=== PATIENT | female | born 1960 | race Caucasian/White ===

== ENCOUNTER 2021-06-06 13:23 | Emergency (ER) | payer OTHER, SELFPAY ==
--- NOTE | 2021-06-06 13:39 | ED.WOUNDLAC ---
HPI - Wound/Laceration General Chief Complaint: Skin/Abscess/Foreign Body Stated Complaint: Laceration to Left Finger Time Seen by Provider: 06/06/21 13:49 Source: patient and RN notes reviewed Mode of arrival: ambulatory Limitations: no limitations History of Present Illness HPI narrative: 61-year-old female presents concern for laceration to the palmar aspect of the distal third digit of the left hand. Reports she sliced it on a meat hanger prior to arrival at work. She reports she is on blood thinners and the area has been bleeding a lot. She reports she is not up-to-date on her tetanus vaccination Related Data Home Medications Medication Instructions Recorded Confirmed hydroxychloroquine 200 mg tablet 200 mg PO DAILY 02/19/19 06/06/21 levothyroxine 88 mcg tablet 88 mcg PO DAILY 02/19/19 06/06/21 lorazepam 0.5 mg tablet 0.5 mg PO DAILY PRN 02/19/19 06/06/21 methotrexate sodium 5 mg tablet 2.5 mg PO WEEKLY 02/19/19 06/06/21 clopidogrel 75 mg PO DAILY 06/06/21 06/06/21 lovastatin 40 mg PO DAILY 06/06/21 06/06/21 Allergies Allergy/AdvReac Type Severity Reaction Status Date / Time No Known Allergies Allergy Verified 06/06/21 14:05 Review of Systems Review of Systems: CONSTITUTIONAL: Denies malaise, chills, sweats, or fever. SKIN: Reports laceration to the palmar aspect of the third digit of the left hand MUSCULOSKELETAL: Denies muscle skeletal pain NEUROLOGIC: Denies numbness, weakness All systems reviewed & are unremarkable except as noted in HPI and below PMFSH Family History Family History (Updated 07/21/16 @ 23:56 by DOCTOR UNKNOWN) Mother Hypertension Family history of rheumatoid arthritis Father Family history of lung cancer, Onset Age: 64 Patient's father is Social History Social History Smoking status: Never smoker Second hand tobacco smoke exposure: No Alcohol intake: current Comments At time of signature, agree with nursing past medical, surgical, social and family history. There is no relevant family history pertinent to the presenting complaint Exam Narrative: GENERAL: Well-appearing, well-nourished, and in no acute distress. HEAD: Normocephalic EYES: PERRLA, conjunctivae clear NECK: Supple. CHEST: Speaks in full sentences. No respiratory distress. HEART: Regular rate and rhythm. Normal and equal peripheral pulses. EXTREMITIES: Third digit of left hand has normal strength and sensation. 5/5 strength with digit flexion, extension. Range of motion normal. No clubbing, cyanosis, or edema noted. No tenderness. Normal digital cascade with flexion of fingers, median, ulnar and radial nerve intact. Normal sensation of each side of finger. Can perform 'okay' sign, 'cross over finger test of index and middle fingers' and 'thumbs up' sign. No scissoring. Normal thumb opposition. Good capillary refill and radial pulse. Distal capillary refill less than 3 seconds. Patient is right hand dominant SKIN: Warn, dry, intact, pink. Skin avulsion noted to the palmar aspect of the third digit of the left hand approximately 3 cm x 1 cm NEURO: Alert and oriented x3. PSYCH: Normal mood and affect Course Course Emergency Course: Right gel applied with pressure dressing for greater than 10 minutes. Surgicel applied with pressure held until hemostasis achieved. Tube gauze applied Patient is aware of diagnosis, understands and agrees to treatment plan. Anticipatory guidance given. Patient agrees to follow-up as directed and is aware of reasons to seek care at the emergency department. Portions of this record may have been created with voice recognition software Level of Care: Express Care Visit Vital Signs Vital signs: Reviewed. MDM - Wound/Laceration MDM Narrative Medical decision making narrative: Exam findings show no acute concerns or changes; patient is non-toxic appearing and is in no distress. Patient is appropriate for outpatient treatment and follow-up. Differenti
[2021-06-06 13:40] VITALS: BP 154/83; PULSE 73; RESP 20; TEMP 36.7; O2SAT 100
[2021-06-06] MEDS: LIDOCAINE, EPINEPHRINE, TETRACAINE VISCOUS SOLN 3 ML TOPICAL (13:58)
[2021-06-06] MEDS: TETANUS,DIPHTHERIA,AC PERTUSSIS ADULT (0.5 ML) BOOSTRIX IM (13:59)
== END 2021-06-06 15:06 | disposition home or self-care (01) ==
PROVIDERS: Emergency Provider Nurse Practitioner
DX: S61.203A Unspecified open wound of left middle finger without damage to nail, initial encounter (principal); W29.0XXA Contact with powered kitchen appliance, initial encounter; Y99.0 Civilian activity done for income or pay; Z23 Encounter for immunization; E78.00 Pure hypercholesterolemia, unspecified; I10 Essential (primary) hypertension; I25.2 Old myocardial infarction; Z95.5 Presence of coronary angioplasty implant and graft; M06.9 Rheumatoid arthritis, unspecified
CPT/HCPCS: 90471; 90715; 99212; G0463

== ENCOUNTER 2024-01-03 14:35 | Outpatient (CLI) | payer OTHER, SELFPAY ==
[2024-01-03 18:55] LABS: Add Urine Microscopic? NO; Appearance Urine Clear (Clear); Bilirubin Urine Negative (Negative); Blood Urine Negative (Negative); Color Urine Yellow (Yellow); Glucose Urine UA Negative (Negative); Ketones Urine Negative (Negative); Leukocyte Esterase Ur Negative LEU/UL (Negative); Nitrate Urine Negative (Negative); Protein Urine Negative (Negative); Specific Grav Ur 1.017 (1.001-1.035)
[2024-01-03 19:08] LABS: Erythrocyte Sedimentation Rate 18 mm/hr (0-20)
[2024-01-03 19:25] LABS: Rheumatoid Factor < 12.0 IU/ML (<12)
[2024-01-03 19:25] LABS: CRP < 0.5 mg/dL (<1.0); Uric Acid 4.7 mg/dL (2.5-7.5)
[2024-01-04 10:27] LABS: ANA Cascade Screen NEGATIVE (NEGATIVE)
[2024-01-05 12:53] LABS: NIL 0.02 IU/mL; Quantiferon TB Plus, 1T NEGATIVE (NEGATIVE); TB1-NIL <0.00 IU/mL
[2024-01-11 16:25] LABS: Anti Cyclic Citrullinated Pept <16 UNITS
== END 2024-01-03 14:36 | disposition home or self-care (01) ==
PROVIDERS: Visit Provider Internal Medicine
DX: M06.9 Rheumatoid arthritis, unspecified (principal); Z79.899 Other long term (current) drug therapy
CPT/HCPCS: 36415; 81003; 84550; 85652; 86038; 86140; 86200; 86225; 86235; 86364; 86430; 86480; 87086

== ENCOUNTER 2024-11-04 09:53 | Outpatient (CLI) | payer MEDICARE, SELFPAY ==
--- OUTSIDE RECORDS SUMMARY | 2024-11-04 10:00 | XMS_ITS | Encounter Summary ---
Author Organization [facility] Address [address] [place] [address] Phone Care Team Providers Care Hr Assistant Name Role Phone Haydee Rust MD Primary Care Provider + [phone] Timmy Devries MD Unavailable [phone] Irwin Zee MD Unavailable UnaJeny Houser MD Primary Care Provider + [phone] Husam Gomez DPAsim Unavailable Unavailable Edgar Ordaz Primary Care Provider + [phone] Malini Aparicio DOVETAIL MACHINE OPERATOR, SHIPPING RECEIVING MANAGER Unavailable + [phone] Malini Aparicio DOVETAIL MACHINE OPERATOR, SHIPPING RECEIVING MANAGER Unavailable + [phone] Reason for Visit * Reason Onset Date Comments Medication Refill Medication Refill 12/29/2019 Encounter Details Date Type Department Care Team (Late st Contact Info) Description 12/26/2019 Refill [facility] - [address] [place] [address] Haydee Rust MD [address] [place] [address] Medication Refill; Medication Refill Social History Tobacco Use Types Packs/Day Years Used Date Smoking Tobacco: Never Smokeless Tobacco: Never Alcohol Use Standard Drinks/Week Comments Yes 0 (1 standard drink = 0.6 oz pur e alcohol) PHQ-2 Answer Date Recorded Total Score - Questions 1-9 13 09/15 Comments No Sex and Gender Information Value Date Recorded Sex Assigned at Not on file Legal Sex Female 9:43 PM CDT Gender Identity Not on file Sexual Orientation Not on file documented as of this encounter Miscellaneous Notes * Telephone Encounter - Altagracia Fernandez - 12/27/2019 9:36 AM CDT Unable to sign per policy Routing for provider review and approval Thanks! documented in this encounter Plan of Treatment Upcoming Encounters Date Type Department Care Team (Late st Contact Info) Description 12/22/2024 8:40 AM CD[facility] [place] [address] [place] [address] [facility] 12/29/2024 10:30 AM CDT Office Visit [facility] Primary Care - [place] [address] [place] [address] Edgar Ordaz PAC [address] [place] [address] 07/06/2025 10:00 AM CDT Office Visit [facility] - Cardiology - [place] [address] [place] [address] Erin Up APRN, SHIPPING RECEIVING MANAGER [address] [place] [address] documented as of this encounter Visit Diagnoses Diagnosis Anxiety Anxiety state, unspecified documented in this encounter Additional Health Concerns Infection Onset Date Last Indicated Resolved Time Other 12/30/2019 12/30/2019 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 - 19 Confirmed 12/30/2019 12/30/2019 12:18 AM CDT Respiratory Rule Out - RPA 02/16/2023 02/16/202304/18/2022 2:08 PM CDT Assessment Noted Time PHQ-9 Depression Total Score: 13 020 11:00 AM CDT documented as of this encounter Care Teams Hr Assistant Relationship Specialty Start Date End Date Haydee Rust MD PCP - General Family Medicine 01/27/15 05/07/22 Jeny Jarrett MD [address] [place], [place] [id number] PCP - General Family Medicine 05/08/22 06/20/23 Edgar Ordaz, [facility] [address] [place] [address] PCP - General Physician Clinical Appeals Reviewer 06/21/23 Timmy Devries MD [address] [facility] [address] [place] [address] Obstetrics & Gynecology 08/31/16 Irwin Zee MD [address] [facility] [address] [place] [address] Consulting Physician Cardiovascular Disease - Cardiology 11/08/21 03/18/24 Husam Gomez DPM Podiatry 12/07/21 Malini Aparicio APRN, SHIPPING RECEIVING MANAGER [address] [facility], [address] [place] [address] Nurse Practitioner Advanced Practice Nurse 10/19/23 Malini Aparicio APRN, SHIPPING RECEIVING MANAGER [address] [facility], [address] [place] [address] Nurse Practitioner Cardiology 07/09/24 10/21/24 documented as of this encounter
--- OUTSIDE RECORDS SUMMARY | 2024-11-04 10:00 | XMS_ITS | Encounter Summary ---
Author Organization [facility] Address [address] [place] [address] Phone Care Team Providers Care Gastroenterology Professor Name Role Phone Haydee Rust MD Primary Care Provider + [phone] Timmy Devries MD Unavailable [phone] Irwin Zee MD Unavailable UnaJeny Houser MD Primary Care Provider + [phone] Husam Gomez DPAsim Unavailable Unavailable Edgar Ordaz Primary Care Provider + [phone] Malini Aparicio GRADUATE ASSISTANT, TEACHER COUNSELOR Unavailable + [phone] Malini Aparicio GRADUATE ASSISTANT, TEACHER COUNSELOR Unavailable + [phone] Reason for Visit * Reason Comments Medication Refill Encounter Details Date Type Department Care Team (Late st Contact Info) Description 12/31/2020 Refill [facility] - Primary Care - [place] [address] [place] [address] Haydee Rust MD [address] [place] [address] Medication Refill Social History Tobacco Use Types [...] encounter Miscellaneous Notes * Telephone Encounter - Cira Mauricio RN - 12/31/2020 8:45 AM CDT [place] last fill date 11/22/20 Medication failed the protocol, provider to review and approve the medication order if appropriate. Requested Prescriptions Pending Prescriptions Disp Refills LORazepam (ATIVAN) 0.5 MG Tablet [Pharmacy Med Name: LORazepam 0.5 MG Oral Tablet] 30 Tablet 0 Sig: TAKE 1 TABLET BY MOUTH NIGHTLY NEEDED FOR SLEEP [facility] Not Delegated - Anesthesia: Anesthetics & Sedatives Failed - 12/31/2020 8:45 AM Failed - This refill cannot be delegated Passed - Valid encounter within last 6 months Past Office Visits Recent Outpatient Visits 1 month ago Physical exam, annual (Adult) [facility] Haydee Rust MD 7 months ago Hyperlipidemia, unspecified hyperlipidemia type [facility] Haydee Rust MD 1 year ago Physical exam, annual (Adult) [facility] Haydee Rust MD 1 year ago Allergic dermatitis due to poison kimi [facility] Haydee Rust MD 1 year ago Anxiety [facility] Haydee Rust MD Upcoming Appointments Future Appointments In 10 months [facility] In 10 months Haydee Rust MD [facility] SALES SERVICE ROUTE MANAGER - Recent and Past Visits Recent Visits Date Type Provider Dept 11/11/20 Office Visit Haydee Rust MD [facility] 05/06/20 Telemedicine Haydee Rust MD [facility] 11/04/19 Office Visit Haydee Rust MD [facility] 10/06/19 Office Visit Haydee Rust MD [facility] Showing recent visits within past 460 days with a meds authorizing provider and meeting all other requirements Future Appointments No visits were found meeting these conditions. Showing future appointments within next 90 days with a meds authorizing provider and meeting all other requirements documented in this encounter Plan of Treatment Upcoming Encounters Date Type Department Care Team (Late st Contact Info) Description 12/22/2024 8:40 AM CDT Lab [facility] [place] [address] [place] [address] [facility] 12/29/2024 10:30 AM CDT Office Visit [facility] Primary [facility] - [place] [address] [place] [address] Edgar Ordaz PAC [address] [place] [address] 07/06/2025 10:00 AM CDT Office Visit [facility] - [place] [address] [place] [address] Erin Up APRN, TEACHER COUNSELOR [address] [place] [address] documented as of this encounter Visit Diagnoses Diagnosis Anxiety Anxiety state, unspecified documented in this encounter Additional Health Concerns Infection Onset Date Last Indicated Resolved Time Other 12/30/2019 12/30/2019 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 Respiratory Rule Out - RPA 02/16/2023 02/16/2023 1 04/18/2022 2:08 PM CDT Assessment Noted Time PHQ-9 Depression Total Score: 13 020 11:00 AM CDT documented as of this encounter Care Teams Gastroenterology Professor Relationship Specialty Start Date End Date Haydee Rust MD PCP - General Family Medicine 01/27/15 05/07/22 Jeny Jarrett MD [address] [place] [address] PCP - General Family Medicine 05/08/22 06/20/23 Edgar Ordaz, PAC [address] [place] [address] PCP - General Physician Sheriff Deputy 06/21/23 Timmy Devries MD [address] [facility] [address] [place] [address] Obstetrics & Gynecology 08/31/16 Irwin Zee MD [address] [facility] [address] [place] [address] Consulting Physician Cardiovascular Disease - Cardiology 11/08/21 03/18/24 Husam Gomez DPM Podiatry 12/07/21 Malini Aparicio APRN, TEACHER COUNSELOR [address] [facility], [address] [place] [address] Nurse Practitioner Advanced Practice Nurse 10/19/23 Malini Aparicio APRN, TEACHER COUNSELOR [address] [facility], [address] [place] [address] Nurse Practitioner Cardiology 07/09/24 10/21/24 documented as of this encounter
--- OUTSIDE RECORDS SUMMARY | 2024-11-04 10:00 | XMS_ITS | Encounter Summary ---
Author Organization [facility] Address [address] [place] [address] Phone Care Team Providers Care Director Translational Name Role Phone Timmy Devries MD Unavailable [phone] Irwin Zee MD Unavailable UnaJeny Houser MD Primary Care Provider + [phone] Husam Gomez DPM Unavailable Unavailable Edgar Ordaz Primary Care Provider + [phone] Malini Aparicio PHYSICIAN NEONATOLOGY, STRING CUTTER Unavailable + [phone] Malini Aparicio PHYSICIAN NEONATOLOGY, STRING CUTTER Unavailable + [phone] Reason for Visit * Reason Comments Medication Refill Encounter Details Date Type Department Care Team (Late st Contact Info) Description 09/26/2022 Refill [facility] - Primary Care - [place] [address] [place] [address] Haydee Rust MD [address] [place] [address] Medication Refill Social History Tobacco Use Types Packs/Day Years Used Date Smoking Tobacco: Never Smokeless Tobacco: Never Alcohol Use Standard Drinks/Week Comments Not Currently 0 (1 standard drink = 0.6 oz pur e alcohol) PHQ-2 Answer Date Recorded Total Score - Questions 1-9 13 09/15 Education Answer Date Recorded What is the highest level of school you have completed or the highest degree you have received? 12th grade 05/07/2022 Comments No Sex and Gender Information Value Date Recorded Sex Assigned at Not on file Legal Sex Female 9:43 PM CDT Gender Identity Not on file Sexual Orientation Not on file documented as of this encounter Miscellaneous Notes * Telephone Encounter - Edgar Ordaz PAC - 09/27/2022 9:25 AM CDT Rx request approved. * Telephone Encounter - Mary More RN - 09/26/2022 11:02 AM CDT Medication failed the protocol, provider to review and approve the medication order if appropriate. Requested Prescriptions Pending Prescriptions Disp Refills lovastatin (MEVACOR) 40 MG Tablet [Pharmacy Med Name: Lovastatin 40 MG Oral Tablet] 90 Tablet 0 Sig: TAKE 1 TABLET BY MOUTH ONCE DAILY IN THE EVENING Hmg CoA Reductase Inhibitors Protocol Failed - 09/26/2022 10:52 AM Failed - Lipid panel in past 12 months LDL Date Value Ref Range Status 05/01/2022 63 0 - 130 mg/dL Final 05/01/2022 63 0 - 130 mg/dL Final HDL CHOLESTEROL Date Value Ref Range Status 08/01/2021 67.7 >40 mg/dL Final CHOLESTEROL Date Value Ref Range Status 08/01/2021 118 <=200 mg/dL Final TRIGLYCERIDES Date Value Ref Range Status 08/01/2021 44 <150 mg/dL Final VLDL Date Value Ref Range Status 08/01/2021 9 5 - 55 mg/dL Final CHOL/HDL RATIO Date Value Ref Range Status 08/01/2021 1.7 0.0 - 4.4 Final NON-HDL CHOLESTEROL Date Value Ref Range Status 08/01/2021 50.3 <130 mg/dL Final Passed - Visit with relevant provider in past 12 months or upcoming 90 days Recent Visits Date Type Provider Dept 05/08/22 Office Visit Jeny Jarrett MD [facility] 03/15/22 Office Visit Edgar Ordaz PAC [facility] 02/28/22 Office Visit Maria Victoria Horton APRN, STRING CUTTER [facility] 11/01/21 Office Visit Haydee Rust MD [facility] Showing recent visits within past 365 days and meeting all other requirements Future Appointments Date Type Provider Dept 11/06/22 Appointment Jeny Jarrett MD [facility] Showing future appointments within next 90 days and meeting all other requirements documented in this encounter Plan of Treatment Upcoming Encounters Date Type Department Care Team (Late st Contact Info) Description 12/22/2024 8:40 AM CDT Lab [facility] - [place] [id number] [place] [address] [facility] 12/29/2024 10:30 AM CDT Office Visit [facility] - [place] [address] [place] [address] Edgar Ordaz PAC [address] [place] [address] 07/06/2025 10:00 AM CDT Office Visit [facility] - Cardiology - [place] [address] [place] [address] Erin Up APRN, STRING CUTTER [address] [place] [address] documented as of this encounter Visit Diagnoses Diagnosis Hyperlipidemia, unspecified hyperlipidemia type documented in this encounter Additional Health Concerns Infection Onset Date Last Indicated Resolved Time Respiratory Rule Out - RPA 02/16/2023 02/16/2023 1 04/18/2022 2:08 PM CDT Assessment Noted Time PHQ-9 Depression Total Score: 13 020 11:00 AM CDT documented as of this encounter Care Teams Director Translational Relationship Specialty Start Date End Date Jeny Jarrett MD [address] [place] [address] PCP - General Family Medicine 05/08/22 06/20/23 Edgar Ordaz, PAC [address] [place] [address] PCP - General Physician Latex Spooler 06/21/23 Timmy Devries MD [address] [facility] [address] [place] [address] Obstetrics & Gynecology 08/31/16 Irwin Zee MD [address] [facility] [address] [place] [address] Consulting Physician Cardiovascular Disease - Cardiology 11/08/21 03/18/24 Husam Gomez DPM Podiatry 12/07/21 Malini Aparicio APRN, STRING CUTTER [address] [facility], [address] [place] [address] Nurse Practitioner Advanced Practice Nurse 10/19/23 Malini Aparicio APRN, STRING CUTTER [address] [facility], [address] [place] [address] Nurse Practitioner Cardiology 07/09/24 10/21/24 documented as of this encounter
--- OUTSIDE RECORDS SUMMARY | 2024-11-04 10:00 | XMS_ITS | Encounter Summary ---
Author Organization [facility] Address [address] [place] [address] Phone Care Team Providers Care Polysomnograph Tech Name Role Phone Timmy Devries MD Unavailable [phone] Irwin Zee MD Unavailable Husam Marx DPAsim Unavailable Unavailable Edgar Ordaz Primary Care Provider [phone] Malini Aparicio CHARGEBACK SPECIALIST, INVENTORY CONTROL ASSISTANT Unavailable + [phone] Malini Aparicio APRN, INVENTORY CONTROL ASSISTANT Unavailable + [phone] Reason for Visit * Reason Comments Medication Refill Encounter Details Date Type Department Care Team (Late st Contact Info) Description 06/21/2023 Refill [facility] - Primary Care - [place] [address] [place] [address] Edgar Ordaz, PAC [address] [place] [address] Medication Refill Social History Tobacco Use Types Packs/Day Years Used Date Smoking Tobacco: Never Smokeless Tobacco: Never Alcohol Use Standard Drinks/Week Comments Not Currently 0 (1 standard drink = 0.6 oz pur e alcohol) [facility] Utilities Answer Date Recorded In the past 12 months has th e electric, gas, oil, or water company threatened to shut off services in your home? No 06/19/2023 Social Connection and Isolation Panel Answer Date Recorded In a typical week, how many times do you talk on the phone with family, friends, or neighbors? Once a week 06/19/2023 How often do you get togethe r with friends or relatives? Once a week 06/19/2023 How often do you attend chur ch or rastafarian services? More than 4 times per year 06/19/2023 Do you belong to any clubs o r organizations such as moravian groups, unions, fraternal or athletic groups, or school groups? No 06/19/2023 How often do you attend meet ings of the clubs or organizations you belong to? Patient declined 06/19/2023 Are you , , di vorced, , never , or living with a partner? 06/19/2023 AUDIT-C Answer Date Recorded Q1: How often do you have a drink containing alcohol? Patient declined 06/19/2023 Q2: How many drinks containi ng alcohol do you have on a typical day when you are drinking? Patient does not drink Q3: How often do you have si x or more drinks on one occasion? Never 06/19/2023 PHQ-2 Answer Date Recorded Total Score - Questions 1-9 13 09/15 [facility] of Occupat ional Health - Occupational Stress Questionnaire Answer Date Recorded Do you feel stress - tense, restless, nervous, or anxious, or unable to sleep at night because your mind is troubled all the time - these days? To some extent 06/19/2023 Exercise Vital Sign Answer Date Recorde d On average, how many days pe r week do you engage in moderate to strenuous exercise (like a brisk walk)? Patient declined On average, how many minutes do you engage in exercise at this level? Patient declined 06/19/2023 Hunger Vital Sign Answer Date Recorded Within the past 12 months, y ou worried that your food would run out before you got the money to buy more. Never true 06/19/19 24 Within the past 12 months, t he food you bought just didn't last and you didn't have money to get more. Never true 06/19/2023 PRAPARE - Transportation Answer Date Re corded In the past 12 months, has l ack of transportation kept you from medical appointments or from getting medications? No 08/2023 In the past 12 months, has l ack of transportation kept you from meetings, work, or from getting things needed for daily living? No 06/19/2023 Housing Stability Vital Sign Answer [place] e Recorded In the last 12 months, was t here a time when you were not able to pay the mortgage or rent on time? No 06/19/2023 In the last 12 months, how many places have you lived? 1 06/19/2023 In the last 12 months, was t here a time when you did not have a steady place to sleep or slept in a group home (including now)? No 06/19/2023 Education Answer Date Recorded What is the [...] Telephone Encounter - Edgar Ordaz PAC - 06/21/2023 10:48 AM MEDICAL COLLECTIONS REPRESENTATIVE Refilled in office visit encounter. CAL COLLECTIONS REPRESENTATIVE * Telephone Encounter - Agueda Carlos RN - 06/21/2023 8:02 AM MEDICAL COLLECTIONS REPRESENTATIVE Medication failed the protocol, provider to review and approve the medication order if appropriate. Requested Prescriptions Pending Prescriptions Disp Refills LORazepam (ATIVAN) 0.5 MG Tablet [Pharmacy Med Name: LORazepam 0.5 MG Oral Tablet] 30 Tablet 0 Sig: TAKE 1 TABLET BY MOUTH AT NIGHT NEEDED FOR SLEEP Not Delegated - Benzodiazepines Protocol Failed - 06/21/2023 6:34 AM Failed - This refill cannot be delegated Passed - Visit with relevant provider in past 12 months or upcoming 90 days Recent Visits Date Type Provider Dept 02/16/23 Office Visit Edgar Ordaz PAC [facility] 12/21/22 Office Visit Jeny Jarrett MD [facility] Showing recent visits within past 365 days and meeting all other requirements Today's Visits Date Type Provider Dept 06/21/23 Appointment Edgar Ordaz PAC [facility] Showing today's visits and meeting all other requirements Future Appointments No visits were found meeting these conditions. Showing future appointments within next 90 days and meeting all other requirements CAL COLLECTIONS REPRESENTATIVE documented in this encounter Plan of Treatment Upcoming Encounters Date Type Department Care Team (Late st Contact Info) Description 12/22/2024 8:40 AM CDT Lab [facility] [place] [address] [place] [address] [facility] 12/29/2024 10:30 AM CDT Office Visit [facility] - [place] [address] [place] [address] Edgar Ordaz PAC [address] [place] [address] 07/06/2025 10:00 AM CDT Office Visit [facility] - Cardiology - [place] [address] [place] [address] Erin Up APRN, INVENTORY CONTROL ASSISTANT [address] [place] [address] documented as of this encounter Visit Diagnoses Diagnosis Anxiety Anxiety state, unspecified documented in this encounter Additional Health Concerns Assessment Noted Time PHQ-9 Depression Total Score: 13 020 11:00 AM CDT documented as of this encounter Care Teams Polysomnograph Tech Relationship Specialty Start Date End Date Edgar Ordaz PAC [address] [place] [address] PCP - General Physician Board Mill Supervisor 06/21/23 Timmy Devries MD [address] [facility] [address] [place] [address] Obstetrics & Gynecology 08/31/16 Irwin Zee MD [address] [facility] [address] [place] [address] Consulting Physician Cardiovascular Disease - Cardiology 11/08/21 03/18/24 Husam Gomez DPM Podiatry 12/07/21 Malini Aparicio APRN, INVENTORY CONTROL ASSISTANT [address] [facility], [address] [place] [address] Nurse Practitioner Advanced Practice Nurse 10/19/23 Malini Aparicio APRN, INVENTORY CONTROL ASSISTANT [address]2 [facility] [facility], [address] [place] [address] Nurse Practitioner Cardiology 07/09/24 10/21/24 documented as of this encounter
--- OUTSIDE RECORDS SUMMARY | 2024-11-04 10:00 | XMS_ITS | Encounter Summary ---
Author Organization [facility] Address [address] [place] [address] Phone Care Team Providers Care Dumpman Name Role Phone Haydee Rust MD Primary Care Provider + [phone] Timmy Devries MD Unavailable [phone] Irwin Zee MD Unavailable UnaJeny Houser MD Primary Care Provider + [phone] Husam Gomez DPAsim Unavailable Unavailable Edgar Ordaz Primary Care Provider + [phone] Malini Aparicio CRM DYNAMICS DEVELOPER, BARBER OR BEAUTY SHOP MANAGER Unavailable + [phone] Malini Aparicio CRM DYNAMICS DEVELOPER, BARBER OR BEAUTY SHOP MANAGER Unavailable + [phone] Reason for Visit * Reason Comments Medication Refill Encounter Details Date Type Department Care Team (Late st Contact Info) Description 04/18/2021 Refill [facility] - Primary Care - [place] [address] [place] [address] Haydee Rust MD [address] [place] [address] Medication Refill Social History Tobacco [...] on file Sexual Orientation Not on file COVID-19 Exposure Response Date Recorded In the last month, have you been in contact with someone who was confirmed or suspected to have Coronavirus / COVID-19? No / Unsure 04/18/2021 2:28 PM WARP TRUCKER documented as of this encounter Miscellaneous Notes * Telephone Encounter - Agueda Carlos RN - 04/18/2021 2:59 PM WARP TRUCKER Medication failed the protocol, provider to review and approve the medication order if appropriate. Requested Prescriptions Pending Prescriptions Disp Refills LORazepam (ATIVAN) 0.5 MG Tablet [Pharmacy Med Name: LORAZEPAM 0.5MG TAB] 30 Tablet 0 Sig: TAKE 1 TABLET BY MOUTH NIGHTLY NEEDED FOR SLEEP Not Delegated - Off Protocol Failed - 04/18/2021 2:18 PM Failed - This refill cannot be delegated Passed - Visit with relevant provider in past 12 months or upcoming 90 days Recent Visits Date Type Provider Dept 04/11/21 Office Visit Maria Victoria Horton APRN, CNP [facility] 03/30/21 Office Visit Maria Victoria Horton APRN, CNP [facility] 11/11/20 Office Visit Haydee Rust MD [facility] 05/06/20 Telemedicine Haydee Rust MD [facility] [employer] Showing recent visits within past 365 days and meeting all other requirements Future Appointments Date Type Provider Dept 04/19/21 [facility] Showing future appointments within next 90 days and meeting all other requirements TRUCKER documented in this encounter Plan of Treatment Upcoming Encounters Date Type Department Care Team (Late st Contact Info) Description 12/22/2024 8:40 AM CDT Lab [facility] [place] [address] [place] [address] [facility] 12/29/2024 10:30 AM CDT [facility] - [place] [address] [place] [address] Edgar Ordaz PAC [address] [place] [address] 07/06/2025 10:00 AM CDT Office Visit [facility] Cardiology - [place] [address] [place] [address] Erin Up APRN, BARBER OR BEAUTY SHOP MANAGER [address] [place] [address] documented as of this encounter Visit Diagnoses Diagnosis Anxiety Anxiety state, unspecified documented in this encounter Additional Health Concerns Infection Onset Date Last Indicated Resolved Time Respiratory Rule Out - RPA 02/16/2023 02/16/2023 1 04/18/2022 2:08 PM CDT Assessment Noted Time PHQ-9 Depression Total Score: 13 020 11:00 AM CDT documented as of this encounter Care Teams Dumpman Relationship Specialty Start Date End Date Haydee Rust MD PCP - General Family Medicine 01/27/15 05/07/22 Jeny Jarrett MD [address] [place], [place] [id number] PCP - General Family Medicine 05/08/22 06/20/23 Edgar Ordaz, PAC [address] [place] [address] PCP - General Physician Ruby On Rails Developer 06/21/23 Timmy Devries MD [address] [facility] [address] [place] [address] Obstetrics & Gynecology 08/31/16 Irwin Zee MD [address] [facility] [address] [place] [address] Consulting Physician Cardiovascular Disease - Cardiology 11/08/21 03/18/24 Husam Gomez DPM Podiatry 12/07/21 Mlaini Aparicio APRN, BARBER OR BEAUTY SHOP MANAGER [address] [facility], [address] [place] [address] Nurse Practitioner Advanced Practice Nurse 10/19/23 Malini Aparicio APRN, BARBER OR BEAUTY SHOP MANAGER [address] [facility], [address] [place] [address] Nurse Practitioner Cardiology 07/09/24 10/21/24 documented as of this encounter
--- OUTSIDE RECORDS SUMMARY | 2024-11-04 10:00 | XMS_ITS | Encounter Summary ---
Author Organization [facility] Address [address] [place] [address] Phone Care Team Providers Care Pharmacy Scheduler Name Role Phone Haydee Rust MD Primary Care Provider + [phone] Timmy Devries MD Unavailable [phone] Irwin Zee MD Unavailable UnaJeny Houser MD Primary Care Provider + [phone] Husam Gomez DPAsim Unavailable Unavailable Edgar Ordaz Primary Care Provider + [phone] Malini Aparicio MOLD INSPECTOR, TOOTH CUTTER PINION Unavailable + [phone] Malini Aparicio MOLD INSPECTOR, TOOTH CUTTER PINION Unavailable + [phone] Reason for Visit * Reason Comments Medication Refill Encounter Details Date Type Department Care Team (Late st Contact Info) Description 03/01/2020 Refill [facility] - Primary Care - [place] [address] [place] [address] Haydee Rust MD [address] [place] [address] Medication Refill Social History Tobacco [...] encounter Miscellaneous Notes * Telephone Encounter - Marlee Sanchez, [facility] - 03/01/2020 1:10 PM CST Medication failed the protocol, provider to review and approve the medication order if appropriate. Requested Prescriptions Pending Prescriptions Disp Refills LORazepam (ATIVAN) 0.5 MG Tablet [Pharmacy Med Name: LORazepam 0.5 MG Oral Tablet] 30 Tab 0 Sig: TAKE 1 TABLET BY MOUTH NIGHTLY NEEDED FOR ANXIETY Not Delegated - Anesthesia: Anesthetics & Sedatives Failed - 03/01/2020 1:07 PM Failed - This refill cannot be delegated Passed - Valid encounter within last 6 months Past Office Visits Recent Outpatient Visits 3 months ago Physical exam, annual (Adult) [facility] Haydee Rust MD 4 months ago Allergic dermatitis due to poison kimi [facility] Haydee Wagner MD 1 year ago [facility] RLQ abdominal pain [facility] Haydee Wagner MD 1 year ago Nausea and vomiting, intractability of vomiting not specified, unspecified vomiting type [facility] Haydee Rust MD Upcoming Appointments Future Appointments In 1 month [place] [facility] In 2 months Haydee Rust MD [facility] PHYSICAL THER - Recent and Past Visits Recent Visits Date Type Provider Dept 11/04/19 Office Visit Haydee Rust MD [facility] 10/06/19 Office Visit Haydee Rust MD [facility] [place] 01/24/19 Office Visit Haydee Rust MD [facility] Showing recent visits within past 460 days with a meds authorizing provider and meeting all other requirements Future Appointments Date Type Provider Dept 05/06/20 Appointment [facility] future appointments within next 90 days with a meds authorizing provider and meeting all other requirements VIBRATOR OPERATOR documented in this encounter Plan of Treatment Upcoming Encounters Date Type Department Care Team (Late st Contact Info) Description 12/22/2024 8:40 AM CDT Lab [facility] - [place] [address] [address] [place] [address] [facility] 12/29/2024 10:30 AM CDT Office Visit [facility] - Primary Care - [place] [address] [place] [address] Edgar Ordaz PAC [address] [place] [address] 07/06/2025 10:00 AM CDT Office Visit [facility] - Cardiology - [place] [address] [place] [address] Erin Up APRN, TOOTH CUTTER PINION [address] [place] [address] documented as of this encounter Visit Diagnoses Diagnosis Anxiety Anxiety state, unspecified documented in this encounter Additional Health Concerns Infection Onset Date Last Indicated Resolved Time Other 12/30/2019 12/30/2019 03/21/2021 4:55 PM GANG VIBRATOR OPERATOR Respiratory Rule Out - RPA 02/16/2023 02/16/2023 1 04/18/2022 2:08 PM CDT Assessment Noted Time PHQ-9 Depression Total Score: 13 020 11:00 AM CDT documented as of this encounter Care Teams Pharmacy Scheduler Relationship Specialty Start Date End Date Haydee Rust MD PCP - General Family Medicine 01/27/15 05/07/22 Jeny Jarrett MD [address] [place] [address] PCP - General Family Medicine 05/08/22 06/20/23 Edgar Ordaz, PAC [address] [place] [address] PCP - General Physician Product Safety Head 06/21/23 iTmmy Devries MD [address] [facility] [address] [place] [address] Obstetrics & Gynecology 08/31/16 Irwin Zee MD [address] [facility] [address] [place] [address] Consulting Physician Cardiovascular Disease - Cardiology 11/08/21 03/18/24 Husam Gomez DPM Podiatry 12/07/21 Malini Aparicio APRN, TOOTH CUTTER PINION #2 [facility] [address] [facility], [address] [place] [address] Nurse Practitioner Advanced Practice Nurse 10/19/23 Malini Aparicio APRN, TOOTH CUTTER PINION [address]2 [facility] [address] [facility], [address] [place] [address] Nurse Practitioner Cardiology 07/09/24 10/21/24 documented as of this encounter
--- OUTSIDE RECORDS SUMMARY | 2024-11-04 10:00 | XMS_ITS | Encounter Summary ---
Author Organization [facility] Address [address] [place] [address] Phone Care Team Providers Care Farrowing Worker Name Role Phone Haydee Rust MD Primary Care Provider + [phone] Timmy Devries MD Unavailable [phone] Irwin Zee MD Unavailable UnaJeny Houser MD Primary Care Provider + [phone] Husam Gomez DPAsim Unavailable Unavailable Edgar Ordaz Primary Care Provider + [phone] Malini Aparicio GENERAL CAR YARD SUPERVISOR, REGISTERED TRAVEL NURSE Unavailable + [phone] Malini Aparicio GENERAL CAR YARD SUPERVISOR, REGISTERED TRAVEL NURSE Unavailable + [phone] Reason for Visit * Reason Comments Medication Refill Encounter Details Date Type Department Care Team (Late st Contact Info) Description 07/25/2021 Refill [facility] - Primary Care - [place] [address] [place] [address] Haydee Rust MD [address] [place] [address] Medication Refill Social History Tobacco [...] Telephone Encounter - Cira Mauricio RN - 07/26/2021 10:02 AM CDT Rx faxed to pharm * Telephone Encounter - Samantha Love RN - 07/25/2021 2:20 PM CDT Medication failed the protocol, provider to review and approve the medication order if appropriate. Requested Prescriptions Pending Prescriptions Disp Refills LORazepam (ATIVAN) 0.5 MG Tablet [Pharmacy Med Name: LORazepam 0.5 MG Oral Tablet] 30 Tablet 0 Sig: TAKE 1 TABLET BY MOUTH NIGHTLY NEEDED FOR SLEEP Not Delegated - Benzodiazepines Protocol Failed - 07/25/2021 2:10 PM Failed - This refill cannot be delegated Passed - Visit with relevant provider in past 12 months or upcoming 90 days Recent Visits Date Type Provider Dept 06/08/21 Office Visit Maria Victoria Horton APRN, CNP [employer] 04/11/21 Office Visit Maria Victoria Horton APRN, CNP [employer] 03/30/21 Office Visit Maria Victoria Horton APRN, CNP [employer] 11/11/20 Office Visit Haydee Rust MD [facility] [employer] [facility] Showing recent visits within past 365 days and meeting all other requirements Future Appointments Date Type Provider Dept 08/01/21 Appointment [facility] [place] [employer] [facility] 08/08/21 Appointment Haydee Rust MD [facility] [employer] [facility] Showing future appointments within next 90 days and meeting all other requirements documented in this encounter Plan of Treatment Upcoming Encounters Date Type Department Care Team (Late st Contact Info) Description 12/22/2024 8:40 AM CDT Lab [facility] [place] [address] [place] [address] [facility] 12/29/2024 10:30 AM CDT Office Visit [facility] [place] [address] [place] [address] Edgar Ordaz PAC [address] [place] [address] 07/06/2025 10:00 AM CDT Office Visit [facility] - Cardiology - [place] [address] [place] [address] Erin Up APRN, REGISTERED TRAVEL NURSE [address] [place] [address] documented as of this encounter Visit Diagnoses Diagnosis Anxiety Anxiety state, unspecified documented in this encounter Additional Health Concerns Infection Onset Date Last Indicated Resolved Time Respiratory Rule Out - RPA 02/16/2023 02/16/2023 1 04/18/2022 2:08 PM CDT Assessment Noted Time PHQ-9 Depression Total Score: 13 020 11:00 AM CDT documented as of this encounter Care Teams Farrowing Worker Relationship Specialty Start Date End Date Haydee Rust MD PCP - General Family Medicine 01/27/15 05/07/22 Jeny Jarrett MD [address] [place], [place] [id number] PCP - General Family Medicine 05/08/22 06/20/23 Edgar Ordaz, PAC [address] [place] [address] PCP - General Physician Radio Director 06/21/23 Timmy Devries MD [address] [facility] [address] [place] [address] Obstetrics & Gynecology 08/31/16 Irwin Zee MD [address] [facility] [address] [place] [address] Consulting Physician Cardiovascular Disease - Cardiology 11/08/21 03/18/24 Husam Gomez DPM Podiatry 12/07/21 Malini Aparicio APRN, REGISTERED TRAVEL NURSE [address] [facility], [address] [place] [address] Nurse Practitioner Advanced Practice Nurse 10/19/23 Malini Aparicio APRN, REGISTERED TRAVEL NURSE [address] [facility], [address] [place] [address] Nurse Practitioner Cardiology 07/09/24 10/21/24 documented as of this encounter
--- OUTSIDE RECORDS SUMMARY | 2024-11-04 10:00 | XMS_ITS | Encounter Summary ---
Author Organization [facility] Address [address] [place] [address] Phone Care Team Providers Care Suction Plate Carrier Cleaner Name Role Phone Haydee Rust MD Primary Care Provider + [phone] Timmy Devries MD Unavailable [phone] Irwin Zee MD Unavailable UnaJeny Houser MD Primary Care Provider + [phone] Husam Gomez DPAsim Unavailable Unavailable Edgar Ordaz Primary Care Provider + [phone] Malini Aparicio INTEGRATED CAMPAIGN MANAGER, MEDICAL STAFF SPECIALIST Unavailable + [phone] Malini Aparicio INTEGRATED CAMPAIGN MANAGER, MEDICAL STAFF SPECIALIST Unavailable + [phone] Reason for Visit * Reason Comments Medication Refill Encounter Details Date Type Department Care Team (Late st Contact Info) Description 03/21/[address] [facility] - Primary Care - [place] [address] [place] [address] Haydee Rust MD [address] [place] [address] Medication Refill Social History Tobacco [...] have Coronavirus / COVID-19? No / Unsure 03/21/2021 2:08 PM MOTOR VEHICLE EMISSIONS INSPECTOR documented as of this encounter Miscellaneous Notes * Telephone Encounter - Cira Mauricio RN - 03/21/2021 1:23 PM CST Per nursing clinical judgement, provider to review and approve the medication(s) order(s) if appropriate. Requested Prescriptions Pending Prescriptions Disp Refills levothyroxine (SYNTHROID) 88 MCG Tablet [Pharmacy Med Name: Levothyroxine Sodium 88 MCG Oral Tablet] 90 Tablet 0 Sig: Take 1 tablet by mouth once daily Thyroid Hormones Protocol Passed - 03/21/2021 1:22 PM Passed - Visit with relevant provider in past 12 months or upcoming 90 days Recent Visits Date Type Provider Dept 11/11/20 Office Visit Haydee Rust MD [facility] 05/06/20 Telemedicine Haydee Rust MD [facility] Showing recent visits within past 365 days and meeting all other requirements Future Appointments No visits were found meeting these conditions. Showing future appointments within next 90 days and meeting all other requirements Passed - Normal TSH in past 12 months TSH Date Value Ref Range Status 11/04/2020 0.520 0.270 - 4.200 mIU/L Final R VEHICLE EMISSIONS INSPECTOR documented in this encounter Plan of Treatment Upcoming Encounters Date Type Department Care Team (Late st Contact Info) Description 12/22/2024 8:40 AM CDT Lab [facility] - Primary Care - [place] [address] [place] [address] [facility] 12/29/2024 10:30 AM CDT Office Visit [facility] - Primary Care - [place] [address] [place] [address] Edgar Ordaz, KYLE [address] [place] [id number] 07/06/2025 10:00 AM CDT Office Visit [facility] - Cardiology - [place] [address] [place] [address] Erin Up APRN, MEDICAL STAFF SPECIALIST [address] [place] [address] documented as of this encounter Visit Diagnoses Diagnosis Hypothyroidism, unspecified type documented in this encounter Additional Health Concerns Infection Onset Date Last Indicated Resolved Time Other 12/30/2019 12/30/2019 03/21/2021 4:55 PM MOTOR VEHICLE EMISSIONS INSPECTOR Respiratory Rule Out - RPA 02/16/2023 02/16/2023 1 04/18/2022 2:08 PM CDT Assessment Noted Time PHQ-9 Depression Total Score: 13 020 11:00 AM CDT documented as of this encounter Care Teams Suction Plate Carrier Cleaner Relationship Specialty Start Date End Date Haydee Rust MD PCP - General Family Medicine 01/27/15 05/07/22 Jeny Jarrett MD [address] [place], [place] [id number] PCP - General Family Medicine 05/08/22 06/20/23 Edgar Ordaz PAC [address] [place] [address] PCP - General Physician Cash Accounting Clerk 06/21/23 Timmy Devries MD [address] [facility] [address] [place] [address] Obstetrics & Gynecology 08/31/16 Irwin Zee MD [address] [facility] [address] [place] [address] Consulting Physician Cardiovascular Disease - Cardiology 11/08/21 03/18/24 Husam Gomez DPM Podiatry 12/07/21 Malini Aparicio APRN, MEDICAL STAFF SPECIALIST [address] [place] [address] Nurse Practitioner Advanced Practice Nurse 10/19/23 Malini Aparicio APRN, MEDICAL STAFF SPECIALIST [address] [place] [address] Nurse Practitioner Cardiology 07/09/24 10/21/24 documented as of this encounter
--- OUTSIDE RECORDS SUMMARY | 2024-11-04 10:00 | XMS_ITS | Clinical Summary ---
Author Organization [facility] Address [address], [facility] [address] [place] [address] Phone Care Team Providers Care K 9 Handler/ Deputy Name Role Phone Timmy Devries MD Unavailable [phone] Husam Gomez DPM Unavailable Unavailable Edgar Ordaz PAC Primary Care Provider Allergies No known active allergies Medications albuterol 108 (90 Base) MCG/ACT Aerosol SolutionIndicatio ns:Mild asthma without complication, unspecified whether persistent take 2 Puffs by inhalation every 4 hours as needed for Wheezing. 1 Inhaler 1 11/04/19 20 Active nitroGLYCERIN (NITROSTAT) 0.4 MG SL Tablet 1 Tablet by Sublingual route every 5 minutes as needed for Chest pain. 20 Tablet 03/23/20 21 Active LACTOBACILLUS PO Take by mouth. Active methotrexate 2.5 MG TabletIndications :Rheumatoid arthritis involving multiple sites, unspecified whether rheumatoid factor present (HCC) TAKE 6 TABLETS BY MOUTH ONCE A WEEK FOR RHEUMATOID ARTHRITIS 24 Tablet 12/28/19 24 Active ondansetron (ZOFRAN-ODT) 4 MG TABLET DISPERSIBLE Take 1 Tablet by mouth every 6 hours as needed for Nausea - 1st line. 10 Tablet 03/25/20 24 Active ondansetron (ZOFRAN) 4 MG Tablet Take 1 Tablet by mouth every 6 hours as needed for Nausea - 1st line. 10 Tablet 03/26/20 24 Active hydroxychloroquin e (PLAQUENIL) 200 MG TabletIndications :Rheumatoid arthritis involving multiple sites, unspecified whether rheumatoid factor present (HCC) Take 1 tablet by mouth twice daily 180 Tablet 03/28/20 24 Active pantoprazole (PROTONIX) 20 MG Tablet Delayed ResponseIndicatio ns:Generalized abdominal pain Take 1 tablet by mouth once daily 90 Tablet 06/04/19 25 Active folic acid (FOLVITE) 1 MG Tablet Take 1 tablet by mouth once daily 90 Tablet 06/12/19 25 Active clopidogrel (PLAVIX) 75 MG Tablet Take 1 tablet by mouth once daily 90 Tablet 1 08/05/19 25 Active levothyroxine (SYNTHROID) 75 MCG TabletIndications :Hypothyroidism, unspecified type Take 1 tablet by mouth once daily 90 Tablet 1 08/09/19 25 Active lovastatin (MEVACOR) 20 MG TabletIndications :Hyperlipidemia, unspecified hyperlipidemia type TAKE 1 TABLET BY MOUTH ONCE DAILY IN THE EVENING 90 Tablet 1 08/09/19 25 Active metoprolol Succinate (TOPROL-XL) 25 MG TABLET SR 24 HRIndications:Mindy carrera hypertension Take 1 tablet by mouth once daily 90 Tablet 10/08/19 25 Active LORazepam (ATIVAN) 0.5 MG TabletIndications :Anxiety Take 1 Tablet by mouth daily as needed for Anxiety. 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 Hyperlipemia Hypothyroidism Mild asthma without complication Anxiety Resolved Problems Problem Noted Date Diagnosed Date Resolved Date Onychomycosis of toenail 08/08/202110/2023 STEMI (ST elevation myocardial infarction) 03/21/2021 09/15/2024 COVID-19 virus infection 12/31/201910/2023 Epigastric abdominal pain 09/30/2018 Nausea and vomiting 09/30/2018 01/25/20 19 Prediabetes 07/26/2018 Encounters Date Type Department Care Team Description 10/07/2024 Refill Formerly named [facility] [address] [place] [id number] Edgar Ordaz, PAC Medication Refill 10/07/2024 Refill Formerly named [facility] [address] [place] [address] Edgar Ordaz, PAC Medication Refill 09/29/2024 2:45 PM CDT Office Visit Formerly named [facility] [address] [place] [address] Edgar Ordaz, PAC Poison kimi dermatitis (Primary Dx) Discharge Disposition: Discharged to home or Selfcare 09/29/2024 Travel 09/29/2024 Telephone [facility] [address] [place] [address] Edgar Ordaz, PAC Advice Only 09/15/2024 2:15 PM CDT Office Visit Formerly named [facility] [address] [place] [address] Edgar Ordaz, PAC Tremor of both hands (Primary Dx) Discharge Disposition: Discharged to home or Selfcare 09/13/2024 Travel 09/10/2024 Refill Formerly named [facility] [address] [place] [address] Edgar Ordaz, PAC Medication Refill 09/09/2024 Nurse Triage [facility] [address] [place] [phone] Edgar Ordaz, PAC Advice Only; Shaking; Tremors 08/08/2024 Refill Formerly named [facility] [place] [address] [place] [address] Edgar Ordaz, PAC Medication Refill 08/07/2024 [facility] [place] [address] [place] [address] Edgar Ordaz, PAC Medication Refill from Last 3 Months Immunizations Immunization Administration Dates Next Due Covid-19, Mrna, Lnp-s, PF, 1 00 mcg/0.5 mL Dose (Moderna) 08/25/2020,07/30/2020 Pneumococcal conjugate PCV20 , polysaccharide [id number] conjugate, adjuvant, PF 12/28/2023 TD VACCINE 04/16/2012 TDAP Vaccine 06/06/2021 Family History Medical History Relation Name Comments Lung Cancer Father Hypertension Mother Hypertension Sister Relation Name Status Comments Father Mother Sister Alive Social History Tobacco Use Types Packs/Day Years Used Date Smoking Tobacco: Never Smokeless Tobacco: Never Tobacco Cessation:Counseling Given: Not Answered Alcohol Use Standard Drinks/Week Comments Not Currently 0 (1 standard drink = 0.6 oz pur e alcohol) [facility] Utilities Answer Date Recorded In the past 12 months has [employer] gas, oil, or water [employer] threatened to shut off services in your home? No 06/25/2024 Social Connection and Isolation Panel Answer Date Recorded In a typical week, how many times do you talk on the phone with family, friends, or neighbors? Three times a week 06/25/2024 How often do you get togethe r with friends or relatives? Twice a week 06/25/2024 How often do you attend [facility] or hindu services? More than 4 times per year 06/25/2024 Do you belong to any clubs o r organizations such as synagogue groups, unions, fraternal or athletic groups, or school groups? No 06/25/2024 How often do you attend meet ings of the clubs or organizations you belong to? Patient declined 06/25/2024 Are you , , di vorced, , never , or living with a partner? 06/25/2024 AUDIT-C Answer Date Recorded Q1: How often do you have a drink containing alc ohol? Monthly or less 06/25/2024 Q2: How many drinks containi ng alcohol do you have on a typical day when you are drinking? Patient declined 06/25/2024 Q3: How often do you have si x or more drinks on one occasion? Never 06/25/2024 Overall Financial Resource Strain (CARDIA) Answe r Date Recorded How hard is it for you to pa y for the very basics like food, housing, medical care, and heating? Patient declined 06/25/2024 PHQ-2 Answer Date Recorded Total Score - Questions 1-9 0 06/14 [facility] - Occupational Stress Questionnaire Answer Date Recorded Do you feel stress - tense, restless, nervous, or anxious, or unable to sleep at night because your mind is troubled all the time - these days? Patient declined 06/25/2024 Exercise Vital Sign Answer Date Recorde d On average, how many days pe r week do you engage in moderate to strenuous exercise (like a brisk walk)? 1 day 06/25/2024 On average, how many minutes do you engage in exercise at this level? 20 min 06/25/2024 Hunger Vital Sign Answer Date Recorded Within the past 12 months, y ou worried that your food would run out before you got the money to buy more. Never true 06/26/19 25 Within the past 12 months, t he food you bought just didn't last and you didn't have money to get more. Never true 06/25/2024 PRAPARE - Transportation Answer Date Re corded In the past 12 months, has l ack of transportation kept you from medical appointments or from getting medications? No 06/14 In the past 12 months, has l ack of transportation kept you from meetings, work, or from getting things needed for daily living? No 06/25/2024 Housing Stability Vital Sign Answer [place] [...] place to sleep or slept in a skilled nursing (including now)? No 06/19/2023 Housing Stability Vital Sign Answer [place] e Recorded In the last 12 months, was t here a time when you were not able to pay the mortgage or rent on time? No 06/25/2024 In the past 12 months, how m any times have you moved where you were living? 0 06/25/2024 At any time in the past [address] [facility], were you homeless or living in a skilled nursing (including now)? No 06/25/2024 Education Answer Date Recorded What is the highest level of school you have completed or the highest degree you have received? 12th grade 05/07/2022 Sexually Active Control Partners Comments Not Currently Comments No Sex and Gender Information Value Date Recorded Sex Assigned at Not on file Legal Sex Female 9:43 PM CDT Gender Identity Not on file Sexual Orientation Not on file Last Filed Vital Signs Vital Sign Reading Time Taken Comments Blood Pressure 106/62 09/29/2024 2:49 PM CDT Pulse 58 09/29/2024 2:49 PM CDT Temperature 37.6 C (99.6 F) 09/29/2024 2:49 PM CDT Respiratory Rate 18 09/29/2024 2:49 PM CDT Oxygen Saturation 98% 09/29/2024 2:49 PM CDT Inhaled Oxygen Concentration - - Weight 88.9 kg (196 lb) 09/29/2024 2:49 PM CDT Height 162.6 cm (5' 4) 07/08/2024 9:10 AM CDT Body Mass Index 33.64 07/08/2024 9:10 AM CDT Plan of Treatment Upcoming Encounters Date Type Department Care Team (Late st Contact Info) Description 12/22/2024 8:40 AM CDT Lab Formerly named [facility] [address] [place] [address] [facility] 12/29/2024 10:30 AM CDT Office Visit [facility] [place] [address] [place] [address] Edgar Ordaz, PAC [address] [place] [address] 07/06/2025 10:00 AM CDT Office Visit [facility] [place] [address] [place] [address] Erin Up, EPIC ANALYST, CIRCLE BEVELER [address] [place] [address] Health Maintenance Due Date Last Done Comments Zoster Immunization (1 of 2) 1977 Colonoscopy 2003 Immunochemical Fecal Occult Blood 2003 Respiratory Syncytial Virus (RSV) Immunization (Adult) (1 - Risk 60-74 years 1-dose series) 2018 Mammogram 02/19/2025 02/20/2024, 06/21/2022, 03/25/2018 Cologuard 05/29/2025 05/29/2022, 08/12/2018 Colorectal Cancer Screening 05/29/2025 DEXA Bone Density 09/21/2025 09/22/2023, 03/25/2018 Td Immunization Every 10 Yea rs (Adults With 1 Tdap) 06/06/2031 06/06/2021, 04/16/2012 SARS-COV-2 Immunization Discontinued 08/26/19, 07/30/2020 Hepatitis C Virus (HCV) Screening Completed 12/21/2022 Pneumococcal Immunization (5 0+ years) Completed 12/28/2023 Pneumococcal Immunization Combined Discontinued 12/28/2023 Hepatitis B Immunization Aged Out No longer eligible based on patient's age to complete this topic Human Papillomavirus (HPV) Immunization Aged Out No longer eligible based on patient's age to complete this topic Influenza Immunization Discontinued Meningococcal Immunization (ACWY) Aged Out No longer eligible based on patient's age to complete this topic Rotavirus Immunization Aged Out No lo nger eligible based on patient's age to complete this topic Medical Devices Implanted Type Area Inventory Technician Device Identifier Shelf Expiration Date Model / Serial / Lot System Coronary Stent Xience Skypoint Everolimus Eluting 2.50 Mm X 12 Mm / Rapid-Exchange - [id number] Implanted:Qty: 1 on 03/21/2021 by Javier Sanon MD at [facility] IMPLANT N/A: Coronary [employer] [id number] 09/27/2022 [id number] / / [id number] Device Clsr 70cm 6fr Angio-Seal Vip .035in Vasc Collagen Valuelink Gw Insertion Evelio Mejia - [id number] Implanted:Qty: 1 on 03/21/2021 by Javier Sanon MD at [facility] IMPLANT N/A: Groin [employer] [id number] 12/14/2021 [id number] / / [id number] Procedures Procedure Name Priority Date/Time Associated Diagnosis Comments JOELLEN SCREENING BILATERAL DIGITAL W CAD W KATHERINE Routine 02/20/2024 7:46 AM SHEET TAILER Encounter for screening mammogram for breast cancer JOELLEN BONE DENSITOMETRY AXIAL SKELETON Routine 09/22/2023 10:06 AM CDT Postmenopausal HEPATITIS C ANTIBODY Routine 12/21/2022 10:52 AM CDT Encounter for hepatitis C screening test for low risk patient COLOGUARD Routine 05/29/2022 8:00 AM SHEET TAILER Colon cancer screening from Last 3 Months or Most Recently Relevant to Health Maintenance Results * JOELLEN SCREENING BILATERAL DIGITAL W CAD W KATHERINE (02/20/2024 7:46 AM SHEET TAILER) Anatomical Region Laterality Modality breast Bilateral Mammography 02/20/2024 7:42 AM SHEET TAILER Narrative 02/21/2024 11:00 AM SHEET TAILER - JOELLEN SCREENING BILATERAL DIGITAL W CAD W KATHERINE BILATERAL DIGITAL SCREENING MAMMOGRAM 3D/2D WITH CAD WITH MEDIOLATERAL OBLIQUE CRANIOCAUDAL: 02/20/2024 The study was acquired using digital technology and interpreted from soft copy. Current study was also evaluated with ICAD version 7.2. 2D digital mammographic views, as well as 3D digital tomosynthesis were performed in the CC and MLO projections. CLINICAL: Routine screening. Patient has no complaints. No personal history of cancer. Maternal cousin had breast cancer. COMPARISONS: Comparison is made to exams dated: 06/21/2022, 03/25/2018, and 01/23/2013 [facility]. BREAST TISSUE:There are scattered areas of fibroglandular density. FINDINGS: No significant masses, calcifications, or other findings are seen in either breast. There has been no significant interval change. IMPRESSION: NEGATIVE There is no mammographic evidence of malignancy. A 1 year screening mammogram is recommended. A letter will be sent to the patient with these results. The patient will be entered into a reminder system with a target due date of 1 year for her next screening exam. Electronically signed by: Jed Smyth M.D. /penrad:02/20/2024 22:26:36 Calker(s): RT Jayashree(R)(M), [facility] letter sent: Normal Exam Reading location: [place] Mammogram BI-RADS: Category 1: Negative Procedure Note Jed Smyth MD - 02/21/2024 - JOELLEN SCREENING BILATERAL DIGITAL W CAD W KATHERINE BILATERAL DIGITAL SCREENING MAMMOGRAM 3D/2D WITH CAD WITH MEDIOLATERAL OBLIQUE CRANIOCAUDAL: 02/20/2024 The study was acquired using digital technology and interpreted from soft copy. Current study was also evaluated with ICAD version 7.2. 2D digital mammographic views, as well as 3D digital tomosynthesis were performed in the CC and MLO projections. CLINICAL: Routine screening. Patient has no complaints. No personal history of cancer. Maternal cousin had breast cancer. COMPARISONS: Comparison is made to exams dated: 06/21/2022, 03/25/2018, and 01/23/2013 [facility]. BREAST TISSUE:There are scattered areas of fibroglandular density. FINDINGS: No significant masses, calcifications, or other findings are seen in either breast. There has been no significant interval change. IMPRESSION: NEGATIVE There is no mammographic evidence of malignancy. A 1 year screening mammogram is recommended. A letter will be sent to the patient with these results. The patient will be entered into a reminder system with a target due date of 1 year for her next screening exam. Electronically signed by: Jed alexis/penrad:02/20/2024 22:26:36 Calker(s): RT Jayashree(R)(M), [facility] letter sent: Normal Exam Reading location: [place] Mammogram BI-RADS: Category 1: Negative us Edgar Ordaz PAC IMG MAMMO ORDERABLES Final R esult * [facility] BONE DENSITOMETRY AXIAL SKELETON (09/22/2023 10:06 AM CDT) Anatomical Region Laterality Modality BODY N/A Computed Radiogr aphy 09/22/2023 11:4 4 AM CDT Impressions 09/22/2023 11:46 AM CDT IMPRESSION: Normal bone mass. REFERENCE: Bone mineral density: T-Score: Normal (T-score above or = -1.0) Low bone mass (T-score between -1.0 and -2.5) replaces the previously used term osteopenia Osteoporosis (T-score = or below -2.5) Z-Score: Within the expected range for age (Z-score above -2.0) Below the expected range for age (Z-score is -2.0 or below) Please see below follow up recommendations. Medical evaluation for secondary causes of low bone mineral density may be appropriate. FRAX is a World Health Organization validated fracture risk assessment tool that calculates a person's 10 year probability of a major osteoporosis related fracture and hip fracture. According to the National Osteoporosis Foundation guidelines, postmenopausal women and men age 50 or older with low bone mass and a 10 year probability of a major osteoporosis related fracture = or greater than 20% or a 10 year probability of a hip fracture = or greater than 3% should be considered for pharmacological treatment for the prevention of osteoporosis. For further information, including treatment recommendations, please refer to the 2019 ISCD Official Positions (http://www.iscd.org) and the NOF's Clinician's Guide to Prevention and Treatment of Osteoporosis (http://www.nof.org/professionals/clinical-guidelines) Narrative 09/22/2023 11:46 AM CDT EXAM DESCRIPTION: [facility] BONE DENSITOMETRY AXIAL SKELETON REASON FOR STUDY: 63 y/o year old F with given history of: Postmenopausal Inventory Technician/Model: Kanbox (S/N [id number]) CLINICAL INFORMATION: Current height: 64 inches Maximum height: 65 inches Weight: 184 pounds Risk factors: Postmenopausal, rheumatoid arthritis, asthma or emphysema COMPARISON: 03/25/2018 FINDINGS: AP LUMBAR SPINE L1-L4: Total BMD is 1.449 g/cm2 T-score is 2.1 This is decreased in comparison to prior exam which is statistically significant. LEFT HIP: Total BMD is 1.028 g/cm2 T-score is 0.2 This is decreased in comparison to prior exam which is statistically significant. Femoral neck BMD is 1.068 g/cm2 T-score is 0.2 FRAX: FRAX not reported due to T-scores of hip, femoral neck and/or spine being at or above -1.0 (Normal). THIS IS AN ELECTRONICALLY VERIFIED FINAL REPORT 09/22/2023 11:44 AM - Electronically signed by Danny Tejeda M.D. MF: [id number] Report ID: [id number] Reading Location: [place] [address] Procedure Note Danny Tejeda MD - 09/22/2023 EXAM DESCRIPTION: [facility] BONE DENSITOMETRY AXIAL SKELETON REASON FOR STUDY: 63 y/o year old F with given history of: Postmenopausal Inventory Technician/Model: Kanbox (S/N [id number]) CLINICAL INFORMATION: Current height: 64 inches Maximum height: 65 inches Weight: 184 pounds Risk factors: Postmenopausal, rheumatoid arthritis, asthma or emphysema COMPARISON: 03/25/2018 FINDINGS: AP LUMBAR SPINE L1-L4: Total BMD is 1.449 g/cm2 T-score is 2.1 This is decreased in comparison to prior exam which is statistically significant. LEFT HIP: Total BMD is 1.028 g/cm2 T-score is 0.2 This is decreased in comparison to prior exam which is statistically significant. Femoral neck BMD is 1.068 g/cm2 T-score is 0.2 FRAX: FRAX not reported due to T-scores of hip, femoral neck and/or spine being at or above -1.0 (Normal). THIS IS AN ELECTRONICALLY VERIFIED FINAL REPORT 09/22/2023 11:44 AM - Electronically signed by Danny BOLIVAR: KATT Report ID: [id number] Reading Location: [id number] IMPRESSION: Normal bone mass. REFERENCE: Bone mineral density: T-Score: Normal (T-score above or = -1.0) Low bone mass (T-score between -1.0 and -2.5) replaces the previously used term osteopenia Osteoporosis (T-score = or below -2.5) Z-Score: Within the expected range for age (Z-score above -2.0) Below the expected range for age (Z-score is -2.0 or below) Please see below follow up recommendations. Medical evaluation for secondary causes of low bone mineral density may be appropriate. FRAX is a World Health Organization validated fracture risk assessment tool that calculates a person's 10 year probability of a major osteoporosis related fracture and hip fracture. According to the National Osteoporosis Foundation guidelines, postmenopausal women and men age 50 or older with low bone mass and a 10 year probability of a major osteoporosis related fracture = or greater than 20% or a 10 year probability of a hip fracture = or greater than 3% should be considered for pharmacological treatment for the prevention of osteoporosis. For further information, including treatment recommendations, please refer to the 2019 ISCD Official Positions (http://www.iscd.org) and the NOF's Clinician's Guide to Prevention and Treatment of Osteoporosis (http://www.nof.org/professionals/clinical-guidelines) Edgar Ordaz [facility] IMG DEXA ORDERABLES Final Re sult * HEPATITIS C ANTIBODY (12/21/2022 10:52 AM CDT) hepatitis C antibody 0.22 <1 S/CO [facility] ARCH [id number] B 12/21/2022 10:54 PM CDT [facility] Comment: Signal/Cutoff ratio < 0.79 is Nondetected Signal/Cutoff ratio 0.80-0.99 is Grayzone Signal/Cutoff ratio > 0.99 is Detected Supplemental assays are recommended if signal/cutoff ratio is >/=1.00. Signal/cutoff ratio result >/= 5.00 is 97% predictive of positivity for recombinant immunoblot assay (RIBA) and will be reported to the [place] Department of Public Health as required. Blood Venipuncture / Unknown 12/21/2022 10:52 AM CDT 12/21/2022 10:52 AM CDT us Jeny Jarrett MD CHEMISTRY ORDERABLES Final R esult [facility] [address] [place] [address], [place] * COLOGUARD (05/29/2022 8:00 AM SHEET TAILER) Cologuard Negative Negative [facility] Comment: NEGATIVE TEST RESULT. A negative Cologuard result indicates a low likelihood that a colorectal cancer (CRC) or advanced adenoma (adenomatous polyps with more advanced pre-malignant features) is present. The chance that a person with a negative Cologuard test has a colorectal cancer is less than 1 in 1500 (negative predictive value >99.9%) or has an advanced adenoma is less than 5.3% (negative predictive value 94.7%). These data are based on a prospective cross-sectional study of 10,000 individuals at average risk for colorectal cancer who were screened with both Cologuard and colonoscopy. (Deonte Jameson. et al, N Engl J Med 2014;370(14):9744-2847) The normal value (reference range) for this assay is negative. COLOGUARD RE-SCREENING RECOMMENDATION: Periodic colorectal cancer screening is an important part of preventive healthcare for asymptomatic individuals at average risk for colorectal cancer. Following a negative Cologuard result, the [place] [employer] and U.S. Multi-Society Task Force screening guidelines recommend a Cologuard re-screening interval of 3 years. References: [place] [employer] Guideline for Colorectal Cancer Screening: https://www.cancer.org/cancer/keeco-ftnutc-udzygu/vkwywqcca-ouuwqwevo-rgkpobf/ acs-recommendations.html.; Ki DK, Dg CR, Jesse RandK, Colorectal Cancer Screening: Recommendations for Physicians and Patients from the U.S. Multi-Society Task Force on Colorectal Cancer Screening , Am J Gastroenterology 2017; 112:2945-4131. TEST DESCRIPTION: Composite algorithmic analysis of stool DNA-biomarkers with hemoglobin immunoassay. Quantitative values of individual biomarkers are not reportable and are not associated with individual biomarker result reference ranges. Cologuard is intended for colorectal cancer screening of adults of either sex, 45 years or older, who are at average-risk for colorectal cancer (CRC). Cologuard has been approved for use by the U.S. FDA. The performance of Cologuard was established in a cross sectional study of average-risk adults aged 50-84. Cologuard performance in patients ages 45 to 49 years was estimated by sub-group analysis of near-age groups. Colonoscopies performed for a positive result may find as the most clinically significant lesion: colorectal cancer [4.0%], advanced adenoma (including sessile serrated polyps greater than or equal to 1cm diameter) [20%] or non- advanced adenoma [31%]; or no colorectal neoplasia [45%]. These estimates are derived from a prospective cross-sectional screening study of 10,000 individuals at average risk for colorectal cancer who were screened with both Cologuard and colonoscopy. (Deonte Alves et al, N Engl J Med 2014;370(14):5365-1762.) Cologuard may produce a false negative or false positive result (no colorectal cancer or precancerous polyp present at colonoscopy follow up). A negative Cologuard test result does not guarantee the absence of CRC or advanced adenoma (pre-cancer). The current Cologuard screening interval is every 3 years. ([place] [employer] and U.S. Multi-Society Task Force). Cologuard performance data in a 10,000 patient pivotal study using colonoscopy as the reference method can be accessed at the following location: www.[email or web address]/results. Additional description of the Cologuard test process, warnings and precautions can be found at [email or web address].com. Stool 05/29/2022 8:00 AM SHEET TAILER 05/30/2022 1:54 PM SHEET TAILER Jeny Jarrett MD BODY FLUIDS & STOOLS ORDERAB LES Final Result Sticky, Narr[employer] [address] [place] [address], Sticky [address] [place] [address] from Last 3 Months or Most Recently Relevant to Health Maintenance Insurance MEDICARE C AETNA Advance Directives * Full Code (Latest Code Status on File) Date Activated Date Inactivated Comments 03/21/2021 2:31 PM 03/23/2021 4:45 PM CPR-Full Christopher atment: FULL ARREST: Attempt Resuscitation/CPR wit intubation and mechanical ventilation. PRE-ARREST: Use entire range of life support measures to stabilize the patient. Care Teams K 9 Handler/ Deputy Relationship Specialty Start Date End Date Edgar Ordaz PAC [address] [place] [address] PCP - General Physician Hide Splitter 06/21/23 Timmy Devries MD [address] [facility] [address] [place] [address] Obstetrics & Gynecology 08/31/16 Husam Gomez DPM Podiatry 12/07/21
--- OUTSIDE RECORDS SUMMARY | 2024-11-04 10:00 | XMS_ITS | Encounter Summary ---
Author Organization [facility] Address [address] [place] [address] Phone Care Team Providers Care Flower Shop Laborer/Designer Name Role Phone Haydee Rust MD Primary Care Provider + [phone] Timmy Devries MD Unavailable [phone] Irwin Zee MD Unavailable UnaJeny Houser MD Primary Care Provider + [phone] Husam Gomez DPAsim Unavailable Unavailable Edgar Ordaz Primary Care Provider + [phone] Malini Aparicio TIERCE FILLER, CONCRETE ROD BUSTER Unavailable + [phone] Malini Aparicio TIERCE FILLER, CONCRETE ROD BUSTER Unavailable + [phone] Reason for Visit * Reason Comments Medication Refill Encounter Details Date Type Department Care Team (Late st Contact Info) Description 09/28/2021 Refill [facility] - Primary Care - [place] [address] [place] [address] Haydee Rust MD [address] [place] [address] Medication Refill Social History Tobacco [...] Telephone Encounter - Agueda Carlos RN - 09/28/2021 11:47 AM CDT Medication failed the protocol, provider to review and approve the medication order if appropriate. Requested Prescriptions Pending Prescriptions Disp Refills LORazepam (ATIVAN) 0.5 MG Tablet [Pharmacy Med Name: LORazepam 0.5 MG Oral Tablet] 30 Tablet 0 Sig: TAKE 1 TABLET BY MOUTH NIGHTLY NEEDED FOR SLEEP Not Delegated - Benzodiazepines Protocol Failed - 09/28/2021 11:37 AM Failed - This refill cannot be delegated Passed - Visit with relevant provider in past 12 months or upcoming 90 days Recent Visits Date Type Provider Dept 08/08/21 Office Visit Haydee Rust MD [facility] 06/08/21 Office Visit Maria Victoria Horton APRN, CNP [facility] [address] 04/11/21 Office Visit Maria Victoria Horton APRN, JES[facility] [address] 03/30/21 Office Visit Maria Victoria Horton APRN, CNP [facility] 11/11/20 Office Visit Haydee Rust MD [facility] [employer] Showing recent visits within past 365 days and meeting all other requirements Future Appointments Date Type Provider Dept 11/01/21 Appointment Ab Swift [facility] [address] [address] 11/08/21 Appointment Haydee Rust MD [facility] [employer] Showing future appointments within next 90 days and meeting all other requirements documented in this encounter Plan of Treatment Upcoming Encounters Date Type Department Care Team (Late st Contact Info) Description 12/22/2024 8:40 AM CDT Lab [facility] - [place] [address] [place] [address] [facility], [facility] 12/29/2024 10:30 AM CDT [facility] [place] [address] [place] [address] Edgar Ordaz, PAC [address] [place] [address] 07/06/2025 10:00 AM CDT Office Visit [facility] Cardiology - [place] [address] [place] [address] Erin Up APRN, CONCRETE ROD BUSTER [address] [place] [address] documented as of this encounter Visit Diagnoses Diagnosis Anxiety Anxiety state, unspecified documented in this encounter Additional Health Concerns Infection Onset Date Last Indicated Resolved Time Respiratory Rule Out - RPA 02/16/2023 02/16/2023 1 04/18/2022 2:08 PM CDT Assessment Noted Time PHQ-9 Depression Total Score: 13 020 11:00 AM CDT documented as of this encounter Care Teams Flower Shop Laborer/Designer Relationship Specialty Start Date End Date Haydee Rust MD PCP - General Family Medicine 01/27/15 05/07/22 Jeny Jarrett MD [address] [place], [place] [id number] PCP - General Family Medicine 05/08/22 06/20/23 Edgar Ordaz, PAC [address] [place] [address] PCP - General Physician Director Of Development And Marketing 06/21/23 Timmy Devries MD [address] [facility] [address] [place] [address] Obstetrics & Gynecology 08/31/16 Irwin Zee MD [address] [facility] [address] [place] [address] Consulting Physician Cardiovascular Disease - Cardiology 11/08/21 03/18/24 Husam Gomez DPM Podiatry 12/07/21 Malini Aparicio APRN, CONCRETE ROD BUSTER [address] [facility], [address] [place] [address] Nurse Practitioner Advanced Practice Nurse 10/19/23 Malini Aparicio APRN, CONCRETE ROD BUSTER [address] [facility], [address] [place] [address] Nurse Practitioner Cardiology 07/09/24 10/21/24 documented as of this encounter
--- OUTSIDE RECORDS SUMMARY | 2024-11-04 10:00 | XMS_ITS | Encounter Summary ---
Author Organization [facility] Address [address] [place] [address] Phone Care Team Providers Care Measurement Psychologist Name Role Phone Haydee Rust MD Primary Care Provider + [phone] Timmy Devries MD Unavailable [phone] Irwin Zee MD Unavailable UnaJeny Houser MD Primary Care Provider + [phone] Husam Gomez DPAsim Unavailable Unavailable Edgar Ordaz Primary Care Provider + [phone] Malini Aparicio NUT BLANKER OPERATOR, OPHTHALMOLOGIST Unavailable + [phone] Malini Aparicio NUT BLANKER OPERATOR, OPHTHALMOLOGIST Unavailable + [phone] Reason for Visit * Reason Comments Medication Refill Encounter Details Date Type Department Care Team (Late st Contact Info) Description 05/24/2021 Refill [facility] - Primary Care - [place] [address] [place] [address] Haydee Rust MD [address] [place] [address] Medication Refill Social History Tobacco [...] have Coronavirus / COVID-19? No / Unsure 05/26/2021 7:14 AM HELIARC WELDER documented as of this encounter Miscellaneous Notes * Telephone Encounter - Samantha Love RN - 05/24/2021 9:23 AM HELIARC WELDER Medication failed the protocol, provider to review and approve the medication order if appropriate. Requested Prescriptions Pending Prescriptions Disp Refills LORazepam (ATIVAN) 0.5 MG Tablet [Pharmacy Med Name: LORazepam 0.5 MG Oral Tablet] 30 Tablet 0 Sig: TAKE 1 TABLET BY MOUTH NIGHTLY NEEDED FOR SLEEP Not Delegated - Off Protocol Failed - 05/24/2021 9:22 AM Failed - This refill cannot be delegated Passed - Visit with relevant provider in past 12 months or upcoming 90 days Recent Visits Date Type Provider Dept 04/11/21 Office Visit Maria Victoria Horton APRN, CNP [facility] 03/30/21 Office Visit Maria Victoria Horton APRN, CNP [facility] 11/11/20 Office Visit Haydee Rust MD [facility] Showing recent visits within past 365 days and meeting all other requirements Future Appointments No visits were found meeting these conditions. Showing future appointments within next 90 days and meeting all other requirements [employer] WELDER documented in this encounter Plan of Treatment Upcoming Encounters Date Type Department Care Team (Late st Contact Info) Description 12/22/2024 8:40 AM CDT Lab [facility] - Primary Care - [place] [address] [place] [phone] [facility] 12/29/2024 10:30 AM CDT Office Visit [facility] - Primary Care - [place] [address] [place] [address] Edgar Ordaz, KYLE [address] [place] [address] 07/06/2025 10:00 AM CDT Office Visit [facility] - Cardiology - [address] [place] [address] Erin Up APRN, OPHTHALMOLOGIST [address] [place] [address] documented as of this encounter Visit Diagnoses Diagnosis Anxiety Anxiety state, unspecified documented in this encounter Additional Health Concerns Infection Onset Date Last Indicated Resolved Time Respiratory Rule Out - RPA 02/16/2023 02/16/2023 1 04/18/2022 2:08 PM CDT Assessment Noted Time PHQ-9 Depression Total Score: 13 020 11:00 AM CDT documented as of this encounter Care Teams Measurement Psychologist Relationship Specialty Start Date End Date Haydee Rust MD PCP - General Family Medicine 01/27/15 05/07/22 Jeny Jarrett MD [address] [place] [address] PCP - General Family Medicine 05/08/22 06/20/23 Edgar Ordaz PAC [address] [place] [address] PCP - General Physician Character Impersonator 06/21/23 Timmy Devries MD [address] [facility] [address] [place] [address] Obstetrics & Gynecology 08/31/16 Irwin Zee MD [address] [facility] [address] [place] [address] Consulting Physician Cardiovascular Disease - Cardiology 11/08/21 03/18/24 Husam Gomez DPM Podiatry 12/07/21 Malini Aparicio APRN, OPHTHALMOLOGIST [address], [address] [place] [address] Nurse Practitioner Advanced Practice Nurse 10/19/23 Malini Aparicio APRN, OPHTHALMOLOGIST [address], [address] [place] [address] Nurse Practitioner Cardiology 07/09/24 10/21/24 documented as of this encounter
--- OUTSIDE RECORDS SUMMARY | 2024-11-04 10:00 | XMS_ITS | Encounter Summary ---
Author Organization [facility] Address [address] [place] [address] Phone Care Team Providers Care Iron Installer Name Role Phone Haydee Rust MD Primary Care Provider + [phone] Timmy Devries MD Unavailable [phone] Irwin Zee MD Unavailable UnaJeny Houser MD Primary Care Provider + [phone] Husam Gomez DPAsim Unavailable Unavailable Edgar Ordaz Primary Care Provider + [phone] Malini Aparicio POOL NURSE, COLLAR CLOSER LOCKSTITCH Unavailable + [phone] Malini Aparicio POOL NURSE, COLLAR CLOSER LOCKSTITCH Unavailable + [phone] Reason for Visit * Reason Comments Medication Refill Encounter Details Date Type Department Care Team (Late st Contact Info) Description 10/26/2021 Refill [facility] - Primary Care - [place] [address] [place] [address] Haydee Rust MD [address] [place] [address] Medication Refill Social History Tobacco Use Types Packs/Day Years Used Date Smoking Tobacco: Never Smokeless Tobacco: Never Alcohol Use Standard Drinks/Week Comments Not Currently 0 (1 standard drink = 0.6 oz pur e alcohol) PHQ-2 Answer Date Recorded Total Score - Questions 1-9 09/15 Comments No Sex and Gender Information Value Date Recorded Sex Assigned at Not on file Legal Sex Female 9:43 PM CDT Gender Identity Not on file Sexual Orientation Not on file documented as of this encounter Miscellaneous Notes * Telephone Encounter - Agueda Carlos RN - 10/26/2021 12:26 PM CDT Medication failed the protocol, provider to review and approve the medication order if appropriate. Requested Prescriptions Pending Prescriptions Disp Refills Euthyrox 75 MCG Tablet [Pharmacy Med Name: Euthyrox 75 MCG Oral Tablet] 90 Tablet 0 Sig: Take 1 tablet by mouth once daily for 90 days Thyroid Hormones Protocol Failed - 10/26/2021 9:00 AM Failed - Normal TSH in past 12 months TSH Date Value Ref Range Status 08/01/2021 0.090 (L) 0.270 - 4.200 mIU/L Final Passed - Visit with relevant provider in past 12 months or upcoming 90 days Recent Visits Date Type Provider Dept 08/08/21 Office Visit Haydee Rust MD [facility] 06/08/21 Office Visit Maria Victoria Horton APRN, CNP [facility] 04/11/21 Office Visit Maria Victoria Horton APRN, JESSE [facility] 03/30/21 Office Visit Maria Victoria Horton APRN, CNP [facility] 11/11/20 Office Visit Haydee Rust MD [facility] [employer] Showing recent visits within past 365 days and meeting all other requirements Future Appointments Date Type Provider Dept 11/01/21 Appointment Ab Swift [employer] [facility] 11/08/21 Appointment Haydee Rust MD [facility] [employer] Showing future appointments within next 90 days and meeting all other requirements documented in this encounter Plan of Treatment Upcoming Encounters Date Type Department Care Team (Late st Contact Info) Description 12/22/2024 8:40 AM CDT Lab [facility] [place] [phone] [place] [facility] 12/29/2024 10:30 AM CDT [facility] [place] [address] [place] [address] Edgar Ordaz PAC [address] [place] [address] 07/06/2025 10:00 AM CDT Office Visit [facility] Cardiology - [place] [address] [place] [address] Erin Up APRN, COLLAR CLOSER LOCKSTITCH [address] [place] [address] documented as of this encounter Visit Diagnoses Diagnosis Hypothyroidism, unspecified type documented in this encounter Additional Health Concerns Infection Onset Date Last Indicated Resolved Time Respiratory Rule Out - RPA 02/16/2023 02/16/2023 1 04/18/2022 2:08 PM CDT Assessment Noted Time PHQ-9 Depression Total Score: 13 020 11:00 AM CDT documented as of this encounter Care Teams Iron Installer Relationship Specialty Start Date End Date Haydee uRst MD PCP - General Family Medicine 01/27/15 05/07/22 Jeny Jarrett MD [address] [place] [address] PCP - General Family Medicine 05/08/22 06/20/23 Edgar Ordaz, PAC [address] [place] [address] PCP - General Physician Specimen Collector 06/21/23 Timmy Devries MD [address] [facility] [address] [place] [address] Obstetrics & Gynecology 08/31/16 Irwin Zee MD [address] [facility] [address] [place] [address] Consulting Physician Cardiovascular Disease - Cardiology 11/08/21 03/18/24 Husam Gomez DPM Podiatry 12/07/21 Malini Aparicio APRN, COLLAR CLOSER LOCKSTITCH [address], [address] [place] [address] Nurse Practitioner Advanced Practice Nurse 10/19/23 Malini Aparicio, POOL NURSE, COLLAR CLOSER LOCKSTITCH [address], [address] [place] [address] Nurse Practitioner Cardiology 07/09/24 10/21/24 documented as of this encounter
--- OUTSIDE RECORDS SUMMARY | 2024-11-04 10:00 | XMS_ITS | Encounter Summary ---
Author Organization [facility] Address [address] [place] [address] Phone Care Team Providers Care Budget Controller Name Role Phone Haydee Rust MD Primary Care Provider + [phone] Timmy Devries MD Unavailable +[phone] Irwin Zee MD Unavailable UnaJeny Houser MD Primary Care Provider + [phone] Husam Gomez DPAsim Unavailable Unavailable Edgar Ordaz Primary Care Provider + [phone] Malini Aparicio ELEVATOR SERVICE MECHANIC, DERMATOLOGY SALES REPRESENTATIVE Unavailable + [phone] Malini Aparicio ELEVATOR SERVICE MECHANIC, DERMATOLOGY SALES REPRESENTATIVE Unavailable + [phone] Reason for Visit * Reason Comments Medication Refill Encounter Details Date Type Department Care Team (Late st Contact Info) Description 06/11/2020 Refill [facility] - Primary Care - [place] [address] [place] [address] Haydee Rust MD [address] [place] [address] Medication Refill Social History Tobacco [...] Telephone Encounter - Samantha Love RN - 06/11/2020 1:41 PM MANAGER HVAC Medication failed the protocol, provider to review and approve the medication order if appropriate. Requested Prescriptions Pending Prescriptions Disp Refills LORazepam (ATIVAN) 0.5 MG Tablet [Pharmacy Med Name: LORazepam 0.5 MG Oral Tablet] 30 Tablet 0 Sig: TAKE 1 TABLET BY MOUTH NIGHTLY NEEDED FOR ANXIETY Not Delegated - Anesthesia: Anesthetics & Sedatives Failed - 06/11/2020 11:00 AM Failed - This refill cannot be delegated Passed - Valid encounter within last 6 months Past Office Visits Recent Outpatient Visits 1 month ago Hyperlipidemia, unspecified hyperlipidemia type [facility] Haydee Rust MD 7 months ago Physical exam, annual (Adult) [facility] Haydee Rust MD 8 months ago Allergic dermatitis due to poison kimi [facility] Haydee Rust MD 1 year ago Anxiety [facility] Haydee Rust MD 1 year ago RLQ abdominal pain [facility] Haydee Rust MD Upcoming Appointments Future Appointments In 4 months Ab [facility] In 4 months Haydee Rust MD [facility] SET UP MECHANIC - Recent and Past Visits Recent Visits Date Type Provider Dept 05/06/20 Telemedicine Haydee Rust MD [facility] 11/04/19 Office Visit Haydee Rust MD [facility] 10/06/19 Office Visit Haydee Rust MD [facility] Showing recent visits within past 460 days with a meds authorizing provider and meeting all other requirements Future Appointments No visits were found meeting these conditions. Showing future appointments within next 90 days with a meds authorizing provider and meeting all other requirements levothyroxine (SYNTHROID) 88 MCG Tablet [Pharmacy Med Name: Levothyroxine Sodium 88 MCG Oral Tablet] 90 Tablet 0 Sig: Take 1 tablet by mouth once daily Endocrinology: Hypothyroid Agents Passed - 06/11/2020 11:00 AM Passed - Valid encounter within last 12 months Past Office Visits Recent Outpatient Visits 1 month ago Hyperlipidemia, unspecified hyperlipidemia type [facility] Haydee Rust MD 7 months ago Physical exam, annual (Adult) [facility] Haydee Rust MD 8 months ago Allergic dermatitis due to poison kimi [facility] Haydee Rust MD 1 year ago Anxiety [facility] Haydee Rust MD 1 year ago RLQ abdominal pain [facility] Haydee Rust MD Upcoming Appointments Future Appointments In 4 months Ab [facility] In 4 months Haydee Rust MD [facility] SET UP MECHANIC - Recent and Past Visits Recent Visits Date Type Provider Dept 05/06/20 Telemedicine Haydee Rust MD [facility] 11/04/19 Office Visit Haydee Rust MD [facility] 10/06/19 Office Visit Haydee Rust MD [facility] Showing recent visits within past 460 days with a meds authorizing provider and meeting all other requirements Future Appointments No visits were found meeting these conditions. Showing future appointments within next 90 days with a meds authorizing provider and meeting all other requirements Passed - TSH in normal range and within 360 days TSH Date Value Ref Range Status 04/29/2020 1.370 0.270 - 4.200 mIU/L Final GER HVAC documented in this encounter Plan of Treatment Upcoming Encounters Date Type Department Care Team (Late st Contact Info) Description 12/22/2024 8:40 AM CDT Lab [facility] [address] [place] [address] [facility] 12/29/2024 10:30 AM CDT Office Visit [facility] [address] [place] [address] Edgar Ordaz PAC [address] [place] [address] 07/06/2025 10:00 AM CDT Office Visit [facility] Cardiology - [place] [address] [place] [address] Erin Up APRN, DERMATOLOGY SALES REPRESENTATIVE [address] [place] [address] documented as of this encounter Visit Diagnoses Diagnosis Anxiety Anxiety state, unspecified Hypothyroidism, unspecified type documented in this encounter Additional Health Concerns Infection Onset Date Last Indicated Resolved Time Other 12/30/2019 12/30/2019 03/21/2021 4:55 PM MANAGER HVAC Respiratory Rule Out - RPA 02/16/2023 02/16/2023 1 04/18/2022 2:08 PM CDT Assessment Noted Time PHQ-9 Depression Total Score: 13 020 11:00 AM CDT documented as of this encounter Care Teams Budget Controller Relationship Specialty Start Date End Date Haydee Rust MD PCP - General Family Medicine 01/27/15 05/07/22 Jeny Jarrett MD [address] [place] [address] PCP - General Family Medicine 05/08/22 06/20/23 Edgar Ordaz PAC [address] [place] [address] PCP - General Physician Pig Machine Crane Operator 06/21/23 Timmy Devries MD [address] [facility] [address] [place] [address] Obstetrics & Gynecology 08/31/16 Irwin Zee MD [address] [facility] [address] [place] [address] Consulting Physician Cardiovascular Disease - Cardiology 11/08/21 03/18/24 Husam Gomez DPM Podiatry 12/07/21 Malini Aparicio APRN, DERMATOLOGY SALES REPRESENTATIVE [address] [facility], [address] [place] [address] Nurse Practitioner Advanced Practice Nurse 10/19/23 Malini Aparicio APRN, DERMATOLOGY SALES REPRESENTATIVE [address] [facility], [address] [place] [address] Nurse Practitioner Cardiology 07/09/24 10/21/24 documented as of this encounter
--- OUTSIDE RECORDS SUMMARY | 2024-11-04 10:00 | XMS_ITS | Encounter Summary ---
Author Organization [facility] Address [address] [place] [address] Phone Care Team Providers Care Associate Biological Sales Name Role Phone Haydee Rust MD Primary Care Provider + [phone] Timmy Devries MD Unavailable +[phone] Irwin Zee MD Unavailable UnaJeny Houser MD Primary Care Provider + [phone] Husam Gomez DPAsim Unavailable Unavailable Edgar Ordaz Primary Care Provider + [phone] Malini Aparicio WET PROCESS TECHNICIAN, SPEED READING TEACHER Unavailable + [phone] Malini Aparicio WET PROCESS TECHNICIAN, SPEED READING TEACHER Unavailable + [phone] Reason for Visit * Reason Comments Medication Refill Encounter Details Date Type Department Care Team (Late st Contact Info) Description 08/23/2021 Refill [facility] - Primary Care - [place] [address] [place] [address] Haydee Rust MD [address] [place] [address] Medication Refill Social History Tobacco [...] Exposure Response Date Recorded In the last 10 days, have yo u been in contact with someone who was confirmed or suspected to have Coronavirus/COVID-19? No / Unsure 08/08/2021 10:57 AM CDT documented as of this encounter Miscellaneous Notes * Telephone Encounter - Samantha Love RN - 08/23/2021 9:47 AM CDT Medication failed the protocol, provider to review and approve the medication order if appropriate. Requested Prescriptions Pending Prescriptions Disp Refills LORazepam (ATIVAN) 0.5 MG Tablet [Pharmacy Med Name: LORazepam 0.5 MG Oral Tablet] 30 Tablet 0 Sig: TAKE 1 TABLET BY MOUTH NIGHTLY NEEDED FOR SLEEP Not Delegated - Benzodiazepines Protocol Failed - 08/23/2021 9:41 AM Failed - This refill cannot be delegated Passed - Visit with relevant provider in past 12 months or upcoming 90 days Recent Visits Date Type Provider Dept 08/08/21 Office Visit Haydee Rust MD [facility] [place] [employer] [facility] 06/08/21 Office Visit Maria Victoria Horton APRN, CNP [facility] [facility] [employer] [facility] 04/11/21 Office Visit Maria Victoria Horton APRN, CNP [facility] [employer] [facility] 03/30/21 Office Visit Maria Victoria Horton APRN, CNP [facility] [address] 11/11/20 Office Visit Haydee Rust MD [facility] [employer] [facility] Showing recent visits within past 365 days and meeting all other requirements Future Appointments Date Type Provider Dept 11/01/21 Appointment Lab, [place] [employer] [facility] [employer] [facility] 11/08/21 Appointment Haydee Rust MD [facility] [employer] [facility] Showing future appointments within next 90 days and meeting all other requirements documented in this encounter Plan of Treatment Upcoming Encounters Date Type Department Care Team (Late st Contact Info) Description 12/22/2024 8:40 AM CDT Lab [facility] [address] [place] [phone] [facility] 12/29/2024 10:30 AM CDT Office Visit [facility] [address] [place] [address] Edgar Ordaz PAC [address] [place] [address] 07/06/2025 10:00 AM CDT Office Visit [facility] Cardiology - [place] [address] [place] [address] Erin Up APRN, SPEED READING TEACHER [address] [place] [address] documented as of this encounter Visit Diagnoses Diagnosis Anxiety Anxiety state, unspecified documented in this encounter Additional Health Concerns Infection Onset Date Last Indicated Resolved Time Respiratory Rule Out - RPA 02/16/2023 02/16/2023 1 04/18/2022 2:08 PM CDT Assessment Noted Time PHQ-9 Depression Total Score: 13 020 11:00 AM CDT documented as of this encounter Care Teams Associate Biological Sales Relationship Specialty Start Date End Date Haydee Rust MD PCP - General Family Medicine 01/27/15 05/07/22 Jeny Jarrett MD [address] [place], [place] [id number] PCP - General Family Medicine 05/08/22 06/20/23 Edgar Ordaz, PAC [address] [place] [address] PCP - General Physician Bow Repairer Custom 06/21/23 Timmy Devries MD [address] [facility] [address] [place] [address] Obstetrics & Gynecology 08/31/16 Irwin Zee MD [address] [facility] [address] [place] [address] Consulting Physician Cardiovascular Disease - Cardiology 11/08/21 03/18/24 Husam Gomez, DPM Podiatry 12/07/21 Malini Aparicio APRN, SPEED READING TEACHER [address] [facility], [address] [place] [address] Nurse Practitioner Advanced Practice Nurse 10/19/23 Malini Aparicio APRN, SPEED READING TEACHER [address] [facility], [address] [place] [address] Nurse Practitioner Cardiology 07/09/24 10/21/24 documented as of this encounter
--- OUTSIDE RECORDS SUMMARY | 2024-11-04 10:00 | XMS_ITS | Encounter Summary ---
Author Organization [facility] Address [address] [place] [address] Phone Care Team Providers Care Buildings And Grounds Supervisor Name Role Phone Haydee Rust MD Primary Care Provider + [phone] Timmy Devries MD Unavailable [phone] Irwin Zee MD Unavailable UnaJeny Houser MD Primary Care Provider + [phone] Husam Gomez DPAsim Unavailable Unavailable Edgar Ordaz Primary Care Provider + [phone] Malini Aparicio MANAGEMENT AND BUDGET ANALYST, INTAKE NURSE Unavailable + [phone] Malini Aparicio MANAGEMENT AND BUDGET ANALYST, INTAKE NURSE Unavailable + [phone] Reason for Visit * Reason Comments Medication Refill Encounter Details Date Type Department Care Team (Late st Contact Info) Description 12/08/2021 Refill [facility] - Primary Care - [place] [address] [place] [address] Haydee Rust MD [address] [place] [address] Medication Refill Social History Tobacco [...] suspected to have Coronavirus/COVID-19? No / Unsure 12/07/2021 10:11 AM CDT documented as of this encounter Miscellaneous Notes * Telephone Encounter - Samantha Love RN - 12/08/2021 1:18 PM CDT Medication failed the protocol, provider to review and approve the medication order if appropriate. Requested Prescriptions Pending Prescriptions Disp Refills LORazepam (ATIVAN) 0.5 MG Tablet [Pharmacy Med Name: LORazepam 0.5 MG Oral Tablet] 30 Tablet 0 Sig: TAKE 1 TABLET BY MOUTH NIGHTLY NEEDED FOR SLEEP Not Delegated - Benzodiazepines Protocol Failed - 12/08/2021 1:07 PM Failed - This refill cannot be delegated Passed - Visit with relevant provider in past 12 months or upcoming 90 days Recent Visits Date Type Provider Dept 11/01/21 Office Visit [facility] MD [facility] [address] 08/08/21 Office Visit Haydee Rust MD [facility] [address] 06/08/21 Office Visit Maria Victoria Horton APRN, CNP [facility] [address] 04/11/21 Office Visit Maria Victoria Horton APRN, CNP [facility] [address] 03/30/21 Office Visit Maria Victoria Horton APRN, CNP [facility] [address] Showing recent visits within past 365 days and meeting all other requirements Future Appointments No visits were found meeting these conditions. Showing future appointments within next 90 days and meeting all other requirements documented in this encounter Plan of Treatment Upcoming Encounters Date Type Department Care Team (Late st Contact Info) Description 12/22/2024 8:40 AM CDT Lab [facility] [place] [address] [place] [facility] 12/29/2024 10:30 AM CDT Office Visit [facility] Primary Care - [place] [address] [place] [address] Edgar Ordaz PAC [address] [place] [address] 07/06/2025 10:00 AM CDT Office Visit [facility] Cardiology - [place] [address] [place] [address] Erin Up APRN, INTAKE NURSE [address] [place] [id number] documented as of this encounter Visit Diagnoses Diagnosis Anxiety Anxiety state, unspecified documented in this encounter Additional Health Concerns Infection Onset Date Last Indicated Resolved Time Respiratory Rule Out - RPA 02/16/2023 02/16/2023 1 04/18/2022 2:08 PM CDT Assessment Noted Time PHQ-9 Depression Total Score: 13 020 11:00 AM CDT documented as of this encounter Care Teams Buildings And Grounds Supervisor Relationship Specialty Start Date End Date Haydee Rust MD PCP - General Family Medicine 01/27/15 05/07/22 Jeny Jarrett MD [address] [place] [address] PCP - General Family Medicine 05/08/22 06/20/23 Edgar Ordaz, [place] [address] PCP - General Physician Conveyor Technician 06/21/23 Timmy Devries MD [address] [facility] [address] [place] [address] Obstetrics & Gynecology 08/31/16 Irwin Zee MD [address] [facility] [address] [place] [address] Consulting Physician Cardiovascular Disease - Cardiology 11/08/21 03/18/24 Husam Gomez DPM Podiatry 12/07/21 Malini Aparicio APRN, INTAKE NURSE [address] [facility], [address] [place] [address] Nurse Practitioner Advanced Practice Nurse 10/19/23 Malini Aparicio, MANAGEMENT AND BUDGET ANALYST, INTAKE NURSE [address] [facility], [address] [place] [address] Nurse Practitioner Cardiology 07/09/24 10/21/24 documented as of this encounter
--- OUTSIDE RECORDS SUMMARY | 2024-11-04 10:00 | XMS_ITS | Encounter Summary ---
Author Organization [facility] Address [address] [place] [address] Phone Care Team Providers Care Auditing Control Clerk Name Role Phone Haydee Rust MD Primary Care Provider + [phone] Timmy Devries MD Unavailable [phone] Irwin Zee MD Unavailable UnaJeny Houser MD Primary Care Provider + [phone] Husam Gomez DPAsim Unavailable Unavailable Edgar Ordaz Primary Care Provider + [phone] Malini Aparicio MUSIC MIXER, DYSLEXIA TEACHER Unavailable + [phone] Malini Aparicio MUSIC MIXER, DYSLEXIA TEACHER Unavailable + [phone] Reason for Visit * Reason Comments Medication Refill Encounter Details Date Type Department Care Team (Late st Contact Info) Description 07/11/2020 Refill [facility] - Primary Care - [place] [address] [place] [address] Haydee Rust MD [address] [place] [address] Medication Refill Social History Tobacco [...] Telephone Encounter - Agueda Carlos RN - 07/13/2020 10:10 AM CDT Medication failed the protocol, provider to review and approve the medication order if appropriate. Requested Prescriptions Pending Prescriptions Disp Refills LORazepam (ATIVAN) 0.5 MG Tablet [Pharmacy Med Name: LORazepam 0.5 MG Oral Tablet] 30 Tablet 0 Sig: TAKE 1 TABLET BY MOUTH NIGHTLY NEEDED FOR ANXIETY Not Delegated - Anesthesia: Anesthetics & Sedatives Failed - 07/11/2020 6:31 AM Failed - This refill cannot be delegated Passed - Valid encounter within last 6 months Past Office Visits Recent Outpatient Visits 2 months ago Hyperlipidemia, unspecified hyperlipidemia type [facility] Haydee Rust MD 8 months ago Physical exam, annual (Adult) [facility] Haydee Rust MD 9 months ago Allergic dermatitis due to poison kimi [facility] Haydee Rust MD 1 year ago Anxiety [facility] Haydee Rust MD 1 year ago RLQ abdominal pain [facility] Haydee Rust MD Upcoming Appointments Future Appointments In 3 months [facility] In 4 months Haydee Rust MD [facility] EDUCATIONAL SPECIALIST - Recent and Past Visits Recent Visits Date Type Provider Dept 05/06/20 Telemedicine Haydee Rust MD [facility] 11/04/19 Office Visit Haydee Rust MD [facility] 10/06/19 Office Visit Haydee Rust MD [facility] Showing recent visits within past 460 [...] Info) Description 12/22/2024 8:40 AM CDT Lab [facility] [address] [place] [address] [facility] 12/29/2024 10:30 AM CDT Office Visit 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 POLISHER Respiratory Rule Out - RPA 02/16/2023 02/16/2023 1 04/18/2022 2:08 PM CDT Assessment Noted Time PHQ-9 Depression Total Score: 13 020 11:00 AM CDT documented as of this encounter Care Teams Auditing Control Clerk Relationship Specialty Start Date End Date Haydee Rust MD PCP - General Family Medicine 01/27/15 05/07/22 Jeny Jarrett MD [address] [place], [place] [id number] PCP - General Family Medicine 05/08/22 06/20/23 Edgar Ordaz, PAC [address] [place] [id number] PCP - General Physician Support Assistant 06/21/23 Timmy Devrise MD [address] [facility] [address] [place], [place] [id number] Obstetrics & Gynecology 08/31/16 Irwin Zee MD [address] [facility] [address] [place] [address] Consulting Physician Cardiovascular Disease - Cardiology 11/08/21 03/18/24 Husam Gomez DPAsim Podiatry 12/07/21 Malini Aparicio APRN, DYSLEXIA TEACHER [address] [facility], [address] [place] [address] Nurse Practitioner Advanced Practice Nurse 10/19/23 Malini Aparicio APRN, DYSLEXIA TEACHER [address] [facility], [address] [place] [address] Nurse Practitioner Cardiology 07/09/24 10/21/24 documented as of this encounter
--- OUTSIDE RECORDS SUMMARY | 2024-11-04 10:00 | XMS_ITS | Encounter Summary ---
Author Organization [facility] Address [address] [place] [address] Phone Care Team Providers Care Patch Sander Name Role Phone Haydee Rust MD Primary Care Provider + [phone] Timmy Devries MD Unavailable [phone] Irwin Zee MD Unavailable UnaJeny Houser MD Primary Care Provider + [phone] Husam Gomez DPAsim Unavailable Unavailable Edgra Ordaz Primary Care Provider + [phone] Malini Aparicio HAND DEVELOPER, SIGNAL SYSTEM TESTING MAINTAINER Unavailable + [phone] Malini Aparicio HAND DEVELOPER, SIGNAL SYSTEM TESTING MAINTAINER Unavailable + [phone] Reason for Visit * Reason Comments Medication Refill Encounter Details Date Type Department Care Team (Late st Contact Info) Description 11/13/2019 Refill [facility] - [place] [address] [place] [address] Haydee Rust MD [address] [place] [address] Medication Refill Social History Tobacco [...] have Coronavirus / COVID-19? No / Unsure 11/04/2019 1:03 PM CDT documented as of this encounter Miscellaneous Notes * Telephone Encounter - Kelly Tarango RN - 11/17/2019 1:56 PM CDT Medication failed the protocol, routing to provider to review and approve the medication order. Requested Prescriptions Pending Prescriptions Disp Refills LORazepam (ATIVAN) 0.5 MG Tablet [Pharmacy Med Name: LORazepam 0.5 MG Oral Tablet] 30 Tab 0 Sig: TAKE 1 TABLET BY MOUTH NIGHTLY NEEDED FOR ANXIETY Not Delegated - Anesthesia: Anesthetics & Sedatives Failed - 11/13/2019 9:21 AM Failed - This refill cannot be delegated Passed - Valid encounter within last 6 months Past Office Visits Recent Outpatient Visits 1 month ago Allergic dermatitis due to poison kimi [facility] - Haydee Wagner MD 9 months ago Anxiety [facility] - Haydee Wagner MD 11 months ago RLQ abdominal pain [facility] - Haydee Wagner MD 1 year ago Nausea and vomiting, intractability of vomiting not specified, unspecified vomiting type [facility] - Haydee Wagner MD 1 year ago Physical exam, annual (Adult) [facility] - Haydee Wagner MD Upcoming Appointments Future Appointments In 5 months [place] [facility] [address] In 5 months Haydee Rust MD [facility] [place] [address] RN AMBULATORY - Recent and Past Visits Recent Visits Date Type Provider Dept 11/04/19 Office Visit Haydee Rust MD [facility] [address] 10/06/19 Office Visit Haydee Rust MD [facility] 01/24/19 Office Visit Haydee Rust MD [facility] 11/25/18 Office Visit Haydee Rust MD [facility] 09/30/18 Office Visit Haydee Rust MD [facility] [place] Showing recent visits within past 460 days [...] Info) Description 12/22/2024 8:40 AM CDT Lab [facility] Primary Care - [place] [address] [place] [address] [facility] 12/29/2024 10:30 AM CDT Office Visit [facility] - Primary Care - [place] [address] [place] [address] Edgar Ordaz PAC [address] [place] [address] 07/06/2025 10:00 AM CDT Office Visit [facility] - Cardiology - [place] [address] [place] [address] Erin Up APRN, SIGNAL SYSTEM TESTING MAINTAINER [address] [place] [address] documented as of this encounter Visit Diagnoses Diagnosis Anxiety Anxiety state, unspecified documented in this encounter Additional Health Concerns Infection Onset Date Last Indicated Resolved Time Other 12/30/2019 12/30/2019 03/21/2021 4:55 PM PRE PLANNING ADVISOR COVID - 19 Confirmed 12/30/2019 12/30/2019 020 12:18 AM CDT Respiratory Rule Out - RPA 02/16/2023 02/16/2023 1 04/18/2022 2:08 PM CDT Assessment Noted Time PHQ-9 Depression Total Score: 13 020 11:00 AM CDT documented as of this encounter Care Teams Patch Sander Relationship Specialty Start Date End Date Haydee Rust MD PCP - General Family Medicine 01/27/15 05/07/22 Jeny Jarrett MD [address] [place], [place] [id number] PCP - General Family Medicine 05/08/22 06/20/23 Edgar Ordaz, PAC [address] [place] [address] PCP - General Physician Licensed Psychologist Director 06/21/23 Timmy Devries MD [address] [facility] [address] [place] [address] Obstetrics & Gynecology 08/31/16 Irwin Zee MD [address] [facility] [address] [place] [address] Consulting Physician Cardiovascular Disease - Cardiology 11/08/21 03/18/24 Husam Gomez DPM Podiatry 12/07/21 Malini Aparicio, HAND DEVELOPER, SIGNAL SYSTEM TESTING MAINTAINER [address] [facility], [address] [place] [address] Nurse Practitioner Advanced Practice Nurse 10/19/23 Malini Aparicio APRN, SIGNAL SYSTEM TESTING MAINTAINER [address] [facility], [address] [place] [address] Nurse Practitioner Cardiology 07/09/24 10/21/24 documented as of this encounter
--- OUTSIDE RECORDS SUMMARY | 2024-11-04 10:00 | XMS_ITS | Encounter Summary ---
Author Organization [facility] Address [address] [place] [address] Phone Care Team Providers Care Sewing Trimmer Name Role Phone Haydee Rust MD Primary Care Provider + [phone] Timmy Devries MD Unavailable +[phone] Irwin Zee MD Unavailable UnaJeny Houser MD Primary Care Provider + [phone] Husam Gomez DPAsim Unavailable Unavailable Edgar Ordaz Primary Care Provider + [phone] Malini Aparicio LIP CUTTER, STEERSMAN Unavailable + [phone] Malini Aparicio LIP CUTTER, STEERSMAN Unavailable + [phone] Reason for Visit * Reason Comments Medication Refill Encounter Details Date Type Department Care Team (Late st Contact Info) Description 05/18/2020 Refill [facility] - Primary Care - [place] [address] [place] [address] Haydee Rust MD [address] [place] [address] Medication Refill Social History Tobacco [...] have Coronavirus / COVID-19? No / Unsure 05/06/2020 1:47 PM MECHANICAL SYSTEMS ENGINEER documented as of this encounter Miscellaneous Notes * Telephone Encounter - Samantha Love RN - 05/19/2020 1:14 PM MECHANICAL SYSTEMS ENGINEER Medication failed the protocol, provider to review and approve the medication order if appropriate. Requested Prescriptions Pending Prescriptions Disp Refills LORazepam (ATIVAN) 0.5 MG Tablet [Pharmacy Med Name: LORazepam 0.5 MG Oral Tablet] 30 Tab 0 Sig: TAKE 1 TABLET BY MOUTH NIGHTLY NEEDED FOR ANXIETY Not Delegated - Anesthesia: Anesthetics & Sedatives Failed - 05/18/2020 7:40 PM Failed - This refill cannot be delegated Passed - Valid encounter within last 6 months Past Office Visits Recent Outpatient Visits 1 week ago Hyperlipidemia, unspecified hyperlipidemia type [facility] Haydee Rust MD 6 months ago Physical exam, annual (Adult) [facility] Haydee Rust MD 7 months ago Allergic dermatitis due to poison kimi [facility] Haydee Rust MD 1 year ago Anxiety [facility] Haydee Rust MD 1 year ago RLQ abdominal [facility] Upcoming [facility]ointments Future Appointments In 5 months [facility] In 5 months Haydee Rust MD [facility] ESE TEACHER - Recent and Past Visits Recent Visits Date Type Provider Dept 05/06/20 Telemedicine Haydee Rust MD [facility] 11/04/19 Office Visit Haydee Rust MD [facility] 10/06/19 Office Visit Haydee Rust MD [facility] Showing recent visits within past 460 days with a meds authorizing provider and meeting all other requirements Future Appointments No visits were found meeting these conditions. Showing future appointments within next 90 days with a meds authorizing provider and meeting all other requirements ANICAL SYSTEMS ENGINEER documented in this encounter Plan of Treatment Upcoming Encounters Date Type Department Care Team (Late st Contact Info) Description 12/22/2024 8:40 AM CDT Lab [facility] [place] [address] [place] [address] [facility] 12/29/2024 10:30 AM CDT Office Visit [facility] [place] [address] [place] [address] Edgar Ordaz PAC [address] [place] [address] 07/06/2025 10:00 AM CDT Office Visit [facility] Cardiology - [place] [address] [place] [address] Erin Up APRN, STEERSMAN [address] [place] [address] documented as of this encounter Visit Diagnoses Diagnosis Anxiety Anxiety state, unspecified documented in this encounter Additional Health Concerns Infection Onset Date Last Indicated Resolved Time Other 12/30/2019 12/30/2019 03/21/2021 4:55 PM MECHANICAL SYSTEMS ENGINEER Respiratory Rule Out - RPA 02/16/2023 02/16/2023 1 04/18/2022 2:08 PM CDT Assessment Noted Time PHQ-9 Depression Total Score: 13 020 11:00 AM CDT documented as of this encounter Care Teams Sewing Trimmer Relationship Specialty Start Date End Date Haydee Rust MD PCP - General Family Medicine 01/27/15 05/07/22 Jeny Jarrett MD [address] [place], [place] [id number] PCP - General Family Medicine 05/08/22 06/20/23 Edgar Ordaz PAC [address] [place] [id number] PCP - General Physician Test Engineer 06/21/23 Timmy Devries MD [address] [facility] [address] [place] [address] Obstetrics & Gynecology 08/31/16 Irwin Zee MD [address] [facility] [address] [place] [address] Consulting Physician Cardiovascular Disease - Cardiology 11/08/21 03/18/24 Husam Gomez DPM Podiatry 12/07/21 Malini Aparicio APRN, STEERSMAN [address] [facility], [address] [place] [address] Nurse Practitioner Advanced Practice Nurse 10/19/23 Malini Aparicio APRN, STEERSMAN [address] [facility], [address] [place] [address] Nurse Practitioner Cardiology 07/09/24 10/21/24 documented as of this encounter
--- OUTSIDE RECORDS SUMMARY | 2024-11-04 10:00 | XMS_ITS | Encounter Summary ---
Author Organization [facility] Address [address] [place] [address] Phone Care Team Providers Care Cargo Service Supervisor Name Role Phone Haydee Rust MD Primary Care Provider + [phone] Timmy Devries MD Unavailable +[phone] Irwin Zee MD Unavailable UnaJeny Houser MD Primary Care Provider + [phone] Husam Gomez DPAsim Unavailable Unavailable Edgar Ordaz Primary Care Provider + [phone] Malini Aparicio ASSOCIATE DIRECTOR, HOUSEHOLD APPLIANCES SERVICE TECHNICIAN Unavailable + [phone] Malini Aparicio ASSOCIATE DIRECTOR, HOUSEHOLD APPLIANCES SERVICE TECHNICIAN Unavailable + [phone] Reason for Visit * Reason Comments Medication Refill Encounter Details Date Type Department Care Team (Late st Contact Info) Description 02/21/2022 Refill [facility] - Primary Care - [place] [address] [place] [address] Haydee Rust MD [address] [place] [address] Medication Refill Social History Tobacco [...] Telephone Encounter - Cira Mauricio RN - 02/21/2022 9:14 AM CST Per [place] PDMP last fill date 12/12/21. S AND LEASING AGENT documented in this encounter Plan of Treatment Upcoming Encounters Date Type Department Care Team (Late st Contact Info) Description 12/22/2024 8:40 AM CDT Lab [facility] [place] [address] [place] [address] [facility] 12/29/2024 10:30 AM CDT Office Visit [facility] [place] [facility] [place] [address] [place] [address] Edgar Ordaz, KYLE [address] [place] [address] 07/06/2025 10:00 AM CDT Office Visit [facility] - Cardiology - [place] [address] [place] [address] Erin Up APRN, HOUSEHOLD APPLIANCES SERVICE TECHNICIAN [address] [place] [id number] documented as of this encounter Visit Diagnoses Diagnosis Anxiety Anxiety state, unspecified documented in this encounter Additional Health Concerns Infection Onset Date Last Indicated Resolved Time Respiratory Rule Out - RPA 02/16/2023 02/16/2023 1 04/18/2022 2:08 PM CDT Assessment Noted Time PHQ-9 Depression Total Score: 13 020 11:00 AM CDT documented as of this encounter Care Teams Cargo Service Supervisor Relationship Specialty Start Date End Date Haydee Rust MD PCP - General Family Medicine 01/27/15 05/07/22 Jeny Jarrett MD [address] [place], [place] [id number] PCP - General Family Medicine 05/08/22 06/20/23 Edgar Ordaz PAC [address] [place] [address] PCP - General Physician Newspaper Publisher 06/21/23 Timmy Devries MD [address] [facility] [address] [place] [address] Obstetrics & Gynecology 08/31/16 Irwin Zee MD [address] [facility] [address] [place] [address] Consulting Physician Cardiovascular Disease - Cardiology 11/08/21 03/18/24 Husam Gomez DPM Podiatry 12/07/21 Malini Aparicio APRN, HOUSEHOLD APPLIANCES SERVICE TECHNICIAN [address] [facility], [address] [place] [address] Nurse Practitioner Advanced Practice Nurse 10/19/23 Malini Aapricio APRN, HOUSEHOLD APPLIANCES SERVICE TECHNICIAN [address] [facility], [address] [place] [address] Nurse Practitioner Cardiology 07/09/24 10/21/24 documented as of this encounter
--- OUTSIDE RECORDS SUMMARY | 2024-11-04 10:00 | XMS_ITS | Encounter Summary ---
Author Organization [facility] Address [address] [place] [address] Phone Care Team Providers Care Packaging Line Operator Name Role Phone Haydee Rust MD Primary Care Provider + [phone] Timmy Devries MD Unavailable +[phone] Irwin Zee MD Unavailable UnaJeny Houser MD Primary Care Provider + [phone] Husam Gomez DPAsim Unavailable Unavailable Edgar Ordaz Primary Care Provider + [phone] Malini Aparicio PIPE STEM SAWYER, PRESSURIZATION MECHANIC Unavailable + [phone] Malini Aparicio PIPE STEM SAWYER, PRESSURIZATION MECHANIC Unavailable + [phone] Reason for Visit * Reason Comments Medication Refill Encounter Details Date Type Department Care Team (Late st Contact Info) Description 10/21/2020 Refill [facility] - Primary Care - [place] [address] [place] [address] Haydee Rust MD [address] [place] [address] Medication Refill Social History Tobacco [...] Telephone Encounter - Cira Mauricio RN - 10/21/2020 9:36 AM CDT [place] PD[place] last fill date 09/21/20 Medication failed the protocol, provider to review and approve the medication order if appropriate. Requested Prescriptions Pending Prescriptions Disp Refills LORazepam (ATIVAN) 0.5 MG Tablet [Pharmacy Med Name: LORazepam 0.5 MG Oral Tablet] 30 Tablet 0 Sig: TAKE 1 TABLET BY MOUTH NIGHTLY NEEDED FOR SLEEP [facility]finch Not Delegated - Anesthesia: Anesthetics & Sedatives Failed - 10/21/2020 9:36 AM Failed - This refill cannot be delegated Passed - Valid encounter within last 6 months Past Office Visits Recent Outpatient Visits 5 months ago Hyperlipidemia, unspecified hyperlipidemia type [facility] Haydee Rust MD 11 months ago Physical exam, annual (Adult) [facility] Haydee Rust MD 1 year ago Allergic dermatitis due to poison kimi [facility] 1 year ago [facility] 1 year ago RLQ abdominal pain [facility] Haydee Rust MD Upcoming Appointments Future Appointments In 2 weeks Ab [facility] In 3 weeks Haydee Rust MD [facility] GAS STATION CLERK - Recent and Past Visits Recent Visits Date Type Provider Dept 05/06/20 Telemedicine Haydee Rust MD [facility] 11/04/19 Office Visit Haydee Rust MD [facility] 10/06/19 Office Visit Haydee Rust MD [facility] Showing recent visits within past 460 days with a meds authorizing provider and meeting all other requirements Future Appointments Date Type Provider Dept 11/11/20 Appointment Haydee Rust MD [facility] Showing future appointments within next 90 days with a meds authorizing provider and meeting all other requirements documented in this encounter Plan of Treatment Upcoming Encounters Date Type Department Care Team (Late st Contact Info) Description 12/22/2024 8:40 AM CDT Lab [facility] [place] [address] [place] [address] [facility] 12/29/2024 10:30 AM CDT Office Visit [facility] Primary [facility] [place] [facility] [place] [address] [place] [address] Edgar Ordaz PAC [address] [place] [address] 07/06/2025 10:00 AM CDT Office Visit [facility] - [place] [address] [place] [address] Erin Up APRN, PRESSURIZATION MECHANIC [address] [place] [address] documented as of this encounter Visit Diagnoses Diagnosis Anxiety Anxiety state, unspecified documented in this encounter Additional Health Concerns Infection Onset Date Last Indicated Resolved Time Other 12/30/2019 12/30/2019 03/21/2021 4:55 PM PUBLIC HEALTH ANALYST Respiratory Rule Out - RPA 02/16/2023 02/16/2023 1 04/18/2022 2:08 PM CDT Assessment Noted Time PHQ-9 Depression Total Score: 13 020 11:00 AM CDT documented as of this encounter Care Teams Packaging Line Operator Relationship Specialty Start Date End Date Haydee Rust MD PCP - General Family Medicine 01/27/15 05/07/22 Jeny Jarrett MD [address] [place] [address] PCP - General Family Medicine 05/08/22 06/20/23 Edgar Ordaz PAC [address] [place] [address] PCP - General Physician Maintenance Worker Swimming Pool 06/21/23 Timmy Devries MD [address] [facility] [address] [place] [address] Obstetrics & Gynecology 08/31/16 Irwin Zee MD [address] [facility] [address] [place] [address] Consulting Physician Cardiovascular Disease - Cardiology 11/08/21 03/18/24 Husam Gomez DPM Podiatry 12/07/21 Malini Aparicio APRN, PRESSURIZATION MECHANIC [address] [facility], [address] [place] [address] Nurse Practitioner Advanced Practice Nurse 10/19/23 Malini Aparicio APRN, PRESSURIZATION MECHANIC #2 [facility], [address] [place] [address] Nurse Practitioner Cardiology 07/09/24 10/21/24 documented as of this encounter
--- OUTSIDE RECORDS SUMMARY | 2024-11-04 10:00 | XMS_ITS | Encounter Summary ---
Author Organization [facility] Address [address] [place] [address] Phone Care Team Providers Care Cotton Weigher Name Role Phone Timmy Devries MD Unavailable +[phone] Irwin Zee MD Unavailable Jeny Galdamez MD Primary Care Provider + [phone] Husam Gomez DPM Unavailable Unavailable Edgar Ordaz Primary Care Provider + [phone] Malini Aparicio SOCIAL SECRETARY, COLLECTION SYSTEMS MODELER Unavailable + [phone] Malini Aparicio APRN, COLLECTION SYSTEMS MODELER Unavailable + [phone] Reason for Visit * Reason Comments Medication Refill Encounter Details Date Type Department Care Team (Late st Contact Info) Description 02/13/2023 Refill [facility] - Primary Care - [place] [address] [place] [address] Edgar Odraz PAC [address] [place] [address] Medication Refill Social History Tobacco Use [...] suspected to have Coronavirus/COVID-19? No / Unsure 02/16/2023 10:37 AM CDT documented as of this encounter Miscellaneous Notes * Telephone Encounter - Marlee Sanchez, RN - 02/13/2023 10:51 AM CDT Duplicate request. documented in this encounter Plan of Treatment Upcoming Encounters Date Type Department Care Team (Late st Contact Info) Description 12/22/2024 8:40 AM CDT Lab [facility]note 3[facility] - [address] [address] [facility] 12/29/2024 10:30 AM CDT Office Visit [facility] Primary Care - [place] [address] [place] [address] Edgar Ordaz PAC [address] [place] [address] 07/06/2025 10:00 AM CDT Office Visit [facility] - Cardiology - [place] [address] [place] [address] Erin Up APRN, COLLECTION SYSTEMS MODELER [address] [place] [address] documented as of this encounter Visit Diagnoses Diagnosis Anxiety Anxiety state, unspecified documented in this encounter Additional Health Concerns Infection Onset Date Last Indicated Resolved Time Respiratory Rule Out - RPA 02/16/2023 02/16/2023 1 04/18/2022 2:08 PM CDT Assessment Noted Time PHQ-9 Depression Total Score: 13 020 11:00 AM CDT documented as of this encounter Care Teams Cotton Weigher Relationship Specialty Start Date End Date Jeny Jarrett MD [address] [place] [address] PCP - General Family Medicine 05/08/22 06/20/23 Edgar Ordaz, PAC [address] [place] [address] PCP - General Physician Change Lead 06/21/23 Timmy Devries MD [address] [facility] [address] [place] [address] Obstetrics & Gynecology 08/31/16 Irwin Zee MD [address] [facility] [address] [place] [address] Consulting Physician Cardiovascular Disease - Cardiology 11/08/21 03/18/24 Husam Gomez DPM Podiatry 12/07/21 Malini Aparicio APRN, COLLECTION SYSTEMS MODELER [address]2 [facility], [address] [place] [address] Nurse Practitioner Advanced Practice Nurse 10/19/23 Malini Aparicio APRN, COLLECTION SYSTEMS MODELER [address] [facility], [address] [place] [address] Nurse Practitioner Cardiology 07/09/24 10/21/24 documented as of this encounter
--- OUTSIDE RECORDS SUMMARY | 2024-11-04 10:00 | XMS_ITS | Encounter Summary ---
Author Organization [facility] Address [address] [place] [address] Phone Care Team Providers Care Transition Of Care Specialist Name Role Phone Haydee Rust MD Primary Care Provider + [phone] Timmy Devries MD Unavailable [phone] Irwin Zee MD Unavailable UnaJeny Houser MD Primary Care Provider + [phone] Husam Gomez DPAsim Unavailable Unavailable Edgar Ordaz Primary Care Provider + [phone] Malini Aparicio TRUCK DRIVER'S OFFSIDER, J2EE ARCHITECT Unavailable + [phone] Malini Aparicio TRUCK DRIVER'S OFFSIDER, J2EE ARCHITECT Unavailable + [phone] Reason for Visit * Reason Comments Medication Refill Encounter Details Date Type Department Care Team (Late st Contact Info) Description 04/07/2020 Refill [facility] - Primary Care - [place] [address] [place] [address] Haydee Rust MD [address] [place] [address] Medication Refill Social History Tobacco [...] Notes * Telephone Encounter - Marlee Sanchez, [facility] - 04/07/2020 1:08 PM CST Medication failed the protocol, provider to review and approve the medication order if appropriate. Requested Prescriptions Pending Prescriptions Disp Refills LORazepam (ATIVAN) 0.5 MG Tablet [Pharmacy Med Name: LORazepam 0.5 MG Oral Tablet] 30 Tab 0 Sig: TAKE 1 TABLET BY MOUTH NIGHTLY NEEDED FOR ANXIETY Not Delegated - Anesthesia: Anesthetics & Sedatives Failed - 04/07/2020 11:27 AM Failed - This refill cannot be delegated Passed - Valid encounter within last 6 months Past Office Visits Recent Outpatient Visits 5 months ago [facility], [facility] MD 6 months ago Allergic dermatitis due to poison kimi [facility] Haydee Wagner MD 1 year ago [facility] 1 year ago RLQ abdominal pain [facility] Haydee Wagner MD 1 year ago Nausea and vomiting, intractability of vomiting not specified, unspecified vomiting type [facility] Haydee Rust MD Upcoming Appointments Future Appointments In 3 weeks Ab [place] [facility] In 4 weeks Haydee Rust MD [facility] QUANTOMETER OPERATOR - Recent and Past Visits Recent Visits Date Type Provider Dept 11/04/19 Office Visit Haydee Rust MD [facility] 10/06/19 Office Visit Haydee Rust MD [facility] [place] 01/24/19 Office Visit Haydee Rust MD [facility] Showing recent visits within past 460 days with a meds authorizing provider and meeting all other requirements Future Appointments Date Type Provider Dept 05/06/20 Appointment [facility] Show[facility] future appointments within next 90 days with a meds authorizing provider and meeting all other requirements FING CLERK documented in this encounter Plan of Treatment Upcoming Encounters Date Type Department Care Team (Late st Contact Info) Description 12/22/2024 8:40 AM CDT Lab [facility] [place] [address] [place] [address] [facility] 12/29/2024 10:30 AM CDT Office Visit [facility] Primary Care - [place] [address] [place] [address] Edgar Ordaz PAC [address] [place] [address] 07/06/2025 10:00 AM CDT Office Visit [facility] - Cardiology - [place] [address] [place] [address] Erin Up APRN, J2EE ARCHITECT [address] [place] [address] documented as of this encounter Visit Diagnoses Diagnosis Anxiety Anxiety state, unspecified documented in this encounter Additional Health Concerns Infection Onset Date Last Indicated Resolved Time Other 12/30/2019 12/30/2019 03/21/2021 4:55 PM STAFFING CLERK Respiratory Rule Out - RPA 02/16/2023 02/16/2023 1 04/18/2022 2:08 PM CDT Assessment Noted Time PHQ-9 Depression Total Score: 13 020 11:00 AM CDT documented as of this encounter Care Teams Transition Of Care Specialist Relationship Specialty Start Date End Date Haydee Rust MD PCP - General Family Medicine 01/27/15 05/07/22 Jeny Jarrett MD [address] [place] [address] PCP - General Family Medicine 05/08/22 06/20/23 Edgar Ordaz, PAC [address] [place] [address] PCP - General Physician Polymerization Kettle Operator 06/21/23 Timmy Devries MD [address] [facility] [address] [place] [address] Obstetrics & Gynecology 08/31/16 Irwin Zee MD [address] [facility] [address] [place] [address] Consulting Physician Cardiovascular Disease - Cardiology 11/08/21 03/18/24 Husam Gomez DPM Podiatry 12/07/21 Malini Aparicio APRN, J2EE ARCHITECT [address]2 [facility], [address] [place] [address] Nurse Practitioner Advanced Practice Nurse 10/19/23 Malini Aparicio APRN, J2EE ARCHITECT [address]2 [facility], [address] [place] [address] Nurse Practitioner Cardiology 07/09/24 10/21/24 documented as of this encounter
--- OUTSIDE RECORDS SUMMARY | 2024-11-04 10:00 | XMS_ITS | Encounter Summary ---
Author Organization [facility] Address [address] [place] [address] Phone Care Team Providers Care Process Validation Engineer Name Role Phone Timmy Devries MD Unavailable [phone] Irwin eZe MD Unavailable Husam Marx DPAsim Unavailable Unavailable Edgar Ordaz Primary Care Provider [phone] Malini Aparicio ASSISTANT PROJECT MANAGER, PROCESS DEVELOPMENT ENGINEER Unavailable + [phone] Malini Aparicio APRN, PROCESS DEVELOPMENT ENGINEER Unavailable + [phone] Reason for Visit * Reason Comments Medication Refill Encounter Details Date Type Department Care Team (Late st Contact Info) Description 06/24/2023 Refill [facility] - Primary Care - [place] [address] [place] [address] Edgar Ordaz, PAC [address] [place] [address] Medication Refill Social History Tobacco Use Types Packs/Day Years Used Date Smoking Tobacco: Never Smokeless Tobacco: Never Alcohol Use Standard Drinks/Week Comments Not Currently 0 (1 standard drink = 0.6 oz pur e alcohol) [facility] Utilities Answer Date Recorded In the [...] often do you attend chur ch or gnosticism services? More than 4 times per year 06/19/2023 Do you belong to any clubs o r organizations such as jewish groups, unions, fraternal or athletic groups, or [...] Total Score - Questions 1-9 13 09/15 [facility] Occup[facility] ional [facility] - Occupational [...] place to sleep or slept in a intermediate (including now)? No 06/19/2023 Education Answer Date [...] Telephone Encounter - Edgar Ordaz PAC - 06/25/2023 11:30 AM CDT Refill approved. * Telephone Encounter - Farhad Franco RN - 06/25/2023 9:22 AM CDT Medication failed the protocol, provider to review and approve the medication order if appropriate. Requested Prescriptions Pending Prescriptions Disp Refills methotrexate 2.5 MG Tablet [Pharmacy Med Name: Methotrexate Sodium 2.5 MG Oral Tablet] 24 Tablet 0 Sig: TAKE 6 TABLETS BY MOUTH ONCE A WEEK FOR RHEUMATOID ARTHRITIS Not Delegated - Off Protocol Failed - 06/24/2023 10:35 AM Failed - This refill cannot be delegated Passed - Visit with relevant provider in past 12 months or upcoming 90 days Recent Visits Date Type Provider Dept 06/21/23 Office Visit Edgar Ordaz PAC [facility] 02/16/23 Office Visit Edgar Ordaz PAC [facility] 12/21/22 Office Visit Jeny Jarrett MD [facility] Showing recent visits within past 365 days and meeting all other requirements Future Appointments No visits were found meeting these conditions. Showing future appointments within next 90 days and meeting all other requirements documented in this encounter Plan of Treatment Upcoming Encounters Date Type Department Care Team (Late st Contact Info) Description 12/22/2024 8:40 AM CDT Lab [facility] [address] [place] [address] [facility] 12/29/2024 10:30 AM CDT Office Visit [facility] Primary Care - [place] [address] [place] [address] Edgar Ordaz PAC [address] [place] [address] 07/06/2025 10:00 AM CDT Office Visit [facility] - Cardiology - [place] [address] [place] [id number] Erin Up APRN, PROCESS DEVELOPMENT ENGINEER [address] [place] [id number] documented as of this encounter Visit Diagnoses Diagnosis Rheumatoid arthritis involving multiple sites, unspecified whether rheumatoid factor present (HCC) documented in this encounter Additional Health Concerns Assessment Noted Time PHQ-9 Depression Total Score: 13 020 11:00 AM CDT documented as of this encounter Care Teams Process Validation Engineer Relationship Specialty Start Date End Date Edgar Ordaz PAC [address] [place] [address] PCP - General Physician Propeller Driven Airplane Mechanic 06/21/23 Timmy Devries MD [address] [facility] [address] [place] [address] Obstetrics & Gynecology 08/31/16 Irwin Zee MD [address] [facility] [address] [place] [address] Consulting Physician Cardiovascular Disease - Cardiology 11/08/21 03/18/24 Husam Gomez DPM Podiatry 12/07/21 Malini Aparicio APRN, PROCESS DEVELOPMENT ENGINEER [address], [address] [place] [address] Nurse Practitioner Advanced Practice Nurse 10/19/23 Malini Aparicio APRN, PROCESS DEVELOPMENT ENGINEER [address], [address] [place] [address] Nurse Practitioner Cardiology 07/09/24 10/21/24 documented as of this encounter
--- OUTSIDE RECORDS SUMMARY | 2024-11-04 10:00 | XMS_ITS | Encounter Summary ---
Author Organization [facility] Address [address] [place] [address] Phone Care Team Providers Care Lab Associate Name Role Phone Timmy Devries MD Unavailable [phone] Husam Gomez DPAsim Unavailable Unavailable Edgar Ordaz PAC Primary Care Provider Malini Aparicio MEAT GRADING MACHINE OPERATOR, STRUCTURAL RIGGER Unavailable [phone] Reason for Visit * Reason Onset Date Comments Advice Only 09/09/2024 Shaking 09/09/2024 Tremors 09/09/2024 Encounter Details Date Type Department Care Team (Late st Contact Info) Description 09/09/2024 [facility] [address] [place] [address] Edgar Ordaz, PAC [address] [place] [address] Advice Only; Shaking; Tremors Social History Tobacco Use Types Packs/Day Years Used Date Smoking Tobacco: Never Smokeless Tobacco: Never Alcohol Use Standard Drinks/Week Comments Not Currently 0 (1 standard drink = 0.6 oz pur e alcohol) [facility] Utilities Answer Date Recorded In the past 12 months has e electric, gas, oil, or water company [...] week 06/25/2024 How often do you attend chur ch or mandaeism services? More than 4 times per year 06/25/2024 Do you belong to any clubs o r organizations such as protestant groups, unions, fraternal or athletic groups, or [...] Total Score - Questions 1-9 0 06/14 [facility] - Occupational Stress Questionnaire Answer Date Recorded [...] place to sleep or slept in a alf (including now)? No 06/19/2023 Housing Stability Vital Sign Answer Ventura e Recorded In the last 12 months, was t here a time when you were not able to pay the mortgage or rent on time? No 06/25/2024 In the past 12 months, how m any times have you moved where you were living? 0 06/25/2024 At any time in the past 12 m [facility], were you homeless or living in a alf (including now)? No 06/25/2024 Education Answer Date [...] encounter Miscellaneous Notes * Telephone Encounter - Yomaira Juárez RN - 09/09/2024 1:57 PM CDT SITUATION: shaking on both hands/tremors BACKGROUND: Patient contacting PCP office. Onset: 1 month Patient recently stopped taking Cymbalta from not feeling well/weird feeling- it was couple weeks ago; Patient only took 1 tablet; not taking anymore Per chart review, History of RA, anxiety ASSESSMENT: Symptom Description / Location: Both hands shaking started for 1 month; now its happening more often When trying to hold something feels shaking or do something; not every time but happening more often now Patient states her notices more of hand shaking Patient states also noted more when Patient is nervous Denies any swelling, pain, any alcohol or substance drug use, seizure, Pain: Caller denies pain. Fever: Denies fever. Treatment / Response: No reported treatment. RECOMMENDATION: Caller agreeable to disposition: see in office or video visit today. Care advice provided per triage guideline. Caller verbalized understanding. Appointments available with alternate provider in the office within disposition. Patient requestingto schedule appointment at nearest availability with PCP instead. Appointment scheduled. All Patient Appointments Date & Time Provider Department Dept Phone 09/15/2024 2:15 PM Edgar Ordaz [facility] - Primary Care [facility] [phone] Encounter routed to provider high priority to notify. Discussed utilizing [employer] to: discuss if they would prefer a myMatrixxhart message or phone call response and E-check in prior to upcoming appointment - See care advice and disposition for Guideline. First positive answer recorded, all responses to prior questions were negative. If symptoms increase, change or if new symptoms develop, call your health care provider or call back. Recommendations were based on caller information and is not a diagnosis. Verified and reviewed all triage information with caller. Reason for Disposition Patient wants to be seen Protocols used: Muscle Jerks - Tics - [id number]-H-FC * Telephone Encounter - Haylee Gottlieb - 09/09/2024 1:56 PM CDT Symptom: Hand Tremors or Shaking Outcome: Schedule an urgent appointment within same day Reason: Getting worse The caller accepted this outcome. Caller Denied: * Having drug or alcohol withdrawal * Hand shaking now that started within the past 24 hours documented in this encounter Plan of Treatment Upcoming Encounters Date Type Department Care Team (Late st Contact Info) Description 12/22/2024 8:40 AM CDT Lab [facility] - [address] [address] [facility] 12/29/2024 10:30 AM CDT Office Visit [facility] - [place] [address] [place] [address] Edgar Ordaz PAC [address] [place] [address] 07/06/2025 10:00 AM CDT Office Visit [facility] Cardiology - [place] [address] [place] [address] Erin Up APRN, STRUCTURAL RIGGER [address] [place] [address] documented as of this encounter Visit Diagnoses Not on filedocumented in this encounter Additional Health Concerns Assessment Noted Time PHQ-9 Depression Total Score: 0 06/27/19 25 8:29 AM CDT documented as of this encounter Care Teams Lab Associate Relationship Specialty Start Date End Date Edgar Ordaz PAC [address] [place] [address] PCP - General Physician Forensic Nurse 06/21/23 Timmy Devries MD [address] [facility] [address] [place], [place] [id number] Obstetrics & Gynecology 08/31/16 Husam Gomez DPM Podiatry 12/07/21 Malini Aparicio APRN, STRUCTURAL RIGGER [address] [facility], [address] [place] [id number] Nurse Practitioner Cardiology 07/09/24 10/21/24 documented as of this encounter
--- OUTSIDE RECORDS SUMMARY | 2024-11-04 10:00 | XMS_ITS | Encounter Summary ---
Author Organization [facility] Address [address] [place] [address] Phone Care Team Providers Care Research Chemical Engineer Name Role Phone Haydee Rust MD Primary Care Provider + [phone] Timmy Devries MD Unavailable [phone] Irwin Zee MD Unavailable UnaJeny Houser MD Primary Care Provider + [phone] Husam Gomez DPAsim Unavailable Unavailable Edgar Ordaz Primary Care Provider + [phone] Malini Aparicio CHAR DUST CLEANER AND SALVAGER, CAMERA MACHINIST Unavailable + [phone] Malini Aparicio CHAR DUST CLEANER AND SALVAGER, CAMERA MACHINIST Unavailable + [phone] Reason for Visit * Reason Comments Medication Refill Encounter Details Date Type Department Care Team (Late st Contact Info) Description 03/18/2021 Refill [facility] - Primary Care - [place] [address] [place] [address] Haydee Rust MD [address] [place] [address] Medication Refill Social History Tobacco [...] COVID-19? No / Unsure 03/21/2021 2:08 PM BUGGY OPERATOR documented as of this encounter Miscellaneous Notes * Telephone Encounter - Agueda Carlos RN - 03/18/2021 1:52 PM BUGGY OPERATOR Medication failed the protocol, provider to review and approve the medication order if appropriate. Requested Prescriptions Pending Prescriptions Disp Refills LORazepam (ATIVAN) 0.5 MG Tablet [Pharmacy Med Name: LORAZEPAM 0.5MG TAB] 30 Tablet 0 Sig: TAKE 1 TABLET BY MOUTH NIGHTLY NEEDED FOR SLEEP [facility] Not Delegated - Anesthesia: Anesthetics & Sedatives Failed - 03/18/2021 1:45 PM Failed - This refill cannot be delegated Passed - Valid encounter within last 6 months Past Office Visits Recent Outpatient Visits 4 months ago Physical exam, annual (Adult) [facility] Haydee Rust MD 10 months ago Hyperlipidemia, unspecified hyperlipidemia type [facility] Haydee Rust MD 1 year ago Physical exam, annual (Adult) [facility] Haydee Rust MD 1 year ago Allergic dermatitis due to poison kimi [facility] Haydee Wagner MD 2 years ago [facility] Upcoming Appointments Future Appointments In 7 months [facility] In 7 months Haydee Rust MD [facility] SENIOR QUANTITY SURVEYOR - Recent and Past Visits Recent Visits Date Type Provider Dept 11/11/20 Office Visit Haydee Rust MD [facility] 05/06/20 Telemedicine Haydee Rust MD [facility] Showing recent visits within past 460 days with a meds authorizing provider and meeting all other requirements Future Appointments No visits were found meeting these conditions. Showing future appointments within next 90 days with a meds authorizing provider and meeting all other requirements Y OPERATOR documented in this encounter Plan of Treatment Upcoming Encounters Date Type Department Care Team (Late st Contact Info) Description 12/22/2024 8:40 AM CDT Lab [facility] [address] [place] [address] [facility] 12/29/2024 10:30 AM CDT Office Visit [facility] Primary [facility] - [place] [address] [place] [address] Edgar Ordaz PAC [address] [place] [address] 07/06/2025 10:00 AM CDT Office Visit [facility] Cardiology - [place] [address] [place] [address] Erin Up APRN, CAMERA MACHINIST [address] [place] [address] documented as of this encounter Visit Diagnoses Diagnosis Anxiety Anxiety state, unspecified documented in this encounter Additional Health Concerns Infection Onset Date Last Indicated Resolved Time Other 12/30/2019 12/30/2019 03/21/2021 4:55 PM BUGGY OPERATOR Respiratory Rule Out - RPA 02/16/2023 02/16/2023 1 04/18/2022 2:08 PM CDT Assessment Noted Time PHQ-9 Depression Total Score: 13 020 11:00 AM CDT documented as of this encounter Care Teams Research Chemical Engineer Relationship Specialty Start Date End Date Haydee Rust MD PCP - General Family Medicine 01/27/15 05/07/22 Jeny Jarrett MD [address] [place] [address] PCP - General Family Medicine 05/08/22 06/20/23 Edgar Ordaz PAC [address] [place] [address] PCP - General Physician Fruit Packer Face And Fill 06/21/23 Timmy Devries MD [address] [facility] [address] [place] [address] Obstetrics & Gynecology 08/31/16 Irwin Zee MD [address] [facility] [address] [place] [address] Consulting Physician Cardiovascular Disease - Cardiology 11/08/21 03/18/24 Husam Gomez DPM Podiatry 12/07/21 Malini Aparicio APRN, CAMERA MACHINIST [address] [facility] [place] [address] Nurse Practitioner Advanced Practice Nurse 10/19/23 Malini Aparicio APRN, CAMERA MACHINIST [address] [facility], [address] [place] [address] Nurse Practitioner Cardiology 07/09/24 10/21/24 documented as of this encounter
--- OUTSIDE RECORDS SUMMARY | 2024-11-04 10:00 | XMS_ITS | Encounter Summary ---
Author Organization [facility] Address [address] [place] [address] Phone Care Team Providers Care Bed Laster Name Role Phone Timmy Devries MD Unavailable [phone] Husam Gomez DPAsim Unavailable Unavailable Edgar Ordaz Primary Care Provider Malini Aparicio E MERCHANT, FRENCH INSTRUCTOR Unavailable [phone] Reason for Visit * Reason Onset Date Comments Medication Management 06/05/2024 Sore Throat 06/05/2024 Cough 06/05/2024 Influenza 06/05/2024 Encounter Details Date Type Department Care Team ([facility] st Contact Info) Description 06/05/2024 Nurse Triage [facility] Call Center [address] [place] [address] Edgar Ordaz, PAC [address] [place] [address] Medication Management; Sore Throat; Cough; Influenza Social History Tobacco Use Types Packs/Day Years Used Date Smoking Tobacco: Never Smokeless Tobacco: Never Alcohol Use Standard Drinks/Week Comments Not Currently 0 (1 standard drink = 0.6 oz pur e alcohol) [facility] Utilities Answer Date Recorded In the past 12 months has [employer], gas, oil, or water [employer] threatened to shut off services in your home? No 11/23/2023 Social Connection and Isolation Panel Answer Date Recorded In a typical week, how many times do you talk on the phone with family, friends, or neighbors? Twice a week 11/23/2023 How often do you get togethe r with friends or relatives? Once a week 11/23/2023 How often do you attend chur ch or judaism services? More than 4 times per year 11/23/2023 Do you belong to any clubs o r organizations such as buddhist groups, unions, fraternal or athletic groups, or school groups? No 11/23/2023 How often do you attend meet ings of the clubs or organizations you belong to? Never 11/23/2023 Are you , , di vorced, , never , or living with a partner? 11/23/2023 AUDIT-C Answer Date Recorded Q1: How often do you have a drink containing alcohol? Never 11/23/2023 Q2: How many drinks containi ng alcohol do you have on a typical day when you are drinking? Patient does not drink Q3: How often do you have si x or more drinks on one occasion? Never 11/23/2023 Overall Financial Resource Strain (CARDIA) Answe r Date Recorded How hard is it for you to pa y for the very basics like food, housing, medical care, and heating? Not hard at all 11/23/2023 PHQ-2 Answer Date Recorded Total Score - Questions 1-9 0 12/15 [facility] Occupat ional Health - Occupational Stress Questionnaire Answer Date Recorded Do you feel stress - tense, restless, nervous, or anxious, or unable to sleep at night because your mind is troubled all the time - these days? Not at all 11/23/2023 Exercise Vital Sign Answer Date Recorde d On average, how many days pe r week do you engage in moderate to strenuous exercise (like a brisk walk)? 0 days 11/23/2023 On average, how many minutes do you engage in exercise at this level? 0 min 11/23/2023 Hunger Vital Sign Answer Date Recorded Within the past 12 months, y ou worried that your food would run out before you got the money to buy more. Never true 11/23/19 24 Within the past 12 months, t he food you bought just didn't last and you didn't have money to get more. Never true 11/23/2023 PRAPARE - Transportation Answer Date Re corded In the past 12 months, has l ack of transportation kept you from medical appointments or from getting medications? No 12/2023 In the past 12 months, has l ack of transportation kept you from meetings, work, or from getting things needed for daily living? No 11/23/2023 Housing Stability Vital Sign Answer Ventura e [...] place to sleep or slept in a long term (including now)? No 06/19/2023 Housing Stability Vital Sign Answer Ventura e Recorded In the last 12 months, was t here a time when you were not able to pay the mortgage or rent on time? No 11/23/2023 In the past 12 months, how m any times have you moved where you were living? 0 11/23/2023 At any time in the past 12 m [facility], were you homeless or living in a long term (including now)? No 11/23/2023 Education Answer Date Recorded What is the [...] Telephone Encounter - Edgar Ordaz PAC - 06/05/2024 8:52 AM CST Rx was sent to pharmacy already. See previous mychart message encounter. TELEPHONIC * Telephone Encounter - Mechelle Cruz RN - 06/05/2024 8:42 AM CST SITUATION: influenza A exposure, cough, and sore throat BACKGROUND: Patient contacting PCP office. Symptoms started 06/04/24 Exposure to influenza A, partner is positive ASSESSMENT: Symptom Description / Location: Cough Sore throat Asthma history History of heart attack Denies: Shortness of breath Chest pain Bluish lips or face Weakness Unable to stand Headache Stiff neck Fever Ear pain Using nasal washes Pain: Caller denies pain. Fever: Denies fever. RECOMMENDATION: Caller agreeable to disposition: discuss with PCP and callback by nurse Care advice provided per triage guideline. Caller verbalized understanding. Encounter routed to provider high priority to notify. - See care advice and disposition for Guideline. First positive answer recorded, all responses to prior questions were negative. If symptoms increase, change or if new symptoms develop, call your health care provider or call back. Recommendations were based on caller information and is not a diagnosis. Verified and reviewed all triage information with caller. Reason for Disposition Influenza EXPOSURE within last 48 hours (2 days) and exposed person is HIGH RISK (e.g., age > 64years, , HIV+, chronic medical condition) Influenza suspected (i.e., cough, fever, respiratory symptoms; probable influenza exposure) HIGH RISK (e.g., age > 64 years, , HIV+, chronic medical condition) and flu symptoms Protocols used: Influenza (Flu) [id number], Influenza (Flu) - Avctzlxb-I-HG TELEPHONIC * Telephone Encounter - Vinicio Lazo - 06/05/2024 8:40 AM CST Symptoms: Sore Throat, Cough Outcome: Transfer to export packer queue Reason: Caller denied all higher acuity questions The caller accepted this outcome. Caller Denied: * Struggling for each breath (severe trouble breathing) * Can't swallow saliva (drooling) * Choked on something TELEPHONIC documented in this encounter Plan of Treatment Upcoming Encounters Date Type Department Care Team (Late st Contact Info) Description 12/22/2024 8:40 AM CDT Lab [facility] - [address] [address] [facility] 12/29/2024 10:30 AM CDT Office Visit [facility] - [place] [address] [place] [address] Edgar Ordaz PAC [address] [place] [address] 07/06/2025 10:00 AM CDT Office Visit [facility] Cardiology - [place] [address] [place] [address] Erin Up APRN, FRENCH INSTRUCTOR [address] [place] [address] documented as of this encounter Visit Diagnoses Not on filedocumented in this encounter Additional Health Concerns Assessment Noted Time PHQ-9 Depression Total Score: 0 12/28/19 8:57 AM CDT documented as of this encounter Care Teams Bed Laster Relationship Specialty Start Date End Date Edgar Ordaz PAC [address] [place] [address] PCP - General Physician Mold Yard Worker 06/21/23 Timmy Devries MD [address] [facility] [address] [place] [address] Obstetrics & Gynecology 08/31/16 Husam Gomez DPM Podiatry 12/07/21 Malini Aparicio, E MERCHANT, FRENCH INSTRUCTOR [address] [facility], [address] [place] [address] Nurse Practitioner Cardiology 07/09/24 10/21/24 documented as of this encounter
--- OUTSIDE RECORDS SUMMARY | 2024-11-04 10:00 | XMS_ITS | Encounter Summary ---
Author Organization [facility] Address [address] [place] [address] Phone Care Team Providers Care Regional Safety Manager Name Role Phone Haydee Rust MD Primary Care Provider + [phone] Timmy Devries MD Unavailable [phone] Irwin Zee MD Unavailable UnaJeny Houser MD Primary Care Provider + [phone] Husam Gomez DPAsim Unavailable Unavailable Edgar Ordaz Primary Care Provider + [phone] Malini Aparicio BURN TABLE OPERATOR, PROGRAM MANAGEMENT INTERN Unavailable + [phone] Malini Aparicio BURN TABLE OPERATOR, PROGRAM MANAGEMENT INTERN Unavailable + [phone] Reason for Visit * Reason Comments Medication Refill Encounter Details Date Type Department Care Team (Late st Contact Info) Description 01/31/2022 Refill [facility] - Primary Care - [place] [address] [place] [address] Haydee Rust MD [address] [place] [address] Medication Refill Social History Tobacco [...] suspected to have Coronavirus/COVID-19? No / Unsure 01/11/2022 10:42 AM CDT documented as of this encounter Miscellaneous Notes * Telephone Encounter - Samantha Love RN - 01/31/2022 8:57 AM CDT Per nursing clinical judgement, provider to review and approve the medication(s) order(s) if appropriate. Requested Prescriptions Pending Prescriptions Disp Refills levothyroxine (SYNTHROID) 75 MCG Tablet [Pharmacy Med Name: Levothyroxine Sodium 75 MCG Oral Tablet] 90 Tablet 0 Sig: Take 1 tablet by mouth once daily Thyroid Hormones Protocol Passed - 01/31/2022 8:48 AM Passed - Visit with relevant provider in past 12 months or upcoming 90 days Recent Visits Date Type Provider Dept 11/01/21 Office Visit Haydee Rust MD [facility] 08/08/21 Office Visit Haydee Rust MD [facility] 06/08/21 Office Visit Maria Victoria Horton APRN, CNP [facility] 04/11/21 Office Visit Maria Victoria Horton APRN, CNP [facility] 03/30/21 Office Visit Maria Victoria Horton APRN, CNP [facility] Showing recent visits within past 365 days and meeting all other requirements Future Appointments Date Type Provider Dept 05/01/22 Appointment Lab, [place] [facility] Showing future appointments within next 90 days and meeting all other requirements Passed - Normal TSH in past 12 months TSH Date Value Ref Range Status 11/01/2021 2.040 0.270 - 4.200 mIU/L Final documented in this encounter Plan of Treatment Upcoming Encounters Date Type Department Care Team (Late st Contact Info) Description 12/22/2024 8:40 AM CDT Lab [facility] [place] [address] [place] [address] [facility] 12/29/2024 10:30 AM CDT Office Visit [facility] [place] [address] [place] [address] Edgar Ordaz PAC [address] [place] [address] 07/06/2025 10:00 AM CDT Office Visit [facility] Cardiology - [place] [address] [place] [phone] Erin Up APRN, PROGRAM MANAGEMENT INTERN [address] [place] [address] documented as of this encounter Visit Diagnoses Diagnosis Hypothyroidism, unspecified type documented in this encounter Additional Health Concerns Infection Onset Date Last Indicated Resolved Time Respiratory Rule Out - RPA 02/16/2023 02/16/2023 1 04/18/2022 2:08 PM CDT Assessment Noted Time PHQ-9 Depression Total Score: 13 020 11:00 AM CDT documented as of this encounter Care Teams Regional Safety Manager Relationship Specialty Start Date End Date Haydee Rust MD PCP - General Family Medicine 01/27/15 05/07/22 Jeny Jarrett MD [address] [place], [place] [id number] PCP - General Family Medicine 05/08/22 06/20/23 Edgar Ordaz, PAC [address] [place] [address] PCP - General Physician Fish Bait Processing Supervisor 06/21/23 Timmy Devries MD [address] [facility] [address] [place] [address] Obstetrics & Gynecology 08/31/16 Irwin Zee MD [address] [facility] [address] [place] [address] Consulting Physician Cardiovascular Disease - Cardiology 11/08/21 03/18/24 Husam Gomez DPM Podiatry 12/07/21 Malini Aparicio APRN, PROGRAM MANAGEMENT INTERN [address] [facility], [address] [place] [address] Nurse Practitioner Advanced Practice Nurse 10/19/23 Malini Aparicio APRN, PROGRAM MANAGEMENT INTERN [address] [facility], [address] [place] [address] Nurse Practitioner Cardiology 07/09/24 10/21/24 documented as of this encounter
--- OUTSIDE RECORDS SUMMARY | 2024-11-04 10:00 | XMS_ITS | Encounter Summary ---
Author Organization [facility] Address [address] [place] [address] Phone Care Team Providers Care Assembler [employer] Name Role Phone Haydee Rust MD Primary Care Provider + [phone] Timmy Devries MD Unavailable [phone] Irwin Zee MD Unavailable UnaJeny Houser MD Primary Care Provider + [phone] Husam Gomez DPM Unavailable Unavailable Edgar Ordaz Primary Care Provider + [phone] Malini Aparicio BEHAVIOR CLINICIAN, GYNECOLOGIST Unavailable +- [phone] Malini Aparicio BEHAVIOR CLINICIAN, GYNECOLOGIST Unavailable + [phone] Reason for Visit * Reason Onset Date Comments Results 12/31/2019 Encounter Details Date Type Department Care Team (Late st Contact Info) Description 12/31/2019 Telephone [facility] [address] [place] [address] Haydee Rust MD [address] [place] [address] Results Social History Tobacco Use Types Packs/Day Years [...] have Coronavirus / COVID-19? No / Unsure 12/30/2019 11:17 AM CDT documented as of this encounter Miscellaneous Notes * Telephone Encounter - Haydee Rust MD - 12/31/2019 9:03 PM CDT Noted. * Telephone Encounter - Kristine Magallon RN - 12/31/2019 11:25 AM CDT Patient calling to let PCP know that she has tested positive for COVID19. Patient tested at ED on 12/30/19 and received results today. Routing as an FYI documented in this encounter Plan of Treatment Upcoming Encounters Date Type Department Care Team (Late st Contact Info) Description 12/22/2024 8:40 AM CDT Lab [facility] - Primary Care - [place] [address] [place] [address] [facility] 12/29/2024 10:30 AM CDT Office Visit [facility] - Primary Care - [place] [address] [place] [address] Edgar Ordaz PAC [address] [place] [address] 07/06/2025 10:00 AM CDT Office Visit [facility] Medical [facility] - Cardiology [facility] [address] [place] [address] Erin Up APRN, GYNECOLOGIST [address] [place] [address] documented as of this encounter Visit Diagnoses Diagnosis COVID-19 virus infection- Primary documented in this encounter Additional Health Concerns Infection Onset Date Last Indicated Resolved Time Other 12/30/2019 12/30/2019 03/21/2021 4:55 PM TECHNICAL OPERATOR COVID - 19 Confirmed 12/30/2019 12/30/2019 020 12:18 AM CDT Respiratory Rule Out - RPA 02/16/2023 02/16/2023 1 04/18/2022 2:08 PM CDT Assessment Noted Time PHQ-9 Depression Total Score: 13 020 11:00 AM CDT documented as of this encounter Care Teams Assembler Semiconductor Relationship Specialty Start Date End Date Haydee Rust MD PCP - General Family Medicine 01/27/15 05/07/22 Jeny Jarrett MD [address] [place], [place] [phone] PCP - General Family Medicine 05/08/22 06/20/23 Edgar Ordaz, PAC [address] [place] [address] PCP - General Physician Box Bender 06/21/23 Timmy Devries MD [address] [facility] [address] [place] [address] Obstetrics & Gynecology 08/31/16 Irwin Zee MD [address] [facility] [address] [place] [address] Consulting Physician Cardiovascular Disease - Cardiology 11/08/21 03/18/24 Husam Gomez DPM Podiatry 12/07/21 Malini Aparicio APRN, GYNECOLOGIST [address] [facility], [address] [place] [address] Nurse Practitioner Advanced Practice Nurse 10/19/23 Malini Aparicio APRN, GYNECOLOGIST [address] [facility], [address] [place] [address] Nurse Practitioner Cardiology 07/09/24 10/21/24 documented as of this encounter
--- OUTSIDE RECORDS SUMMARY | 2024-11-04 10:00 | XMS_ITS | Encounter Summary ---
Author Organization [facility] Address [address] [place] [address] Phone Care Team Providers Care Vp Global Name Role Phone Haydee Rust MD Primary Care Provider + [phone] Timmy Devries MD Unavailable [phone] Irwin Zee MD Unavailable UnaJeny Houser MD Primary Care Provider + [phone] Husam Gomez DPAsim Unavailable Unavailable Edgar Ordaz Primary Care Provider + [phone] Malini Aparicio EGG BREAKING MACHINE OPERATOR, GENERAL HELPER Unavailable + [phone] Malini Aparicio EGG BREAKING MACHINE OPERATOR, GENERAL HELPER Unavailable + [phone] Reason for Visit * Reason Comments Medication Refill Encounter Details Date Type Department Care Team (Late st Contact Info) Description 09/20/2020 Refill [facility] - Primary Care - [place] [address] [place] [address] Haydee Rust MD [address] [place] [address] Medication Refill Social History Tobacco [...] Telephone Encounter - Samantha Love RN - 09/20/2020 7:32 PM CDT Medication failed the protocol, provider to review and approve the medication order if appropriate. Requested Prescriptions Pending Prescriptions Disp Refills LORazepam (ATIVAN) 0.5 MG Tablet [Pharmacy Med Name: LORazepam 0.5 MG Oral Tablet] 30 Tablet 0 Sig: TAKE 1 TABLET BY MOUTH NIGHTLY NEEDED FOR SLEEP [facility] Not Delegated - Anesthesia: Anesthetics & Sedatives Failed - 09/20/2020 5:26 PM Failed - This refill cannot be delegated Passed - Valid encounter within last 6 months Past Office Visits Recent Outpatient Visits 4 months ago Hyperlipidemia, unspecified hyperlipidemia type [facility] Haydee Rust MD 10 months ago Physical exam, annual (Adult) [facility] Haydee Rust MD 11 months ago Allergic dermatitis due to poison kimi [facility] Haydee Rust MD 1 year ago Anxiety [facility] Haydee Rust MD 1 year ago RLQ abdominal pain [facility] Haydee Rust MD Upcoming Appointments Future Appointments In 1 month [facility] In 1 month Haydee Rust MD [facility] RIM TECHNICIAN - Recent and Past Visits Recent Visits Date Type Provider Dept 05/06/20 Telemedicine Haydee Rust MD [facility] 11/04/19 Office Visit Haydee Rust MD [facility] 10/06/19 Office Visit Haydee Rust MD [facility] Showing recent visits within past 460 days with a meds authorizing provider and meeting all other requirements Future Appointments Date Type Provider Dept 11/11/20 Appointment Haydee Rust MD [facility] Showing future appointments within next 90 days with a meds authorizing provider and meeting all other requirements documented in this encounter Plan of Treatment Upcoming Encounters Date Type Department Care Team (Late st Contact Info) Description 12/22/2024 8:40 AM CDT Lab [facility] [place] [address] [place] [address] [facility] 12/29/2024 10:30 AM CDT Office Visit [facility] Primary [facility] [place] [address] [place] [address] Edgar Ordaz PAC [address] [place] [address] 07/06/2025 10:00 AM CDT Office Visit [facility] - Cardiology - [place] [address] [place] [address] Erin Up APRN, GENERAL HELPER [address] [place] [address] documented as of this encounter Visit Diagnoses Diagnosis Anxiety Anxiety state, unspecified documented in this encounter Additional Health Concerns Infection Onset Date Last Indicated Resolved Time Other 12/30/2019 12/30/2019 03/21/2021 4:55 PM BIOPHYSICS PROFESSOR Respiratory Rule Out - RPA 02/16/2023 02/16/2023 1 04/18/2022 2:08 PM CDT Assessment Noted Time PHQ-9 Depression Total Score: 13 020 11:00 AM CDT documented as of this encounter Care Teams Vp Global Relationship Specialty Start Date End Date Haydee Rust MD PCP - General Family Medicine 01/27/15 05/07/22 Jeny Jarrett MD [address] [place] [address] PCP - General Family Medicine 05/08/22 06/20/23 Edgar Ordaz, PAC [address] [place] [address] PCP - General Physician Desktop Engineer 06/21/23 Timmy Devries MD [address] [facility] [address] [place] [address] Obstetrics & Gynecology 08/31/16 Irwin Zee MD [address] [facility] [address] [place] [address] Consulting Physician Cardiovascular Disease - Cardiology 11/08/21 03/18/24 Husam Gomez DPAsim Podiatry 12/07/21 Malini Aparicio APRN, GENERAL HELPER [address]2 [facility], [address] [place] [address] Nurse Practitioner Advanced Practice Nurse 10/19/23 Malini Aparicio APRN, GENERAL HELPER [address] [facility], [address] [place] [address] Nurse Practitioner Cardiology 07/09/24 10/21/24 documented as of this encounter
--- OUTSIDE RECORDS SUMMARY | 2024-11-04 10:00 | XMS_ITS | Encounter Summary ---
Author Organization [facility] Address [address] [place] [address] Phone Care Team Providers Care Clinical Safety Manager Name Role Phone Haydee Rust MD Primary Care Provider + [phone] Timmy Devries MD Unavailable [phone] Irwin Zee MD Unavailable UnaJeny Houser MD Primary Care Provider + [phone] Husam Gomez DPAsim Unavailable Unavailable Edgar Ordaz Primary Care Provider + [phone] Malini Apraicio TUNNEL KILN OPERATOR, TERRITORY ACCOUNT REPRESENTATIVE Unavailable + [phone] Malini Aparicio TUNNEL KILN OPERATOR, TERRITORY ACCOUNT REPRESENTATIVE Unavailable + [phone] Reason for Visit * Reason Comments Medication Refill Encounter Details Date Type Department Care Team (Late st Contact Info) Description 12/25/2020 Refill [facility] - Primary Care - [place] [address] [place] [address] Haydee Rust MD [address] [place] [address] Medication Refill Social History Tobacco [...] Telephone Encounter - Cira Mauricio RN - 12/27/2020 9:19 AM CDT Per nursing clinical judgement, provider to review and approve the medication(s) order(s) if appropriate. Requested Prescriptions Pending Prescriptions Disp Refills Euthyrox 88 MCG Tablet [Pharmacy Med Name: Euthyrox 88 MCG Oral Tablet] 90 Tablet 0 Sig: Take 1 tablet by mouth once daily Thyroid Hormones Protocol Passed - 12/27/2020 9:19 AM Passed - Visit with relevant provider in past 12 months or upcoming 90 days Recent Visits Date Type Provider Dept 11/11/20 Office Visit Haydee Rust MD [facility] 05/06/20 Telemedicine Haydee Rust MD [facility] Showing recent visits within past 365 days and meeting all other requirements Future Appointments No visits were found meeting these conditions. Showing future appointments within next 90 days and meeting all other requirements Passed - Normal TSH in past 12 months TSH Date Value Ref Range Status 11/04/2020 0.520 0.270 - 4.200 mIU/L Final documented in this encounter Plan of Treatment Upcoming Encounters Date Type Department Care Team (Late st Contact Info) Description 12/22/2024 8:40 AM CDT Lab [facility] [place] [address] [place] [address] [facility] 12/29/2024 10:30 AM CDT Office Visit [facility] [place] [address] [place] [address] Edgar Ordza, PAC [address] [place] [address] 07/06/2025 10:00 AM CDT Office Visit [facility] - Cardiology - [place] [address] [place] [address] Erin Up APRN, TERRITORY ACCOUNT REPRESENTATIVE [address] [place] [address] documented as of this encounter Visit Diagnoses Diagnosis Hypothyroidism, unspecified type documented in this encounter Additional Health Concerns Infection Onset Date Last Indicated Resolved Time Other 12/30/2019 12/30/2019 03/21/2021 4:55 PM CYTOLOGIST Respiratory Rule Out - RPA 02/16/2023 02/16/2023 1 04/18/2022 2:08 PM CDT Assessment Noted Time PHQ-9 Depression Total Score: 13 020 11:00 AM CDT documented as of this encounter Care Teams Clinical Safety Manager Relationship Specialty Start Date End Date Haydee Rust MD PCP - General Family Medicine 01/27/15 05/07/22 Jeny Jarrett MD [address] [place] [address] PCP - General Family Medicine 05/08/22 06/20/23 Edgar Ordaz, PAC [address] [place] [address] PCP - General Physician Ophthalmology Assistant 06/21/23 Timmy Devries MD [address] [facility] [address] [facility] [address] [place] [address] Obstetrics & Gynecology 08/31/16 Irwin Zee MD [address] [facility] [address] [place] [address] Consulting Physician Cardiovascular Disease - Cardiology 11/08/21 03/18/24 Husam Gomez, DPM Podiatry 12/07/21 Malini Aparicio APRN, TERRITORY ACCOUNT REPRESENTATIVE [address] [facility], [address] [place] [address] Nurse Practitioner Advanced Practice Nurse 10/19/23 Malini Aparicio APRN, TERRITORY ACCOUNT REPRESENTATIVE [address] [facility], [address] [place] [address] Nurse Practitioner Cardiology 07/09/24 10/21/24 documented as of this encounter
--- OUTSIDE RECORDS SUMMARY | 2024-11-04 10:01 | XMS_ITS | Encounter Summary ---
Author Organization [facility] Address [address] [place] [address] Phone Care Team Providers Care Gunner'S Mate Name Role Phone Timmy Devries MD Unavailable Irwin Zee MD Unavailable Husam Marx DPAsim Unavailable Unavailable Edgar Ordaz PAC Primary Care Provider [phone] Malini Aparicio ANALYST, AUTOMOTIVE MANUFACTURER Unavailable + [phone] Malini Aparicio APRN, AUTOMOTIVE MANUFACTURER Unavailable + [phone] Reason for Visit * Reason Comments Medication Refill Encounter Details Date Type Department Care Team (Late st Contact Info) Description 08/17/[address] [facility] - Primary Care - [place] [address] [place] [address] Jeny Jarrett MD [address] [place] [address] Medication Refill Social History Tobacco Use Types Packs/Day Years Used Date Smoking Tobacco: Never Smokeless Tobacco: Never Alcohol Use Standard Drinks/Week Comments Not Currently 0 (1 standard drink = 0.6 oz pur e alcohol) [facility] Utilities Answer Date Recorded In the past 12 months has [employer], gas, oil, or water company threatened to [...] often do you attend chur ch or episcopal services? More than 4 times per year 06/19/2023 Do you belong to any clubs o r organizations such as baptism groups, unions, fraternal or athletic groups, or [...] Total Score - Questions 1-9 13 09/15 [facility] - [...] on file documented as of this encounter Plan of Treatment Upcoming Encounters Date Type Department Care Team (Late st Contact Info) Description 12/22/2024 8:40 AM CDT Lab [facility] - Primary Care - [place] [address] [place] [address] [facility] 12/29/2024 10:30 AM CDT Office Visit [facility] - Primary Care - [place] [address] [place] [address] Edgar Ordaz PAC [address] [place] [address] 07/06/2025 10:00 AM CDT Office Visit [facility] Medical [facility] - Cardiology - [place] [address] [place] [address] Erin Up APRN, AUTOMOTIVE MANUFACTURER [address] [place] [address] documented as of this encounter Visit Diagnoses Diagnosis Primary hypertension Unspecified essential hypertension documented in this encounter Additional Health Concerns Assessment Noted Time PHQ-9 Depression Total Score: 13 020 11:00 AM CDT documented as of this encounter Care Teams Gunner'S Mate Relationship Specialty Start Date End Date Edgar Ordaz, PAC [address] [place] [address] PCP - General Physician Cds Sales Advisor 06/21/23 Timmy Devries MD [address] [facility] [address] [place], [place] [address] Obstetrics & Gynecology 08/31/16 Irwin Zee MD [address] [facility] [address] [place] [address] Consulting Physician Cardiovascular Disease - Cardiology 11/08/21 03/18/24 Huasm Gomez DPM Podiatry 12/07/21 Malini Aparicio APRN, AUTOMOTIVE MANUFACTURER #[address] [facility], [address] [place] [address] Nurse Practitioner Advanced Practice Nurse 10/19/23 Malini Aparicio APRN, AUTOMOTIVE MANUFACTURER [address] [facility], [address] [place] [address] Nurse Practitioner Cardiology 07/09/24 10/21/24 documented as of this encounter
--- OUTSIDE RECORDS SUMMARY | 2024-11-04 10:01 | XMS_ITS | Clinical Summary ---
Author Organization [facility] Address [address] [place] [address] Care Team Providers Care Grading Machine Operator Name Role Phone Unavailable Primary Care Provider Unavailabl e Source Comments [facility],non-owned Affiliates and Associated Physician Practices is amultiple site organization consisting of ambulatory clinics and hospital sitesin [place], [place], [place] and [place]. This disclosure is being madepursuant to the Care Everywhere program and may not contain all information available regarding this patient. Last updated 18.[facility] Allergies No known active allergies Medications * Be aware that medications may not be up to date on this document. Alwaysverify current medications with the patient. ketorolac (TORADOL) 10 MG tablet Take 1 Tab by mouth every 6 hours as needed for Pain. 20 Tab 0 11/05/2012 Active Social History Tobacco Use Types Packs/Day Years Used Date Smoking Tobacco: Never Alcohol Use Standard Drinks/Week Comments Yes 0 (1 standard drink = 0.6 oz pur e alcohol) occasionally Comments Unknown Sex and Gender Information Value Date Recorded Sex Assigned at Not on file Legal Sex Female 11:02 AM CDT Gender Identity Not on file Sexual Orientation Not on file Last Filed Vital Signs Vital Sign Reading Time Taken Comments Blood Pressure 111/69 11/05/2012 3:46 PM CDT Pulse 73 11/05/2012 3:46 PM CDT Temperature 36.7 C (98.1 F) 11/05/2012 11:06 AM CDT Respiratory Rate 17 11/05/2012 3:46 PM CDT Oxygen Saturation 100% 11/05/2012 3:00 PM CDT Inhaled Oxygen Concentration - - Weight 88.5 kg (195 lb) 11/05/2012 11:06 AM CDT Height 162.6 cm (5' 4) 11/05/2012 11:06 AM CDT Body Mass Index 33.47 11/05/2012 11:06 AM CDT Plan of Treatment Health Maintenance Due Date Last Done Comments BONE DENSITY TESTING 1960 COLOGUARD (AGES 45-75) - COL ON CA SCREENING 1958 COLON MONITORING 1958 COLONOSCOPY - COLON CA SCREENING 1958 CT COLONOGRAPHY - COLON CA SCREENING 1958 Colorectal Cancer Screening 1958 FIT - COLON CA SCREENING 1958 FLEX SIG - COLON CA SCREENING 1958 LIPID TESTING 1958 MAMMOGRAM 1958 HEPATITIS C SCREENING 01/04/1976 DTAP/TDAP/TD VACCINES (1 - Tdap) 1977 PNEUMOCOCCAL VACCINE 50+ (1 of 1 - PCV) 01/09/2008 ZOSTER VACCINE (1 of 2) 01/09/2008 COVID-19 VACCINE (1 - 2023-2 5 season) 2023 DEPRESSION SCREENING 04/16/2024 INFLUENZA VACCINE (#1) 2024 Respiratory Syncytial Virus (RSV) Vaccine Pt: or over 60 yrs (1 - 1-dose 75+ series) 2033 HEPATITIS B VACCINE Aged Out No longe r eligible based on patient's age to complete this topic HIB VACCINE Aged Out No longer eligi ble based on patient's age to complete this topic HPV VACCINE Aged Out No longer eligi ble based on patient's age to complete this topic MENINGOCOCCAL (Group B) VACC INE SHARED DECISION-MAKING Aged Out No longer eligibl e based on patient's age to complete this topic MENINGOCOCCAL GROUPS A/C/Y/W VACCINE Aged Out No longer eligible b ased on patient's age to complete this topic Insurance YANET Member Subscriber Plan / Payer (Ef fective for All Dates) Name:Francy Hernández Relation to Subscriber:Self Name:FRANCY HERNÁNDEZ Payer ID:[id number] (NAIC) Type:PPO Address: [address] Member Subscriber Plan / Payer (Ef fective 2012-Present) Name:Francy Hernández Relation to Subscriber:Self Name:Francy Hernández Payer ID:[id number] (NAIC) Type:PPO Address: [address]
--- OUTSIDE RECORDS SUMMARY | 2024-11-04 10:01 | XMS_ITS | Encounter Summary ---
Author Organization [facility] Address [address] [place] [address] Phone Care Team Providers Care Tribunal Member Name Role Phone Timmy Devries MD Unavailable [phone] Irwin Zee MD Unavailable Huasm Marx DPAsim Unavailable Unavailable Edgar Ordaz Primary Care Provider [phone] Malini Aparicio RANCH HAND LIVESTOCK, SOLE LAYER HAND Unavailable + [phone] Malini Aparicio APRN, SOLE LAYER HAND Unavailable + [phone] Reason for Visit * Reason Comments Medication Refill Encounter Details Date Type Department Care Team (Late st Contact Info) Description 09/18/2023 Refill [facility] - Primary Care - [place] [address] [place] [address] Edgar Ordaz, PAC [address] [place] [address] Medication Refill Social History Tobacco Use Types Packs/Day Years Used Date Smoking Tobacco: Never Smokeless Tobacco: Never Alcohol Use Standard Drinks/Week Comments Not Currently 0 (1 standard drink = 0.6 oz pur e alcohol) [facility] Utilities Answer Date Recorded In the [...] often do you attend chur ch or yarsanism services? More than 4 times per year 06/19/2023 Do you belong to any clubs o r organizations such as episcopalian groups, unions, fraternal or athletic groups, or [...] Total Score - Questions 1-9 13 09/15 [facility] ional Health - Occupational [...] place to sleep or slept in a residential (including now)? No 06/19/2023 Education Answer Date [...] Telephone Encounter - Edgar Ordaz PAC - 09/18/2023 10:59 AM CDT Refill approved. * Telephone Encounter - Farhad Franco RN - 09/18/2023 9:21 AM CDT Medication failed the protocol, provider to review and approve the medication order if appropriate. Requested Prescriptions Pending Prescriptions Disp Refills methotrexate 2.5 MG Tablet [Pharmacy Med Name: Methotrexate Sodium 2.5 MG Oral Tablet] 24 Tablet 0 Sig: TAKE 6 TABLETS BY MOUTH ONCE A WEEK FOR RHEUMATOID ARTHRITIS Not Delegated - Off Protocol Failed - 09/18/2023 9:14 AM Failed - This refill cannot be delegated Passed - Visit with relevant provider in past 12 months or upcoming 90 days Recent Visits Date Type Provider Dept 06/21/23 Office Visit Edgar Ordaz PAC [facility] 02/16/23 Office Visit Edgar Ordaz PAC [facility] 12/21/22 Office Visit Jeny Jarrett MD [facility] Showing recent visits within past 365 days and meeting all other requirements Future Appointments Date Type Provider Dept 12/14/23 Appointment Lab, [facility] Showing future appointments within next 90 days and meeting all other requirements documented in this encounter Plan of Treatment Upcoming Encounters Date Type Department Care Team (Late st Contact Info) Description 12/22/2024 8:40 AM CDT Lab [facility] - Primary [facility] [place] [address] [place] [address] [facility] 12/29/2024 10:30 AM CDT Office Visit [facility] - Primary Care - [place] [address] [place] [address] Edgar Ordaz PAC [address] [place] [address] 07/06/2025 10:00 AM CDT Office Visit [facility] - Cardiology - [place] [address] [place] [id number] Erin Up APRN, SOLE LAYER HAND [address] [place] [address] documented as of this encounter Visit Diagnoses Diagnosis Rheumatoid arthritis involving multiple sites, unspecified whether rheumatoid factor present (HCC) documented in this encounter Additional Health Concerns Assessment Noted Time PHQ-9 Depression Total Score: 13 020 11:00 AM CDT documented as of this encounter Care Teams Tribunal Member Relationship Specialty Start Date End Date Edgar Ordaz PAC [address] [place] [address] PCP - General Physician Corporate Legal Assistant 06/21/23 Timmy Devries MD [address] [facility] [address] [place] [address] Obstetrics & Gynecology 08/31/16 Irwin Zee MD [address] [facility] [address] [place] [address] Consulting Physician Cardiovascular Disease - Cardiology 11/08/21 03/18/24 Husam Gomez DPM Podiatry 12/07/21 Malini Aparicio APRN, SOLE LAYER HAND [address] [facility] [place] [address] Nurse Practitioner Advanced Practice Nurse 10/19/23 Malini Aparicio APRN, SOLE LAYER HAND [address] [facility], [address] [place] [address] Nurse Practitioner Cardiology 07/09/24 10/21/24 documented as of this encounter
--- OUTSIDE RECORDS SUMMARY | 2024-11-04 10:01 | XMS_ITS | Encounter Summary ---
Author Organization [facility] Address [address] [place] [address] Phone Care Team Providers Care Bleach Analyst Name Role Phone Timmy Devries MD Unavailable [phone] Irwin Zee MD Unavailable Husam Marx DPAsim Unavailable Unavailable Edgar Ordaz Primary Care Provider [phone] Malini Aparicio CERTIFIED MEDICAL AIDE, MASTER AT ARMS Unavailable + [phone] Malini Aparicio APRN, MASTER AT AR[employer] Unavailable + [phone] Reason for Visit * Reason Comments Medication Refill Encounter Details Date Type Department Care Team (Late st Contact Info) Description 07/25/2023 Refill [facility] - Primary Care - [place] [address] [place] [address] Edgar Ordaz, PAC [address] [place] [address] Medication Refill Social History Tobacco Use Types Packs/Day Years Used Date Smoking Tobacco: Never Smokeless Tobacco: Never Alcohol Use Standard Drinks/Week Comments Not Currently 0 (1 standard drink = 0.6 oz pur e alcohol) [facility] Utilities Answer Date Recorded In the [...] often do you attend chur ch or restorationism services? More than 4 times per year 06/19/2023 Do you belong to any clubs o r organizations such as hoahaoism groups, unions, fraternal or athletic groups, or [...] Score - Questions 1-9 13 09/15 [facility] of Occupat ional Health - Occupational Stress [...] place to sleep or slept in a halfway (including now)? No 06/19/2023 Education Answer Date [...] Telephone Encounter - Edgar Ordaz PAC - 07/25/2023 12:12 PM CDT Refill approved. * Telephone Encounter - Farhad Franco RN - 07/25/2023 9:35 AM CDT Medication failed the protocol, provider to review and approve the medication order if appropriate. Requested Prescriptions Pending Prescriptions Disp Refills methotrexate 2.5 MG Tablet [Pharmacy Med Name: Methotrexate Sodium 2.5 MG Oral Tablet] 24 Tablet 0 Sig: TAKE 6 TABLETS BY MOUTH ONCE A WEEK FOR RHEUMATOID ARTHRITIS Not Delegated - Off Protocol Failed - 07/25/2023 9:12 AM Failed - This refill cannot be delegated Passed - Visit with relevant provider in past 12 months or upcoming 90 days Recent Visits Date Type Provider Dept 06/21/23 Office Visit Edgar Ordaz PAC [facility] 02/16/23 Office Visit Edgar Ordaz PAC [facility] 12/21/22 Office Visit Jeny Jarrett MD [facility] Showing recent visits within past 365 days and meeting all other requirements Future Appointments No visits were found meeting these conditions. Showing future appointments within next 90 days and meeting all other requirements documented in this encounter Plan of Treatment Upcoming Encounters Date Type Department Care Team (Late st Contact Info) Description 12/22/2024 8:40 AM CDT Lab [facility] [place] [address] [place] [address] [facility] 12/29/2024 10:30 AM CDT Office Visit [facility] Primary Care - [place] [address] [place] [address] Edgar Ordaz PAC [address] [place] [address] 07/06/2025 10:00 AM CDT Office Visit [facility] - Cardiology - [place] [address] [place] [phone] Erin Up APRN, MASTER AT ARMS [address] [place] [phone] documented as of this encounter Visit Diagnoses Diagnosis Rheumatoid arthritis involving multiple sites, unspecified whether rheumatoid factor present (HCC) documented in this encounter Additional Health Concerns Assessment Noted Time PHQ-9 Depression Total Score: 13 020 11:00 AM CDT documented as of this encounter Care Teams Bleach Analyst Relationship Specialty Start Date End Date Edgar Ordaz PAC [address] [place] [address] PCP - General Physician Director Of Cardiology 06/21/23 Timmy Devries MD [address] [facility] [address] [place] [address] Obstetrics & Gynecology 08/31/16 Irwin Zee MD [address] [facility] [address] [place] [address] Consulting Physician Cardiovascular Disease - Cardiology 11/08/21 03/18/24 Husam Gomez DPM Podiatry 12/07/21 Malini Aparicio APRN, MASTER AT ARMS [address] [place] [address] Nurse Practitioner Advanced Practice Nurse 10/19/23 Malini Aparicio APRN, MASTER AT [employer] [address], [address] [place] [address] Nurse Practitioner Cardiology 07/09/24 10/21/24 documented as of this encounter
--- OUTSIDE RECORDS SUMMARY | 2024-11-04 10:01 | XMS_ITS | Encounter Summary ---
Author Organization [facility] Address [address] [place] [address] Phone Care Team Providers Care Farm Labor Contractor Name Role Phone Haydee Rust MD Primary Care Provider [phone] Timmy Devries MD Unavailable [phone] Irwin Zee MD Unavailable UnaJeny Houser MD Primary Care Provider + [phone] Husam Gomez DPAsim Unavailable Unavailable Edgar Ordaz Primary Care Provider + [phone] Malini Aparicio PREPARATION ROOM WORKER, JEWELRY SORTER Unavailable + [phone] Malini Aparicio PREPARATION ROOM WORKER, JEWELRY SORTER Unavailable + [phone] Reason for Visit * Reason Comments Medication Refill Encounter Details Date Type Department Care Team (Late st Contact Info) Description 11/06/[address] [facility] - Primary Care - [place] [address] [place] [address] Haydee Rust MD [address] [place] [address] Medication Refill Social History Tobacco [...] suspected to have Coronavirus/COVID-19? No / Unsure 11/01/2021 7:50 AM CDT documented as of this encounter Miscellaneous Notes * Telephone Encounter - Samantha Love RN - 11/07/2021 10:00 AM CDT Medication failed the protocol, provider to review and approve the medication order if appropriate. Requested Prescriptions Pending Prescriptions Disp Refills LORazepam (ATIVAN) 0.5 MG Tablet [Pharmacy Med Name: LORazepam 0.5 MG Oral Tablet] 30 Tablet 0 Sig: TAKE 1 TABLET BY MOUTH NIGHTLY NEEDED FOR SLEEP Not Delegated - Benzodiazepines Protocol Failed - 11/06/2021 1:43 PM Failed - This refill cannot be delegated Passed - Visit with relevant provider in past 12 months or upcoming 90 days Recent Visits Date Type Provider Dept 11/01/21 Office Visit Haydee Rust MD [facility] 08/08/21 Office Visit Haydee Rust MD [facility] 06/08/21 Office Visit Maria Victoria Horton APRN, CNP [facility] 04/11/21 Office Visit Maria Victoria Horton APRN, CNP [facility] 03/30/21 Office Visit Maria Victoria Horton APRN, CNP [address] 11/11/20 Office Visit Haydee Rust MD [facility] Showing recent visits within past 365 days and meeting all other requirements Future Appointments No visits were found meeting these conditions. Showing future appointments within next 90 days and meeting all other requirements documented in this encounter Plan of Treatment Upcoming Encounters Date Type Department Care Team (Late st Contact Info) Description 12/22/2024 8:40 AM CDT Lab [facility] [place] [address] [place] [address] [facility] 12/29/2024 10:30 AM CDT [facility] [place] [address] [place] [address] Edgar Ordaz PAC [address] [place] [address] 07/06/2025 10:00 AM CDT Office Visit [facility] - Cardiology - [place] [address] [place] [address] Erin Up APRN, JEWELRY SORTER [address] [place] [address] documented as of this encounter Visit Diagnoses Diagnosis Anxiety Anxiety state, unspecified documented in this encounter Additional Health Concerns Infection Onset Date Last Indicated Resolved Time Respiratory Rule Out - RPA 02/16/2023 02/16/2023 1 04/18/2022 2:08 PM CDT Assessment Noted Time PHQ-9 Depression Total Score: 13 020 11:00 AM CDT documented as of this encounter Care Teams Farm Labor Contractor Relationship Specialty Start Date End Date Haydee Rust MD PCP - General Family Medicine 01/27/15 05/07/22 Jeny Jarrett MD [address] [place], [place] [id number] PCP - General Family Medicine 05/08/22 06/20/23 Edgar Ordaz, PAC [address] [place] [phone] PCP - General Physician Hematology Nurse Educator 06/21/23 Timmy Devries MD [address] [facility] [address] [place] [address] Obstetrics & Gynecology 08/31/16 Irwin Zee MD [address] [facility] [address] [place] [address] Consulting Physician Cardiovascular Disease - Cardiology 11/08/21 03/18/24 Husam Gomez DPM Podiatry 12/07/21 Malini Aparicio APRN, JEWELRY SORTER [address] [place] [address] Nurse Practitioner Advanced Practice Nurse 10/19/23 Malini Aparicio APRN, JEWELRY SORTER [address], [address] [place] [address] Nurse Practitioner Cardiology 07/09/24 10/21/24 documented as of this encounter
--- OUTSIDE RECORDS SUMMARY | 2024-11-04 10:01 | XMS_ITS | Encounter Summary ---
Author Organization [facility] Address [address] [place] [address] Phone Care Team Providers Care Teacher Citizenship Name Role Phone Timmy Devries MD Unavailable [phone] Irwin Zee MD Unavailable Husam Marx DPAsim Unavailable Unavailable Edgar Ordaz PAC Primary Care Provider [phone] Malini Aparicio BLAST FURNACE KEEPER HELPER, STONEMASON APPRENTICE Unavailable + [phone] Malini Aparicio APRN, STONEMASON APPRENTICE Unavailable + [phone] Reason for Visit * Reason Comments Medication Refill Encounter Details Date Type Department Care Team (Late st Contact Info) Description 08/13/2023 Refill [facility] - Primary Care - [place] [address] [place] [address] Jeny Jarrett MD [address] [place] [address] Medication Refill Social History Tobacco Use Types Packs/Day Years Used Date Smoking Tobacco: Never Smokeless Tobacco: Never Alcohol Use Standard Drinks/Week Comments Not Currently 0 (1 standard drink = 0.6 oz pur e alcohol) [facility] Utilities Answer Date Recorded In the past 12 months has 4[employer] TV, gas, oil, or water company threatened to [...] often do you attend chur ch or baptist services? More than 4 times per year 06/19/2023 Do you belong to any clubs o r organizations such as mormonism groups, unions, fraternal or athletic groups, or [...] Total Score - Questions 1-9 13 09/15 [facility] of Occupat ional Health - Occupational Stress [...] place to sleep or slept in a fpc (including now)? No 06/19/2023 Education Answer Date [...] - Primary Care - [place] [address] [place] [address] [facility] 12/29/2024 10:30 AM CDT Office Visit [facility] - Primary Care - [place] [address] [place] [address] Edgar Ordaz PAC [address] [place] [address] 07/06/2025 10:00 AM CDT Office [facility] Medical [facility] - Cardiology - [place] [address] [place] [address] Erin Up APRN, STONEMASON APPRENTICE [address] [place] [address] documented as of this encounter Visit Diagnoses Not on filedocumented in this encounter Additional Health Concerns Assessment Noted Time PHQ-9 Depression Total Score: 13 020 11:00 AM CDT documented as of this encounter Care Teams Teacher Citizenship Relationship Specialty Start Date End Date Edgar Ordaz, PAC [address] [place] [address] PCP - General Physician Ship Runner 06/21/23 Timmy Devries MD [address] [facility] [address] [place] [address] Obstetrics & Gynecology 08/31/16 Irwin Zee MD [address] [facility] [address] [place] [address] Consulting Physician Cardiovascular Disease - Cardiology 11/08/21 03/18/24 Husam Gomez DPM Podiatry 12/07/21 Malini Aparicio APRN, STONEMASON APPRENTICE [address] [facility], [address] [place] [address] Nurse Practitioner Advanced Practice Nurse 10/19/23 Malini Aparicio APRN, STONEMASON APPRENTICE [address] [facility], [address] [place] [address] Nurse Practitioner Cardiology 07/09/24 10/21/24 documented as of this encounter
--- OUTSIDE RECORDS SUMMARY | 2024-11-04 10:01 | XMS_ITS | Encounter Summary ---
Author Organization [facility] Address [address] [place] [address] Phone Care Team Providers Care Security Inspector Name Role Phone Timym Devries MD Unavailable [phone] Irwin Zee MD Unavailable Husam Marx DPAsim Unavailable Unavailable Edgar Ordaz Primary Care Provider [phone] Malini Aparicio DATABASE MANAGEMENT SPECIALIST, ELECTRIC MILKERS INSTALLER Unavailable + [phone] Malini Aparicio APRN, ELECTRIC MILKERS INSTALLER Unavailable + [phone] Reason for Visit * Reason Comments Medication Refill Encounter Details Date Type Department Care Team (Late st Contact Info) Description 08/27/2023 Refill [facility] - Primary Care - [place] [address] [place] [address] Edgar Ordaz, PAC [address] [place] [address] Medication Refill Social History Tobacco Use Types Packs/Day Years Used Date Smoking Tobacco: Never Smokeless Tobacco: Never Alcohol Use Standard Drinks/Week Comments Not Currently 0 (1 standard drink = 0.6 oz pur e alcohol) [facility] Utilities Answer Date Recorded In the past [...] often do you attend chur ch or lutheran services? More than 4 times per year 06/19/2023 Do you belong to any clubs o r organizations such as tenriism groups, unions, fraternal or athletic groups, or [...] Total Score - Questions 1-9 13 09/15 [facility] - Occupational [...] place to sleep or slept in a penitentiary (including now)? No 06/19/2023 Education Answer Date [...] Telephone Encounter - Edgar Ordaz PAC - 08/27/2023 9:00 AM CDT Refill approved. * Telephone Encounter - Farhad Franco RN - 08/27/2023 8:45 AM CDT Medication failed the protocol, provider to review and approve the medication order if appropriate. Requested Prescriptions Pending Prescriptions Disp Refills methotrexate 2.5 MG Tablet [Pharmacy Med Name: Methotrexate Sodium 2.5 MG Oral Tablet] 24 Tablet 0 Sig: TAKE 6 TABLETS BY MOUTH ONCE A WEEK FOR RHEUMATOID ARTHRITIS Not Delegated - Off Protocol Failed - 08/27/2023 7:51 AM Failed - This refill cannot be [...] [facility] [place] [address] [place] [address] [facility] 12/29/2024 10:30 AM CDT Office Visit [facility] Primary Care - [place] [address] [place] [address] Edgar Ordaz PAC [address] [place] [address] 07/06/2025 10:00 AM CDT Office Visit [facility] - Cardiology - [place] [address] [place] [phone] Erin Up APRN, ELECTRIC MILKERS INSTALLER [address] [place] [address] documented as of this encounter Visit Diagnoses Diagnosis Rheumatoid arthritis involving multiple sites, unspecified whether rheumatoid factor present (HCC) documented in this encounter Additional Health Concerns Assessment Noted Time PHQ-9 Depression Total Score: 13 020 11:00 AM CDT documented as of this encounter Care Teams Security Inspector Relationship Specialty Start Date End Date Edgar Ordaz PAC [address] [place] [address] PCP - General Physician Agricultural Inspector 06/21/23 Timmy Devries MD [address] [facility] [address] [place] [address] Obstetrics & Gynecology 08/31/16 Irwin Zee MD [address] [facility] [address] [place] [address] Consulting Physician Cardiovascular Disease - Cardiology 11/08/21 03/18/24 Husam Gomez DPM Podiatry 12/07/21 Malini Aparicio APRN, ELECTRIC MILKERS INSTALLER [address] [place] [address] Nurse Practitioner Advanced Practice Nurse 10/19/23 Malini Aparicio APRN, ELECTRIC MILKERS INSTALLER [address], [address] [place] [address] Nurse Practitioner Cardiology 07/09/24 10/21/24 documented as of this encounter
--- OUTSIDE RECORDS SUMMARY | 2024-11-04 10:01 | XMS_ITS | Encounter Summary ---
Author Organization [facility] Address [address] [place] [address] Phone Care Team Providers Care Coat Operator Name Role Phone Timmy Devries MD Unavailable [phone] Irwin Zee MD Unavailable Husam Marx DPAsim Unavailable Unavailable Edgar Ordaz PAC Primary Care Provider [phone] Malini Aparicio WELDING MANAGER, HEAD OF ICT Unavailable + [phone] Malini Aparicio APRN, HEAD OF ICT Unavailable + [phone] Reason for Visit * Reason Comments Medication Refill Encounter Details Date Type Department Care Team (Late st Contact Info) Description 08/27/2023 Refill [facility] - Primary Care - [place] [address] [place] [address] Jeny Jarrett MD [address] [place] [address] Medication Refill Social History Tobacco Use Types Packs/Day Years Used Date Smoking Tobacco: Never Smokeless Tobacco: Never Alcohol Use Standard Drinks/Week Comments Not Currently 0 (1 standard drink = 0.6 oz pur e alcohol) [facility] Utilities Answer Date Recorded In the past 12 months has 1,2,3 [employer], gas, oil, or water company threatened to [...] often do you attend chur ch or rastafari services? More than 4 times per year [...] Total Score - Questions 1-9 13 09/15 [facility] - Occupational [...] place to sleep or slept in a mcfp (including now)? No 06/19/2023 Education Answer Date [...] Description 12/22/2024 8:40 AM CDT Lab [facility] - Primary Care - [place] [address] [place] [address] [facility] 12/29/2024 10:30 AM CDT Office Visit [facility] - Primary Care - [place] [address] [place] [address] Edgar Ordaz PAC [address] [place] [address] 07/06/2025 10:00 AM CDT Office Visit [facility] Medical [facility] - Cardiology - [place] [address] [place] [address] Erin Up APRN, HEAD OF ICT [address] [place] [address] documented as of this encounter Visit Diagnoses Diagnosis Hyperlipidemia, unspecified hyperlipidemia type documented in this encounter Additional Health Concerns Assessment Noted Time PHQ-9 Depression Total Score: 13 020 11:00 AM CDT documented as of this encounter Care Teams Coat Operator Relationship Specialty Start Date End Date Edgar Ordaz, PAC [address] [place] [address] PCP - General Physician Space Control Supervisor 06/21/23 Timmy Devries MD [address] [facility] [address] [place], [place] [phone] Obstetrics & Gynecology 08/31/16 Irwin Zee MD [address] [facility] [address] [place] [address] Consulting Physician Cardiovascular Disease - Cardiology 11/08/21 03/18/24 Husam Gomez DPM Podiatry 12/07/21 Malini Aparicio APRN, HEAD OF ICT [address] [facility], [address] [place] [address] Nurse Practitioner Advanced Practice Nurse 10/19/23 Malini Aparicio APRN, HEAD OF ICT [address] [facility], [address] [place] [address] Nurse Practitioner Cardiology 07/09/24 10/21/24 documented as of this encounter
--- OUTSIDE RECORDS SUMMARY | 2024-11-04 10:01 | XMS_ITS | Encounter Summary ---
Author Organization [facility] Address [address] [place] [address] Phone Care Team Providers Care Dishwasher Name Role Phone Timmy Devries MD Unavailable [phone] Irwin Zee MD Unavailable Husam Marx DPAsim Unavailable Unavailable Edgar Ordaz PAC Primary Care Provider [phone] Malini Aparicio QUANTITATIVE ANALYST MARKETING, CLINICAL GENETICS LABORATORY CHIEF Unavailable + [phone] Malini Aparicio APRN, CLINICAL GENETICS LABORATORY CHIEF Unavailable + [phone] Reason for Visit * Reason Comments Medication Refill Encounter Details Date Type Department Care Team (Late st Contact Info) Description 09/11/2023 Refill [facility] - Primary Care - [place] [address] [place] [address] Jeny Jarrett MD [address] [place] [address] Medication Refill Social History Tobacco Use Types Packs/Day Years Used Date Smoking Tobacco: Never Smokeless Tobacco: Never Alcohol Use Standard Drinks/Week Comments Not Currently 0 (1 standard drink = 0.6 oz pur e alcohol) [facility] Utilities Answer Date Recorded In the past 12 months has [employer], gas, oil, or water company threatened to [...] often do you attend chur ch or adventist services? More than 4 times per year 06/19/2023 Do you belong to any clubs o r organizations such as religion groups, unions, fraternal or athletic groups, or [...] Telephone Encounter - Cira Mauricio RN - 09/12/2023 8:48 AM CDT Medication(s) refilled and signed per [facility] Chronic Medication Refill Standing Order for Pediatricand Adult Patients. Requested Prescriptions Pending Prescriptions Disp Refills levothyroxine (SYNTHROID) 75 MCG Tablet [Pharmacy Med Name: Levothyroxine Sodium 75 MCG Oral Tablet] 90 Tablet 0 Sig: Take 1 tablet by mouth once daily Thyroid Hormones Protocol Passed - 09/11/2023 10:05 PM Passed - Visit with relevant provider in past 12 months or upcoming 90 days Recent Visits Date Type Provider Dept 06/21/23 Office Visit Edgar Ordaz, [facility] 02/16/23 Office Visit Edgar Ordaz, [facility] 12/21/22 Office Visit Jeny Jarrett MD [facility] Showing recent visits within past 365 days and meeting all other requirements Future Appointments No visits were found meeting these conditions. Showing future appointments within next 90 days and meeting all other requirements Passed - Normal TSH in past 12 months TSH Date Value Ref Range Status 06/21/2023 2.176 0.300 - 5.000 mIU/L Final documented in this encounter Plan of Treatment Upcoming Encounters Date Type Department Care Team (Late st Contact Info) Description 12/22/2024 8:40 AM CDT Lab [facility] - Primary [facility] [place] [address] [place] [address] [facility] 12/29/2024 10:30 AM CDT Office Visit [facility] Primary [facility] - [place] [address] [place] [address] Edgar Ordaz PAC [address] [place] [address] 07/06/2025 10:00 AM CDT Office Visit [facility] Cardiology - [place] [address] [place] [address] Erin Up APRN, CLINICAL GENETICS LABORATORY CHIEF [address] [place] [address] documented as of this encounter Visit Diagnoses Diagnosis Hypothyroidism, unspecified type documented in this encounter Additional Health Concerns Assessment Noted Time PHQ-9 Depression Total Score: 13 020 11:00 AM CDT documented as of this encounter Care Teams Dishwasher Relationship Specialty Start Date End Date Edgar Ordaz PAC [address] [place] [address] PCP - General Physician Tire Care Manager 06/21/23 Timmy Devries MD [address] [facility] [address] [place] [address] Obstetrics & Gynecology 08/31/16 Irwin Zee MD [address] [facility] [address] [place] [address] Consulting Physician Cardiovascular Disease - Cardiology 11/08/21 03/18/24 Husam Gomez DPAsim Podiatry 12/07/21 Malini Aparicio APRN, CLINICAL GENETICS LABORATORY CHIEF [address] [facility], [address] [place] [address] Nurse Practitioner Advanced Practice Nurse 10/19/23 Malini Aparicio APRN, CLINICAL GENETICS LABORATORY CHIEF [address] [facility], [address] [place] [address] Nurse Practitioner Cardiology 07/09/24 10/21/24 documented as of this encounter
[2024-11-04 18:58] LABS: Hematocrit 40.5 % (37.0-47.0); Hemoglobin 12.9 g/dL (12.0-15.0); Immature Granulocyte Percent A 0.2 % (0-0.5); Lymphocytes Absolute Auto 0.44 K/mm3 (0.9-3.2); Mean Corpuscular HGB Conc 31.9 g/dl (32-36); Mean Corpuscular Hemoglobin 30.2 pg (26-34); Mean Corpuscular Volume 94.8 fl (80-100); Nucleated Red Blood Cells Absolute Auto 0.000 K/mm3 (0.0-0.012); Nucleated Red Blood Cells Perc 0.0 % (0.0-0.2); Platelet Count Result 204 k/mm3 (150-375); Red Blood Count 4.27 M/mm3 (4.2-5.4); White Blood Count 4.8 K/mm3 (4.5-10.0)
[2024-11-04 19:03] LABS: Add Urine Microscopic? NO; Appearance Urine Clear (Clear); Glucose Urine UA Negative (Negative); Leukocyte Esterase Ur Negative LEU/UL (Negative); Nitrate Urine Negative (Negative); Specific Grav Ur 1.010 (1.001-1.035)
[2024-11-04 19:40] LABS: Alanine Aminotransferase 30 U/L (6-35); Albumin Level 4.5 g/dL (3.5-5.1); Alkaline Phosphatase 64 U/L (38-126); Anion Gap 5 mmol/L (4-12); Aspartate Amino Transferase 60 U/L (14-36); Bilirubin,Total 0.7 mg/dL (0.2-1.3); Blood Urea Nitrogen 14 mg/dL (7-17); CRP 0.6 mg/dL (<1.0); Calcium 9.2 mg/dL (8.4-10.2); Carbon Dioxide 31 mmol/L (22-30); Chloride 100 mmol/L (98-107); Estimated Glomerular Filt Rate 55; Glucose 79 mg/dL (65-110); Potassium 4.3 mmol/L (3.4-5.0); Sodium 136 mmol/L (137-145); Total Protein 7.3 g/dL (6.3-8.2)
== END 2024-11-04 09:54 | disposition home or self-care (01) ==
PROVIDERS: Visit Provider Internal Medicine
DX: M06.09 Rheumatoid arthritis without rheumatoid factor, multiple sites (principal); Z79.899 Other long term (current) drug therapy
CPT/HCPCS: 36415; 80053; 80069; 81003; 85025; 85652; 86140

== ENCOUNTER 2024-12-08 10:20 | Outpatient (CLI) | payer MEDICARE, SELFPAY ==
--- OUTSIDE RECORDS SUMMARY | 2024-12-08 11:13 | XMS_ITS | Encounter Summary ---
Author Organization [facility] Address [address] [place] [address] Phone Care Team Providers Care Icing Coater Name Role Phone Haydee Rust MD Primary Care Provider + [phone] Timmy Devries MD Unavailable [phone] Irwin Zee MD Unavailable UnaJeny Houser MD Primary Care Provider + [phone] Husam Gomez DPAsim Unavailable Unavailable Edgar Ordaz Primary Care Provider + [phone] Malini Aparicio DAIRY FARMWORKER, EXECUTIVE CONSULTANT Unavailable + [phone] Malini Aparicio DAIRY FARMWORKER, EXECUTIVE CONSULTANT Unavailable + [phone] Reason for Visit * Reason Comments Medication Refill Encounter Details Date Type Department Care Team (Late st Contact Info) Description 10/21/2020 Refill [facility] - Primary Care - [place] [address] [place] [address] Haydee Rust MD [address] [place] [address] Medication Refill Social History Tobacco [...] 5 months ago Hyperlipidemia, unspecified hyperlipidemia type [facility] Haydee Rust MD 11 months ago Physical exam, annual (Adult) [facility] Haydee Rust MD 1 year ago Allergic dermatitis due to poison kimi [facility] An[facility] RLQ abdominal pain [facility]NOTE 2] Haydee Rust MD Upcoming Appointments Future Appointments In 2 weeks Ab [facility] In 3 weeks Haydee Rust MD [facility] MACHINE OR MACHINERY MECHANIC - Recent and Past Visits Recent Visits Date Type Provider Dept 05/06/20 Telemedicine Haydee Rust MD [facility] 11/04/19 Office Visit Haydee Rust MD [facility] 10/06/19 Office Visit Haydee Rust MD [facility] Showing recent visits within past 460 days with a meds authorizing provider and meeting all other requirements Future Appointments Date Type Provider Dept 11/11/20 Appointment Haydee Rust MD [facility] Showing future appointments within next 90 days with a meds authorizing provider and meeting all other requirements documented in this encounter Plan of Treatment Upcoming Encounters Date Type Department Care Team (Late st Contact Info) Description 12/22/2024 8:40 AM CDT Lab [facility] [place] [address] [place] [address] [facility] 12/29/2024 10:30 AM CDT Office Visit [facility] Primary [facility] - [place] [address] [place] [address] Edgar Ordaz PAC [address] [place] [address] 01/12/2025 10:00 AM CDT Office Visit [facility] - Neurology - [place] [address] [place] [address] Phillip Hall MD [address] [place] [address] 07/06/2025 10:00 AM CDT Office Visit [facility] - Cardiology - [place] [address] [place] [address] Erin Up APRN, EXECUTIVE CONSULTANT [address] [place] [address] documented as of this encounter Visit Diagnoses Diagnosis Anxiety Anxiety state, unspecified documented in this encounter Additional Health Concerns Infection Onset Date Last Indicated Resolved Time Other 12/30/2019 12/30/2019 03/21/2021 4:55 PM CHILD PROTECTIVE SERVICES SOCIAL WORKER Respiratory Rule Out - RPA 02/16/2023 02/16/2023 1 04/18/2022 2:08 PM CDT Assessment Noted Time PHQ-9 Depression Total Score: 13 020 11:00 AM CDT documented as of this encounter Care Teams Icing Coater Relationship Specialty Start Date End Date Haydee Rust MD PCP - General Family Medicine 01/27/15 05/07/22 Jeny Jarrett MD [address] [place], [place] [address] PCP - General Family Medicine 05/08/22 06/20/23 Edgar Ordaz, PAC [address] [place] [address] PCP - General Physician Syrup Filterer 06/21/23 Timmy Devries MD [address] [facility] [address] [place] [address] Obstetrics & Gynecology 08/31/16 Irwin Zee MD [address] [facility] [address] [place] [address] Consulting Physician Cardiovascular Disease - Cardiology 11/08/21 03/18/24 Husam Gomez DPM Podiatry 12/07/21 Malini Aparicio, DAIRY FARMWORKER, EXECUTIVE CONSULTANT [address] [facility], [address] [place] [address] Nurse Practitioner Advanced Practice Nurse 10/19/23 Malini Aparicio, DAIRY FARMWORKER, EXECUTIVE CONSULTANT [address] [facility], [address] [place] [address] Nurse Practitioner Cardiology 07/09/24 10/21/24 documented as of this encounter
--- OUTSIDE RECORDS SUMMARY | 2024-12-08 11:13 | XMS_ITS | Encounter Summary ---
Author Organization [facility] Address [address] [place] [address] Phone Care Team Providers Care Automated Process Operator Name Role Phone Haydee Rust MD Primary Care Provider + [phone] Timmy Devries MD Unavailable [phone] Irwin Zee MD Unavailable UnaJeny Houser MD Primary Care Provider + [phone] Husam Gomez DPAsim Unavailable Unavailable Edgar Ordaz Primary Care Provider + [phone] Malini Aparicio TRANSITIONS MANAGER, CAREER GUIDANCE COUNSELOR Unavailable + [phone] Malini Aparicio TRANSITIONS MANAGER, CAREER GUIDANCE COUNSELOR Unavailable + [phone] Reason for Visit * Reason Comments Medication Refill Encounter Details Date Type Department Care Team (Late st Contact Info) Description 01/31/2022 Refill [facility] - Primary Care - [place] [address] [place] [address] Haydee Rust MD [address] [place] [address] Medication Refill Social History Tobacco [...] Dept 11/01/21 Office Visit Haydee Rust MD [facility] [place] [facility] 08/08/21 Office Visit Haydee Rust MD [facility] [place] [facility] 06/08/21 Office Visit Maria Victoria Horton APRN, CNP [facility] [place] [facility] 04/11/21 Office Visit Maria Victoria Horton APRN, CNP [facility] [place] [facility] 03/30/21 Office Visit Maria Victoria Horton APRN, CNP [facility] Showing recent visits within past 365 days and meeting all other requirements Future Appointments Date Type Provider Dept 05/01/22 Appointment Lab, [place] [facility] [place] [facility] Showing future appointments within next 90 days and meeting all other requirements Passed - Normal TSH in past 12 months TSH Date Value Ref Range Status 11/01/2021 2.040 0.270 - 4.200 mIU/L Final documented in this encounter Plan of Treatment Upcoming Encounters Date Type Department Care Team (Late st Contact Info) Description 12/22/2024 8:40 AM CDT Lab [facility] [place] [address] [place] [phone] [facility] 12/29/2024 10:30 AM CDT Office Visit [facility] [place] [address] [place] [address] Edgar Ordaz PAC [address] [place] [address] 01/12/2025 10:00 AM CDT Office Visit [facility] - Neurology - [place] [address] [place] [address] Phillip Hall MD [address] [place] [address] 07/06/2025 10:00 AM CDT Office Visit [facility] - Cardiology - [place] [address] [place] [address] Erin Up APRN, CAREER GUIDANCE COUNSELOR [address] [place] [address] documented as of this encounter Visit Diagnoses Diagnosis Hypothyroidism, unspecified type documented in this encounter Additional Health Concerns Infection Onset Date Last Indicated Resolved Time Respiratory Rule Out - RPA 02/16/2023 02/16/2023 1 04/18/2022 2:08 PM CDT Assessment Noted Time PHQ-9 Depression Total Score: 13 020 11:00 AM CDT documented as of this encounter Care Teams Automated Process Operator Relationship Specialty Start Date End Date Haydee Rust MD PCP - General Family Medicine 01/27/15 05/07/22 Jeny Jarrett MD [address] [place], [place] [phone] PCP - General Family Medicine 05/08/22 06/20/23 Edgar Ordaz, PAC [address] [place] [address] PCP - General Physician Medication Aide 06/21/23 Timmy Devries MD [address] [facility] [address] [place] [address] Obstetrics & Gynecology 08/31/16 Irwin Zee MD [address] [facility] [address] [place] [address] Consulting Physician Cardiovascular Disease - Cardiology 11/08/21 03/18/24 Husam Gomez DPM Podiatry 12/07/21 Malini Aparicio APRN, CAREER GUIDANCE COUNSELOR [address], [address] [place] [address] Nurse Practitioner Advanced Practice Nurse 10/19/23 Malini Aparicio APRN, CAREER GUIDANCE COUNSELOR [address], [address] [place] [address] Nurse Practitioner Cardiology 07/09/24 10/21/24 documented as of this encounter
--- OUTSIDE RECORDS SUMMARY | 2024-12-08 11:13 | XMS_ITS | Encounter Summary ---
Author Organization [facility] Address [address] [place] [address] Phone Care Team Providers Care Human Intelligence Name Role Phone Haydee Rust MD Primary Care Provider + [phone] Timmy Devries MD Unavailable [phone] Irwin Zee MD Unavailable UnaJeny Houser MD Primary Care Provider + [phone] Husam Gomez DPAsim Unavailable Unavailable Edgar Ordaz Primary Care Provider + [phone] Malini Aparicio BACKEND JAVA DEVELOPER, PHARMACY BUYER Unavailable + [phone] Malini Aparicio BACKEND JAVA DEVELOPER, PHARMACY BUYER Unavailable + [phone] Reason for Visit * Reason Comments Medication Refill Encounter Details Date Type Department Care Team (Late st Contact Info) Description 03/21/2021 Refill [facility] - Primary Care - [place] [address] [place] [address] Haydee Rust MD [address] [place] [address] Medication Refill Social History Tobacco [...] COVID-19? No / Unsure 03/21/2021 2:08 PM LEGAL ADVISER documented as of this encounter Miscellaneous Notes [...] Dept 11/11/20 Office Visit Haydee Rust MD [facility] 05/06/20 Telemedicine Haydee Rust MD [facility] Showing recent visits within past 365 days and meeting all other requirements Future Appointments No visits were found meeting these conditions. Showing future appointments within next 90 days and meeting all other requirements Passed - Normal TSH in past 12 months TSH Date Value Ref Range Status 11/04/2020 0.520 0.270 - 4.200 mIU/L Final L ADVISER documented in this encounter Plan of Treatment Upcoming Encounters Date Type Department Care Team (Late st Contact Info) Description 12/22/2024 8:40 AM CDT Lab [facility] - Primary Care - [place] [address] [place] [address] [facility] 12/29/2024 10:30 AM CDT Office Visit [facility] - [place] Care - [place] [address] [place] [address] Edgar Ordaz PAC [address] [place] [address] 01/12/2025 10:00 AM CDT Office Visit [facility] - Neurology - [place] [address] [place] [address] Phillip Hall MD [address] [place] [address] 07/06/2025 10:00 AM CDT Office Visit [facility] - Cardiology - [place] [address] [place] [address] Erin Up APRN, PHARMACY BUYER [address] [place] [address] documented as of this encounter Visit Diagnoses Diagnosis Hypothyroidism, unspecified type documented in this encounter Additional Health Concerns Infection Onset Date Last Indicated Resolved Time Other 12/30/2019 12/30/2019 03/21/2021 4:55 PM LEGAL ADVISER Respiratory Rule Out - RPA 02/16/2023 02/16/2023 1 04/18/2022 2:08 PM CDT Assessment Noted Time PHQ-9 Depression Total Score: 13 020 11:00 AM CDT documented as of this encounter Care Teams Human Intelligence Relationship Specialty Start Date End Date Haydee Rust MD PCP - General Family Medicine 01/27/15 05/07/22 Jeny Jarrett MD [address] [place] [address] PCP - General Family Medicine 05/08/22 06/20/23 Edgar Ordaz, PAC [address] [place] [address] PCP - General Physician Learning And Development Coordinator 06/21/23 Timmy Devries MD [address] [facility] [address] [place] [address] Obstetrics & Gynecology 08/31/16 Irwin Zee MD [address] [facility] [address] [place] [address] Consulting Physician Cardiovascular Disease - Cardiology 11/08/21 03/18/24 uHsam Gomez DPM Podiatry 12/07/21 Malini Aparicio APRN, PHARMACY BUYER [address]2 [facility], [address] [place] [address] Nurse Practitioner Advanced Practice Nurse 10/19/23 Malini Aparicio APRN, PHARMACY BUYER [address]2 [facility], [address] [place] [address] Nurse Practitioner Cardiology 07/09/24 10/21/24 documented as of this encounter
--- OUTSIDE RECORDS SUMMARY | 2024-12-08 11:13 | XMS_ITS | Encounter Summary ---
Author Organization [facility] Address [address] [place] [address] Phone Care Team Providers Care Dining Room Busser Name Role Phone Timmy Devries MD Unavailable [phone] Irwin Zee MD Unavailable Husam Marx DPAsim Unavailable Unavailable Edgar Ordaz Primary Care Provider [phone] Malini Aparicio PATIENT TRANSPORT ORDERLY, DIRECTOR ERP Unavailable + [phone] Malini Aparicio APRN, DIRECTOR ERP Unavailable + [phone] Reason for Visit * Reason Comments Medication Refill Encounter Details Date Type Department Care Team (Late st Contact Info) Description 07/25/2023 Refill [facility] Care - [place] [address] [place] [address] Edgar Ordaz, PAC [address] [place] [address] Medication Refill Social History Tobacco Use Types Packs/Day Years Used Date Smoking Tobacco: Never Smokeless Tobacco: Never Alcohol Use Standard Drinks/Week Comments Not Currently 0 (1 standard drink = 0.6 oz pur e alcohol) [facility] Utilities Answer Date Recorded In [...] often do you attend chur ch or islam services? More than 4 times per year 06/19/2023 Do you belong to any clubs o r organizations such as yarsanism groups, unions, fraternal or athletic groups, or [...] Total Score - Questions 1-9 13 09/15 [facility] - Occupational [...] place to sleep or slept in a long-term (including now)? No 06/19/2023 Education Answer Date [...] Dept 06/21/23 Office Visit Edgar Ordaz PAC [facility] 02/16/23 Office Visit Edgar Ordaz PAC [facility] 12/21/22 Office Visit Jeny Jarrett MD [facility] Showing recent visits within past 365 days and meeting all other requirements Future Appointments No visits were found meeting these conditions. Showing future appointments within next 90 days and meeting all other requirements documented in this encounter Plan of Treatment Upcoming Encounters Date Type Department Care Team (Late st Contact Info) Description 12/22/2024 8:40 AM CDT Lab [facility] - [place] [address] [place] [address] [facility] 12/29/2024 10:30 AM CDT Office Visit [facility] - [place] [address] [place] [address] Edgar Ordaz PAC [address] [place] [address] 01/12/2025 10:00 AM CDT Office Visit [facility] - Neurology - [place] [address] [place] [address] Phillip Hall MD [address] [place] [address] 07/06/2025 10:00 AM CDT Office Visit [facility] - Cardiology - [place] [address] [place] [address] Erin Up APRN, DIRECTOR ERP [address] [place] [address] documented as of this encounter Visit Diagnoses Diagnosis Rheumatoid arthritis involving multiple sites, unspecified whether rheumatoid factor present (HCC) documented in this encounter Additional Health Concerns Assessment Noted Time PHQ-9 Depression Total Score: 13 020 11:00 AM CDT documented as of this encounter Care Teams Dining Room Busser Relationship Specialty Start Date End Date Edgar Ordaz, PAC [address] [place] [address] PCP - General Physician Hospitality Aide 06/21/23 Timmy Devries MD [address] [facility] [address] [place] [address] Obstetrics & Gynecology 08/31/16 Irwin Zee MD [address] [facility] [address] [place] [address] Consulting Physician Cardiovascular Disease - Cardiology 11/08/21 03/18/24 Husam Gomez DPM Podiatry 12/07/21 Malini Aparicio APRN, DIRECTOR ERP [address] [facility], [address] [place] [address] Nurse Practitioner Advanced Practice Nurse 10/19/23 Malini Aparicoi APRN, DIRECTOR ERP #2 [facility], [address] [place] [address] Nurse Practitioner Cardiology 07/09/24 10/21/24 documented as of this encounter
--- OUTSIDE RECORDS SUMMARY | 2024-12-08 11:13 | XMS_ITS | Encounter Summary ---
Author Organization [facility] Address [address] [place] [address] Phone Care Team Providers Care Deputy Coroner Name Role Phone Haydee Rust MD Primary Care Provider + [phone] Timmy Devries MD Unavailable [phone] Irwin Zee MD Unavailable UnaJeny Houser MD Primary Care Provider + [phone] Husam Gomez DPAsim Unavailable Unavailable Edgar Ordaz Primary Care Provider + [phone] Malini Aparicio CABIN EQUIPMENT SUPERVISOR, LIBRARY DIRECTOR Unavailable + [phone] Malini Aparicio CABIN EQUIPMENT SUPERVISOR, LIBRARY DIRECTOR Unavailable + [phone] Reason for Visit * Reason Comments Medication Refill Encounter Details Date Type Department Care Team (Late st Contact Info) Description 07/25/2021 Refill [facility] - Primary Care - [place] [address] [place] [address] Haydee Rust MD [address] [place] [address] Medication Refill Social History Tobacco [...] Office Visit Maria Victoria Horton APRN, CNP QA on Request 04/11/21 Office Visit Maria Victoria Horton APRN, CNP [facility] 03/30/21 Office Visit Maria Victoria Horton APRN, CNP [facility] 11/11/20 Office Visit Haydee Rust MD [facility] Showing recent visits within past 365 days and meeting all other requirements Future Appointments Date Type Provider Dept 08/01/21 Appointment [place] [facility] 08/08/21 Appointment Haydee Rust MD [facility] Showing future appointments within next 90 days and meeting all other requirements documented in this encounter Plan of Treatment Upcoming Encounters Date Type Department Care Team (Late st Contact Info) Description 12/22/2024 8:40 AM CDT Lab [facility] [place] [address] [place] [address] [facility] 12/29/2024 10:30 AM CDT Office Visit [facility] [place] [address] [place] [address] Edgar Ordaz PAC [address] [place] [address] 01/12/2025 10:00 AM CDT Office Visit [facility] - Neurology - [place] [address] [place] [address] Phillip Hall MD [address] [place] [address] 07/06/2025 10:00 AM CDT Office Visit [facility] - Cardiology - [place] [address] [place] [address] Erin Up APRN, LIBRARY DIRECTOR [address] [place] [address] documented as of this encounter Visit Diagnoses Diagnosis Anxiety Anxiety state, unspecified documented in this encounter Additional Health Concerns Infection Onset Date Last Indicated Resolved Time Respiratory Rule Out - RPA 02/16/2023 02/16/2023 1 04/18/2022 2:08 PM CDT Assessment Noted Time PHQ-9 Depression Total Score: 13 10/05/ 020 11:00 AM CDT documented as of this encounter Care Teams Deputy Coroner Relationship Specialty Start Date End Date Haydee Rust MD PCP - General Family Medicine 01/27/15 05/07/22 Jeny Jarrett MD [address] [place], [place] [address] PCP - General Family Medicine 05/08/22 06/20/23 Edgar Ordaz, PAC [address] [place] [address] PCP - General Physician [place]ell Cutter 06/21/23 Timmy Devries MD [address] [facility] [address] [place], [place] [address] Obstetrics & Gynecology 08/31/16 Irwin Zee MD [address] [facility] [address] [place] [address] Consulting Physician Cardiovascular Disease - Cardiology 11/08/21 03/18/24 Husam Gomez DPAsim Podiatry 12/07/21 Malini Aparicio APRN, LIBRARY DIRECTOR #2 [facility], [address] [place] [address] Nurse Practitioner Advanced Practice Nurse 10/19/23 Malini Aparicio CABIN EQUIPMENT SUPERVISOR, LIBRARY DIRECTOR [address] [facility], [address] [place] [address] Nurse Practitioner Cardiology 07/09/24 10/21/24 documented as of this encounter
--- OUTSIDE RECORDS SUMMARY | 2024-12-08 11:13 | XMS_ITS | Encounter Summary ---
Author Organization [facility] Address [address] [place] [address] Phone Care Team Providers Care Warp Worker Name Role Phone Haydee Rust MD Primary Care Provider + [phone] Timmy Devries MD Unavailable [phone] Irwin Zee MD Unavailable UnaJeny Houser MD Primary Care Provider + [phone] Husam Gomez DPAsim Unavailable Unavailable Edgar Ordaz Primary Care Provider + [phone] Malini Aparicio MUD TEMPERER, PRODUCER DIRECTOR Unavailable + [phone] Malini Aparicio MUD TEMPERER, PRODUCER DIRECTOR Unavailable + [phone] Reason for Visit * Reason Comments Medication Refill Encounter Details Date Type Department Care Team (Late st Contact Info) Description 10/26/2021 Refill [facility] - Primary Care - [place] [address] [place] [address] Haydee Rust MD [address] [place] [address] Medication Refill Social History Tobacco [...] Dept 08/08/21 Office Visit Haydee Rust MD [facility] 06/08/21 Office Visit Maria Victoria Horton APRN, CNP [facility] 04/11/21 Office Visit Maria Victoria Horton APRN, JESSE [facility] 03/30/21 Office Visit Maria Victoria Horton APRN, CNP [facility] 11/11/20 Office Visit Haydee Rust MD [facility] Showing recent visits within past 365 days and meeting all other requirements Future Appointments Date Type Provider Dept 11/01/21 Appointment [place] [facility] 11/08/21 Appointment Haydee Rust MD [facility] Showing future appointments within next 90 days and meeting all other requirements documented in this encounter Plan of Treatment Upcoming Encounters Date Type Department Care Team (Late st Contact Info) Description 12/22/2024 8:40 AM CDT Lab [facility] Primary [facility] - [place] [address] [place] [address] [facility] 12/29/2024 10:30 AM CDT Office Visit [facility] - [place] [address] [facility] [place] [place] [address] Edgar Ordaz PAC [address] [facility] [place] [place] [address] 01/12/2025 10:00 AM CDT Office Visit [facility] - Neurology - [place] [address] [place] [address] Phillip Hall MD [address] [place] [address] 07/06/2025 10:00 AM CDT Office Visit [facility] - Cardiology - [place] [address] [place] [address] Erin Up APRN, PRODUCER DIRECTOR [address] [place] [address] documented as of this encounter Visit Diagnoses Diagnosis Hypothyroidism, unspecified type documented in this encounter Additional Health Concerns Infection Onset Date Last Indicated Resolved Time Respiratory Rule Out - RPA 02/16/2023 02/16/2023 1 04/18/2022 2:08 PM CDT Assessment Noted Time PHQ-9 Depression Total Score: 13 020 11:00 AM CDT documented as of this encounter Care Teams Warp Worker Relationship Specialty Start Date End Date Haydee Rust MD PCP - General Family Medicine 01/27/15 05/07/22 Jeny Jarrett MD [address] [place] [address] PCP - General Family Medicine 05/08/22 06/20/23 Edgar Ordaz, PAC [address] [place] [address] PCP - General Physician Application Lead 06/21/23 Timmy Devries MD [address] [facility] [address] [place] [address] Obstetrics & Gynecology 08/31/16 Irwin Zee MD [address] [facility] [address] [place] [address] Consulting Physician Cardiovascular Disease - Cardiology 11/08/21 03/18/24 Husam Gomez DPAsim Podiatry 12/07/21 Malini Aparicio APRN, PRODUCER DIRECTOR #2 [facility], [address] [place] [address] Nurse Practitioner Advanced Practice Nurse 10/19/23 Malini Aparicio APRN, PRODUCER DIRECTOR #2 [facility], [address] [place] [address] Nurse Practitioner Cardiology 07/09/24 10/21/24 documented as of this encounter
--- OUTSIDE RECORDS SUMMARY | 2024-12-08 11:13 | XMS_ITS | Encounter Summary ---
Author Organization [facility] Address [address] [place] [address] Phone Care Team Providers Care Professional System Administrator Name Role Phone Timmy Devries MD Unavailable [phone] Irwin Zee MD Unavailable Husam Marx DPAsim Unavailable Unavailable Edgar Ordaz Primary Care Provider Malini Aparicio CLINICAL DATA RESEARCH, EDUCATIONAL TECHNOLOGY COORDINATOR Unavailable + [phone] Malini Aparicio APRN, EDUCATIONAL TECHNOLOGY COORDINATOR Unavailable + [phone] Reason for Visit * Reason Comments Medication Refill Encounter Details Date Type Department Care Team (Late st Contact Info) Description 09/18/2023 Refill [facility] - Primary Care - [place] [address] [place] [address] Edgar Ordaz, PAC [address] [place] [address] Medication Refill Social History Tobacco Use Types Packs/Day Years Used Date Smoking Tobacco: Never Smokeless Tobacco: Never Alcohol Use Standard Drinks/Week Comments Not Currently 0 (1 standard drink = 0.6 oz pur e alcohol) [facility] Utilities Answer Date Recorded In the past [...] often do you attend chur ch or sikh services? More than 4 times per year 06/19/2023 Do you belong to any clubs o r organizations such as latter-day groups, unions, fraternal or athletic groups, or [...] Total Score - Questions 1-9 13 09/15 [facility] ional Health - Occupational Stress [...] Dept 06/21/23 Office Visit Edgar Ordaz PAC [facility] 02/16/23 Office Visit Edgar Ordaz PAC [facility] 12/21/22 Office Visit Jeny Jarrett MD [facility] Showing recent visits within past 365 days and meeting all other requirements Future Appointments Date Type Provider Dept 12/14/23 Appointment Lab, [facility] Showing future appointments within next 90 days and meeting all other requirements documented in this encounter Plan of Treatment Upcoming Encounters Date Type Department Care Team (Late st Contact Info) Description 12/22/2024 8:40 AM CDT Lab [facility] Primary [facility] - [place] [address] [place] [address] [facility] 12/29/2024 10:30 AM CDT Office Visit [facility] Primary Care - [place] [address] [place] [address] Edgar Ordaz PAC [address] [place] [address] 01/12/2025 10:00 AM CDT Office Visit [facility] - Neurology - [place] [address] [place] [address] Phillip Hall MD [address] [place] [address] 07/06/2025 10:00 AM CDT Office Visit [facility] - Cardiology - [place] [address] [place] [address] Erin Up APRN, EDUCATIONAL TECHNOLOGY COORDINATOR [address] [place] [address] documented as of this encounter Visit Diagnoses Diagnosis Rheumatoid arthritis involving multiple sites, unspecified whether rheumatoid factor present (HCC) documented in this encounter Additional Health Concerns Assessment Noted Time PHQ-9 Depression Total Score: 13 10/05/ 020 11:00 AM CDT documented as of this encounter Care Teams Professional System Administrator Relationship Specialty Start Date End Date Edgar Ordaz, PAC [address] [place] [address] PCP - General Physician Parachute Folder 06/21/23 Timmy Devries MD [address] [facility] [address] [place] [address] Obstetrics & Gynecology 08/31/16 Irwin Zee MD [address] [facility] [address] [place] [address] Consulting Physician Cardiovascular Disease - Cardiology 11/08/21 03/18/24 Husam Gomez DPM Podiatry 12/07/21 Malini Aparicio APRN, EDUCATIONAL TECHNOLOGY COORDINATOR [address] [facility], [address] [place] [address] Nurse Practitioner Advanced Practice Nurse 10/19/23 Malini Aparicio APRN, EDUCATIONAL TECHNOLOGY COORDINATOR [address] [facility], [address] [place] [address] Nurse Practitioner Cardiology 07/09/24 10/21/24 documented as of this encounter
--- OUTSIDE RECORDS SUMMARY | 2024-12-08 11:13 | XMS_ITS | Encounter Summary ---
Author Organization [facility] Address [address] [place] [address] Phone Care Team Providers Care Wireworker Supervisor Name Role Phone Haydee Rust MD Primary Care Provider + [phone] Timmy Devries MD Unavailable [phone] Irwin Zee MD Unavailable UnaJeny Houser MD Primary Care Provider + [phone] Husam Gomez DPAsim Unavailable Unavailable Edgar Ordaz Primary Care Provider + [phone] Malini Aparicio ENERGY CONSERVATION TECHNICIAN, DIESEL DINKEY ENGINEER Unavailable + [phone] Malini Aparicio ENERGY CONSERVATION TECHNICIAN, DIESEL DINKEY ENGINEER Unavailable + [phone] Reason for Visit * Reason Comments Medication Refill Encounter Details Date Type Department Care Team (Late st Contact Info) Description 06/11/[address] [facility] - Primary Care - [place] [address] [place] [address] Haydee Rust MD [address] [place] [address] Medication Refill Social History Tobacco [...] Samantha Love RN - 06/11/2020 1:41 PM ENDOSCOPY TECHNICAN Medication failed the protocol, provider to review [...] 1 month ago Hyperlipidemia, unspecified hyperlipidemia type [facility] Haydee Rust MD 7 months ago Physical exam, annual (Adult) [facility] Haydee Rust MD 8 months ago Allergic dermatitis due to poison kiim [facility] Haydee Rust MD 1 year ago Anxiety [facility] Haydee Rust MD 1 year ago RLQ abdominal pain [facility] Haydee Rust MD Upcoming Appointments Future Appointments In 4 months Ab [facility] In 4 months Haydee Rust MD [facility] BURRER MACHINE - Recent and Past Visits Recent Visits Date Type Provider Dept 05/06/20 Telemedicine Haydee Rust MD [facility] 11/04/19 Office Visit Haydee Rust MD [facility] 10/06/19 Office Visit Haydee Rust MD [facility] Showing recent visits within past 460 days [...] 1 month ago Hyperlipidemia, unspecified hyperlipidemia type [facility] Haydee Rust MD 7 months ago Physical exam, annual (Adult) [facility] Haydee Rust MD 8 months ago Allergic dermatitis due to poison kimi [facility] Haydee Rust MD 1 year ago Anxiety [facility] Haydee Rust MD 1 year ago RLQ abdominal pain [facility] Haydee Rust MD Upcoming Appointments Future Appointments In 4 months Ab [facility] In 4 months Haydee Rust MD [facility] BURRER MACHINE - Recent and Past Visits Recent Visits Date Type Provider Dept 05/06/20 Telemedicine Haydee Rust MD [facility] 11/04/19 Office Visit Haydee Rust MD [facility] 10/06/19 Office Visit Haydee Rust MD [facility] Showing recent visits within past 460 days [...] 04/29/2020 1.370 0.270 - 4.200 mIU/L Final SCOPY TECHNICAN documented in this encounter Plan of Treatment Upcoming Encounters Date Type Department Care Team (Late st Contact Info) Description 12/22/2024 8:40 AM CDT Lab [facility] [address] [place] [address] [facility] 12/29/2024 10:30 AM CDT Office Visit [facility] [address] [place] [address] Edgar Ordaz PAC [address] [place] [address] 01/12/2025 10:00 AM CDT Office Visit [facility] - Neurology - [place] [address] [place] [address] Phillip Hall MD [address] [place] [address] 07/06/2025 10:00 AM CDT Office Visit [facility] - Cardiology - [place] [address] [place] [address] Erin Up APRN, DIESEL DINKEY ENGINEER [address] [place] [address] documented as of this encounter Visit Diagnoses Diagnosis Anxiety Anxiety state, unspecified Hypothyroidism, unspecified type documented in this encounter Additional Health Concerns Infection Onset Date Last Indicated Resolved Time Other 12/30/2019 12/30/2019 03/21/2021 4:55 PM ENDOSCOPY TECHNICAN Respiratory Rule Out - RPA 02/16/2023 02/16/2023 1 04/18/2022 2:08 PM CDT Assessment Noted Time PHQ-9 Depression Total Score: 13 020 11:00 AM CDT documented as of this encounter Care Teams Wireworker Supervisor Relationship Specialty Start Date End Date Haydee Rust MD PCP - General Family Medicine 01/27/15 05/07/22 Jeny Jarrett MD [address] [place] [address] PCP - General Family Medicine 05/08/22 06/20/23 Edgar Ordaz, PAC [address] [place] [address] PCP - General Physician Stem Lead Former 06/21/23 Timmy Devries MD [address] [facility] [address] [place] [address] Obstetrics & Gynecology 08/31/16 Irwin Zee MD [address] [facility] [address] [place] [address] Consulting Physician Cardiovascular Disease - Cardiology 11/08/21 03/18/24 Husam Gomez, DPM Podiatry 12/07/21 Malini Aparicio APRN, DIESEL DINKEY ENGINEER [address] [facility], [address] [place] [address] Nurse Practitioner Advanced Practice Nurse 10/19/23 Malini Aparicio APRN, DIESEL DINKEY ENGINEER [address] [facility], [address] [place] [address] Nurse Practitioner Cardiology 07/09/24 10/21/24 documented as of this encounter
--- OUTSIDE RECORDS SUMMARY | 2024-12-08 11:13 | XMS_ITS | Encounter Summary ---
Author Organization [facility] Address [address] [place] [address] Phone Care Team Providers Care Pottery Kiln Builder Name Role Phone Haydee Rust MD Primary Care Provider + [phone] Timmy Devries MD Unavailable [phone] Irwin Zee MD Unavailable UnaJeny Houser MD Primary Care Provider + [phone] Husam Gomez DPAsim Unavailable Unavailable Edgar Ordaz Primary Care Provider + [phone] Malini Aparicio RELIEF PILOT, MANAGER EDITORIAL Unavailable + [phone] Malini Aparicio RELIEF PILOT, MANAGER EDITORIAL Unavailable + [phone] Reason for Visit * Reason Comments Medication Refill Encounter Details Date Type Department Care Team (Late st Contact Info) Description 09/20/2020 Refill [facility] - Primary Care - [place] [address] [place] [address] Haydee Rust MD [address] [place] [address] Medication Refill Social History Tobacco [...] 4 months ago Hyperlipidemia, unspecified hyperlipidemia type [facility] Haydee Rust MD 10 months ago Physical exam, annual (Adult) [facility] Haydee Rust MD 11 months ago Allergic dermatitis due to poison kimi [facility] Haydee Rust MD 1 year ago Anxiety [facility] Haydee Rust MD 1 year ago RLQ abdominal pain [facility] Haydee Rust MD Upcoming Appointments Future Appointments In 1 [address] [facility] In 1 month Haydee Rust MD [facility] NEW VEHICLE SALES CONSULTANT - Recent and Past Visits Recent Visits Date Type Provider Dept 05/06/20 Telemedicine Haydee Rust MD [facility] 11/04/19 Office Visit Haydee Rust MD [facility] 10/06/19 Office Visit Haydee Rust MD [facility] Showing recent visits within past 460 days with a meds authorizing provider and meeting all other requirements Future Appointments Date Type Provider Dept 11/11/20 Appointment Haydee Rust MD [facility] Showing future appointments within next 90 days with a meds authorizing provider and meeting all other requirements documented in this encounter Plan of Treatment Upcoming Encounters Date Type Department Care Team (Late st Contact Info) Description 12/22/2024 8:40 AM CDT Lab [facility] [address] [place] [address] [facility] 12/29/2024 10:30 AM CDT [facility] [place] [address] [place] [address] Edgar Ordaz PAC [address] [place] [address] 01/12/2025 10:00 AM CDT Office Visit [facility] - Neurology - [place] [address] [place] [address] Phillip Hall MD [address] [place] [address] 07/06/2025 10:00 AM CDT Office Visit [facility] - Cardiology - [place] [address] [place] [address] Erin Up APRN, MANAGER EDITORIAL [address] [place] [address] documented as of this encounter Visit Diagnoses Diagnosis Anxiety Anxiety state, unspecified documented in this encounter Additional Health Concerns Infection Onset Date Last Indicated Resolved Time Other 12/30/2019 12/30/2019 03/21/2021 4:55 PM NEUROPSYCHIATRIST Respiratory Rule Out - RPA 02/16/2023 02/16/2023 1 04/18/2022 2:08 PM CDT Assessment Noted Time PHQ-9 Depression Total Score: 13 020 11:00 AM CDT documented as of this encounter Care Teams Pottery Kiln Builder Relationship Specialty Start Date End Date Haydee Rust MD PCP - General Family Medicine 01/27/15 05/07/22 Jeny Jarrett MD [address] [place] [address] PCP - General Family Medicine 05/08/22 06/20/23 Edgar Ordaz, PAC [address] [place] [address] PCP - General Physician Collar Stay Fuser Tender 06/21/23 Timmy Devries MD [address] [facility] [address] [place] [address] Obstetrics & Gynecology 08/31/16 Irwin Zee MD [address] [facility] [address] [place] [address] Consulting Physician Cardiovascular Disease - Cardiology 11/08/21 03/18/24 Husam Gomez DPM Podiatry 12/07/21 Malini Aparicio, RELIEF PILOT, MANAGER EDITORIAL [address] [facility], [address] [place] [address] Nurse Practitioner Advanced Practice Nurse 10/19/23 Malini Aparicio APRN, MANAGER EDITORIAL [address] [facility], [address] [place] [address] Nurse Practitioner Cardiology 07/09/24 10/21/24 documented as of this encounter
--- OUTSIDE RECORDS SUMMARY | 2024-12-08 11:13 | XMS_ITS | Encounter Summary ---
Author Organization [facility] Address [address] [place] [address] Phone Care Team Providers Care Rewrite Editor Name Role Phone Haydee Rust MD Primary Care Provider + [phone] Timmy Devries MD Unavailable +[phone] Irwin Zee MD Unavailable UnaJeny Houser MD Primary Care Provider + [phone] Husam Gomez DPAsim Unavailable Unavailable Edgar Ordaz Primary Care Provider + [phone] Malini Aparicio DIVISION MERCHANDISE MANAGER, REALTY SPECIALIST Unavailable + [phone] Malini Aparicio DIVISION MERCHANDISE MANAGER, REALTY SPECIALIST Unavailable + [phone] Reason for Visit * Reason Comments Medication Refill Encounter Details Date Type Department Care Team (Late st Contact Info) Description 03/01/2020 Refill [facility] - Primary Care - [place] [address] [place] [address] Haydee Rust MD [address] [place] [address] Medication Refill Social History Tobacco [...] Notes * Telephone Encounter - Marlee Sanchez, [facility] - 03/01/2020 1:10 PM CST Medication [...] 3 months ago Physical exam, annual (Adult) [facility] Haydee Rust MD 4 months ago Allergic dermatitis due to poison kimi [facility] Haydee Wagner MD 1 year ago Anxiety [facility] 1 year ago RLQ abdominal pain [facility] Haydee Wagner MD 1 year ago Nausea and vomiting, intractability of vomiting not specified, unspecified vomiting type [facility] Haydee Rust MD Upcoming Appointments Future Appointments In 1 month [facility] In 2 months Haydee Rust MD [facility] ITEM PROCESSING CLERK - Recent and Past Visits Recent Visits Date Type Provider Dept 11/04/19 Office Visit Haydee Rust MD [facility] 10/06/19 Office Visit Haydee Rust MD [facility] [place] 01/24/19 Office Visit Haydee Rust MD [facility] Showing recent visits within past 460 days with a meds authorizing provider and meeting all other requirements Future Appointments Date Type Provider Dept 05/06/20 Appointment Haydee Rust MD [facility] Showing future appointments within next 90 days with a meds authorizing provider and meeting all other requirements [employer] documented in this encounter Plan of Treatment Upcoming Encounters Date Type Department Care Team (Late st Contact Info) Description 12/22/2024 8:40 AM CDT Lab [facility] [address] [place] [address] [facility] 12/29/2024 10:30 AM CDT Office Visit [facility] Primary Care - [place] [address] [place] [address] Edgar Ordaz PAC [address] [place] [address] 01/12/2025 10:00 AM CDT Office Visit [facility] - Neurology - [place] [address] [place] [address] Phillip Hall MD [address] [place] [address] 07/06/2025 10:00 AM CDT Office Visit [facility] - Cardiology - [place] [address] [place] [address] Erin Up APRN, REALTY SPECIALIST [address] [place] [address] documented as of this encounter Visit Diagnoses Diagnosis Anxiety Anxiety state, unspecified documented in this encounter Additional Health Concerns Infection Onset Date Last Indicated Resolved Time Other 12/30/2019 12/30/2019 03/21/2021 4:55 PM [employer] Respiratory Rule Out - RPA 02/16/2023 02/16/2023 1 04/18/2022 2:08 PM CDT Assessment Noted Time PHQ-9 Depression Total Score: 13 020 11:00 AM CDT documented as of this encounter Care Teams Rewrite Editor Relationship Specialty Start Date End Date Haydee Rust MD PCP - General Family Medicine 01/27/15 05/07/22 Jeny Jarrett MD [address] [place] [address] PCP - General Family Medicine 05/08/22 06/20/23 Edgar Ordaz, PAC [address] [place] [address] PCP - General Physician Water Plant Maintenance Mechanic 06/21/23 Timmy Devries MD [address] [facility] [address] [place], [place] [address] Obstetrics & Gynecology 08/31/16 Irwin Zee MD [address] [facility] [address] [place] [address] Consulting Physician Cardiovascular Disease - Cardiology 11/08/21 03/18/24 Husam Gomez DPM Podiatry 12/07/21 Malini Aparicio APRN, REALTY SPECIALIST [address] [facility], [address] [place] [address] Nurse Practitioner Advanced Practice Nurse 10/19/23 Malini Aparicio APRN, REALTY SPECIALIST [address] [facility], [address] [place] [address] Nurse Practitioner Cardiology 07/09/24 10/21/24 documented as of this encounter
--- OUTSIDE RECORDS SUMMARY | 2024-12-08 11:13 | XMS_ITS | Encounter Summary ---
Author Organization [facility] Address [address] [place] [address] Phone Care Team Providers Care Advertisement Distributor Name Role Phone Timmy Devries MD Unavailable [phone] Husam Gomez DPAsim Unavailable Unavailable Edgar Ordaz Primary Care Provider [phone] Malini Aparicio SOCIAL SERVICES DESIGNEE, STEEL FABRICATING SUPERVISOR Unavailable +[phone] Reason for Visit * Reason Onset Date Comments Medication Management 06/05/2024 Sore Throat 06/05/2024 Cough 06/05/2024 Influenza 06/05/2024 Encounter Details Date Type Department Care Team ([facility] st Contact Info) Description 06/05/2024 Nurse Triage [facility] [address] [place] [address] Edgar Ordaz, PAC [address] [place] [address] Medication Management; Sore Throat; Cough; Influenza Social History Tobacco Use Types Packs/Day Years Used Date Smoking Tobacco: Never Smokeless Tobacco: Never Alcohol Use Standard Drinks/Week Comments Not Currently 0 (1 standard drink = 0.6 oz pur e alcohol) [facility] Utilities Answer Date Recorded In the past 12 months has [employer], gas, oil, or water [employer] threatened to shut off services in your home? No 11/23/2023 Social Connection and Isolation Panel Answer Date Recorded In a typical week, how many times do you talk on the phone with family, friends, or neighbors? Twice a week 11/23/2023 How often do you get togethe r with friends or relatives? Once a week 11/23/2023 How often do you attend chur ch or holiness services? More than 4 times per year 11/23/2023 Do you belong to any clubs o r organizations such as taoism groups, unions, fraternal or athletic groups, or [...] Total Score - Questions 1-9 0 12/15 [facility] - Occupational [...] place to sleep or slept in a senior care (including now)? No 06/19/2023 Housing Stability Vital Sign Answer [place] e Recorded In the last 12 months, was t here a time when you were not able to pay the mortgage or rent on time? No 11/23/2023 In the past 12 months, how m any times have you moved where you were living? 0 11/23/2023 At any time in the past 12 m [facility], were you homeless or living in a senior care (including now)? No 11/23/2023 Education Answer Date [...] pharmacy already. See previous mychart message encounter. NEYMAN PATTERNMAKER * Telephone Encounter - Mechelle Cruz RN [...] and flu symptoms Protocols used: Influenza (Flu) Lrgiskki-E-FF, Influenza (Flu) - Pocttraj-T-GY NEYMAN PATTERNMAKER * Telephone Encounter - Vinicio Lazo - 06/05/2024 8:40 AM CST Symptoms: Sore Throat, Cough Outcome: Transfer to inspector of dredging queue Reason: Caller denied all higher acuity questions The caller accepted this outcome. Caller Denied: * Struggling for each breath (severe trouble breathing) * Can't swallow saliva (drooling) * Choked on something NEYMAN PATTERNMAKER documented in this encounter Plan of Treatment Upcoming Encounters Date Type Department Care Team (Late st Contact Info) Description 12/22/2024 8:40 AM CDT Lab [facility] [address] [place] [address] [facility] 12/29/2024 10:30 AM CDT Office Visit [facility] [address] [place] [address] Edgar Ordaz PAC [address] [place] [address] 01/12/2025 10:00 AM CDT Office Visit [facility] - Neurology - [place] [address] [place] [address] Phillip Hall MD [address] [place] [address] 07/06/2025 10:00 AM CDT Office Visit [facility] - Cardiology - [place] [address] [place] [address] Erin Up APRN, STEEL FABRICATING SUPERVISOR [address] [place] [address] documented as of this encounter Visit Diagnoses Not on filedocumented in this encounter Additional Health Concerns Assessment Noted Time PHQ-9 Depression Total Score: 0 12/28/19 24 8:57 AM CDT documented as of this encounter Care Teams Advertisement Distributor Relationship Specialty Start Date End Date Edgar Ordaz PAC [address] [place] [address] PCP - General Physician Business Department Chair 06/21/23 Timmy Devries MD [address] [facility] [address] [place], [place] [address] Obstetrics & Gynecology 08/31/16 Husam Gomez DPM Podiatry 12/07/21 Malini Aparicio, SOCIAL SERVICES DESIGNEE, STEEL FABRICATING SUPERVISOR [address] [facility], [address] [place] [address] Nurse Practitioner Cardiology 07/09/24 10/21/24 documented as of this encounter
--- OUTSIDE RECORDS SUMMARY | 2024-12-08 11:13 | XMS_ITS | Encounter Summary ---
Author Organization [facility] Address [address] [place] [address] Phone Care Team Providers Care Tape Machine Tailer Name Role Phone Haydee Rust MD Primary Care Provider + [phone] Timmy Devries MD Unavailable [phone] Irwin Zee MD Unavailable UnaJeny Houser MD Primary Care Provider + [phone] Husam Gomez DPAsim Unavailable Unavailable Edgar Ordaz Primary Care Provider + [phone] Malini Aparicio FREELANCE DIRECTOR, YARDAGE TUFTING MACHINE OPERATOR Unavailable + [phone] Malini Aparicio FREELANCE DIRECTOR, YARDAGE TUFTING MACHINE OPERATOR Unavailable + [phone] Reason for Visit * Reason Comments Medication Refill Encounter Details Date Type Department Care Team (Late st Contact Info) Description 07/11/2020 Refill [facility] - Primary Care - [place] [address] [place] [address] Haydee Rust MD [address] [place] [address] Medication Refill Social History Tobacco [...] 2 months ago Hyperlipidemia, unspecified hyperlipidemia type [facility] Haydee Rust MD 8 months ago Physical exam, annual (Adult) [facility] Haydee Rust MD 9 months ago Allergic dermatitis due to poison kimi [facility] Haydee Rust MD 1 year ago Anxiety [facility] Haydee Rust MD 1 year ago RLQ abdominal pain [facility] Haydee Rust MD Upcoming Appointments Future Appointments In 3 months [facility] In 4 months Haydee Rust MD [facility] RETOUCHING OPERATOR - Recent and Past Visits Recent Visits Date Type Provider Dept 05/06/20 Telemedicine Haydee Rust MD [facility] 11/04/19 Office Visit Haydee Rust MD [facility] 10/06/19 Office Visit Haydee Rust MD [facility] Showing recent visits within past 460 days [...] Lab [facility] [address] [place] [address] [facility] 12/29/2024 10:30 AM CDT Office Visit [facility] - [place] [address] [place] [address] Edgar Ordaz PAC [address] [place] [address] 01/12/2025 10:00 AM CDT Office Visit [facility] - Neurology - [place] [address] [place] [address] Phillip Hall MD [address] [place] [address] 07/06/2025 10:00 AM CDT Office Visit [facility] - Cardiology - [place] [address] [place] [address] Erin Up APRN, YARDAGE TUFTING MACHINE OPERATOR [address] [place] [address] documented as of this encounter Visit Diagnoses Diagnosis Anxiety Anxiety state, unspecified documented in this encounter Additional Health Concerns Infection Onset Date Last Indicated Resolved Time Other 12/30/2019 12/30/2019 03/21/2021 4:55 PM DIRECTOR BIOINFORMATICS Respiratory Rule Out - RPA 02/16/2023 02/16/2023 1 04/18/2022 2:08 PM CDT Assessment Noted Time PHQ-9 Depression Total Score: 13 020 11:00 AM CDT documented as of this encounter Care Teams Tape Machine Tailer Relationship Specialty Start Date End Date Haydee Rust MD PCP - General Family Medicine 01/27/15 05/07/22 Jeny Jarrett MD [address] [place] [address] PCP - General Family Medicine 05/08/22 06/20/23 Edgar Ordaz, PAC [address] [place] [address] PCP - General Physician Transporter Driver 06/21/23 Timmy Devries MD [address] [facility] [address] [place] [address] Obstetrics & Gynecology 08/31/16 Irwin Zee MD [address] [facility] [address] [place] [address] Consulting Physician Cardiovascular Disease - Cardiology 11/08/21 03/18/24 Husam Gomez DPM Podiatry 12/07/21 Malini Aparicio APRN, YARDAGE TUFTING MACHINE OPERATOR [address] [facility] [address] [place] [address] Nurse Practitioner Advanced Practice Nurse 10/19/23 Malini Aparicio APRN, YARDAGE TUFTING MACHINE OPERATOR [address] [facility] [address] [place] [address] Nurse Practitioner Cardiology 07/09/24 10/21/24 documented as of this encounter
--- OUTSIDE RECORDS SUMMARY | 2024-12-08 11:13 | XMS_ITS | Encounter Summary ---
Author Organization [facility] Address [address] [place] [address] Phone Care Team Providers Care Binder Lockstitch Name Role Phone Timmy Devries MD Unavailable [phone] Irwin Zee MD Unavailable Husam Marx DPAsim Unavailable Unavailable Edgar Ordaz PAC Primary Care Provider [phone] Malini Aparicio IT TECHNICAL ARCHITECT, LPN Unavailable + [phone] Malini Aparicio APRN, LPN Unavailable + [phone] Reason for Visit * Reason Comments Medication Refill Encounter Details Date Type Department Care Team (Late st Contact Info) Description 08/17/2023 Refill [facility] - Primary Care - [place] [address] [place] [address] Jeny Jarrett MD [address] [place] [address] Medication Refill Social History Tobacco Use Types Packs/Day Years Used Date Smoking Tobacco: Never Smokeless Tobacco: Never Alcohol Use Standard Drinks/Week Comments Not Currently 0 (1 standard drink = 0.6 oz pur e alcohol) [facility] Utilities Answer Date Recorded In the past 12 months has [employer], gas, oil, or water company threatened to [...] often do you attend chur ch or latter-day services? More than 4 times per year 06/19/2023 Do you belong to any clubs o r organizations such as muslim groups, unions, fraternal or athletic groups, or [...] Info) Description 12/22/2024 8:40 AM CDT Lab [facility] - Primary Care - [place] [address] [place] [address] [facility] 12/29/2024 10:30 AM CDT Office Visit [facility] - Primary Care - [place] [address] [place] [address] Edgar Ordaz PAC [address] [place] [address] 01/12/2025 10:00 AM CDT Office Visit [facility] - Neurology [facility] [address] [place] [address] Phillip Hall MD #2 [place] [address] 07/06/2025 10:00 AM CDT Office Visit [facility] - Cardiology - [place] [address]2 [place] [address] Erin Up, STEPHENIE, LPN [address]2 [place] [address] documented as of this encounter Visit Diagnoses Diagnosis Primary hypertension Unspecified essential hypertension documented in this encounter Additional Health Concerns Assessment Noted Time PHQ-9 Depression Total Score: 13 020 11:00 AM CDT documented as of this encounter Care Teams Binder Lockstitch Relationship Specialty Start Date End Date Edgar Ordaz, PAC [address] [place] [address] PCP - General Physician Family Resource Coordinator 06/21/23 Timmy Devries MD [address] [facility] [address] [place] [address] Obstetrics & Gynecology 08/31/16 Irwin Zee MD [address] [facility] [address] [place] [address] Consulting Physician Cardiovascular Disease - Cardiology 11/08/21 03/18/24 Husam Gomez DPM Podiatry 12/07/21 Malini Aparicio APRN, LPN [address]2 [facility], [address] [place] [address] Nurse Practitioner Advanced Practice Nurse 10/19/23 Malini Aparicio APRN, LPN [address]2 [facility], [address] [place] [address] Nurse Practitioner Cardiology 07/09/24 10/21/24 documented as of this encounter
--- OUTSIDE RECORDS SUMMARY | 2024-12-08 11:13 | XMS_ITS | Encounter Summary ---
Author Organization [facility] Address [address] [place] [address] Phone Care Team Providers Care Piano And Organ Refinisher Name Role Phone Haydee Rust MD Primary Care Provider + [phone] Timmy Devries MD Unavailable [phone] Irwin Zee MD Unavailable UnaJeny Houser MD Primary Care Provider + [phone] Husam Gomez DPAsim Unavailable Unavailable Edgar Ordaz Primary Care Provider + [phone] Malini Aparicio FACTORY PROCESS WORKERS, SURGICAL APPLIANCE FITTER Unavailable + [phone] Malini Aparicio FACTORY PROCESS WORKERS, SURGICAL APPLIANCE FITTER Unavailable + [phone] Reason for Visit * Reason Comments Medication Refill Encounter Details Date Type Department Care Team (Late st Contact Info) Description 05/24/2021 Refill [facility] - Primary Care - [place] [address] [place] [address] Haydee Rust MD [address] [place] [address] Medication Refill Social History Tobacco [...] COVID-19? No / Unsure 05/26/2021 7:14 AM INTERACTIVE MARKETING STRATEGIST documented as of this encounter Miscellaneous Notes * Telephone Encounter - Samantha Love RN - 05/24/2021 9:23 AM INTERACTIVE MARKETING STRATEGIST Medication failed the protocol, provider to review [...] Office Visit Maria Victoria Horton APRN, CNP [facility] 03/30/21 Office Visit Maria Victoria Horton APRN, CNP [facility] 11/11/20 Office Visit Haydee Rust MD [facility] Showing recent visits within past 365 days and meeting all other requirements Future Appointments No visits were found meeting these conditions. Showing future appointments within next 90 days and meeting all other requirements RACTIVE MARKETING STRATEGIST documented in this encounter Plan of Treatment Upcoming Encounters Date Type Department Care Team (Late st Contact Info) Description 12/22/2024 8:40 AM CDT Lab [facility] - Primary Care - [place] [address] [place] [address] [facility] 12/29/2024 10:30 AM CDT Office Visit [facility] - Primary Care - [place] [address] [place] [address] Edgar Ordaz PAC [address] [place] [address] 01/12/2025 10:00 AM CDT Office Visit [facility] - Neurology - [place] [address] [place] [address] Phillip Hall MD [address]2 [place] [address] 07/06/2025 10:00 AM CDT Office Visit [facility] - Cardiology - [place] [address]2 [place] [address] Erin Up APRN, SURGICAL APPLIANCE FITTER [address]2 [place] [address] documented as of this encounter Visit Diagnoses Diagnosis Anxiety Anxiety state, unspecified documented in this encounter Additional Health Concerns Infection Onset Date Last Indicated Resolved Time Respiratory Rule Out - RPA 02/16/2023 02/16/2023 1 04/18/2022 2:08 PM CDT Assessment Noted Time PHQ-9 Depression Total Score: 13 020 11:00 AM CDT documented as of this encounter Care Teams Piano And Organ Refinisher Relationship Specialty Start Date End Date Haydee Rust MD PCP - General Family Medicine 01/27/15 05/07/22 Jeny Jarrett MD [address] [place], [place] [id number] PCP - General Family Medicine 05/08/22 06/20/23 Edgar Ordaz, PAC [address] [place] [address] PCP - General Physician Operating System Designer 06/21/23 Timmy Devries MD [address] [facility] [address] [place] [address] Obstetrics & Gynecology 08/31/16 Irwin Zee MD [address] [facility] [address] [place] [address] Consulting Physician Cardiovascular Disease - Cardiology 11/08/21 03/18/24 Husam Gomez, DPM Podiatry 12/07/21 Malini Aparicio APRN, SURGICAL APPLIANCE FITTER #2 [facility], [address] [place] [address] Nurse Practitioner Advanced Practice Nurse 10/19/23 Malini Aparicio APRN, SURGICAL APPLIANCE FITTER #2 [facility], [address] [place] [address] Nurse Practitioner Cardiology 07/09/24 10/21/24 documented as of this encounter
--- OUTSIDE RECORDS SUMMARY | 2024-12-08 11:13 | XMS_ITS | Encounter Summary ---
Author Organization [facility] Address [address] [place] [address] Phone Care Team Providers Care Fourdrinier Wire Weaver Name Role Phone Timmy Devries MD Unavailable [phone] Irwin Zee MD Unavailable Husam Marx DPAsim Unavailable Unavailable Edgar Ordaz Primary Care Provider [phone] Malini Aparicio LONG DISTANCE OPERATOR, MANAGER EVENT Unavailable + [phone] Malini Aparicio APRN, MANAGER EVENT Unavailable + [phone] Reason for Visit * Reason Comments Medication Refill Encounter Details Date Type Department Care Team (Late st Contact Info) Description 06/21/2023 Refill [facility] - Primary Care - [place] [address] [place] [address] Edgar Ordaz, PAC [address] [place] [address] Medication Refill Social History Tobacco Use Types Packs/Day Years Used Date Smoking Tobacco: Never Smokeless Tobacco: Never Alcohol Use Standard Drinks/Week Comments Not Currently 0 (1 standard drink = 0.6 oz pur e alcohol) [facility] Utilities Answer Date Recorded In the [...] Total Score - Questions 1-9 13 09/15 [facility] - Occupational [...] in a alf (including now)? No 06/19/2023 Education Answer Date [...] Edgar Ordaz PAC - 06/21/2023 10:48 AM RULING TECHNICIAN Refilled in office visit encounter. NG TECHNICIAN * Telephone Encounter - Agueda Carlos RN - 06/21/2023 8:02 AM RULING TECHNICIAN Medication failed the protocol, provider to review [...] Dept 02/16/23 Office Visit Edgar Ordaz PAC [facility] 12/21/22 Office Visit Jeny Jarrett MD [facility] Showing recent visits within past 365 days and meeting all other requirements Today's Visits Date Type Provider Dept 06/21/23 Appointment Edgar Ordaz PAC [facility] Showing today's visits and meeting all other requirements Future Appointments No visits were found meeting these conditions. Showing future appointments within next 90 days and meeting all other requirements NG TECHNICIAN documented in this encounter Plan of Treatment Upcoming Encounters Date Type Department Care Team (Late st Contact Info) Description 12/22/2024 8:40 AM CDT Lab [facility] - [place] [address] [place] [address] [facility] 12/29/2024 10:30 AM CDT Office Visit [facility] Primary [facility] - [place] [address] [place] [address] Edgar Ordaz PAC [address] [place] [address] 01/12/2025 10:00 AM CDT Office Visit [facility] - Neurology - [place] [address] [place] [address] Phillip Hall MD [address]2 [place] [address] 07/06/2025 10:00 AM CDT Office Visit [facility] - Cardiology - [place] [address] [place] [address] Erin Up APRN, MANAGER EVENT [address] [place] [address] documented as of this encounter Visit Diagnoses Diagnosis Anxiety Anxiety state, unspecified documented in this encounter Additional Health Concerns Assessment Noted Time PHQ-9 Depression Total Score: 13 020 11:00 AM CDT documented as of this encounter Care Teams Fourdrinier Wire Weaver Relationship Specialty Start Date End Date Edgar Ordaz, PAC [address] [place] [address] PCP - General Physician Hydro Electric Station Operator 06/21/23 Timmy Devries MD [address] [facility] [address] [place] [address] Obstetrics & Gynecology 08/31/16 Irwin Zee MD [address] [facility] [address] [place] [address] Consulting Physician Cardiovascular Disease - Cardiology 11/08/21 03/18/24 Husam Gomez DPM Podiatry 12/07/21 Malini Aparicio APRN, MANAGER EVENT #2 [facility], [address] [place] [address] Nurse Practitioner Advanced Practice Nurse 10/19/23 Malini Aparicio APRN, MANAGER EVENT [address]2 [facility], [address] [place] [address] Nurse Practitioner Cardiology 07/09/24 10/21/24 documented as of this encounter
--- OUTSIDE RECORDS SUMMARY | 2024-12-08 11:13 | XMS_ITS | Encounter Summary ---
Author Organization [facility] Address [address] [place] [address] Phone Care Team Providers Care Client Service Executive Name Role Phone Haydee Rust MD Primary Care Provider + [phone] Timmy Devries MD Unavailable [phone] Irwin Zee MD Unavailable UnaJeny Houser MD Primary Care Provider + [phone] Husam Gomez DPAsim Unavailable Unavailable Edgar Ordaz Primary Care Provider + [phone] Malini Aparicio PRIMARY CARE SALES REPRESENTATIVE, FUND RAISER Unavailable + [phone] Malini Aparicio PRIMARY CARE SALES REPRESENTATIVE, FUND RAISER Unavailable + [phone] Reason for Visit * Reason Comments Medication Refill Encounter Details Date Type Department Care Team (Late st Contact Info) Description 02/21/2022 Refill [facility] - Primary Care - [place] [address] [address] Haydee Rust MD [address] [place] [address] Medication Refill Social History Tobacco [...] RN - 02/21/2022 9:14 AM CST Per [place] PDMP last fill date 12/12/21. URCE COORDINATOR documented in this encounter Plan of Treatment Upcoming Encounters Date Type Department Care Team (Late st Contact Info) Description 12/22/2024 8:40 AM CDT Lab [facility] - [place] [address] [place] [address] [facility] 12/29/2024 10:30 AM CDT Office Visit [facility] Primary Care - [place] [address] [place] [address] Edgar Ordaz PAC [address] [place] [address] 01/12/2025 10:00 AM CDT Office Visit [facility] - Neurology - [place] [address] [place] [address] Phillip Hall MD [address] [place] [address] 07/06/2025 10:00 AM CDT Office Visit [facility] - Cardiology - [place] [address] [place] [address] Erin Up APRN, FUND RAISER [address] [place] [address] documented as of this encounter Visit Diagnoses Diagnosis Anxiety Anxiety state, unspecified documented in this encounter Additional Health Concerns Infection Onset Date Last Indicated Resolved Time Respiratory Rule Out - RPA 02/16/2023 02/16/2023 1 04/18/2022 2:08 PM CDT Assessment Noted Time PHQ-9 Depression Total Score: 13 020 11:00 AM CDT documented as of this encounter Care Teams Client Service Executive Relationship Specialty Start Date End Date Haydee Rust MD PCP - General Family Medicine 01/27/15 05/07/22 Jeny Jarrett MD [address] [place] [address] PCP - General Family Medicine 05/08/22 06/20/23 Edgar Ordaz, PAC [address] [place] [address] PCP - General Physician School Guidance Counselor 06/21/23 Timmy Devries MD [address] [facility] [address] [place], [place] [address] Obstetrics & Gynecology 08/31/16 Irwin Zee MD [address] [facility] [address] [place] [address] Consulting Physician Cardiovascular Disease - Cardiology 11/08/21 03/18/24 Husam Gomez DPM Podiatry 12/07/21 Malini Aparicio APRN, FUND RAISER [address]2 [facility], [address] [place] [address] Nurse Practitioner Advanced Practice Nurse 10/19/23 Malini Aparicio APRN, FUND RAISER [address] [facility], [address] [place] [address] Nurse Practitioner Cardiology 07/09/24 10/21/24 documented as of this encounter
--- OUTSIDE RECORDS SUMMARY | 2024-12-08 11:13 | XMS_ITS | Encounter Summary ---
Author Organization [facility] Address [address] [place] [address] Phone Care Team Providers Care Business Systems Lead Name Role Phone Timmy Devries MD Unavailable [phone] Irwin Zee MD Unavailable Husam Marx DPAsim Unavailable Unavailable Edgar Ordaz PAC Primary Care Provider [phone] Malini Aparicio QUALITY IMPROVEMENT ENGINEER, PORCELAIN SLUSHER Unavailable + [phone] Malini Aparicio APRN, PORCELAIN SLUSHER Unavailable + [phone] Reason for Visit * Reason Comments Medication Refill Encounter Details Date Type Department Care Team (Late st Contact Info) Description 08/13/2023 Refill [facility] - Primary Care - [place] [address] [place] [address] Jeny Jarrett MD [address] [place] [address] Medication Refill Social History Tobacco Use Types Packs/Day Years Used Date Smoking Tobacco: Never Smokeless Tobacco: Never Alcohol Use Standard Drinks/Week Comments Not Currently 0 (1 standard drink = 0.6 oz pur e alcohol) [facility] Utilities Answer Date Recorded In the past 12 months has [email or web address], gas, oil, or water company threatened to [...] often do you attend chur ch or worship services? More than 4 times per year 06/19/2023 Do you belong to any clubs o r organizations such as gnosticism groups, unions, fraternal or athletic groups, or [...] Total Score - Questions 1-9 13 09/15 [facility] [...] place to sleep or slept in a assisted (including now)? No 06/19/2023 Education Answer Date [...] Info) Description 12/22/2024 8:40 AM CDT Lab [facility] - Primary Care - [place] [address] [place] [address] [facility] 12/29/2024 10:30 AM CDT Office Visit [facility] - Primary Care - [place] [address] [place] [address] Edgar Ordaz PAC [address] [place] [address] 01/12/2025 10:00 AM CDT Office Visit [facility] - Neurology [facility] [address] [place] [address] Phillip Hall MD [address]2 [place] [address] 07/06/2025 10:00 AM CDT Office Visit [facility] - Cardiology - [place] [address] [place] [address] Erin Up APRN, PORCELAIN SLUSHER [address] [place] [address] documented as of this encounter Visit Diagnoses Not on filedocumented in this encounter Additional Health Concerns Assessment Noted Time PHQ-9 Depression Total Score: 13 020 11:00 AM CDT documented as of this encounter Care Teams Business Systems Lead Relationship Specialty Start Date End Date Edgar Ordaz, PAC [address] [place] [address] PCP - General Physician Fur Cutter 06/21/23 Timmy Devries MD [address] [facility] [address] [place] [address] Obstetrics & Gynecology 08/31/16 Irwin Zee MD [address] [facility] [address] [place] [address] Consulting Physician Cardiovascular Disease - Cardiology 11/08/21 03/18/24 Husam Gomez DPM Podiatry 12/07/21 Malini Aparicio APRN, PORCELAIN SLUSHER [address]2 [facility], [address] [place] [address] Nurse Practitioner Advanced Practice Nurse 10/19/23 Malini Aparicio APRN, PORCELAIN SLUSHER [address]2 [facility], [address] [place] [address] Nurse Practitioner Cardiology 07/09/24 10/21/24 documented as of this encounter
--- OUTSIDE RECORDS SUMMARY | 2024-12-08 11:13 | XMS_ITS | Encounter Summary ---
Author Organization [facility] Address [address] [place] [address] Phone Care Team Providers Care Demand Planning Manager Name Role Phone Timmy Devries MD Unavailable [phone] Iriwn Zee MD Unavailable Husam Marx DPAsim Unavailable Unavailable Edgar Ordaz Primary Care Provider [phone] Malini Aparicio PRODUCTION OPERATIONS MANAGER, FIRER DIESEL LOCOMOTIVE Unavailable + [phone] Malini Aparicio APRN, FIRER DIESEL LOCOMOTIVE Unavailable + [phone] Reason for Visit * Reason Comments Medication Refill Encounter Details Date Type Department Care Team (Late st Contact Info) Description 06/24/2023 Refill [facility] - Primary Care - [place] [address] [place] [address] Edgar Ordaz, PAC [address] [place] [address] Medication Refill Social History Tobacco Use Types Packs/Day Years Used Date Smoking Tobacco: Never Smokeless Tobacco: Never Alcohol Use Standard Drinks/Week Comments Not Currently 0 (1 standard drink = 0.6 oz pur e alcohol) [facility] Utilities Answer Date Recorded In the [...] often do you attend chur ch or druze services? More than 4 times per year 06/19/2023 Do you belong to any clubs o r organizations such as shinto groups, unions, fraternal or athletic groups, or [...] Total Score - Questions 1-9 13 09/15 [facility] - Occupational [...] a skilled nursing (including now)? No 06/19/2023 Education Answer Date [...] Dept 06/21/23 Office Visit Edgar Ordaz PAC [facility] 02/16/23 Office Visit Edgar Ordaz PAC [facility] 12/21/22 Office Visit Jeny Jarrett MD [facility] Showing recent visits within past 365 days and meeting all other requirements Future Appointments No visits were found meeting these conditions. Showing future appointments within next 90 days and meeting all other requirements documented in this encounter Plan of Treatment Upcoming Encounters Date Type Department Care Team (Late st Contact Info) Description 12/22/2024 8:40 AM CDT Lab [facility] - [place] [address] [place] [address] [facility] 12/29/2024 10:30 AM CDT Office Visit [facility] [place] [address] [place] [address] Edgar Ordaz PAC [address] [place] [address] 01/12/2025 10:00 AM CDT Office Visit [facility] - Neurology - [place] [address] [place] [address] Phillip Hall MD [address] [place] [address] 07/06/2025 10:00 AM CDT Office Visit [facility] - Cardiology - [place] [address] [place] [address] Erin Up APRN, FIRER DIESEL LOCOMOTIVE [address] [place] [address] documented as of this encounter Visit Diagnoses Diagnosis Rheumatoid arthritis involving multiple sites, unspecified whether rheumatoid factor present (HCC) documented in this encounter Additional Health Concerns Assessment Noted Time PHQ-9 Depression Total Score: 13 020 11:00 AM CDT documented as of this encounter Care Teams Demand Planning Manager Relationship Specialty Start Date End Date Edgar Ordaz, PAC [address] [place] [address] PCP - General Physician Car Inspector 06/21/23 Timmy Devries MD [address] [facility] [address] [place] [address] Obstetrics & Gynecology 08/31/16 Irwin Zee MD [address] [facility] [address] [place] [address] Consulting Physician Cardiovascular Disease - Cardiology 11/08/21 03/18/24 Husam Gomez DPM Podiatry 12/07/21 Malini Aparicio APRN, FIRER DIESEL LOCOMOTIVE #2 [facility], [address] [place] [address] Nurse Practitioner Advanced Practice Nurse 10/19/23 Malini Aparicio APRN, FIRER DIESEL LOCOMOTIVE #2 [facility], [address] [place] [address] Nurse Practitioner Cardiology 07/09/24 10/21/24 documented as of this encounter
--- OUTSIDE RECORDS SUMMARY | 2024-12-08 11:13 | XMS_ITS | Encounter Summary ---
Author Organization [facility] Address [address] [place] [address] Phone Care Team Providers Care Woods Manager Name Role Phone Timmy Devries MD Unavailable [phone] Irwin Zee MD Unavailable UnaJeny Houser MD Primary Care Provider + [phone] Husam Gomez DPM Unavailable Unavailable Edgar Ordaz Primary Care Provider + [phone] Malini Aparicio FUNERAL DIRECTOR, MEASURING MACHINE TENDER Unavailable + [phone] Malini Aparicio FUNERAL DIRECTOR, MEASURING MACHINE TENDER Unavailable + [phone] Reason for Visit * Reason Comments Medication Refill Encounter Details Date Type Department Care Team (Late st Contact Info) Description 09/26/2022 Refill [facility] - Primary Care - [place] [address] [place] [address] Haydee Rust MD [address] [place] [address] Medication Refill Social History Tobacco [...] Dept 05/08/22 Office Visit Jeny Jarrett MD [facility] 03/15/22 Office Visit Edgar Ordaz PAC [facility] 02/28/22 Office Visit Maria Victoria Horton APRN, MEASURING MACHINE TENDER [facility] 11/01/21 Office Visit Haydee Rust MD [facility] Showing recent visits within past 365 days and meeting all other requirements Future Appointments Date Type Provider Dept 11/06/22 Appointment Jeny Jarrett MD [facility] Showing future appointments within next 90 days and meeting all other requirements documented in this encounter Plan of Treatment Upcoming Encounters Date Type Department Care Team (Late st Contact Info) Description 12/22/2024 8:40 AM CDT Lab [facility] [place] [address] [place] [address] [facility] 12/29/2024 10:30 AM CDT Office Visit [facility] Primary Care - [place] [address] [place] [address] Edgar Ordaz, KYLE [address] [place] [address] 01/12/2025 10:00 AM CDT Office Visit [facility] - Neurology - [place] [address] [place] [address] Phillip Hall MD [address] [place] [address] 07/06/2025 10:00 AM CDT Office Visit [facility] - Cardiology - [place] [address] [place] [address] Erin Up APRN, MEASURING MACHINE TENDER [address] [place] [address] documented as of this encounter Visit Diagnoses Diagnosis Hyperlipidemia, unspecified hyperlipidemia type documented in this encounter Additional Health Concerns Infection Onset Date Last Indicated Resolved Time Respiratory Rule Out - RPA 02/16/2023 02/16/2023 1 04/18/2022 2:08 PM CDT Assessment Noted Time PHQ-9 Depression Total Score: 13 020 11:00 AM CDT documented as of this encounter Care Teams Woods Manager Relationship Specialty Start Date End Date Jeny Jarrett MD [address] [place], [place] [id number] PCP - General Family Medicine 05/08/22 06/20/23 Edgar Ordaz, PAC [address] [place] [address] PCP - General Physician Communication Specialist 06/21/23 Timmy Devries MD [address] [facility] [address] [place], [place] [id number] Obstetrics & Gynecology 08/31/16 Irwin Zee MD [address] [facility] [address] [place] [address] Consulting Physician Cardiovascular Disease - Cardiology 11/08/21 03/18/24 Husam Gomez DPAsim Podiatry 12/07/21 Malini Aparicio APRN, MEASURING MACHINE TENDER [address] [facility], [address] [place] [address] Nurse Practitioner Advanced Practice Nurse 10/19/23 Malini Aparicio APRN, MEASURING MACHINE TENDER [address] [facility], [address] [place] [address] Nurse Practitioner Cardiology 07/09/24 10/21/24 documented as of this encounter
--- OUTSIDE RECORDS SUMMARY | 2024-12-08 11:13 | XMS_ITS | Encounter Summary ---
Author Organization [facility] Address [address] [place] [address] Phone Care Team Providers Care Gunstock Repairer Name Role Phone Haydee Rust MD Primary Care Provider + [phone] Timmy Devries MD Unavailable +[phone] Irwin Zee MD Unavailable UnaJeny Houser MD Primary Care Provider + [phone] Husam Gomez DPAsim Unavailable Unavailable Edgar Ordaz Primary Care Provider + [phone] Malini Aparicio POU[place]O [place]A [employer]AUP[place] MAORI, RADIO SURVEY WORKER Unavailable + [phone] Malini Aparicio POU[place]AUPAPA MAORI, RADIO SURVEY WORKER Unavailable + [phone] Reason for Visit * Reason Onset Date Comments Medication Refill Medication Refill 12/29/2019 Encounter Details Date Type Department Care Team (Late st Contact Info) Description 12/26/2019 Refill [facility] - [place] [address] [place] [address] Haydee Rust MD [address] [...] 12/22/2024 8:40 AM CDT Lab [facility] - Primary Care - [place] [address] [place] [address] [facility] 12/29/2024 10:30 AM CDT Office Visit [facility] Primary Care - [place] [address] [place] [address] Edgar Ordaz PAC [address] 01/12/2025 10:00 AM CDT Office Visit [facility] - Neurology - [place] [address] [place] [address] Phillip Hall MD [address] [place] [address] 07/06/2025 10:00 AM CDT Office Visit [facility] - Cardiology - [place] [address] [place] [address] Erin Up APRN, RADIO SURVEY WORKER [address] [place] [address] documented as of this encounter Visit Diagnoses Diagnosis Anxiety Anxiety state, unspecified documented in this encounter Additional Health Concerns Infection Onset Date Last Indicated Resolved Time Other 12/30/2019 12/30/2019 03/21/2021 4:55 PM DOCTOR OF NURSE ANESTHESIA COVID - 19 Confirmed 12/30/2019 12/30/2019 020 12:18 AM CDT Respiratory Rule Out - RPA 02/16/2023 02/16/2023 1 04/18/2022 2:08 PM CDT Assessment Noted Time PHQ-9 Depression Total Score: 13 020 11:00 AM CDT documented as of this encounter Care Teams Gunstock Repairer Relationship Specialty Start Date End Date Haydee Rust MD PCP - General Family Medicine 01/27/15 05/07/22 Jeny Jarrett MD [address] [place] [address] PCP - General Family Medicine 05/08/22 06/20/23 Edgar Ordaz, PAC [address] [place] [address] PCP - General Physician Restaurant Line Cook 06/21/23 Timmy Devries MD [address] [place] [address] Obstetrics & Gynecology 08/31/16 Irwin Zee MD [address] [facility] [address] [place] [address] Consulting Physician Cardiovascular Disease - Cardiology 11/08/21 03/18/24 Husam Gomez DPAsim Podiatry 12/07/21 Malini Aparicio APRN, RADIO SURVEY WORKER [address] [facility], [address] [place] [address] Nurse Practitioner Advanced Practice Nurse 10/19/23 Malini Aparicio APRN, RADIO SURVEY WORKER [address] [facility], [address] [place] [address] Nurse Practitioner Cardiology 07/09/24 10/21/24 documented as of this encounter
--- OUTSIDE RECORDS SUMMARY | 2024-12-08 11:13 | XMS_ITS | Encounter Summary ---
Author Organization [facility] Address [address] [place] [address] Phone Care Team Providers Care Strapping Machine Operator Name Role Phone Haydee Rust MD Primary Care Provider + [phone] Timmy Devries MD Unavailable [phone] Irwin Zee MD Unavailable UnaJeny Houser MD Primary Care Provider + [phone] Husam Gomez DPAsim Unavailable Unavailable Edgar Ordaz Primary Care Provider + [phone] Malini Aparicio IN STORE MARKETER, SKEIN YARN DYER Unavailable + [phone] Malini Aparicio IN STORE MARKETER, SKEIN YARN DYER Unavailable + [phone] Reason for Visit * Reason Comments Medication Refill Encounter Details Date Type Department Care Team (Late st Contact Info) Description 08/23/2021 Refill [facility] - Primary Care - [place] [address] [place] [address] Haydee Rust MD [address] [place] [address] Medication Refill Social History Tobacco [...] Dept 08/08/21 Office Visit Haydee Rust MD [facility] 06/08/21 Office Visit Maria Victoria Horton APRN, CNP [facility] 04/11/21 Office Visit Maria Victoria Horton APRN, CNP [facility] 03/30/21 Office Visit Maria Victoria Horton APRN, CNP [facility] [address] 11/11/20 Office Visit Haydee Rust MD [facility] Showing recent visits within past 365 days and meeting all other requirements Future Appointments Date Type Provider Dept 11/01/21 Appointment Lab, [place] [facility] 11/08/21 Appointment Haydee Rust MD [facility] Showing future appointments within next 90 days and meeting all other requirements documented in this encounter Plan of Treatment Upcoming Encounters Date Type Department Care Team (Late st Contact Info) Description 12/22/2024 8:40 AM CDT Lab [facility] [address] [place] [phone] [facility] 12/29/2024 10:30 AM CDT Office Visit [facility] [place] [address] [place] [address] Edgar Ordaz PAC [address] [place] [address] 01/12/2025 10:00 AM CDT Office Visit [facility] - Neurology - [place] [address] [place] [address] Phillip Hall MD [address] [place] [address] 07/06/2025 10:00 AM CDT Office Visit [facility] - Cardiology - [place] [address] [place] [address] Erin Up APRN, SKEIN YARN DYER [address] [place] [address] documented as of this encounter Visit Diagnoses Diagnosis Anxiety Anxiety state, unspecified documented in this encounter Additional Health Concerns Infection Onset Date Last Indicated Resolved Time Respiratory Rule Out - RPA 02/16/2023 02/16/2023 1 04/18/2022 2:08 PM CDT Assessment Noted Time PHQ-9 Depression Total Score: 13 020 11:00 AM CDT documented as of this encounter Care Teams Strapping Machine Operator Relationship Specialty Start Date End Date Haydee Rust MD PCP - General Family Medicine 01/27/15 05/07/22 Jeny Jarrett MD [address] [place], [place] [id number] PCP - General Family Medicine 05/08/22 06/20/23 Edgar Ordaz, PAC [address] [place] [address] PCP - General Physician Retail Agent 06/21/23 Timmy Devries MD [address] [facility] [address] [place], [place] [address] Obstetrics & Gynecology 08/31/16 Irwin Zee MD [address] [facility] [address] [place] [address] Consulting Physician Cardiovascular Disease - Cardiology 11/08/21 03/18/24 Husam Gomez DPM Podiatry 12/07/21 Malini Aparicio APRN, SKEIN YARN DYER [address] [facility], [address] [place] [address] Nurse Practitioner Advanced Practice Nurse 10/19/23 Malini Aparicio APRN, SKEIN YARN DYER [address], [address] [place] [address] Nurse Practitioner Cardiology 07/09/24 10/21/24 documented as of this encounter
--- OUTSIDE RECORDS SUMMARY | 2024-12-08 11:13 | XMS_ITS | Encounter Summary ---
Author Organization [facility] Address [address] [place] [address] Phone Care Team Providers Care Project Coach Name Role Phone Haydee Rust MD Primary Care Provider + [phone] Timmy Devries MD Unavailable [phone] Irwin Zee MD Unavailable UnaJeny Houser MD Primary Care Provider + [phone] Husam Gomez DPM Unavailable Unavailable Edgar Ordaz Primary Care Provider + [phone] Malini Aparicio POULTRYMAN, INSULATION WORKER FURNACE INSTALLER Unavailable +- [phone] Malini Aparicio POULTRYMAN, INSULATION WORKER FURNACE INSTALLER Unavailable + [phone] Reason for Visit * Reason Onset Date Comments Results 12/31/2019 Encounter Details Date Type Department Care Team (Late st Contact Info) Description 12/31/2019 Telephone [facility] [address] [place] [address] Haydee Rust MD [address] [place] [address] Results Social History Tobacco Use [...] Info) Description 12/22/2024 8:40 AM CDT Lab [facility] - Primary Care - [place] [address] [place] [address] [facility] 12/29/2024 10:30 AM CDT Office Visit [facility] - Primary Care - [place] [address] [place] [address] Edgar Ordaz PAC [address] [place] [address] 01/12/2025 10:00 AM CDT Office Visit [facility] - Neurology [facility] [address] [place] [address] Phillip Hall MD [address] [place] [address] 07/06/2025 10:00 AM CDT Office [facility] - Cardiology - [place] [address] [place] [address] Erin Up, POULTRYMAN, INSULATION WORKER FURNACE INSTALLER [address] [place] [address] documented as of this encounter Visit Diagnoses Diagnosis COVID-19 virus infection- Primary documented in this encounter Additional Health Concerns Infection Onset Date Last Indicated Resolved Time Other 12/30/2019 12/30/2019 03/21/2021 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 COVID - 19 Confirmed 12/30/2019 12/30/2019 020 12:18 AM CDT Respiratory Rule Out - RPA 02/16/2023 02/16/2023 1 04/18/2022 2:08 PM CDT Assessment Noted Time PHQ-9 Depression Total Score: 13 020 11:00 AM CDT documented as of this encounter Care Teams Project Coach Relationship Specialty Start Date End Date Haydee Rust MD PCP - General Family Medicine 01/27/15 05/07/22 Jeny Jarrett MD [address] [place], [place] [address] PCP - General Family Medicine 05/08/22 06/20/23 Edgar Ordaz PAC [address] [place] [address] PCP - General Physician Spray Worker 06/21/23 Timmy Devries MD [address] [facility] [address] [place] [address] Obstetrics & Gynecology 08/31/16 Irwin Zee MD [address] [facility] [address] [place] [address] Consulting Physician Cardiovascular Disease - Cardiology 11/08/21 03/18/24 Husam Gomez DPM Podiatry 12/07/21 Malini Aparicio APRN, INSULATION WORKER FURNACE INSTALLER [address] [facility], [address] [place] [address] Nurse Practitioner Advanced Practice Nurse 10/19/23 Malini Aparicio APRN, INSULATION WORKER FURNACE INSTALLER [address] [facility], [address] [place] [address] Nurse Practitioner Cardiology 07/09/24 10/21/24 documented as of this encounter
--- OUTSIDE RECORDS SUMMARY | 2024-12-08 11:13 | XMS_ITS | Encounter Summary ---
Author Organization [facility] Address [address] [place] [address] Phone Care Team Providers Care Motor Runner Name Role Phone Timmy Devries MD Unavailable [phone] Irwin Zee MD Unavailable Jeny Galdamez MD Primary Care Provider + [phone] Husam Gomez DPM Unavailable Unavailable Edgar Ordaz Primary Care Provider + [phone] Malini Aparicio RESIDENTIAL NURSE, TRANSPORTATION TECHNICIAN Unavailable + [phone] Malini Aparicio APRN, TRANSPORTATION TECHNICIAN Unavailable + [phone] Reason for Visit * Reason Comments Medication Refill Encounter Details Date Type Department Care Team (Late st Contact Info) Description 02/13/2023 Refill [facility] - Primary Care - [place] [address] [place] [address] Edgar Ordaz PAC [address] [place] [address] Medication Refill Social History Tobacco Use [...] Info) Description 12/22/2024 8:40 AM CDT Lab [facility] Primary [facility] - [address] [phone] [facility] 12/29/2024 10:30 AM CDT Office Visit [facility] - Primary Care - [place] [address] [place] [address] Edgar Ordaz PAC [address] [place] [address] 01/12/2025 10:00 AM CDT Office Visit [facility] - Neurology [facility] [address] [place] [address] Phillip Hall MD [address] [place] [address] 07/06/2025 10:00 AM CDT Office Visit [facility] - Cardiology - [place] [address] [place] [address] Erin Up APRN, TRANSPORTATION TECHNICIAN [address] [facility] [place] [address] documented as of this encounter Visit Diagnoses Diagnosis Anxiety Anxiety state, unspecified documented in this encounter Additional Health Concerns Infection Onset Date Last Indicated Resolved Time Respiratory Rule Out - RPA 02/16/2023 02/16/2023 1 04/18/2022 2:08 PM CDT Assessment Noted Time PHQ-9 Depression Total Score: 13 020 11:00 AM CDT documented as of this encounter Care Teams Motor Runner Relationship Specialty Start Date End Date Jeny Jarrett MD [address] [place], [place] [address] PCP - General Family Medicine 05/08/22 06/20/23 Edgar Ordaz, PAC [address] [place] [address] PCP - General Physician Instructor Warper 06/21/23 Timmy Devries MD [address] [facility] [address] [place] [address] Obstetrics & Gynecology 08/31/16 Irwin Zee MD [address] [facility] [address] [place] [address] Consulting Physician Cardiovascular Disease - Cardiology 11/08/21 03/18/24 Husam Gomez DPM Podiatry 12/07/21 Malini Aparicio APRN, TRANSPORTATION TECHNICIAN #2 [facility], [address] [place] [address] Nurse Practitioner Advanced Practice Nurse 10/19/23 Malini Aparicio APRN, TRANSPORTATION TECHNICIAN [address]2 [facility], [address] [place] [address] Nurse Practitioner Cardiology 07/09/24 10/21/24 documented as of this encounter
--- OUTSIDE RECORDS SUMMARY | 2024-12-08 11:13 | XMS_ITS | Encounter Summary ---
Author Organization [facility] Address [address] [place] [address] Phone Care Team Providers Care Service Delivery Consultant Name Role Phone Timmy Devries MD Unavailable +[phone] Irwin Zee MD Unavailable Husam Marx DPAsim Unavailable Unavailable Edgar Ordaz PAC Primary Care Provider [phone] Malini Aparicio ORACLE WEBCENTER CONSULTANT, GRAB JACK MAN Unavailable + [phone] Malini Aparicio APRN, GRAB JACK MAN Unavailable + [phone] Reason for Visit * Reason Comments Medication Refill Encounter Details Date Type Department Care Team (Late st Contact Info) Description 08/27/2023 Refill [facility] - Primary Care - [place] [address] [place] [address] Jeny Jarrett MD [address] [place] [address] Medication Refill Social History Tobacco Use Types Packs/Day Years Used Date Smoking Tobacco: Never Smokeless Tobacco: Never Alcohol Use Standard Drinks/Week Comments Not Currently 0 (1 standard drink = 0.6 oz pur e alcohol) [facility] Utilities Answer Date Recorded In the past 12 months has [employer], gas, oil, or water company threatened to [...] often do you attend chur ch or bahai services? More than 4 times per year 06/19/2023 Do you belong to any clubs o r organizations such as anabaptist groups, unions, fraternal or athletic groups, or [...] Total Score - Questions 1-9 13 09/15 [facility] - Occupational [...] place to sleep or slept in a detention (including now)? No 06/19/2023 Education Answer Date [...] Info) Description 12/22/2024 8:40 AM CDT Lab [facility] - Primary Care - [place] [address] [place] [address] [facility] 12/29/2024 10:30 AM CDT Office Visit [facility] - Primary Care - [place] [address] [place] [address] Edgar Ordaz PAC [address] [place] [address] 01/12/2025 10:00 AM CDT Office Visit [facility] - Neurology [facility] [address] [place] [address] Phillip Hall MD [address] [place] [address] 07/06/2025 10:00 AM CDT Office Visit [facility] - Cardiology - [place] [address] [place] [address] Erin Up, STEPHENIE, GRAB JACK MAN [address] [place] [address] documented as of this encounter Visit Diagnoses Diagnosis Hyperlipidemia, unspecified hyperlipidemia type documented in this encounter Additional Health Concerns Assessment Noted Time PHQ-9 Depression Total Score: 13 020 11:00 AM CDT documented as of this encounter Care Teams Service Delivery Consultant Relationship Specialty Start Date End Date Edgar Ordaz, PAC [address] [place] [address] PCP - General Physician Scrap Sorter 06/21/23 Timmy Devries MD [address] [facility] [address] [place] [address] Obstetrics & Gynecology 08/31/16 Irwin Zee MD [address] [facility] [address] [place] [address] Consulting Physician Cardiovascular Disease - Cardiology 11/08/21 03/18/24 Husam Gomez DPM Podiatry 12/07/21 Malini Aparicio APRN, GRAB JACK MAN [address]2 [facility], [address] [place] [address] Nurse Practitioner Advanced Practice Nurse 10/19/23 Malini Aparicio APRN, GRAB JACK MAN [address]2 [facility], [address] [place] [address] Nurse Practitioner Cardiology 07/09/24 10/21/24 documented as of this encounter
--- OUTSIDE RECORDS SUMMARY | 2024-12-08 11:13 | XMS_ITS | Encounter Summary ---
Author Organization [facility] Address [address] [place] [address] Phone Care Team Providers Care Exec. Creative Director Name Role Phone Haydee Rust MD Primary Care Provider + [phone] Timmy Devries MD Unavailable [phone] Irwin Zee MD Unavailable UnaJeny Houser MD Primary Care Provider + [phone] Husam Gomez DPAsim Unavailable Unavailable Edgar Ordaz Primary Care Provider + [phone] Malini Aparicio SUBASSEMBLY ASSEMBLER, LOG MARKER Unavailable + [phone] Malini Aparicio SUBASSEMBLY ASSEMBLER, LOG MARKER Unavailable + [phone] Reason for Visit * Reason Comments Medication Refill Encounter Details Date Type Department Care Team (Late st Contact Info) Description 09/28/2021 Refill [facility] - Primary Care - [place] [address] [place] [address] Haydee Rust MD [address] [place] [address] Medication Refill Social History Tobacco [...] Dept 08/08/21 Office Visit Haydee Rust MD [facility] 06/08/21 Office Visit Maria Victoria Horton APRN, CNP [address] 04/11/21 Office Visit Maria Victoria Horton APRN, JESSE [employer] [address] 03/30/21 Office Visit Maria Victoria Horton APRN, CNP [employer] [address] 11/11/20 Office Visit Haydee Rust MD [facility] Showing recent visits within past 365 days and meeting all other requirements Future Appointments Date Type Provider Dept 11/01/21 Appointment [place] [address] 11/08/21 Appointment Haydee Rust MD [facility] Showing future appointments within next 90 days and meeting all other requirements documented in this encounter Plan of Treatment Upcoming Encounters Date Type Department Care Team (Late st Contact Info) Description 12/22/2024 8:40 AM CDT Lab [facility] [place] [facility] [place] [address] [place] [address] [facility] 12/29/2024 10:30 AM CDT Office Visit [facility] Primary Care - [place] [address] [place] [address] Edgar Ordaz PAC [address] [place] [address] 01/12/2025 10:00 AM CDT Office Visit [facility] - Neurology - [place] [address] [place] [address] Phillip Hall MD [address] [place] [address] 07/06/2025 10:00 AM CDT Office Visit [facility] - Cardiology - [place] [address] [place] [address] Erin Up APRN, LOG MARKER [address] [place] [address] documented as of this encounter Visit Diagnoses Diagnosis Anxiety Anxiety state, unspecified documented in this encounter Additional Health Concerns Infection Onset Date Last Indicated Resolved Time Respiratory Rule Out - RPA 02/16/2023 02/16/2023 1 04/18/2022 2:08 PM CDT Assessment Noted Time PHQ-9 Depression Total Score: 13 020 11:00 AM CDT documented as of this encounter Care Teams Exec. Creative Director Relationship Specialty Start Date End Date Haydee Rust MD PCP - General Family Medicine 01/27/15 05/07/22 Jeny Jarrett MD [address] [place] [address] PCP - General Family Medicine 05/08/22 06/20/23 Edgar Ordaz, PAC [address] [place] [address] PCP - General Physician Illuminator 06/21/23 Timmy Devries MD [address] [facility] [address] [place] [address] Obstetrics & Gynecology 08/31/16 Irwin Zee MD [address] [facility] [address] [place] [address] Consulting Physician Cardiovascular Disease - Cardiology 11/08/21 03/18/24 Husam Gomez DPM Podiatry 12/07/21 Malini Aparicio APRN, LOG MARKER [address] [facility], [address] [place] [address] Nurse Practitioner Advanced Practice Nurse 10/19/23 Malini Aparicio APRN, LOG MARKER [address] [facility], [address] [place] [address] Nurse Practitioner Cardiology 07/09/24 10/21/24 documented as of this encounter
--- OUTSIDE RECORDS SUMMARY | 2024-12-08 11:13 | XMS_ITS | Clinical Summary ---
Author Organization [facility] Address [address] [place] [address] Care Team Providers Care Drywall Taper Name Role Phone Unavailable Primary Care Provider Unavailabl e Source Comments [facility],non-owned Affiliates and Associated Physician Practices is amultiple site organization consisting of ambulatory clinics and hospital sitesin [place], [place], [place] and [place]. This disclosure is being madepursuant to the Care Everywhere program and may not contain all information available regarding this patient. Last updated 18.[facility] Allergies No known active allergies Medications * [...] Payer ID:[id number] (NAIC) Type:PPO Address: [address] * Guarantor: Francy Hernández Account Type Relation to Patient Date of Phone Billing Address Personal/Family Self [id number] Member Subscriber Plan / Payer (Ef fective 2012-Present) Name:Francy Hernández Relation to Subscriber:Self Name:Francy Hernández Payer ID:[id number] (NAIC) Type:PPO Address[address]
--- OUTSIDE RECORDS SUMMARY | 2024-12-08 11:13 | XMS_ITS | Clinical Summary ---
Author Organization [facility] Address [address], [facility] [address] [place] [address] Phone Care Team Providers Care Neck Skewer Name Role Phone Timmy Devries MD Unavailable [phone] Husam Gomez DPM Unavailable Unavailable Edgar Ordaz [...] (TOPROL-XL) 25 MG TABLET SR 24 HRIndications:Mindy debi hypertension Take 1 tablet by mouth once daily 90 Tablet 10/08/19 25 Active LORazepam (ATIVAN) 0.5 MG TabletIndications :Anxiety TAKE 1 TABLET BY MOUTH ONCE DAILY NEEDED FOR ANXIETY 30 Tablet 11/13/19 25 Active LORazepam (ATIVAN) 0.5 MG TabletIndications :Anxiety Take 1 Tablet by mouth daily as needed for Anxiety. 30 Tablet 10/12/19 25 2024 Discontinued Active Problems Problem Noted [...] Encounters Date Type Department Care Team Description 11/24/2024 Refill [facility] [place] [address] [place] [address] Edgar Ordaz, PAC Medication Refill 11/12/2024 [facility] [address] [place] [address] Edgar Ordaz, PAC Medication Refill 11/10/2024 Telephone [facility] Central Call [address] [phone] Edgar Ordaz, PAC Advice Only; Referral 10/07/2024 Refill [facility] [place] [address] [place] [address] Edgar Ordaz, PAC Medication Refill 10/07/2024 Refill [facility] [place] [address] [place] [address] Edgar Ordaz, PAC Medication Refill 09/29/2024 2:45 PM CDT Office Visit [facility] [place] [address] [place] [address] Edgar Ordaz, PAC Poison kimi dermatitis (Primary Dx) Discharge Disposition: Discharged to home or Selfcare 09/29/2024 Travel 09/29/[address] [phone] Edgar Ordaz, PAC Advice Only 09/15/2024 2:15 PM CDT [facility] [place] [address] Edgar Ordaz, PAC Tremor of both hands (Primary Dx) Discharge Disposition: Discharged to home or Selfcare 09/13/2024 Travel 09/10/2024 Refill [facility] [place] [address] [place] [address] Edgar Ordaz, PAC Medication Refill 09/09/2024 Nurse Triage [facility] Central Call Center [address] [place] [address] Edgar Ordaz, PAC Advice Only; Shaking; Tremors from Last 3 Months Immunizations Immunization Administration Dates Next Due Covid-19, Mrna, Lnp-s, PF, 1 00 mcg/0.5 mL Dose (Moderna) 08/25/2020,07/30/2020 Pneumococcal conjugate PCV20 , polysaccharide [id number] conjugate, adjuvant, PF 12/28/2023 TD VACCINE 04/16/2012 [...] drink = 0.6 oz pur e alcohol) [facility] Utilities Answer Date Recorded In the past 12 months has 1[employer] electric, gas, oil, or water company threatened [...] week 06/25/2024 How often do you attend [facility] or adventism services? More than 4 times per year 06/25/2024 Do you belong to any clubs o r organizations such as christianity groups, unions, fraternal or athletic groups, or [...] Total Score - Questions 1-9 0 06/14 [facility] - Occupational [...] in a penitentiary (including now)? No 06/19/2023 Housing Stability Vital [...] in the past 12 m [facility], were you homeless or living in a penitentiary (including now)? No 06/25/2024 Education Answer Date [...] Info) Description 12/22/2024 8:40 AM CDT Lab [facility] - [place] [address] [place] [address] [facility] 12/29/2024 10:30 AM CDT Office Visit [facility] - [place] [address] [place] [address] Edgar Ordaz PAC [address] [place] [address] 01/12/2025 10:00 AM CDT Office [facility] - Neurology - [place] [address] [place] [address] Phillip Hall MD [address] [place] [address] 07/06/2025 10:00 AM CDT [facility] - Cardiology - [place] [address] [place] [address] Erin Up APRN, MACHINE LEARNING INTERN [address] [facility] [address] Health Maintenance Due Date Last Done [...] this topic Medical Devices Implanted Type Area Safety Scientist Device Identifier Shelf Expiration Date Model / Serial / Lot System Coronary Stent Xience Skypoint Everolimus Eluting 2.50 Mm X 12 Mm / Rapid-Exchange - [id number] Implanted:Qty: 1 on 03/21/2021 by Javier Sanon MD at [facility] IMPLANT N/A: Coronary [employer] [id number] 09/27/2022 [id number] / / [id number] Device Clsr 70cm 6fr Angio-Seal Vip .035in Vasc Collagen Valuelink Gw Insertion Shth J Psychiatric Mental Health Nurse - [id number] Implanted:Qty: 1 on 03/21/2021 by Javier Sanon MD at [facility] IMPLANT N/A: Groin [employer] [id number] 12/14/2021 [id number] / / [id number] Procedures Procedure Name Priority Date/Time Associated Diagnosis Comments JOELLEN SCREENING BILATERAL DIGITAL W CAD W KATHERINE Routine 02/20/2024 7:46 AM LEAD NURSE Encounter for screening mammogram for breast cancer JOELLEN BONE DENSITOMETRY AXIAL SKELETON Routine 09/22/2023 10:06 AM CDT Postmenopausal HEPATITIS C ANTIBODY Routine 12/21/2022 10:52 AM CDT Encounter for hepatitis C screening test for low risk patient COLOGUARD Routine 05/29/2022 8:00 AM LEAD NURSE Colon cancer screening from Last 3 Months or Most Recently Relevant to Health Maintenance Results * JOELLEN SCREENING BILATERAL DIGITAL W CAD W KATHERINE (02/20/2024 7:46 AM LEAD NURSE) Anatomical Region Laterality Modality breast Bilateral Mammography 02/20/2024 7:42 AM LEAD NURSE Narrative 02/21/2024 11:00 AM LEAD NURSE - JOELLEN SCREENING BILATERAL DIGITAL W CAD [...] to exams dated: 06/21/2022, 03/25/2018, and 01/23/2013 [facility]. BREAST TISSUE:There are scattered areas of [...] exam. Electronically signed by: Jed Smyth M.D. /santosh:02/20/2024 22:26:36 Tripper(s): RT Jayashree(R)(M), [facility] letter sent: Normal Exam Reading location: [...] to exams dated: 06/21/2022, 03/25/2018, and 01/23/2013 [facility]. BREAST TISSUE:There are scattered areas of [...] next screening exam. Electronically signed by: Jed alexis/santosh:02/20/2024 22:26:36 Tripper(s): Beth Rose, RT(R)(M), [facility] letter sent: Normal Exam Reading location: [place] Mammogram BI-RADS: Category 1: Negative us Edgar Markus Ordaz PAC IMG MAMMO ORDERABLES Final R esult * JOELLEN BONE DENSITOMETRY AXIAL SKELETON (09/22/2023 10:06 AM [...] Narrative 09/22/2023 11:46 AM CDT EXAM DESCRIPTION: [facility] BONE DENSITOMETRY AXIAL SKELETON REASON FOR STUDY: 63 y/o year old F with given history of: Postmenopausal Safety Scientist/Model: Dexmo (S/N [id number]) CLINICAL INFORMATION: Current height: 64 inches Maximum [...] Danny Tejeda M.D. MF: KATT Report ID: [id number] Reading Location: [place] [address] Procedure Note Danny Tejeda MD - 09/22/2023 EXAM DESCRIPTION: [facility] BONE DENSITOMETRY AXIAL SKELETON REASON FOR STUDY: 63 y/o year old F with given history of: Postmenopausal Safety Scientist/Model: Dexmo (S/N [id number]) CLINICAL INFORMATION: Current height: 64 inches Maximum [...] Danny Tejeda M.D. MF: KATT Report ID: [id number] Reading Location: [place] [address] IMPRESSION: Normal bone mass. REFERENCE: Bone mineral [...] to Prevention and Treatment of Osteoporosis (http://www.nof.org/professionals/clinical-guidelines) us Edgar WRIGHT IMG DEXA ORDERABLES Final Re sult * HEPATITIS C ANTIBODY (12/21/2022 10:52 AM CDT) hepatitis C antibody 0.22 <1 S/CO [facility] ARCH [id number] B 12/21/2022 10:54 PM CDT [facility] Comment: Signal/Cutoff ratio < 0.79 is Nondetected Signal/Cutoff ratio 0.80-0.99 is Grayzone Signal/Cutoff ratio > 0.99 is Detected Supplemental assays are recommended if signal/cutoff ratio is >/=1.00. Signal/cutoff ratio result >/= 5.00 is 97% predictive of positivity for recombinant immunoblot assay (RIBA) and will be reported to the [place] Department of Public Health as required. Blood Venipuncture / Unknown 12/21/2022 10:52 AM CDT 12/21/2022 10:52 AM CDT us Jeny Jarrett MD CHEMISTRY ORDERABLES Final R esult [facility] [address] [place] [address], * COLOGUARD (05/29/2022 8:00 AM LEAD NURSE) Cologuard Negative Negative [facility] Comment: NEGATIVE TEST RESULT. A negative [...] screened with both Cologuard and colonoscopy. (Deonte Kendall al, N Engl J Med 2014;370(14):6658-0549) The normal value (reference range) for this assay is negative. COLOGUARD RE-SCREENING RECOMMENDATION: Periodic colorectal cancer screening is an important part of preventive healthcare for asymptomatic individuals at average risk for colorectal cancer. Following a negative Cologuard result, the [place] [employer] and U.S. Multi-Society Task Force screening guidelines recommend a Cologuard re-screening interval of 3 years. References: [place] [employer] Guideline for Colorectal Cancer Screening: https://www.cancer.org/cancer/ulluh-uihfgq-ndcxac/qecqbkvky-rozagzdaf-wcdnpqm/ acs-recommendations.html.; Ki DK, Dg CR, Jesse RandK, Colorectal Cancer Screening: Recommendations for Physicians and Patients from the U.S. Multi-Society Task Force on Colorectal Cancer Screening , Am J Gastroenterology 2017; 112:9978-5417. TEST DESCRIPTION: Composite algorithmic analysis of stool [...] screened with both Cologuard and colonoscopy. (Deonte Kendall al, N Engl J Med 2014;370(14):0966-2503.) Cologuard may produce a false negative or false positive result (no colorectal cancer or precancerous polyp present at colonoscopy follow up). A negative Cologuard test result does not guarantee the absence of CRC or advanced adenoma (pre-cancer). The current Cologuard screening interval is every 3 years. ([place] [employer] and U.S. Multi-Society Task Force). Cologuard performance data in a 10,000 patient pivotal study using colonoscopy as the reference method can be accessed at the following location: www.Bioformix.ITDatabase/results. Additional description of the Cologuard test process, warnings and precautions can be found at www.FashionGuide.ITDatabase. Stool 05/29/2022 8:00 AM LEAD NURSE 05/30/2022 1:54 PM LEAD NURSE us Jeny Jarrett MD BODY FLUIDS & STOOLS ORDERAB LES Final Result [facility] [address] [place] [address], [place] [phone] [employer] [address] [place] [address] from Last 3 Months or Most Recently Relevant to Health Maintenance Insurance MEDICARE C AETNA Advance Directives * Full Code (Latest Code Status on File) Date Activated Date Inactivated Comments 03/21/2021 2:31 PM 03/23/2021 4:45 PM CPR-Full Christopher atment: FULL ARREST: Attempt Resuscitation/CPR wit intubation and mechanical ventilation. PRE-ARREST: Use entire range of life support measures to stabilize the patient. Care Teams Neck Skewer Relationship Specialty Start Date End Date Edgar Ordaz, PAC [address] [place] [address] PCP - General Physician Plater Apprentice 06/21/23 Timmy Devries MD [address] [facility] [address] [place] [address] Obstetrics & Gynecology 08/31/16 Husam Gomez DPM Podiatry 12/07/21
--- OUTSIDE RECORDS SUMMARY | 2024-12-08 11:13 | XMS_ITS | Encounter Summary ---
Author Organization [facility] Address [address] [place] [address] Phone Care Team Providers Care Pan Washer Hand Name Role Phone Haydee Rust MD Primary Care Provider + [phone] Timmy Devries MD Unavailable [phone] Irwin Zee MD Unavailable UnaJeny Houser MD Primary Care Provider + [phone] Husam Gomez DPAsim Unavailable Unavailable Edgar Ordaz Primary Care Provider + [phone] Malini Aparicio MANAGER UROLOGY, BAILING MACHINE OPERATOR Unavailable + [phone] Malini Aparicio MANAGER UROLOGY, BAILING MACHINE OPERATOR Unavailable + [phone] Reason for Visit * Reason Comments Medication Refill Encounter Details Date Type Department Care Team (Late st Contact Info) Description 04/07/2020 Refill [facility] - Primary Care - [place] [address] [place] [address] Haydee Rust MD [address] [place] [address] Medication Refill Social History Tobacco [...] Notes * Telephone Encounter - Marlee Sanchez, [facility] - 04/07/2020 1:08 PM CST Medication [...] 5 months ago Physical exam[facility] Haydee Rust MD 6 months ago Allergic dermatitis due to poison kimi [facility] Haydee Wagner MD 1 year ago [facility] RLQ abdominal pain [facility] Haydee Wagner MD 1 year ago Nausea and vomiting, intractability of vomiting not specified, unspecified vomiting type [facility] Haydee Rust MD Upcoming Appointments Future Appointments In 3 weeks [place] [facility] In 4 weeks Haydee Rust MD [facility] AUTOMOBILE TECHNICIAN - Recent and Past Visits Recent Visits Date Type Provider Dept 11/04/19 Office Visit Haydee Rust MD [facility] 10/06/19 Office Visit Haydee Rust MD [facility] 01/24/19 Office Visit Haydee Rust MD [facility] Showing recent visits within past 460 days with a meds authorizing provider and meeting all other requirements Future Appointments Date Type Provider Dept 05/06/20 Appointment Hay[facility] MD [facility] Showing future appointments within next 90 days with a meds authorizing provider and meeting all other requirements RY WORKER documented in this encounter Plan of Treatment Upcoming Encounters Date Type Department Care Team (Late st Contact Info) Description 12/22/2024 8:40 AM CDT Lab [facility] [place] [address] [place] [address] [facility] 12/29/2024 10:30 AM CDT Office Visit [facility] Primary Care - [place] [address] [place] [address] Edgar Ordaz PAC [address] [place] [address] 01/12/2025 10:00 AM CDT Office [facility] - Neurology - [place] [address] [place] [address] Phillip Hall MD [address] [place] [address] 07/06/2025 10:00 AM CDT Office Visit [facility] - Cardiology - [place] [address] [place] [address] Erin Up APRN, BAILING MACHINE OPERATOR [address] [place] [address] documented as of this encounter Visit Diagnoses Diagnosis Anxiety Anxiety state, unspecified documented in this encounter Additional Health Concerns Infection Onset Date Last Indicated Resolved Time Other 12/30/2019 12/30/2019 03/21/2021 4:55 PM SLURRY WORKER Respiratory Rule Out - RPA 02/16/2023 02/16/2023 1 04/18/2022 2:08 PM CDT Assessment Noted Time PHQ-9 Depression Total Score: 13 020 11:00 AM CDT documented as of this encounter Care Teams Pan Washer Hand Relationship Specialty Start Date End Date Haydee Rust MD PCP - General Family Medicine 01/27/15 05/07/22 Jeny Jarrett MD [address] [place] [address] PCP - General Family Medicine 05/08/22 06/20/23 Edgar Ordaz, PAC [address] [place] [address] PCP - General Physician Milk Inspector 06/21/23 Timmy Devries MD [address] [facility] [address] [place], [place] [address] Obstetrics & Gynecology 08/31/16 Irwin Zee MD [address] [facility] [address] [place] [address] Consulting Physician Cardiovascular Disease - Cardiology 11/08/21 03/18/24 Husam Gomez DPM Podiatry 12/07/21 Malini Aparicio APRN, BAILING MACHINE OPERATOR [address] [facility] [place] [address] Nurse Practitioner Advanced Practice Nurse 10/19/23 Malini Aparicio APRN, BAILING MACHINE OPERATOR [address] [facility] [place] [address] Nurse Practitioner Cardiology 07/09/24 10/21/24 documented as of this encounter
--- OUTSIDE RECORDS SUMMARY | 2024-12-08 11:13 | XMS_ITS | Encounter Summary ---
Author Organization [facility] Address [address] [place] [address] Phone Care Team Providers Care Sql Architect Name Role Phone Haydee Rust MD Primary Care Provider + [phone] Timmy Devries MD Unavailable [phone] Irwin Zee MD Unavailable UnaJeny Houser MD Primary Care Provider + [phone] Husam Gomez DPAsim Unavailable Unavailable Edgar Ordaz Primary Care Provider + [phone] Malini Aparicio RESEARCH KENNEL SUPERVISOR, CARD BOXER Unavailable + [phone] Malini Aparicio RESEARCH KENNEL SUPERVISOR, CARD BOXER Unavailable + [phone] Reason for Visit * Reason Comments Medication Refill Encounter Details Date Type Department Care Team (Late st Contact Info) Description 12/31/2020 Refill [facility] - Primary Care - [place] [address] [place] [address] Haydee Rust MD [address] [place] [address] Medication Refill Social History Tobacco [...] 1 month ago Physical exam, annual (Adult) [facility] Haydee Rust MD 7 months ago Hyperlipidemia, unspecified hyperlipidemia type [facility] Haydee Rust MD 1 year ago Physical exam, annual (Adult) [facility] Haydee Rust MD 1 year ago Allergic dermatitis due to poison kimi [facility] Haydee Rust MD [address] [facility] aHydee Rust MD Upcoming Appointments Future Appointments In 10 months [facility] In 10 months Haydee Rust MD [facility] TITLE INSPECTOR - Recent and Past Visits Recent Visits Date Type Provider Dept 11/11/20 Office Visit Haydee Rust MD [facility] 05/06/20 Telemedicine Haydee Rust MD [facility] 11/04/19 Office Visit Haydee Rust MD [facility] 10/06/19 Office Visit Haydee Rust MD [facility] Showing recent visits within past 460 [...] Info) Description 12/22/2024 8:40 AM CDT Lab [facility] [place] [address] [place] [address] [facility] 12/29/2024 10:30 AM CDT Office Visit [facility] Primary Care - [place] [address] [place] [address] Edgar Ordaz PAC [address] [place] [address] 01/12/2025 10:00 AM CDT Office Visit [facility] - Neurology - [place] [address] [place] [address] Phillip Hall MD [address] [place] [address] 07/06/2025 10:00 AM CDT Office Visit [facility] - Cardiology - [place] [address] [place] [address] Erin Up APRN, CARD BOXER [address] [place] [address] documented as of this encounter Visit Diagnoses Diagnosis Anxiety Anxiety state, unspecified documented in this encounter Additional Health Concerns Infection Onset Date Last Indicated Resolved Time Other 12/30/2019 12/30/2019 03/21/2021 4:55 PM TORCH OPERATOR Respiratory Rule Out - RPA 02/16/2023 02/16/2023 1 04/18/2022 2:08 PM CDT Assessment Noted Time PHQ-9 Depression Total Score: 13 020 11:00 AM CDT documented as of this encounter Care Teams Sql Architect Relationship Specialty Start Date End Date Haydee Rust MD PCP - General Family Medicine 01/27/15 05/07/22 Jeny Jarrett MD [address] [place], [place] [id number] PCP - General Family Medicine 05/08/22 06/20/23 Edgar Ordaz, PAC [address] [place] [address] PCP - General Physician Marketing Education Teacher 06/21/23 Timmy Devries MD [address] [facility] [address] [place] [address] Obstetrics & Gynecology 08/31/16 Irwin Zee MD [address] [facility] [address] [place] [address] Consulting Physician Cardiovascular Disease - Cardiology 11/08/21 03/18/24 Husam Gomez DPM Podiatry 12/07/21 Malini Aparicio, RESEARCH KENNEL SUPERVISOR, CARD BOXER [address] [facility], [address] [place] [address] Nurse Practitioner Advanced Practice Nurse 10/19/23 Malini Aparicio, RESEARCH KENNEL SUPERVISOR, CARD BOXER [address] [facility], [address] [place] [id number] Nurse Practitioner Cardiology 07/09/24 10/21/24 documented as of this encounter
--- OUTSIDE RECORDS SUMMARY | 2024-12-08 11:13 | XMS_ITS | Encounter Summary ---
Author Organization [facility] Address [address] [place] [address] Phone Care Team Providers Care Milieu Coordinator Name Role Phone Timmy Devries MD Unavailable +[phone] Husam Gomez DPAsim Unavailable Unavailable Edgar Ordaz PAC Primary Care Provider Malini Aparicio MICROBIOLOGY SOIL SCIENTIST, LINING MACHINE TENDER Unavailable +[phone] Reason for Visit * Reason Onset Date Comments Advice Only 09/09/2024 Shaking 09/09/2024 Tremors 09/09/2024 Encounter Details Date Type Department Care Team (Late st Contact Info) Description 09/09/2024 [facility]riage [facility] [address] [place] [address] Edgar Ordaz, PAC [address] [place] [address] Advice Only; Shaking; Tremors Social History Tobacco Use Types Packs/Day Years Used Date Smoking Tobacco: Never Smokeless Tobacco: Never Alcohol Use Standard Drinks/Week Comments Not Currently 0 (1 standard drink = 0.6 oz pur e alcohol) [facility] Utilities Answer Date Recorded In the past [...] often do you attend chur ch or pentecostal services? More than 4 times per year [...] Total Score - Questions 1-9 0 06/14 [facility] - Occupational Stress Questionnaire Answer Date [...] a group home (including now)? No 06/19/2023 Housing Stability Vital Sign Answer [place] e Recorded In the last 12 months, was t here a time when you were not able to pay the mortgage or rent on time? No 06/25/2024 In the past 12 months, how m any times have you moved where you were living? 0 06/25/2024 At any time in the past 12 m [facility], were you homeless or living in a group home (including now)? No 06/25/2024 Education Answer Date [...] Dept Phone 09/15/2024 2:15 PM Edgar Ordaz [facility] - Primary Care [facility] [phone] Encounter routed to provider high priority to notify. Discussed utilizing CaseRails to: discuss if they would prefer a Gummiihart message or phone call response and E-check [...] Protocols used: Muscle [place]ks - Tics - [id number] * Telephone Encounter - Haylee Gottlieb - [...] Info) Description 12/22/2024 8:[address] [facility] - [address] [address] [facility] 12/29/2024 10:30 AM CDT Office Visit [facility] [place] [address] [place] [address] Edgar Ordaz PAC [address] [place] [address] 01/12/2025 10:00 AM CDT Office Visit [facility] - Neurology - [place] [address] [place] [address] Phillip Hall MD [address] [place] [address] 07/06/2025 10:00 AM CDT Office Visit [facility] - Cardiology - [place] [address] [place] [address] Erin Up APRN, LINING MACHINE TENDER [address] [place] [address] documented as of this encounter Visit Diagnoses Not on filedocumented in this encounter Additional Health Concerns Assessment Noted Time PHQ-9 Depression Total Score: 0 06/27/19 25 8:29 AM CDT documented as of this encounter Care Teams Milieu Coordinator Relationship Specialty Start Date End Date Edgar Ordaz PAC [address] [place] [address] PCP - General Physician Director Of Marketing 06/21/23 Timmy Devries MD [address] [facility] [address] [place], [place] [id number] Obstetrics & Gynecology 08/31/16 Husam Gomez DPM Podiatry 12/07/21 Malini Aparicio, MICROBIOLOGY SOIL SCIENTIST, LINING MACHINE TENDER [address] [facility], [address] [place] [address] Nurse Practitioner Cardiology 07/09/24 10/21/24 documented as of this encounter
--- OUTSIDE RECORDS SUMMARY | 2024-12-08 11:13 | XMS_ITS | Encounter Summary ---
Author Organization [facility] Address [address] [place] [address] Phone Care Team Providers Care Supervisor Prepress Name Role Phone Haydee Rust MD Primary Care Provider + [phone] Timmy Devries MD Unavailable [phone] Irwin Zee MD Unavailable UnaJeny Houser MD Primary Care Provider + [phone] Husam Gomez DPAsim Unavailable Unavailable Edgar Ordaz Primary Care Provider + [phone] Malini Aparicio HYDROGEN PLANT OPERATIONS MANAGER, BLUEPRINT CUTTER Unavailable + [phone] Malini Aparicio HYDROGEN PLANT OPERATIONS MANAGER, BLUEPRINT CUTTER Unavailable + [phone] Reason for Visit * Reason Comments Medication Refill Encounter Details Date Type Department Care Team (Late st Contact Info) Description 03/18/2021 Refill [facility] - Primary Care - [place] [address] [place] [address] Haydee Rust MD [address] [place] [address] Medication Refill Social History Tobacco [...] COVID-19? No / Unsure 03/21/2021 2:08 PM CARDROOM MANAGER documented as of this encounter Miscellaneous Notes * Telephone Encounter - Agueda Carlos RN - 03/18/2021 1:52 PM CARDROOM MANAGER Medication failed the protocol, provider to review [...] 4 months ago Physical exam, annual (Adult) [facility] Haydee Rust MD 10 months ago Hyperlipidemia, unspecified hyperlipidemia type [facility] Haydee Rust MD 1 year ago Physical exam, annual (Adult) [facility] Haydee Rust MD 1 year ago Allergic dermatitis due to poison kimi [facility] Haydee Wagner MD 2 years ago [facility] Upcoming Appointments Future Appointments In 7 months Ab [facility] In 7 months Haydee uRst MD [facility] LOGISTICS TECH - Recent and Past Visits Recent Visits Date Type Provider Dept 11/11/20 Office Visit Haydee Rust MD [facility] 05/06/20 Telemedicine Haydee Rust MD [facility] Showing recent visits within past 460 days with a meds authorizing provider and meeting all other requirements Future Appointments No visits were found meeting these conditions. Showing future appointments within next 90 days with a meds authorizing provider and meeting all other requirements ROOM MANAGER documented in this encounter Plan of Treatment Upcoming Encounters Date Type Department Care Team (Late st Contact Info) Description 12/22/2024 8:40 AM CDT Lab [facility] [place] [address] [place] [address] [facility] 12/29/2024 10:30 AM CDT Office Visit [facility] Primary Care - [place] [address] [place] [address] Edgar Ordaz PAC [address] [place] [address] 01/12/2025 10:00 AM CDT Office Visit [facility] - Neurology - [place] [address] [place] [address] Phillip Hall MD [address] [place] [address] 07/06/2025 10:00 AM CDT Office Visit [facility] - Cardiology - [place] [address] [place] [address] Erin Up APRN, BLUEPRINT CUTTER [address] [place] [address] documented as of this encounter Visit Diagnoses Diagnosis Anxiety Anxiety state, unspecified documented in this encounter Additional Health Concerns Infection Onset Date Last Indicated Resolved Time Other 12/30/2019 12/30/2019 03/21/2021 4:55 PM CARDROOM MANAGER Respiratory Rule Out - RPA 02/16/2023 02/16/2023 1 04/18/2022 2:08 PM CDT Assessment Noted Time PHQ-9 Depression Total Score: 13 020 11:00 AM CDT documented as of this encounter Care Teams Supervisor Prepress Relationship Specialty Start Date End Date Haydee Rust MD PCP - General Family Medicine 01/27/15 05/07/22 Jeny Jarrett MD [address] [place], [place] [id number] PCP - General Family Medicine 05/08/22 06/20/23 Edgar Ordaz, PAC [address] [place] [address] PCP - General Physician Network Engineer Administrator 06/21/23 Timmy Devries MD [address] [facility] [address] [place] [address] Obstetrics & Gynecology 08/31/16 Irwin Zee MD [address] [facility] [address] [place] [address] Consulting Physician Cardiovascular Disease - Cardiology 11/08/21 03/18/24 Husam Gomez DPM Podiatry 12/07/21 Malini Aparicio, HYDROGEN PLANT OPERATIONS MANAGER, BLUEPRINT CUTTER #2 [facility], [address] [place] [address] Nurse Practitioner Advanced Practice Nurse 10/19/23 Malini Aparicio, STEPHENIE, BLUEPRINT CUTTER [address] [facility], [address] [place] [address] Nurse Practitioner Cardiology 07/09/24 10/21/24 documented as of this encounter
--- OUTSIDE RECORDS SUMMARY | 2024-12-08 11:13 | XMS_ITS | Encounter Summary ---
Author Organization [facility] Address [address] [place] [address] Phone Care Team Providers Care It Program Engagement Director Name Role Phone Haydee Rust MD Primary Care Provider + [phone] Timmy Devries MD Unavailable +[phone] Irwin Zee MD Unavailable UnaJeny Houser MD Primary Care Provider + [phone] Husam Gomez DPAsim Unavailable Unavailable Edgar Ordaz Primary Care Provider + [phone] Malini Aparicio SUPERVISOR MECHANIC BOILERMAKING, PIPE FITTER HELPER Unavailable + [phone] Malini Aparicio SUPERVISOR MECHANIC BOILERMAKING, PIPE FITTER HELPER Unavailable + [phone] Reason for Visit * Reason Comments Medication Refill Encounter Details Date Type Department Care Team (Late st Contact Info) Description 04/18/2021 Refill [facility] - Primary Care - [place] [address] [place] [address] Haydee Rust MD [address] [place] [address] Medication Refill Social History Tobacco [...] COVID-19? No / Unsure 04/18/2021 2:28 PM TUFTING MACHINE OPERATOR documented as of this encounter Miscellaneous Notes * Telephone Encounter - Agueda Carlos RN - 04/18/2021 2:59 PM TUFTING MACHINE OPERATOR Medication failed the protocol, provider to [...] APRN, CNP [facility] 03/30/21 Office Visit Maria Victoria Horton APRN, CNP [facility] 11/11/20 Office Visit Haydee Rust MD [facility] [place] [facility] 05/06/20 Telemedicine Haydee Rust MD [facility] [employer] Showing recent visits within past 365 days and meeting all other requirements Future Appointments Date Type Provider Dept 04/19/21 [facility] Showing future appointments within next 90 days and meeting all other requirements ING MACHINE OPERATOR documented in this encounter Plan of Treatment Upcoming Encounters Date Type Department Care Team (Late st Contact Info) Description 12/22/2024 8:40 AM CDT Lab [facility] [place] [address] [place] [address] [facility] 12/29/2024 10:30 AM CDT Office Visit [facility] [place] [address] [place] [address] Edgar Ordaz PAC [address] [place] [address] 01/12/2025 10:00 AM CDT Office Visit [facility] - Neurology - [place] [address] [place] [address] Phillip Hall MD [address] [place] [address] 07/06/2025 10:00 AM CDT Office Visit [facility] - Cardiology - [place] [address] [place] [address] Erin Up APRN, PIPE FITTER HELPER [address] [place] [address] documented as of this encounter Visit Diagnoses Diagnosis Anxiety Anxiety state, unspecified documented in this encounter Additional Health Concerns Infection Onset Date Last Indicated Resolved Time Respiratory Rule Out - RPA 02/16/2023 02/16/2023 1 04/18/2022 2:08 PM CDT Assessment Noted Time PHQ-9 Depression Total Score: 13 020 11:00 AM CDT documented as of this encounter Care Teams It Program Engagement Director Relationship Specialty Start Date End Date Haydee Rust MD PCP - General Family Medicine 01/27/15 05/07/22 Jeny Jarrett MD [address] [place] [address] PCP - General Family Medicine 05/08/22 06/20/23 Edgar Ordaz PAC [address] [place] [address] PCP - General Physician Room Manager 06/21/23 Timmy Devries MD [address] [facility] [address] [place], [place] [address] Obstetrics & Gynecology 08/31/16 Irwin Zee MD [address] [facility] [address] [place] [address] Consulting Physician Cardiovascular Disease - Cardiology 11/08/21 03/18/24 Husam Gomez DPM Podiatry 12/07/21 Malini Aparicio APRN, PIPE FITTER HELPER [address] [facility], [address] [place] [address] Nurse Practitioner Advanced Practice Nurse 10/19/23 Malini Aparicio APRN, PIPE FITTER HELPER [address] [facility], [address] [place] [address] Nurse Practitioner Cardiology 07/09/24 10/21/24 documented as of this encounter
--- OUTSIDE RECORDS SUMMARY | 2024-12-08 11:13 | XMS_ITS | Encounter Summary ---
Author Organization [facility] Address [address] [place] [address] Phone Care Team Providers Care Sales Recruiter Name Role Phone Haydee Rust MD Primary Care Provider + [phone] Timmy Devries MD Unavailable [phone] Irwin Zee MD Unavailable UnaJeny Houser MD Primary Care Provider + [phone] Husam Gomez DPAsim Unavailable Unavailable Edgar Ordaz Primary Care Provider + [phone] Malini Aparicio WARRANTY MANAGER, RAMP LEAD Unavailable + [phone] Malini Aparicio WARRANTY MANAGER, RAMP LEAD Unavailable + [phone] Reason for Visit * Reason Comments Medication Refill Encounter Details Date Type Department Care Team (Late st Contact Info) Description 12/08/2021 Refill [facility] - Primary Care - [place] [address] [place] [address] Haydee Rust MD [address] [place] [address] Medication Refill Social History Tobacco [...] Dept 11/01/21 Office Visit Haydee [facility] [address] 08/08/21 Office Visit Haydee [facility] MD [facility] [address] 06/08/21 Office Visit Maria Victoria Horton APRN, CNP [facility] [address] 04/11/21 Office Visit Maria Victoria Horton APRN, C[facility] [address] 03/30/21 Office Visit Maria Victoria Horton APRN, CNP [facility] [address] Showing recent visits within past 365 days and meeting all other requirements Future Appointments No visits were found meeting these conditions. Showing future appointments within next 90 days and meeting all other requirements documented in this encounter Plan of Treatment Upcoming Encounters Date Type Department Care Team (Late st Contact Info) Description 12/22/2024 8:40 AM CDT Lab [facility] - Primary Care - [place] [address] [place] [address] [facility] [place] [facility] 12/29/2024 10:30 AM CDT [facility] [place] [address] [place] [address] Edgar Ordaz PAC [address] [place] [address] 01/12/2025 10:00 AM CDT [facility] - [place] [address] [place] [address] Phillip Hall MD [address] [place] [address] 07/06/2025 10:00 AM CDT Office Visit [facility] - Cardiology - [place] [address] [place] [address] Erin Up APRN, RAMP LEAD [address] [place] [address] documented as of this encounter Visit Diagnoses Diagnosis Anxiety Anxiety state, unspecified documented in this encounter Additional Health Concerns Infection Onset Date Last Indicated Resolved Time Respiratory Rule Out - RPA 02/16/2023 02/16/2023 1 04/18/2022 2:08 PM CDT Assessment Noted Time PHQ-9 Depression Total Score: 13 10/05/ 020 11:00 AM CDT documented as of this encounter Care Teams Sales Recruiter Relationship Specialty Start Date End Date Haydee Rust MD PCP - General Family Medicine 10/14/15 1/22/23 Jeny Jarrett MD [address] [place] [address] PCP - General Family Medicine 05/08/22 06/20/23 Edgar Ordaz, PAC [address] [place] [address] PCP - General Physician Convention Worker 06/21/23 Timmy Devries MD [address] [facility] [address] [place] [address] Obstetrics & Gynecology 08/31/16 Irwin Zee MD [address] [facility] [address] [place] [address] Consulting Physician Cardiovascular Disease - Cardiology 11/08/21 03/18/24 Husam Gomez DPM Podiatry 12/07/21 Malini Aparicio APRN, RAMP LEAD #2 [facility], [address] [place] [address] Nurse Practitioner Advanced Practice Nurse 10/19/23 Malini Aparicio APRN, RAMP LEAD [address]2 [facility], [address] [place] [address] Nurse Practitioner Cardiology 07/09/24 10/21/24 documented as of this encounter
--- OUTSIDE RECORDS SUMMARY | 2024-12-08 11:13 | XMS_ITS | Encounter Summary ---
Author Organization [facility] Address [address] [place] [address] Phone Care Team Providers Care Infectious Disease Technician Name Role Phone Haydee Rust MD Primary Care Provider + [phone] Timmy Devries MD Unavailable [phone] Irwin Zee MD Unavailable UnaJeny Houser MD Primary Care Provider + [phone] Husam Gomez DPAsim Unavailable Unavailable Edgar Ordaz Primary Care Provider + [phone] Mailni Aparicio SUPERVISOR LOADING, SENIOR ADULTS DIRECTOR Unavailable + [phone] Malini Aparicio SUPERVISOR LOADING, SENIOR ADULTS DIRECTOR Unavailable + [phone] Reason for Visit * Reason Comments Medication Refill Encounter Details Date Type Department Care Team (Late st Contact Info) Description 05/18/2020 Refill [facility] - Primary Care - [place] [address] [place] [address] Haydee Rust MD [address] [place] [place] [address] Medication Refill Social History [...] COVID-19? No / Unsure 05/06/2020 1:47 PM PROPERTY DISPOSAL MANAGER documented as of this encounter Miscellaneous Notes * Telephone Encounter - Samantha Love RN - 05/19/2020 1:14 PM PROPERTY DISPOSAL MANAGER Medication failed the protocol, provider to [...] 1 week ago Hyperlipidemia, unspecified hyperlipidemia type [facility] Haydee Rust MD 6 months ago Physical exam, annual (Adult) [facility] Haydee Rust MD 7 months ago Allergic dermatitis due to poison kimi [facility] Haydee Rust MD 1 year ago Anxiety [facility] Haydee Rust MD 1 year ago [facility] Upcoming Appointments Future Appointments In 5 months Declan Bergerfrey [facility] In 5 months Haydee Rust MD [facility] CYLINDER HANDLER - Recent and Past Visits Recent Visits Date Type Provider Dept 05/06/20 Telemedicine Haydee Rust MD [facility] 11/04/19 Office Visit Haydee Rust MD [facility] 10/06/19 Office Visit Haydee Rust MD [facility] Showing recent visits within past 460 days with a meds authorizing provider and meeting all other requirements Future Appointments No visits were found meeting these conditions. Showing future appointments within next 90 days with a meds authorizing provider and meeting all other requirements ERTY DISPOSAL MANAGER documented in this encounter Plan of Treatment Upcoming Encounters Date Type Department Care Team (Late st Contact Info) Description 12/22/2024 8:40 AM CDT Lab [facility] - [place] [address] [place] [address] [facility] 12/29/2024 10:30 AM CDT Office Visit [facility] Primary Care - [place] [address] [place] [address] Edgar Ordaz PAC [address] [place] [address] 01/12/2025 10:00 AM CDT Office [facility] - Neurology - [place] [address] [place] [address] Phillip Hall MD [address] [place] [address] 07/06/2025 10:00 AM CDT Office Visit [facility] - Cardiology - [place] [address] [place] [address] Erin Up APRN, SENIOR ADULTS DIRECTOR [address] [place] [address] documented as of this encounter Visit Diagnoses Diagnosis Anxiety Anxiety state, unspecified documented in this encounter Additional Health Concerns Infection Onset Date Last Indicated Resolved Time Other 12/30/2019 12/30/2019 03/21/2021 4:55 PM PROPERTY DISPOSAL MANAGER Respiratory Rule Out - RPA 02/16/2023 02/16/2023 1 04/18/2022 2:08 PM CDT Assessment Noted Time PHQ-9 Depression Total Score: 13 020 11:00 AM CDT documented as of this encounter Care Teams Infectious Disease Technician Relationship Specialty Start Date End Date Haydee Rust MD PCP - General Family Medicine 01/27/15 05/07/22 Jeny Jarrett MD [address] [place], [place] [id number] PCP - General Family Medicine 05/08/22 06/20/23 Edgar Ordaz, PAC [address] [place] [address] PCP - General Physician [facility] 06/21/23 Timmy Devries MD [address] [facility] [address] [place], [place] [id number] Obstetrics & Gynecology 08/31/16 Irwin Zee MD [address] [facility] [address] [place] [address] Consulting Physician Cardiovascular Disease - Cardiology 11/08/21 03/18/24 Husam Gomez DPM Podiatry 12/07/21 Malini Aparicio, SUPERVISOR LOADING, SENIOR ADULTS DIRECTOR [address] [facility], [address] [place] [address] Nurse Practitioner Advanced Practice Nurse 10/19/23 Malini Aparicio APRN, SENIOR ADULTS DIRECTOR [address] [facility], [address] [place] [address] Nurse Practitioner Cardiology 07/09/24 10/21/24 documented as of this encounter
--- OUTSIDE RECORDS SUMMARY | 2024-12-08 11:13 | XMS_ITS | Encounter Summary ---
Author Organization [facility] Address [address] [place] [address] Phone Care Team Providers Care Blown Film Extrusion Operator Name Role Phone Haydee Rust MD Primary Care Provider + [phone] Timmy Devries MD Unavailable [phone] Irwin Zee MD Unavailable UnaJeny Houser MD Primary Care Provider + [phone] Husam Gomez DPAsim Unavailable Unavailable Edgar Ordaz Primary Care Provider + [phone] Malini Aparicio SENIOR CLINICAL STUDY MANAGER, BOOT LACE CUTTER MACHINE Unavailable + [phone] Maliin Aparicio SENIOR CLINICAL STUDY MANAGER, BOOT LACE CUTTER MACHINE Unavailable + [phone] Reason for Visit * Reason Comments Medication Refill Encounter Details Date Type Department Care Team (Late st Contact Info) Description 12/25/2020 Refill [facility] - Primary Care - [place] [address] [place] [address] Haydee Rust MD [address] [place] [address] Medication Refill Social History Tobacco [...] Dept 11/11/20 Office Visit Haydee Rust MD [facility] 05/06/20 Telemedicine Haydee Rust MD [facility] Showing recent visits within past [...] AM CDT Lab [facility] - [place] [address] [place] [address] [facility] 12/29/2024 10:30 AM CDT Office Visit [facility] - [place] [address] [place] [address] Edgar Ordaz, PAC [address] [place] [address] 01/12/2025 10:00 AM CDT [facility] - [place] [address] [place] [address] Phillip Hall MD [address] [place] [address] 07/06/2025 10:00 AM CDT Office Visit [facility] - Cardiology - [place] [address] [place] [address] Erin Up APRN, BOOT LACE CUTTER MACHINE [address] [place] [address] documented as of this encounter Visit Diagnoses Diagnosis Hypothyroidism, unspecified type documented in this encounter Additional Health Concerns Infection Onset Date Last Indicated Resolved Time Other 12/30/2019 12/30/2019 03/21/2021 4:55 PM HANDICRAFT OR HOBBY SHOP MANAGER Respiratory Rule Out - RPA 02/16/2023 02/16/2023 1 04/18/2022 2:08 PM CDT Assessment Noted Time PHQ-9 Depression Total Score: 13 020 11:00 AM CDT documented as of this encounter Care Teams Blown Film Extrusion Operator Relationship Specialty Start Date End Date Haydee Rust MD PCP - General Family Medicine 01/27/15 05/07/22 Jeny Jarrett MD [address] [place] [place] [id number] PCP - General Family Medicine 05/08/22 06/20/23 Edgar Ordaz, PAC [address] [place] [address] PCP - General Physician Business Systems Consultant 06/21/23 Timmy Devries MD [address] [facility] [address] [place] [address] Obstetrics & Gynecology 08/31/16 Irwin Zee MD [address] [facility] [address] [facility] [address] [place] [address] Consulting Physician Cardiovascular Disease - Cardiology 11/08/21 03/18/24 Husam Gomez DPM Podiatry 12/07/21 Malini Aparicio APRN, BOOT LACE CUTTER MACHINE [address] [place] [address] Nurse Practitioner Advanced Practice Nurse 10/19/23 Malini Aparicio APRN, BOOT LACE CUTTER MACHINE [address], [address] [place] [address] Nurse Practitioner Cardiology 07/09/24 10/21/24 documented as of this encounter
--- OUTSIDE RECORDS SUMMARY | 2024-12-08 11:13 | XMS_ITS | Encounter Summary ---
Author Organization [facility] Address [address] [place] [address] Phone Care Team Providers Care Adult Basic Studies Teacher Name Role Phone Timmy Devries MD Unavailable [phone] Husam Gomez DPM Unavailable Unavailable Edgar Ordaz Primary Care Provider [phone] Reason for Referral * Consult, Test & Initiate Treatment (Routine) - Authorized Specialty Diagnoses / Procedures Referred By Perfecto emmanuel Referred To Contact Diagnoses Tremor of both hands Edgar Ordaz PAC [address] [place] [address] Phone: tel: fax: [facility] [place] [address] Phone: tel: fax: Referral ID Status Reason Start Date Expiration Date V isits Requested Visits Authorized [id number] Authorized 11/10/2024 1 1 Reason for Visit * Reason Onset Date Comments Advice Only 11/10/2024 Referral 11/10/2024 Encounter Details Date Type Department Care Team (Late st Contact Info) Description 11/10/2024 Telephone [facility] [address] [place] [address] Edgar Ordaz, PAC [address] [facility] [address] Advice Only; Referral Social History Tobacco Use Types Packs/Day Years Used Date Smoking Tobacco: Never Smokeless Tobacco: Never Alcohol Use Standard Drinks/Week Comments Not Currently 0 (1 standard drink = 0.6 oz pur e alcohol) [facility] Utilities Answer Date Recorded In [...] week 06/25/2024 How often do you attend [facility] or rastafarian services? More than 4 times per year 06/25/2024 Do you belong to any clubs o r organizations such as islam groups, unions, fraternal or athletic groups, or [...] Total Score - Questions 1-9 0 06/14 [facility]at ional [facility] - [...] to sleep or slept in a senior living (including now)? No 06/19/2023 Housing Stability Vital [...] time in the past 12 m [facility], were you homeless or living in a senior living (including now)? No 06/25/2024 Education Answer Date [...] Telephone Encounter - Edgar Ordaz PAC - 11/10/2024 1:05 PM CDT Referral placed to Dr. Hall at [facility]. * Telephone Encounter - Seun Pham RN - 11/10/2024 9:26 AM CDT Situation: referral Background: Patient contacting PCP office. Assessment: Patient calling and states she has had hand tremors for over a month. Seen Edgar in the office on 09/15/24. They discussed seeing a neurologist. It is not getting better. States spouse is concerned andwants her to see one. Spouse is worried she might have Parkinson's Disease. She wants to know whichneurologist she should see. Recommendation: Informed caller that RN will send a note to the office and call back. Encounter routed to provider to notify. Discussed utilizing [employer] to: send messages to providers * Telephone Encounter - Vanessa Arias - 11/10/2024 9:16 AM CDT Symptom: Hand Tremors or Shaking Outcome: Schedule an urgent appointment within same day Reason: Getting worse The caller rejected this outcome. Caller Denied: * Having drug or alcohol withdrawal * Hand shaking now that started within the past 24 hours documented in this encounter Plan of Treatment Upcoming Encounters Date Type Department Care Team (Late st Contact Info) Description 12/22/2024 8:40 AM CDT Lab [facility] - Primary Care - [place] [address] [place] [address] [facility] 12/29/2024 10:30 AM CDT Office Visit [facility] - Primary Care - [place] [address] [place] [address] Edgar Ordaz PAC [address] [place] [address] 01/12/2025 10:00 AM CDT [facility] - [place] [address] [place] [address] Phillip Hall MD [address] [place] [address] 07/06/2025 10:00 AM CDT Office Visit [facility] - Cardiology - [place] [address] [place] [address] Erin Up APRN, ONLINE MERCHANT [address] [place] [address] Scheduled Referrals Name Type Priority Associated Diagnoses Orde r Schedule NEUROLOGY REFERRAL Outpatient Referral Routine Tremor of both hands Expected: 11/10/2024, Expires: 11/10/2025 documented as of this encounter Visit Diagnoses Diagnosis Tremor of both hands- Primary documented in this encounter Additional Health Concerns Assessment Noted Time PHQ-9 Depression Total Score: 0 06/27/19 25 8:29 AM CDT documented as of this encounter Care Teams Adult Basic Studies Teacher Relationship Specialty Start Date End Date Edgar Ordaz PAC [address] [place] [address] PCP - General Physician Preforming Machine Operator 06/21/23 Timmy Devries MD [address] [facility] [address] [place] [address] Obstetrics & Gynecology 08/31/16 Husam Gomez DPM Podiatry 12/07/21 documented as of this encounter
--- OUTSIDE RECORDS SUMMARY | 2024-12-08 11:14 | XMS_ITS | Encounter Summary ---
Author Organization [facility] Address [address] [place] [address] Phone Care Team Providers Care Vest Maker Name Role Phone Haydee Rust MD Primary Care Provider + [phone] Timmy Devries MD Unavailable [phone] Irwin Zee MD Unavailable UnaJeny Houser MD Primary Care Provider + [phone] Husam Gomez DPAsim Unavailable Unavailable Edgar Ordaz Primary Care Provider + [phone] Malini Aparicio BACK TENDER FOURDRINIER, COMMUNITY HEALTH PROMOTER Unavailable + [phone] Malini Aparicio BACK TENDER FOURDRINIER, COMMUNITY HEALTH PROMOTER Unavailable + [phone] Reason for Visit * Reason Comments Medication Refill Encounter Details Date Type Department Care Team (Late st Contact Info) Description 11/06/2021 Refill [facility] - Primary Care - [place] [address] [place] [address] Haydee Rust MD [address] [place] [address] Medication Refill Social History Tobacco [...] Dept 11/01/21 Office Visit Haydee Rust MD [facility] 08/08/21 Office Visit Haydee Rust MD [facility] 06/08/21 Office Visit Maria Victoria Horton APRN, CNP [facility] [address] 04/11/21 Office Visit Maria Victoria Horton APRN, CNP [address] 03/30/21 Office Visit Maria Victoria Horton APRN, CNP [address] 11/11/20 Office Visit Haydee Rust MD [facility] Showing recent visits within past 365 days and meeting all other requirements Future Appointments No visits were found meeting these conditions. Showing future appointments within next 90 days and meeting all other requirements documented in this encounter Plan of Treatment Upcoming Encounters Date Type Department Care Team (Late st Contact Info) Description 12/22/2024 8:40 AM CDT Lab [facility] - [place] [address] [place] [address] [facility] 12/29/2024 10:30 AM CDT Office Visit [facility] Primary Care - [place] [address] [place] [address] Edgar Ordaz PAC [address] [place] [address] 01/12/2025 10:00 AM CDT Office Visit [facility] - Neurology - [place] [address] [place] [address] Phillip Hall MD [address] [place] [address] 07/06/2025 10:00 AM CDT Office Visit [facility] - Cardiology - [place] [address] [place] [address] Erin Up APRN, COMMUNITY HEALTH PROMOTER [address] [place] [address] documented as of this encounter Visit Diagnoses Diagnosis Anxiety Anxiety state, unspecified documented in this encounter Additional Health Concerns Infection Onset Date Last Indicated Resolved Time Respiratory Rule Out - RPA 02/16/2023 02/16/2023 1 04/18/2022 2:08 PM CDT Assessment Noted Time PHQ-9 Depression Total Score: 13 10/05/ 020 11:00 AM CDT documented as of this encounter Care Teams Vest Maker Relationship Specialty Start Date End Date Haydee Rust MD PCP - General Family Medicine 01/27/15 05/07/22 Jeny Jarrett MD [address] [place] [address] PCP - General Family Medicine 05/08/22 06/20/23 Edgar Ordaz, PAC [address] [place] [address] PCP - General Physician Financial Solutions Advisor 06/21/23 Timmy Devries MD [address] [facility] [address] [place] [address] Obstetrics & Gynecology 08/31/16 Irwin Zee MD [address] [facility] [address] [place] [address] Consulting Physician Cardiovascular Disease - Cardiology 11/08/21 03/18/24 Husam Gomez DPM Podiatry 12/07/21 Malini Aparicio APRN, COMMUNITY HEALTH PROMOTER [address] [facility], [address] [place] [address] Nurse Practitioner Advanced Practice Nurse 10/19/23 Malini Aparicio APRN, COMMUNITY HEALTH PROMOTER [address] [place] [address] Nurse Practitioner Cardiology 07/09/24 10/21/24 documented as of this encounter
--- OUTSIDE RECORDS SUMMARY | 2024-12-08 11:14 | XMS_ITS | Encounter Summary ---
Author Organization [facility] Address [address] [place] [address] Phone Care Team Providers Care Small Stock Facer Name Role Phone Timmy Devries MD Unavailable [phone] Irwin Zee MD Unavailable Husam Marx DPAsim Unavailable Unavailable Edgar Ordaz PAC Primary Care Provider [phone] Malini Aparicio SUPERVISOR PURIFICATION, GEOPHYSICAL PARTY CHIEF Unavailable + [phone] Malini Aparicio APRN, GEOPHYSICAL PARTY CHIEF Unavailable + [phone] Reason for Visit * Reason Comments Medication Refill Encounter Details Date Type Department Care Team (Late st Contact Info) Description 09/11/[address] [facility] - Primary Care - [place] [address] [place] [address] Jeny Jarrett MD [address] [place] [address] Medication Refill Social History Tobacco Use Types Packs/Day Years Used Date Smoking Tobacco: Never Smokeless Tobacco: Never Alcohol Use Standard Drinks/Week Comments Not Currently 0 (1 standard drink = 0.6 oz pur e alcohol) [facility] Utilities Answer Date Recorded In the past 12 months has [employer], gas, oil, or water company threatened to [...] often do you attend chur ch or christianity services? More than 4 times per year 06/19/2023 Do you belong to any clubs o r organizations such as restorationist groups, unions, fraternal or athletic groups, or [...] Total Score - Questions 1-9 13 09/15 [facility] of Occupat ional Health - Occupational Stress [...] place to sleep or slept in a fci (including now)? No 06/19/2023 Education Answer Date [...] AM CDT Medication(s) [facility] Med[facility] Refill Standing Order for Pediatricand [...] Dept 06/21/23 Office Visit Edgar Ordaz, KYLE [facility] 02/16/23 Office Visit Edgar Ordaz, KYLE [facility] 12/21/22 Office Visit Jeny Jarrett MD [facility] Showing recent visits within past 365 [...] AM CDT Lab [facility] - [address] [address] Lab, [facility] 12/29/2024 10:30 AM CDT Office Visit [facility] - [address] [address] Edgar Ordaz PAC [address] [place] [address] 01/12/2025 10:00 AM CDT Office Visit [facility] - Neurology - Nursery [address] [place] [address] Phillip Hall MD [address] [place] [address] 07/06/2025 10:00 AM CDT Office Visit [facility] - Cardiology - [place] [address] [place] [address] Erin Up APRN, GEOPHYSICAL PARTY CHIEF [address] [place] [address] documented as of this encounter Visit Diagnoses Diagnosis Hypothyroidism, unspecified type documented in this encounter Additional Health Concerns Assessment Noted Time PHQ-9 Depression Total Score: 13 10/05/ 020 11:00 AM CDT documented as of this encounter Care Teams Small Stock Facer Relationship Specialty Start Date End Date Edgar Ordaz PAC [address] [place] [address] PCP - General Physician Docket Specialist 06/21/23 Timmy Devries MD [address] [facility] [address] [place] [address] Obstetrics & Gynecology 08/31/16 Irwin Zee MD [address] [facility] [address] [place] [address] Consulting Physician Cardiovascular Disease - Cardiology 11/08/21 03/18/24 Husam Gomez DPM Podiatry 12/07/21 Malini Aparicio APRN, GEOPHYSICAL PARTY CHIEF [address] [place] [address] Nurse Practitioner Advanced Practice Nurse 10/19/23 Malini Aparicio, SUPERVISOR PURIFICATION, GEOPHYSICAL PARTY CHIEF [address] [place] [address] Nurse Practitioner Cardiology 07/09/24 10/21/24 documented as of this encounter
--- OUTSIDE RECORDS SUMMARY | 2024-12-08 11:14 | XMS_ITS | Encounter Summary ---
Author Organization [facility] Address [address] [place] [address] Phone Care Team Providers Care Mobile Equipment Servicer Name Role Phone Timmy Devries MD Unavailable [phone] Irwin Zee MD Unavailable Husam Marx DPAsim Unavailable Unavailable Edgar Ordaz Primary Care Provider Malini Aparicio HARBOR POLICE LAUNCH COMMANDER, C UNIX DEVELOPER Unavailable + [phone] Malini Aparicio APRN, C UNIX DEVELOPER Unavailable + [phone] Reason for Visit * Reason Comments Medication Refill Encounter Details Date Type Department Care Team (Late st Contact Info) Description 08/27/2023 Refill [facility] - Primary Care - [place] [address] [place] [address] Edgar Ordaz, PAC [address] [place] [address] Medication Refill Social History Tobacco Use Types Packs/Day Years Used Date Smoking Tobacco: Never Smokeless Tobacco: Never Alcohol Use Standard Drinks/Week Comments Not Currently 0 (1 standard drink = 0.6 oz pur e alcohol) [facility] Utilities Answer Date Recorded In the past [...] often do you attend chur ch or adventism services? More than 4 times per year 06/19/2023 Do you belong to any clubs o r organizations such as adventism groups, unions, fraternal or athletic groups, or [...] Total Score - Questions 1-9 13 09/15 [facility] - [...] place to sleep or slept in a custodial (including now)? No 06/19/2023 Education Answer Date [...] Dept 06/21/23 Office Visit Edgar Ordaz PAC [facility] 02/16/23 Office Visit Edgar Ordaz PAC [facility] 12/21/22 Office Visit Jeny Jarrett MD [facility] Showing recent visits within past 365 [...] Lab [facility] [id number] [place] [address] [facility] 12/29/2024 10:30 AM CDT Office Visit [facility] [place] [address] [place] [address] Edgar Ordaz PAC [address] [place] [address] 01/12/2025 10:00 AM CDT Office Visit [facility] - Neurology - [place] [address] [place] [address] Phillip Hall MD [address] [place] [address] 07/06/2025 10:00 AM CDT Office Visit [facility] - Cardiology - [place] [address] [place] [address] Erin Up APRN, C UNIX DEVELOPER [address] [place] [address] documented as of this encounter Visit Diagnoses Diagnosis Rheumatoid arthritis involving multiple sites, unspecified whether rheumatoid factor present (HCC) documented in this encounter Additional Health Concerns Assessment Noted Time PHQ-9 Depression Total Score: 13 020 11:00 AM CDT documented as of this encounter Care Teams Mobile Equipment Servicer Relationship Specialty Start Date End Date Edgar Ordaz, KYLE [address] [place] [address] PCP - General Physician Ticket Maker 06/21/23 Timmy Devries MD [address] [facility] [address] [place] [address] Obstetrics & Gynecology 08/31/16 Irwin Zee MD [address] [facility] [address] [place] [address] Consulting Physician Cardiovascular Disease - Cardiology 11/08/21 03/18/24 Husam Gomez DPM Podiatry 12/07/21 Malini Aparicio APRN, C UNIX DEVELOPER [address] [facility], [address] [place] [address] Nurse Practitioner Advanced Practice Nurse 10/19/23 Malini Aparicio APRN, C UNIX DEVELOPER [address] [facility], [address] [place] [address] Nurse Practitioner Cardiology 07/09/24 10/21/24 documented as of this encounter
[2024-12-08 19:22] LABS: Alanine Aminotransferase 20 U/L (6-35); Albumin Level 4.1 g/dL (3.5-5.1); Alkaline Phosphatase 64 U/L (38-126); Anion Gap 5 mmol/L (4-12); Aspartate Amino Transferase 45 U/L (14-36); Bilirubin,Total 0.8 mg/dL (0.2-1.3); Blood Urea Nitrogen 16 mg/dL (7-17); Calcium 9.2 mg/dL (8.4-10.2); Carbon Dioxide 29 mmol/L (22-30); Chloride 104 mmol/L (98-107); Estimated Glomerular Filt Rate > 60; Glucose 78 mg/dL (65-110); Potassium 4.9 mmol/L (3.4-5.0); Sodium 138 mmol/L (137-145); Total Protein 6.6 g/dL (6.3-8.2)
== END 2024-12-08 10:21 | disposition home or self-care (01) ==
PROVIDERS: Visit Provider Internal Medicine
DX: M05.541 Rheumatoid polyneuropathy with rheumatoid arthritis of right hand (principal); Z79.899 Other long term (current) drug therapy
CPT/HCPCS: 36415; 80053; 80069

== ENCOUNTER 2025-04-01 09:23 | Outpatient (CLI) | payer MEDICARE, SELFPAY ==
--- OUTSIDE RECORDS SUMMARY | 2025-04-01 10:28 | XMS_ITS | Encounter Summary ---
Author Organization [facility] Address [address] [place] [address] Phone Care Team Providers Care Bicycle Courier Name Role Phone Haydee Rust MD Primary Care Provider + [phone] Timmy Devries MD Unavailable [phone] Irwin Zee MD Unavailable UnaJeny Houser MD Primary Care Provider + [phone] Husam Gomez DPM Unavailable Unavailable Edgar Ordaz Primary Care Provider + [phone] Malini Aparicio MANUFACTURING COST ESTIMATOR, MOBILE DISC JOCKEY Unavailable + [phone] Malini Aparicio MANUFACTURING COST ESTIMATOR, MOBILE DISC JOCKEY Unavailable + [phone] Reason for Visit * Reason Comments Medication Refill Encounter Details Date Type Department Care Team (Late st Contact Info) Description 06/11/2020 Refill [facility] - Primary Care - [place] [address] [place] [address] Haydee Rust MD [address] [place] [address] Medication Refill Social History Tobacco [...] Samantha Love RN - 06/11/2020 1:41 PM BIOMEDICAL ANALYTICAL SCIENTIST Medication failed the protocol, provider to review [...] 1 month ago Hyperlipidemia, unspecified hyperlipidemia type [facility] Haydee Rust MD 7 months ago Physical exam, annual (Adult) [facility] Haydee Rust MD 8 months ago Allergic dermatitis due to poison [facility] MD 1 year ago Anxiety [facility] Haydee Rust MD 1 year ago RLQ abdominal pain [facility] Haydee Rust MD Upcoming Appointments Future Appointments In 4 months Ab, [facility] In 4 months Haydee Rust MD [facility] WASHROOM ATTENDANT - Recent and Past Visits Recent Visits Date Type Provider Dept 05/06/20 Telemedicine Haydee Rust MD [facility] 11/04/19 Office Visit Haydee Rust MD [facility] 10/06/19 Office Visit Haydee Rust MD [facility] Showing recent visits within past 460 [...] 1 month ago Hyperlipidemia, unspecified hyperlipidemia type [facility] Haydee Rust MD 7 months ago Physical exam, annual (Adult) [facility] Haydee uRst MD 8 months ago Allergic dermatitis due to poison kimi [facility] Haydee Rust MD 1 year ago Anxiety [facility] Haydee Rust MD 1 year ago RLQ abdominal pain [facility] Haydee Rust MD Upcoming Appointments Future Appointments In 4 months [facility], [facility] In 4 months Haydee Rust MD [facility] WASHROOM ATTENDANT - Recent and Past Visits Recent Visits Date Type Provider Dept 05/06/20 Telemedicine Haydee Rust MD [facility] 11/04/19 Office Visit Haydee Rust MD [facility] 10/06/19 Office Visit Haydee Rust MD [facility] Showing recent visits within past 460 [...] 04/29/2020 1.370 0.270 - 4.200 mIU/L Final EDICAL ANALYTICAL SCIENTIST documented in this encounter Plan of Treatment Upcoming Encounters Date Type Department Care Team (Late st Contact Info) Description 06/08/2025 10:15 AM BIOMEDICAL ANALYTICAL SCIENTIST Office Visit [facility] - Neurology - [place] [address] [place] [address] Phillip Hall MD [address]2 [facility] [place] [address] 07/06/2025 10:00 AM CDT Office Visit [facility] Cardiology - [place] [address] [facility] [address] Erin Up APRN, MOBILE DISC JOCKEY [address] [place] [address] 07/15/2025 8:20 AM CDT Lab [facility] Primary Care - [place] [address] [place] [address] 07/22/2025 9:30 AM CDT Office Visit [facility] Primary Care - [place] [address] [place] [address] Edgar Ordaz PAC [address] [place] [address] documented as of this encounter Visit Diagnoses Diagnosis Anxiety Anxiety state, unspecified Hypothyroidism, unspecified type documented in this encounter Additional Health Concerns Infection Onset Date Last Indicated Resolved Time Other 12/30/2019 12/30/2019 03/21/2021 4:55 PM BIOMEDICAL ANALYTICAL SCIENTIST Respiratory Rule Out - RPA 02/16/2023 02/16/2023 1 04/18/2022 2:08 PM CDT Assessment Noted Time PHQ-9 Depression Total Score: 13 020 11:00 AM CDT documented as of this encounter Care Teams Bicycle Courier Relationship Specialty Start Date End Date Haydee Rust MD PCP - General Family Medicine 01/27/15 05/07/22 Jeny Jarrett MD [address] [place] [address] PCP - General Family Medicine 05/08/22 06/20/23 Edgar Ordaz, PAC [address] [place] [address] PCP - General Physician Buffer Automatic 06/21/23 Timmy Devries MD [address] [facility] [address] [place] [address] Obstetrics & Gynecology 08/31/16 Irwin Zee MD [address] [facility] [address] [place] [address] Consulting Physician Cardiovascular Disease - Cardiology 11/08/21 03/18/24 Husam Gomez DPAsim Podiatry 12/07/21 Malini Aparicio APRN, MOBILE DISC JOCKEY [address]2 [facility], [address] [place] [address] Nurse Practitioner Advanced Practice Nurse 10/19/23 Malini Aparicio APRN, MOBILE DISC JOCKEY [address] [facility], [address] [place] [address] Nurse Practitioner Cardiology 07/09/24 10/21/24 documented as of this encounter
--- OUTSIDE RECORDS SUMMARY | 2025-04-01 10:28 | XMS_ITS | Encounter Summary ---
Author Organization [facility] Address [address] [place] [address] Phone Care Team Providers Care Supervisor Fabrication Department Name Role Phone Haydee Rust MD Primary Care Provider + [phone] Timmy Devries MD Unavailable [phone] Irwin Zee MD Unavailable UnaJeny Houser MD Primary Care Provider + [phone] Husam Gomez DPM Unavailable Unavailable Edgar Ordaz Primary Care Provider + [phone] Malini Aparicio MONUMENT CARVER, CLINICAL NURSING ASSISTANT Unavailable + [phone] Malini Aparicio MONUMENT CARVER, CLINICAL NURSING ASSISTANT Unavailable + [phone] Reason for Visit * Reason Comments Medication Refill Encounter Details Date Type Department Care Team (Late st Contact Info) Description 05/18/2020 Refill [facility] - Primary Care - [place] [address] [place] [address] Haydee Rust MD [address] [place] [address] Medication Refill Social History Tobacco [...] COVID-19? No / Unsure 05/06/2020 1:47 PM CORPORATE ACCOUNTING MANAGER documented as of this encounter Miscellaneous Notes * Telephone Encounter - Samantha Love RN - 05/19/2020 1:14 PM CORPORATE ACCOUNTING MANAGER Medication failed the protocol, provider to [...] 1 week ago Hyperlipidemia, unspecified hyperlipidemia type [facility] Haydee Rust MD 6 months ago Physical exam, annual (Adult) [facility] Haydee Rust MD 7 months ago Allergic dermatitis due to poison kimi [facility] Haydee Rust MD 1 year ago Anxiety [facility] Haydee Rust MD 1 year ago RLQ abdominal pain [facility] Upcoming Appointments Future Appointments In 5 months Ab [facility] In 5 months Haydee Rust MD [facility] INSPECTOR OF DREDGING - Recent and Past Visits Recent Visits Date Type Provider Dept 05/06/20 Telemedicine Haydee Rust MD [facility] [address] 11/04/19 Office Visit Haydee Rust MD [facility] [address] 10/06/19 Office Visit Haydee Rust MD [facility] Showing recent visits within past 460 days with a meds authorizing provider and meeting all other requirements Future Appointments No visits were found meeting these conditions. Showing future appointments within next 90 days with a meds authorizing provider and meeting all other requirements ORATE ACCOUNTING MANAGER documented in this encounter Plan of Treatment Upcoming Encounters Date Type Department Care Team (Late st Contact Info) Description 06/08/2025 10:15 AM CORPORATE ACCOUNTING MANAGER Office Visit [facility] - Neurology - [place] [address] [place] [address] Phillip Hall MD [address] [place] [address] 07/06/2025 10:00 AM CDT Office Visit [facility] - Cardiology [facility] [address] [place] [address] Erin Up APRN, CLINICAL NURSING ASSISTANT [address] [place] [address] 07/15/2025 8:20 AM CDT Lab [facility] - Primary Care - [place] [address] [place] [address] 07/22/2025 9:30 AM CDT Office Visit [facility] - Primary Care - [place] [address] [place] [address] Edgar Ordaz PAC [address] [place] [address] documented as of this encounter Visit Diagnoses Diagnosis Anxiety Anxiety state, unspecified documented in this encounter Additional Health Concerns Infection Onset Date Last Indicated Resolved Time Other 12/30/2019 12/30/2019 03/21/2021 4:55 PM CORPORATE ACCOUNTING MANAGER Respiratory Rule Out - RPA 02/16/2023 02/16/2023 1 04/18/2022 2:08 PM CDT Assessment Noted Time PHQ-9 Depression Total Score: 13 020 11:00 AM CDT documented as of this encounter Care Teams Supervisor Fabrication Department Relationship Specialty Start Date End Date Haydee Rust MD PCP - General Family Medicine 01/27/15 05/07/22 Jeny Jarrett MD [address] [place], [place] [id number] PCP - General Family Medicine 05/08/22 06/20/23 Edgar Ordaz, PAC [address] [place] [address] PCP - General Physician Urinalysis Technician 06/21/23 Timmy Devries MD [address] [facility] [address] [place] [address] Obstetrics & Gynecology 08/31/16 Irwin Zee MD [address] [facility] [address] [place] [address] Consulting Physician Cardiovascular Disease - Cardiology 11/08/21 03/18/24 Husam Gomez DPM Podiatry 12/07/21 Malini Aparicio, MONUMENT CARVER, CLINICAL NURSING ASSISTANT [address]2 [facility], [address] [place] [address] Nurse Practitioner Advanced Practice Nurse 10/19/23 Malini Aparicio, MONUMENT CARVER, CLINICAL NURSING ASSISTANT [address] [facility], [address] [place] [id number] Nurse Practitioner Cardiology 07/09/24 10/21/24 documented as of this encounter
--- OUTSIDE RECORDS SUMMARY | 2025-04-01 10:28 | XMS_ITS | Encounter Summary ---
Author Organization [facility] Address [address] [place] [address] Phone Care Team Providers Care Legal Advisor Name Role Phone Haydee Rust MD Primary Care Provider + [phone] Timmy Devries MD Unavailable [phone] Irwin Zee MD Unavailable UnaJeny Houser MD Primary Care Provider + [phone] Husam Gomez DPM Unavailable Unavailable Edgar Ordaz Primary Care Provider + [phone] Malini Aparicio NERVE SPECIALIST, ROLL CONTOUR GRINDER Unavailable + [phone] Malini Aparicio NERVE SPECIALIST, ROLL CONTOUR GRINDER Unavailable + [phone] Reason for Visit * Reason Comments Medication Refill Encounter Details Date Type Department Care Team (Late st Contact Info) Description 04/07/2020 Refill [facility] - Primary Care - [place] [address] [place] [address] Haydee Rust MD [address] [place] [address] Medication Refill Social History Tobacco [...] Notes * Telephone Encounter - Marlee Sanchez, [facility] - 04/07/2020 1:08 PM CST Medication failed [...] 5 months ago Physical exam, annual (Adult) [facility] Haydee Rust MD 6 months ago Allergic dermatitis due to poison kimi [facility] Haydee Wagner MD 1 year ago An[facility] 1 year ago RLQ abdominal pain [facility] Haydee Wagner MD 1 year ago Nausea and vomiting, intractability of vomiting not specified, unspecified vomiting type [facility] Haydee Rust MD Upcoming Appointments Future Appointments In 3 weeks [place] [facility] In 4 weeks Haydee Rust MD [facility] WEB PRESS JOGGER - Recent and Past Visits Recent Visits Date Type Provider Dept 11/04/19 Office Visit Haydee Rust MD [facility] 10/06/19 Office Visit Haydee Rust MD [facility] 01/24/19 Office Visit Haydee Rust MD [place] Showing recent visits within past 460 days with a meds authorizing provider and meeting all other requirements Future Appointments Date Type Provider Dept 05/06/20 Appointment Haydee Rust MD [place] [address] Showing future appointments within next 90 days with a meds authorizing provider and meeting all other requirements ON PUSHER documented in this encounter Plan of Treatment Upcoming Encounters Date Type Department Care Team (Late st Contact Info) Description 06/08/2025 10:15 AM BUTTON PUSHER Office Visit [facility] - Neurology - [place] [address] [place] [address] Phillip Hall MD [address] [place] [address] 07/06/2025 10:00 AM CDT Office Visit [facility] - Cardiology - [place] [address] [place] [address] Erin Up APRN, ROLL CONTOUR GRINDER [address]2 [facility] [place] [address] 07/15/2025 8:[address] [facility] Primary Care - [place] [address] [place] [address] 07/22/2025 9:30 AM CDT Office [facility] Primary [facility] [place] [address] [place] [address] Edgar Ordaz PAC [address] [place] [address] documented as of this encounter Visit Diagnoses Diagnosis Anxiety Anxiety state, unspecified documented in this encounter Additional Health Concerns Infection Onset Date Last Indicated Resolved Time Other 12/30/2019 12/30/2019 03/21/2021 4:55 PM BUTTON PUSHER Respiratory Rule Out - RPA 02/16/2023 02/16/2023 1 04/18/2022 2:08 PM CDT Assessment Noted Time PHQ-9 Depression Total Score: 13 020 11:00 AM CDT documented as of this encounter Care Teams Legal Advisor Relationship Specialty Start Date End Date Haydee Rust MD PCP - General Family Medicine 01/27/15 05/07/22 eJny Jarrett MD [address] [place], [place] [address] PCP - General Family Medicine 05/08/22 06/20/23 Edgar Ordaz, PAC [address] [place] [address] PCP - General Physician Group Leader Wafer Polishing 06/21/23 Timmy Devries MD [address] [facility] [address] [facility] [address] [place] [address] Obstetrics & Gynecology 08/31/16 Irwin Zee MD [address] [facility] [address] [place] [address] Consulting Physician Cardiovascular Disease - Cardiology 11/08/21 03/18/24 Husam Gomez DPM Podiatry 12/07/21 Malini Aparicio APRN, ROLL CONTOUR GRINDER [address] [facility], [address] [place] [address] Nurse Practitioner Advanced Practice Nurse 10/19/23 Malini Aparicio APRN, ROLL CONTOUR GRINDER [address]2 [facility], [address] [place] [address] Nurse Practitioner Cardiology 07/09/24 10/21/24 documented as of this encounter
--- OUTSIDE RECORDS SUMMARY | 2025-04-01 10:28 | XMS_ITS | Encounter Summary ---
Author Organization [facility] Address [address] [place] [address] Phone Care Team Providers Care Fabrication Inspector Name Role Phone Timmy Devries MD Unavailable [phone] Husam Gomez DPAsim Unavailable Unavailable Edgar Ordaz PAC Primary Care Provider [phone] Malini Aparicio WIND TUNNEL ENGINEER, FILTER PRESS TENDER Unavailable +[phone] Reason for Visit * Reason Onset Date Comments Medication Management 06/05/2024 Sore Throat 06/05/2024 Cough 06/05/2024 Influenza 06/05/2024 Encounter Details Date Type Department Care Team (Late st Contact Info) Description 06/05/2024 Nurse Triage [facility] [address] [place] [address] Edgar Ordaz, PAC [address] [place] [address] Medication Management; Sore Throat; Cough; Influenza Social History Tobacco Use Types Packs/Day Years Used Date Smoking Tobacco: Never Smokeless Tobacco: Never Alcohol Use Standard Drinks/Week Comments Not Currently 0 (1 standard drink = 0.6 oz pur e alcohol) [facility] Utilities Answer Date Recorded In the past 12 months has [facility], gas, oil, or water [employer] threatened to shut off services in your [...] any clubs o r organizations such as oriental orthodox groups, unions, fraternal or athletic groups, or [...] Total Score - Questions 1-9 0 12/15 [facility] Occupat ional [facility] - Occupational Stress Questionnaire Answer Date [...] any time in the past 12 m [facility], were you homeless or living in a alf (including now)? No 11/23/2023 Education Answer Date [...] was sent to pharmacy already. See previous Certaliahart message encounter. AMING MEDIA SPECIALIST * Telephone Encounter - Mechelle Cruz RN [...] and flu symptoms Protocols used: Influenza (Flu) [id number], Influenza (Flu) - [id number] AMING MEDIA SPECIALIST * Telephone Encounter - Vinicio Lazo - 06/05/2024 8:40 AM CST Symptoms: Sore Throat, Cough Outcome: Transfer to spine nurse queue Reason: Caller denied all higher acuity questions The caller accepted this outcome. Caller Denied: * Struggling for each breath (severe trouble breathing) * Can't swallow saliva (drooling) * Choked on something AMING MEDIA SPECIALIST documented in this encounter Plan of Treatment Upcoming Encounters Date Type Department Care Team (Late st Contact Info) Description 06/08/2025 10:15 AM STREAMING MEDIA SPECIALIST Office Visit [facility] - Neurology - [place] [address] [place] [address] Phillip Hall MD [address] [place] [address] 07/06/2025 10:00 AM CDT Office Visit [facility] - Cardiology - [place] [address]2 [facility] [place] [address] Erin Up APRN, FILTER PRESS TENDER #2 [facility] [place] [address] 07/15/2025 8:20 AM CDT Lab [facility] - Primary Care - [place] [address] [place] [address] 07/22/2025 9:30 AM CDT Office Visit [facility] - Primary Care - [place] [address] [place] [address] Edgar Ordaz PAC [address] [place] [address] documented as of this encounter Visit Diagnoses Not on filedocumented in this encounter Additional Health Concerns Assessment Noted Time PHQ-9 Depression Total Score: 0 12/28/19 24 8:57 AM CDT documented as of this encounter Care Teams Fabrication Inspector Relationship Specialty Start Date End Date Edgar Ordaz PAC [address] [place] [address] PCP - General Physician Data Processing Consultant 06/21/23 Timmy Devries MD [address] [facility] [address] [place] [address] Obstetrics & Gynecology 08/31/16 Husam Gomez DPM Podiatry 12/07/21 Malini Aparicio, WIND TUNNEL ENGINEER, FILTER PRESS TENDER [address]2 [facility], [address] [place] [address] Nurse Practitioner Cardiology 07/09/24 10/21/24 documented as of this encounter
--- OUTSIDE RECORDS SUMMARY | 2025-04-01 10:28 | XMS_ITS | Encounter Summary ---
Author Organization [facility] Address [address] [place] [address] Phone Care Team Providers Care Registered Dental Hygienist Name Role Phone Haydee Rust MD Primary Care Provider + [phone] Timmy Devries MD Unavailable [phone] Irwin Zee MD Unavailable UnaJeny Houser MD Primary Care Provider + [phone] Husam Gomez DPM Unavailable Unavailable Edgar Ordaz Primary Care Provider + [phone] Malini Aparicio CARBON SEQUESTRATION PLANT MANAGER, MOTOR LODGE CLERK Unavailable + [phone] Malini Aparicio CARBON SEQUESTRATION PLANT MANAGER, MOTOR LODGE CLERK Unavailable + [phone] Reason for Visit * Reason Comments Medication Refill Encounter Details Date Type Department Care Team (Late st Contact Info) Description 07/11/2020 Refill [facility] - Primary Care - [place] [address] [place] [address] Haydee Rust MD [address] [place] [address] Medication Refill Social History Tobacco [...] 2 months ago Hyperlipidemia, unspecified hyperlipidemia type [facility] Haydee Rust MD 8 months ago Physical exam, annual (Adult) [facility] Haydee Rust MD 9 months ago Allergic dermatitis due to poison kimi [facility] Haydee Rust MD 1 year ago Anxiety [facility] Haydee Rust MD 1 year ago RLQ abdominal pain [facility] Haydee Rust MD Upcoming Appointments Future Appointments In 3 months [facility], [facility] In 4 months Haydee Rust MD [facility] CAPACITOR PACK PRESS OPERATOR - Recent and Past Visits Recent Visits Date Type Provider Dept 05/06/20 Telemedicine Haydee Rust MD [facility] 11/04/19 Office Visit Haydee Rust MD [facility] 10/06/19 Office Visit Haydee Rust MD [facility] Showing recent visits within past 460 days [...] st Contact Info) Description 06/08/2025 10:15 AM CASING IN LINE FEEDER Office Visit [facility] - Neurology - [place] [address] [place] [address] Phillip Hall MD [address] [place] [address] 07/06/2025 10:00 AM CDT Office Visit [facility] - Cardiology - [place] [address] [place] [address] Erin Up APRN, MOTOR LODGE CLERK [address] [place] [address] 07/15/2025 8:20 AM CDT Lab [facility] [place] [address] [place] [address] 07/22/2025 9:30 AM CDT Office Visit [facility] [place] [address] [place] [address] Edgar Ordaz PAC [address] [place] [address] documented as of this encounter Visit Diagnoses Diagnosis Anxiety Anxiety state, unspecified documented in this encounter Additional Health Concerns Infection Onset Date Last Indicated Resolved Time Other 12/30/2019 12/30/2019 03/21/2021 4:55 PM CASING IN LINE FEEDER Respiratory Rule Out - RPA 02/16/2023 02/16/2023 1 04/18/2022 2:08 PM CDT Assessment Noted Time PHQ-9 Depression Total Score: 13 020 11:00 AM CDT documented as of this encounter Care Teams Registered Dental Hygienist Relationship Specialty Start Date End Date Haydee Rust MD PCP - General Family Medicine 01/27/15 05/07/22 Jeny Jarrett MD [address] [place] [address] PCP - General Family Medicine 05/08/22 06/20/23 Edgar Ordaz, PAC [address] [place] [address] PCP - General Physician Pegger Dobby Looms 06/21/23 Timmy Devries MD [address] [facility] [address] [place] [address] Obstetrics & Gynecology 08/31/16 Irwin Zee MD [address] [facility] [address] [place] [address] Consulting Physician Cardiovascular Disease - Cardiology 11/08/21 03/18/24 Husam Gomez DPM Podiatry 12/07/21 Malini Aparicio APRN, MOTOR LODGE CLERK [address], [address] [place] [address] Nurse Practitioner Advanced Practice Nurse 10/19/23 Malini Aparicio APRN, MOTOR LODGE CLERK [address], [address] [place] [address] Nurse Practitioner Cardiology 07/09/24 10/21/24 documented as of this encounter
--- OUTSIDE RECORDS SUMMARY | 2025-04-01 10:28 | XMS_ITS | Encounter Summary ---
Author Organization [facility] Address [address] [place] [address] Phone Care Team Providers Care 3Rd Mate Name Role Phone Timmy Devries MD Unavailable [phone] Husam Gomez DPAsim Unavailable Unavailable Edgar Ordaz PAC Primary Care Provider Malini Aparicio CARE PROFESSIONALS, SUPPORT CLERK Unavailable [phone] Reason for Visit * Reason Onset Date Comments Advice Only 09/09/2024 Shaking 09/09/2024 Tremors 09/09/2024 Encounter Details Date Type Department Care Team (Late st Contact Info) Description 09/09/2024 Nurse Triage [facility] [address] [place] [address] Edgar Ordaz, PAC [address] [place] [address] Advice Only; Shaking; Tremors Social History Tobacco Use Types Packs/Day Years Used Date Smoking Tobacco: Never Smokeless Tobacco: Never Alcohol Use Standard Drinks/Week Comments Not Currently 0 (1 standard drink = 0.6 oz pur e alcohol) [facility] Utilities Answer Date Recorded In the past 12 months has [employer] electric, gas, oil, or water company threatened [...] often do you attend chur ch or hindu services? More than 4 times [...] Total Score - Questions 1-9 0 06/[address] [facility] - Occupational Stress Questionnaire Answer Date Recorded [...] in a detention (including now)? No 06/19/2023 Housing Stability Vital Sign Answer [place] e Recorded In the last 12 months, was t here a time when you were not able to pay the mortgage or rent on time? No 06/25/2024 In the past 12 months, how m any times have you moved where you were living? 0 06/25/2024 At any time in the past 12 m [facility], were you homeless or living in a detention (including now)? No 06/25/2024 Education Answer Date [...] Dept Phone 09/15/2024 2:15 PM Edgar Ordaz [facility] - Primary Care - [place] [phone] Encounter routed to provider high priority to notify. Discussed utilizing [employer] to: discuss if they would prefer a [employer] Wide[employer] message or phone call response and E-check [...] Protocols used: Muscle Jerks - Tics - [id number] * Telephone Encounter - Haylee Gottlieb - [...] st Contact Info) Description 06/08/2025 10:15 AM TAG MAKER Office Visit [facility] - Neurology - [place] [address] [place] [address] Phillip Hall MD [address] [place] [address] 07/06/2025 10:00 AM CDT Office Visit [facility] - Cardiology - [place] [address] [place] [address] Erin Up APRN, SUPPORT CLERK [address] [place] [address] 07/15/2025 8:20 AM CDT Lab [facility] Primary Care - [place] [address] [place] [address] 07/22/2025 9:30 AM CDT Office Visit [facility] Primary Care - [place] [address] [place] [address] Edgar Ordaz PAC [address] [place] [address] documented as of this encounter Visit Diagnoses Not on filedocumented in this encounter Additional Health Concerns Assessment Noted Time PHQ-9 Depression Total Score: 0 06/27/19 25 8:29 AM CDT documented as of this encounter Care Teams 3Rd Mate Relationship Specialty Start Date End Date Edgar Ordaz PAC [address] [place] [address] PCP - General Physician Machinist Instructor 06/21/23 Timmy Devries MD [address] [facility] [address] [place] [address] Obstetrics & Gynecology 08/31/16 Husam Gomez DPM Podiatry 12/07/21 Malini Aparicio APRN, SUPPORT CLERK [address] [facility], [address] [place] [address] Nurse Practitioner Cardiology 07/09/24 10/21/24 documented as of this encounter
--- OUTSIDE RECORDS SUMMARY | 2025-04-01 10:28 | XMS_ITS | Encounter Summary ---
Author Organization [facility] Address [address] [place] [address] Phone Care Team Providers Care Plant Assigner Name Role Phone Haydee Rust MD Primary Care Provider + [phone] Timmy Devries MD Unavailable [phone] Irwin Zee MD Unavailable UnaJeny Houser MD Primary Care Provider + [phone] Husam Gomez DPM Unavailable Unavailable dEgar Ordaz Primary Care Provider + [phone] Malini Aparicio RAW STOCK MACHINE FEEDER, OVERNIGHT CASHIER Unavailable + [phone] Malini Aparicio RAW STOCK MACHINE FEEDER, OVERNIGHT CASHIER Unavailable + [phone] Reason for Visit * Reason Comments Medication Refill Encounter Details Date Type Department Care Team (Late st Contact Info) Description 09/20/2020 Refill [facility] - Primary Care - [place] [address] [place] [address] Haydee Rust MD [address] [place] [address] Medication Refill Social History Tobacco [...] 4 months ago Hyperlipidemia, unspecified hyperlipidemia type [facility] Haydee Rust MD 10 months ago Physical exam, annual (Adult) [facility] Haydee Rust MD 11 months ago Allergic dermatitis due to poison kimi [facility] Haydee Rust MD 1 year ago Anxiety [facility] Haydee Rust MD 1 year ago RLQ abdominal pain [facility] Haydee Rust MD Upcoming Appointments Future Appointments In 1 month Ab [facility] In 1 month Haydee Rust MD [facility] SERVICES COORDINATOR - Recent and Past Visits Recent Visits Date Type Provider Dept 05/06/20 Telemedicine Haydee Rust MD [facility] 11/04/19 Office Visit Haydee Rust MD [facility] 10/06/19 Office Visit Haydee Rust MD [facility] Showing recent visits within past 460 days with a meds authorizing provider and meeting all other requirements Future Appointments Date Type Provider Dept 11/11/20 Appointment Haydee Rust MD [facility] Showing future appointments within next 90 days with a meds authorizing provider and meeting all other requirements documented in this encounter Plan of Treatment Upcoming Encounters Date Type Department Care Team (Late st Contact Info) Description 06/08/2025 10:15 AM EMAIL CAMPAIGN SPECIALIST Office [facility] - Neurology - [place] [address] [place] [address] Phillip Hall MD [address] [place] [address] 07/06/2025 10:00 AM CDT Office Visit [facility] - Cardiology - [place] [address] [place] [address] Erin Up APRN, JESSE [address] [place] [address] 07/15/2025 8:20 AM CDT Lab [facility] Primary Care - [place] [address] [place] [address] 07/22/2025 9:30 AM CDT Office Visit [facility] Primary [facility] - [place] [address] [place] [address] Edgar Ordaz PAC [address] [place] [address] documented as of this encounter Visit Diagnoses Diagnosis Anxiety Anxiety state, unspecified documented in this encounter Additional Health Concerns Infection Onset Date Last Indicated Resolved Time Other 12/30/2019 12/30/2019 03/21/2021 4:55 PM EMAIL CAMPAIGN SPECIALIST Respiratory Rule Out - RPA 02/16/2023 02/16/2023 1 04/18/2022 2:08 PM CDT Assessment Noted Time PHQ-9 Depression Total Score: 13 020 11:00 AM CDT documented as of this encounter Care Teams Plant Assigner Relationship Specialty Start Date End Date Haydee Rust MD PCP - General Family Medicine 01/27/15 05/07/22 Jeny Jarrett MD [address] [place] [address] PCP - General Family Medicine 05/08/22 06/20/23 Edgar Ordaz, [facility] [address] [place] [address] PCP - General Physician Managed Care Coordinator 06/21/23 Timmy Devries MD [address] [facility] [address] [place] [address] Obstetrics & Gynecology 08/31/16 Irwin Zee MD [address] [facility] [address] [place] [address] Consulting Physician Cardiovascular Disease - Cardiology 11/08/21 03/18/24 Husam Gomez DPM Podiatry 12/07/21 Malini Aparicio APRN, OVERNIGHT CASHIER [address] [facility], [address] [place] [address] Nurse Practitioner Advanced Practice Nurse 10/19/23 Malini Aparicio APRN, OVERNIGHT CASHIER [address] [facility], [address] [place] [address] Nurse Practitioner Cardiology 07/09/24 10/21/24 documented as of this encounter
--- OUTSIDE RECORDS SUMMARY | 2025-04-01 10:28 | XMS_ITS | Encounter Summary ---
Author Organization [facility] Address [address] [place] [address] Phone Care Team Providers Care Farm Advisor Name Role Phone Haydee Rust MD Primary Care Provider + [phone] Timmy Devries MD Unavailable [phone] Irwin Zee MD Unavailable UnaJeny Houser MD Primary Care Provider + [phone] Husam Gomez DPM Unavailable Unavailable Edgar Ordaz Primary Care Provider + [phone] Malini Aparicio SEXUAL ABUSE COUNSELLOR, AWS ARCHITECT Unavailable + [phone] Malini Aparicio SEXUAL ABUSE COUNSELLOR, AWS ARCHITECT Unavailable + [phone] Reason for Visit * Reason Comments Medication Refill Encounter Details Date Type Department Care Team (Late st Contact Info) Description 10/21/2020 Refill [facility] - Primary Care - [place] [address] [place] [address] Haydee Rust MD [address] [place] [address] Medication Refill Social History [...] 5 months ago Hyperlipidemia, unspecified hyperlipidemia type [facility] Haydee Rust MD 11 months ago Physical exam, annual (Adult) [facility] Haydee Rust MD 1 year ago Allergic dermatitis due to poison kimi [facility] Haydee Rust MD 1 year ago Anxiety [facility] Haydee Rust MD 1 year ago RLQ abdominal pain [facility] Haydee Rust MD Upcoming Appointments Future Appointments In 2 weeks Ab [facility] In 3 weeks Haydee Rust MD [facility] GAS COMBUSTION ENGINEER - Recent and Past Visits Recent Visits Date Type Provider Dept 05/06/20 Telemedicine Haydee Rust MD [facility] 11/04/19 Office Visit Haydee Rust MD [facility] [address] 10/06/19 Office Visit Haydee Rust MD [facility] Showing recent visits within past 460 days with a meds authorizing provider and meeting all other requirements Future Appointments Date Type Provider Dept 11/11/20 Appointment Haydee Rust MD [facility] [address] Showing future appointments within next 90 days with a meds authorizing provider and meeting all other requirements documented in this encounter Plan of Treatment Upcoming Encounters Date Type Department Care Team (Late st Contact Info) Description 06/08/2025 10:15 AM COMPUTER NETWORK AND SYSTEMS ENGINEER Office Visit [facility] - Neurology - [place] [address] [place] [address] Phillip Hall MD [address] [place] [address] 07/06/2025 10:00 AM CDT Office Visit [facility] - Cardiology - [place] [address] [place] [address] Erin Up APRN, AWS ARCHITECT [address] [place] [address] 07/15/2025 8:20 AM CDT Lab [facility] Primary Care - [place] [address] [place] [address] 07/22/2025 9:30 AM CDT Office Visit [facility] Primary Care - [place] [address] [place] [address] Edgar Ordaz PAC [address] [place] [address] documented as of this encounter Visit Diagnoses Diagnosis Anxiety Anxiety state, unspecified documented in this encounter Additional Health Concerns Infection Onset Date Last Indicated Resolved Time Other 12/30/2019 12/30/2019 03/21/2021 4:55 PM COMPUTER NETWORK AND SYSTEMS ENGINEER Respiratory Rule Out - RPA 02/16/2023 02/16/2023 1 04/18/2022 2:08 PM CDT Assessment Noted Time PHQ-9 Depression Total Score: 13 020 11:00 AM CDT documented as of this encounter Care Teams Farm Advisor Relationship Specialty Start Date End Date Haydee Rust MD PCP - General Family Medicine 01/27/15 05/07/22 Jeny Jarrett MD [address] [place] [address] PCP - General Family Medicine 05/08/22 06/20/23 Edgar Ordaz, PAC [address] [place] [address] PCP - General Physician Access Clinician 06/21/23 Timmy Devries MD [address] [facility] [address] [place], [place] [address] Obstetrics & Gynecology 08/31/16 Irwin Zee MD [address] [facility] [address] [place] [address] Consulting Physician Cardiovascular Disease - Cardiology 11/08/21 03/18/24 Husam Gomez DPM Podiatry 12/07/21 Malini Aparicio APRN, AWS ARCHITECT [address] [facility], [address] [place] [address] Nurse Practitioner Advanced Practice Nurse 10/19/23 Malini Aparicio APRN, AWS ARCHITECT [address] [facility], [address] [place] [address] Nurse Practitioner Cardiology 07/09/24 10/21/24 documented as of this encounter
--- OUTSIDE RECORDS SUMMARY | 2025-04-01 10:28 | XMS_ITS | Encounter Summary ---
Author Organization [facility] Address [address] [place] [address] Phone Care Team Providers Care Timber Hand Name Role Phone Timmy Devries MD Unavailable [phone] Husam Gomez DPM Unavailable Unavailable Edgar Ordaz Primary Care Provider [phone] Reason for Referral * Consult, Test & Initiate Treatment (Routine) - Closed Specialty Diagnoses / Procedures Referred By Perfecto emmanuel Referred To Contact Diagnoses Tremor of both hands Edgar Ordaz PAC [address] [place] [address] Phone: tel: fax: [facility] [place] [address] Phone: tel: fax: Referral ID Status Reason Start Date Expiration Date Visits Re quested Visits Authorized [id number] Closed 11/10/2024 1 1 Reason for Visit * Reason Onset Date Comments Advice Only 11/10/2024 Referral 11/10/2024 Encounter Details Date Type Department Care Team (Late st Contact Info) Description 11/10/2024 Telephone [facility] Call Center [address] [place] [address] Edgar Ordaz, PAC [address] [place] [address] Advice Only; Referral Social History Tobacco Use Types Packs/Day Years Used Date Smoking Tobacco: Never Smokeless Tobacco: Never Alcohol Use Standard Drinks/Week Comments Not Currently 0 (1 standard drink = 0.6 oz pur e alcohol) [facility] Utilities Answer Date Recorded In the [...] week 06/25/2024 How often do you attend [facility] or latter day services? More than 4 times per year 06/25/2024 Do you belong to any clubs o r organizations such as congregational groups, unions, fraternal or athletic groups, or [...] Total Score - Questions 1-9 0 06/14 [facility] - Occupational [...] any time in the past 12 m [facility], were you homeless or living in a long term (including now)? No 06/25/2024 Education Answer Date [...] CDT Referral placed to Dr. Hall at [facility]. * Telephone Encounter - Seun Pham RN [...] routed to provider to notify. Discussed utilizing [employer] a division [employer] to: send messages to providers * Telephone [...] st Contact Info) Description 06/08/2025 10:15 AM 2ND PRESSMAN Office Visit [facility] - Neurology - [place] [address] [place] [address] Phillip Hall MD [address] [place] [address] 07/06/2025 10:00 AM CDT Office Visit [facility] - Cardiology - [place] [address] [place] [address] Erin Up APRN, PROCUREMENT REPRESENTATIVE [address] [place] [address] 07/15/2025 8:20 AM CDT Lab [facility] Primary [facility] [address] [place] [address] 07/22/2025 9:30 AM CDT Office Visit [facility] [place] [address] [place] [address] Edgar Ordaz PAC [address] [place] [address] Scheduled Referrals Name Type Priority Associated Diagnoses Orde r Schedule NEUROLOGY REFERRAL Outpatient Referral Routine Tremor of both hands Expected: 11/10/2024, Expires: 11/10/2025 documented as of this encounter Visit Diagnoses Diagnosis Tremor of both hands- Primary documented in this encounter Additional Health Concerns Assessment Noted Time PHQ-9 Depression Total Score: 0 06/27/19 25 8:29 AM CDT documented as of this encounter Care Teams Timber Hand Relationship Specialty Start Date End Date Edgar Ordaz PAC [address] [place] [address] PCP - General Physician Machine Featheredger And Reducer 06/21/23 Timmy Devries MD [address] [facility] [address] [place] [address] Obstetrics & Gynecology 08/31/16 Husam Gomez DPM Podiatry 12/07/21 documented as of this encounter
--- OUTSIDE RECORDS SUMMARY | 2025-04-01 10:28 | XMS_ITS | Encounter Summary ---
Author Organization [facility] Address [address] [place] [address] Phone Care Team Providers Care Appetizer Packer Name Role Phone Timmy Devries MD Unavailable +[phone] Irwin Zee MD Unavailable Jeny Galdamez MD Primary Care Provider + [phone] Husam Gomez DPM Unavailable Unavailable Edgar Ordaz Primary Care Provider + [phone] Malini Aparicio RATE CLERK, GANG RIPSAW OPERATOR Unavailable + [phone] Malini Aparicio RATE CLERK, GANG RIPSAW OPERATOR Unavailable + [phone] Reason for Visit * Reason Comments Medication Refill Encounter Details Date Type Department Care Team (Late st Contact Info) Description 09/26/2022 Refill [facility] - Primary Care - [place] [address] [place] [address] Haydee Rust MD [address] [place] [address] Medication Refill Social History Tobacco [...] encounter Miscellaneous Notes * Telephone Encounter - Edagr Ordaz PAC - 09/27/2022 9:25 AM CDT Rx request approved. * Telephone Encounter - Mayr More RN - 09/26/2022 11:02 AM CDT [...] Dept 05/08/22 Office Visit Jeny Jarrett MD [facility] 03/15/22 Office Visit Edgar Ordaz PAC [facility] 02/28/22 Office Visit Maria Victoria Horton APRN, GANG RIPSAW OPERATOR [facility] 11/01/21 Office Visit Haydee Rust MD [facility] Showing recent visits within past 365 days and meeting all other requirements Future Appointments Date Type Provider Dept 11/06/22 Appointment Jeny Jarrett MD [facility] Showing future appointments within next 90 days and meeting all other requirements documented in this encounter Plan of Treatment Upcoming Encounters Date Type Department Care Team (Late st Contact Info) Description 06/08/2025 10:15 AM DIRECTOR FUNERAL Office Visit [facility] - Neurology - [place] [address] [place] [address] Phillip Hall MD [address] [place] [address] 07/06/2025 10:00 AM CDT Office Visit [facility] - Cardiology [facility] [address] [place] [address] Erin Up APRN, GANG RIPSAW OPERATOR [address] [place] [address] 07/15/2025 8:20 AM CDT Lab [facility] - Primary Care - [place] [address] [place] [address] 07/22/2025 9:30 AM CDT Office Visit [facility] - Primary Care - [place] [address] [place] [address] Edgar Ordaz, KYLE [address] [place] [address] documented as of this encounter Visit Diagnoses Diagnosis Hyperlipidemia, unspecified hyperlipidemia type documented in this encounter Additional Health Concerns Infection Onset Date Last Indicated Resolved Time Respiratory Rule Out - RPA 02/16/2023 02/16/2023 1 04/18/2022 2:08 PM CDT Assessment Noted Time PHQ-9 Depression Total Score: 13 020 11:00 AM CDT documented as of this encounter Care Teams Appetizer Packer Relationship Specialty Start Date End Date Jeny Jarrett MD [address] [place] [address] PCP - General Family Medicine 05/08/22 06/20/23 Edgar Ordaz PAC [address] [place] [address] PCP - General Physician Bearing Maker 06/21/23 Timmy Devries MD [address] [facility] [address] [place] [address] Obstetrics & Gynecology 08/31/16 Irwin Zee MD [address] [facility] [address] [place] [address] Consulting Physician Cardiovascular Disease - Cardiology 11/08/21 03/18/24 Husam Gomez DPM Podiatry 12/07/21 Malini Aparicio APRN, GANG RIPSAW OPERATOR [address] [facility], [address] [place] [address] Nurse Practitioner Advanced Practice Nurse 10/19/23 Malini Aparicio APRN, GANG RIPSAW OPERATOR [address] [facility], [address] [place] [address] Nurse Practitioner Cardiology 07/09/24 10/21/24 documented as of this encounter
--- OUTSIDE RECORDS SUMMARY | 2025-04-01 10:28 | XMS_ITS | Encounter Summary ---
Author Organization [facility] Address [address] [place] [address] Phone Care Team Providers Care Jewelry Drilling Machine Operator Name Role Phone Timmy Devries MD Unavailable +[phone] Irwin Zee MD Unavailable Jeny Galdamez MD Primary Care Provider + [phone] Husam Gomez DPM Unavailable Unavailable Edgar Ordaz Primary Care Provider + [phone] Malini Aparicio APRN, COMMUNICATIONS ASSOCIATE Unavailable + [phone] Malini Aparicio MEMBERSHIP SALES REPRESENTATIVE, COMMUNICATIONS ASSOCIATE Unavailable + [phone] Reason for Visit * Reason Comments Medication Refill Encounter Details Date Type Department Care Team (Late st Contact Info) Description 02/13/[address] [facility] - [place] Care - [place] [address] [place] [address] Edgar Ordaz PAC [address] [place] [address] Medication Refill Social History Tobacco [...] AM CDT documented as of this encounter Functional Status documented as of this encounter Mental Status * Question Answer Entry Date Author BP 120/72 02/16/2023 1:14 PM CDT Nathaly Gamez RMA Temp 98.1 02/16/2023 1:14 PM CDT Nathaly Gamez RMA Pulse 50 02/16/2023 1:14 PM CDT Nathaly Gamez RMA SpO2 98 02/16/2023 1:14 PM CDT Nathaly Gamez RMA * Question Answer Entry Date Author Has the patient fallen twice in the past year without injury or once in the past year with injury? No 02/16/2023 1:15 PM CDT Jazzmine Gamez ra, RMA Does the patient report or d o you observe difficulty in gait or balance? No 02/16/2023 1:15 PM CDT Nathaly Gamez R MA documented in this encounter Miscellaneous Notes * Telephone Encounter - Marlee Sanchez RN - 02/13/2023 10:51 AM CDT Duplicate request. documented in this encounter Plan of Treatment Upcoming Encounters Date Type Department Care Team (Late st Contact Info) Description 06/08/2025 10:15 AM SENIOR SALES ENGINEER [facility] - Neurology [facility] [address] [place] [address] Phillip Hall MD [address] [place] [address] 07/06/2025 10:00 AM CDT Office Visit [facility] Cardiology [facility] [address] [place] [address] Erin Up APRN, COMMUNICATIONS ASSOCIATE [address] [place] [address] 07/15/2025 8:[address] [facility] Primary [facility] - [place] [address] [place] [address] 07/22/2025 9:30 AM CDT Office Visit [facility] - [place] [address] [place] [address] Edgar Ordaz PAC [address] [place] [address] documented as of this encounter Visit Diagnoses Diagnosis Anxiety Anxiety state, unspecified documented in this encounter Additional Health Concerns Infection Onset Date Last Indicated Resolved Time Respiratory Rule Out - RPA 02/16/2023 02/16/2023 1 04/18/2022 2:08 PM CDT Assessment Noted Time PHQ-9 Depression Total Score: 13 020 11:00 AM CDT documented as of this encounter Care Teams Jewelry Drilling Machine Operator Relationship Specialty Start Date End Date Jeny Jarrett MD [address] [place], [place] [id number] PCP - General Family Medicine 05/08/22 06/20/23 Edgar Ordaz PAC [address] [place] [address] PCP - General Physician Market Research Worker 06/21/23 Timmy Devries MD [address] [facility] [address] [place] [address] Obstetrics & Gynecology 08/31/16 Irwin Zee MD [address] [facility] [address] [place] [address] Consulting Physician Cardiovascular Disease - Cardiology 11/08/21 03/18/24 Husam Gomez DPM Podiatry 12/07/21 Malini Aparicio APRN, COMMUNICATIONS ASSOCIATE [address] [address], [address] [place] [address] Nurse Practitioner Advanced Practice Nurse 10/19/23 Malini Aparicio APRN, COMMUNICATIONS ASSOCIATE [address] [facility], [address] [place] [address] Nurse Practitioner Cardiology 07/09/24 10/21/24 documented as of this encounter
--- OUTSIDE RECORDS SUMMARY | 2025-04-01 10:29 | XMS_ITS | Encounter Summary ---
Author Organization [facility] Address [address] [place] [address] Phone Care Team Providers Care Cognos Tm1 Developer Name Role Phone Haydee Rust MD Primary Care Provider + [phone] Timmy Devries MD Unavailable [phone] Irwin Zee MD Unavailable UnaJeny Houser MD Primary Care Provider + [phone] Husam Gomez DPM Unavailable Unavailable Edgar Ordaz Primary Care Provider + [phone] Malini Aparicio SIGN CARPENTER, STOCK HANDLER Unavailable + [phone] Malini Aparicio SIGN CARPENTER, STOCK HANDLER Unavailable + [phone] Reason for Visit * Reason Comments Medication Refill Encounter Details Date Type Department Care Team (Late st Contact Info) Description 12/25/2020 Refill [facility] - Primary Care - [place] [address] [address] Haydee Rust MD [address] [place] [address] Medication Refill Social History Tobacco [...] Dept 11/11/20 Office Visit Haydee Rust MD [facility] 05/06/20 Telemedicine Haydee Rust MD [facility] Showing recent visits within past [...] st Contact Info) Description 06/08/2025 10:15 AM GAMING SURVEILLANCE OBSERVER Office Visit [facility] - Neurology - [place] [address] [place] [address] Phillip Hall MD [address] [place] [address] 07/06/2025 10:00 AM CDT Office Visit [facility] Cardiology - [place] [address] [place] [address] Erin Up APRN, STOCK HANDLER [address] [facility] [address] 07/15/2025 8:20 AM CDT Lab [facility] - [place] [address] [place] [address] 07/22/2025 9:30 AM CDT Office Visit [facility] - [place] [address] [address] Edgar Ordaz PAC [address] [place] [address] documented as of this encounter Visit Diagnoses Diagnosis Hypothyroidism, unspecified type documented in this encounter Additional Health Concerns Infection Onset Date Last Indicated Resolved Time Other 12/30/2019 12/30/2019 03/21/2021 4:55 PM GAMING SURVEILLANCE OBSERVER Respiratory Rule Out - RPA 02/16/2023 02/16/2023 1 04/18/2022 2:08 PM CDT Assessment Noted Time PHQ-9 Depression Total Score: 13 020 11:00 AM CDT documented as of this encounter Care Teams Cognos Tm1 Developer Relationship Specialty Start Date End Date Haydee Rust MD PCP - General Family Medicine 01/27/15 05/07/22 Jeny Jarrett MD [address] [place], [place] [id number] PCP - General Family Medicine 05/08/22 06/20/23 Edgar Ordaz PAC [address] [place] [address] PCP - General Physician Certified Diabetes Educator 06/21/23 Timmy Devries MD [address] [facility] [address] [place] [address] Obstetrics & Gynecology 08/31/16 Irwin Zee MD [address] [facility] [address] [place] [address] Consulting Physician Cardiovascular Disease - Cardiology 11/08/21 03/18/24 Husam Gomez DPM Podiatry 12/07/21 Malini Aparicio APRN, STOCK HANDLER [address], [address] [place] [address] Nurse Practitioner Advanced Practice Nurse 10/19/23 Malini Aparicio APRN, STOCK HANDLER [address], [address] [place] [address] Nurse Practitioner Cardiology 07/09/24 10/21/24 documented as of this encounter
--- OUTSIDE RECORDS SUMMARY | 2025-04-01 10:29 | XMS_ITS | Encounter Summary ---
Author Organization [facility] Address [address] [place] [address] Phone Care Team Providers Care Culinary Specialist Name Role Phone Haydee Rust MD Primary Care Provider + [phone] Timmy Devries MD Unavailable [phone] Irwin Zee MD Unavailable UnaJeny Houser MD Primary Care Provider + [phone] Husam Gomez DPM Unavailable Unavailable Edgar Ordaz Primary Care Provider + [phone] Malini Aparicio MAINTENANCE MECHANIC SUPERVISOR, SOFTWARE APPLICATION TESTER Unavailable + [phone] Malini Apariico MAINTENANCE MECHANIC SUPERVISOR, SOFTWARE APPLICATION TESTER Unavailable + [phone] Reason for Visit * Reason Comments Medication Refill Encounter Details Date Type Department Care Team (Late st Contact Info) Description 12/31/2020 Refill [facility] - Primary Care - [place] [address] [place] [address] Haydee Rust MD [address] [place] [address] Medication Refill Social History Tobacco [...] 1 month ago Physical exam, annual (Adult) [facility] Haydee Rust MD 7 months ago Hyperlipidemia, unspecified hyperlipidemia type [facility] Haydee Rust MD 1 year ago Physical exam, annual (Adult) [facility] Haydee Rust MD 1 year ago Allergic dermatitis due to poison kimi [facility] Haydee Rust MD 1 year ago Anxiety [facility] Haydee Rust MD Upcoming Appointments Future Appointments In 10 months [facility] In 10 months Haydee Rust MD [facility] CLERICAL INVESTIGATOR - Recent and Past Visits Recent Visits Date Type Provider Dept 11/11/20 Office Visit Haydee Rust MD [facility] 05/06/20 Telemedicine Haydee Rust MD [facility] [address] 11/04/19 Office Visit Haydee Rust MD [facility] [address] 10/06/19 Office Visit Haydee Rust MD [facility] Showing recent visits within past 460 [...] st Contact Info) Description 06/08/2025 10:15 AM SALES AND MARKETING PROFESSIONAL Office Visit [facility] - Neurology - [place] [address] [place] [address] Phillip Hall MD [address] [place] [address] 07/06/2025 10:00 AM CDT Office Visit [facility] - Cardiology - [place] [address] [place] [address] Erin Up APRN, SOFTWARE APPLICATION TESTER [address] [place] [address] 07/15/2025 8:20 AM CDT Lab [facility] Primary Care - [place] [address] [place] [address] 07/22/2025 9:30 AM CDT Office Visit [facility] Primary Care - [place] [address] [place] [address] Edgar Ordaz PAC [address] [place] [address] documented as of this encounter Visit Diagnoses Diagnosis Anxiety Anxiety state, unspecified documented in this encounter Additional Health Concerns Infection Onset Date Last Indicated Resolved Time Other 12/30/2019 12/30/2019 03/21/2021 4:55 PM SALES AND MARKETING PROFESSIONAL Respiratory Rule Out - RPA 02/16/2023 02/16/2023 1 04/18/2022 2:08 PM CDT Assessment Noted Time PHQ-9 Depression Total Score: 13 020 11:00 AM CDT documented as of this encounter Care Teams Culinary Specialist Relationship Specialty Start Date End Date Haydee Rust MD PCP - General Family Medicine 01/27/15 05/07/22 Jeny Jarrett MD [address] [place] [address] PCP - General Family Medicine 05/08/22 06/20/23 Edgar Ordaz, PAC [address] [place] [address] PCP - General Physician Customer Support Coordinator 06/21/23 Timmy Devries MD [address] [facility] [address] [place], [place] [id number] Obstetrics & Gynecology 08/31/16 Irwin Zee MD [address] [facility] [address] [place] [address] Consulting Physician Cardiovascular Disease - Cardiology 11/08/21 03/18/24 Husam Gomez DPM Podiatry 12/07/21 Malini Aparicio, MAINTENANCE MECHANIC SUPERVISOR, SOFTWARE APPLICATION TESTER [address] [facility], [address] [place] [address] Nurse Practitioner Advanced Practice Nurse 10/19/23 Malini Aparicio APRN, SOFTWARE APPLICATION TESTER [address] [facility], [address] [place] [address] Nurse Practitioner Cardiology 07/09/24 10/21/24 documented as of this encounter
--- OUTSIDE RECORDS SUMMARY | 2025-04-01 10:29 | XMS_ITS | Encounter Summary ---
Author Organization [facility] Address [address] [place] [address] Phone Care Team Providers Care Board Operator Name Role Phone Timmy Devries MD Unavailable [phone] Irwin Zee MD Unavailable Husam Marx DPM Unavailable Unavailable Edgar Ordaz Primary Care Provider +[phone] Malini Aparicio BELT REPAIRER, DIRECTOR OF HOSPITALITY Unavailable + [phone] Malini Aparicio APRN, DIRECTOR OF HOSPITALITY Unavailable + [phone] Reason for Visit * Reason Comments Medication Refill Encounter Details Date Type Department Care Team (Late st Contact Info) Description 06/24/2023 Refill [facility] - Primary Care - [place] [address] [place] [address] Edgar Ordaz PAC [address] [place] [address] Medication Refill Social History Tobacco Use Types Packs/Day Years Used Date Smoking Tobacco: Never Smokeless Tobacco: Never Alcohol Use Standard Drinks/Week Comments Not Currently 0 (1 standard drink = 0.6 oz pur e alcohol) [facility] Utilities Answer Date Recorded In the past 12 months has [employer], gas, oil, or water company threatened to [...] often do you attend chur ch or confucianist services? More than 4 times per year 06/19/2023 Do you belong to any clubs o r organizations such as judaism groups, unions, fraternal or athletic groups, or [...] Total Score - Questions 1-9 13 09/15 [facility] - [...] place to sleep or slept in a retirement (including now)? No 06/19/2023 Education Answer Date [...] Dept 06/21/23 Office Visit [facility] 02/16/23 Office Visit Edgar Ordaz PAC [facility] 12/21/22 Office Visit Jeny Jarrett MD [facility] Showing recent visits within past 365 days and meeting all other requirements Future Appointments No visits were found meeting these conditions. Showing future appointments within next 90 days and meeting all other requirements documented in this encounter Plan of Treatment Upcoming Encounters Date Type Department Care Team (Late st Contact Info) Description 06/08/2025 10:15 AM WET END SUPERVISOR Office Visit [facility] - Neurology - [place] [address] [place] [address] Phillip Hall MD [address]2 [place] [address] 07/06/2025 10:00 AM CDT Office Visit [facility] - Cardiology - [place] [address]2 [place] [address] Erin Up APRN, DIRECTOR OF HOSPITALITY #2 [place] [address] 07/15/2025 8:20 AM CDT Lab [facility] Primary Care - [place] [address] [place] [address] 07/22/2025 9:30 AM CDT Office Visit [facility] Primary Care - [place] [address] [place] [address] Edgar Ordaz PAC [address] [place] [address] documented as of this encounter Visit Diagnoses Diagnosis Rheumatoid arthritis involving multiple sites, unspecified whether rheumatoid factor present documented in this encounter Additional Health Concerns Assessment Noted Time PHQ-9 Depression Total Score: 13 020 11:00 AM CDT documented as of this encounter Care Teams Board Operator Relationship Specialty Start Date End Date Edgar Ordaz, PAC [address] [place] [address] PCP - General Physician Evp Chief Exploration Officer 06/21/23 Timmy Devries MD [address] [facility] [address] [place] [address] Obstetrics & Gynecology 08/31/16 Irwin Zee MD [address] [facility] [address] [place] [address] Consulting Physician Cardiovascular Disease - Cardiology 11/08/21 03/18/24 Husam Gomez DPAsim Podiatry 12/07/21 Malini Aparicio APRN, DIRECTOR OF HOSPITALITY [address] [facility], [address] [place] [address] Nurse Practitioner Advanced Practice Nurse 10/19/23 Malini Aparicio APRN, DIRECTOR OF HOSPITALITY [address] [facility], [address] [place] [address] Nurse Practitioner Cardiology 07/09/24 10/21/24 documented as of this encounter
--- OUTSIDE RECORDS SUMMARY | 2025-04-01 10:31 | XMS_ITS | Encounter Summary ---
Author Organization [facility] Address [address] [place] [address] Phone Care Team Providers Care Platform Worker Name Role Phone Timmy Devries MD Unavailable [phone] Irwin Zee MD Unavailable Husam Marx DPM Unavailable Unavailable Edgar Ordaz Primary Care Provider [phone] Malini Aparicio MOTHER HELPER, GENERAL REPAIR MECHANIC Unavailable + [phone] Malini Aparicio APRN, GENERAL REPAIR MECHANIC Unavailable + [phone] Reason for Visit * Reason Comments Medication Refill Encounter Details Date Type Department Care Team (Late st Contact Info) Description 06/21/2023 Refill [facility] - Primary Care - [place] [address] [place] [address] Edgar Ordaz, PAC [address] [place] [address] Medication Refill Social History Tobacco Use Types Packs/Day Years Used Date Smoking Tobacco: Never Smokeless Tobacco: Never Alcohol Use Standard Drinks/Week Comments Not Currently 0 (1 standard drink = 0.6 oz pur e alcohol) [facility] Utilities Answer Date Recorded In the past 12 months has [employer], gas, oil, or water company threatened to [...] often do you attend chur ch or advent services? More than 4 times per year [...] Total Score - Questions 1-9 13 09/15 [facility] of Occupat ional Health - Occupational Stress [...] place to sleep or slept in a prison (including now)? No 06/19/2023 Education Answer Date [...] on file documented as of this encounter Functional Status documented as of this encounter Mental Status * Question Answer Entry Date Author BP 112/60 06/21/2023 8:19 AM ROLLER VARNISHER Chen Rahman RMA Temp 97.3 06/21/2023 8:19 AM ROLLER VARNISHER Chen Rahman RMA Pulse 57 06/21/2023 8:19 AM ROLLER VARNISHER Chen Rahman RMA SpO2 99 06/21/2023 8:19 AM ROLLER VARNISHER Chen Rahman RMA documented in this encounter Miscellaneous Notes * Telephone Encounter - Edgar Ordaz PAC - 06/21/2023 10:48 AM ROLLER VARNISHER Refilled in office visit encounter. ER VARNISHER * Telephone Encounter - Agueda Carlos RN - 06/21/2023 8:02 AM ROLLER VARNISHER Medication failed the protocol, provider to review [...] Dept 02/16/23 Office Visit Edgar Ordaz PAC [facility] 12/21/22 Office Visit Jeny Jarrett MD [facility] Showing recent visits within past 365 days and meeting all other requirements Today's Visits Date Type Provider Dept 06/21/23 Appointment Edgar Ordaz, KYLE [facility] Showing today's visits and meeting all other requirements Future Appointments No visits were found meeting these conditions. Showing future appointments within next 90 days and meeting all other requirements ER VARNISHER documented in this encounter Plan of Treatment Upcoming Encounters Date Type Department Care Team (Late st Contact Info) Description 06/08/2025 10:15 AM ROLLER VARNISHER Office Visit [facility] - Neurology - [place] [address] [place] [address] Phillip Hall MD [address] [place] [address] 07/06/2025 10:00 AM CDT Office Visit [facility] - Cardiology - [place] [address] [place] [address] Erin Up APRN, JESSE [address] [place] [address] 07/15/2025 8:20 AM CDT Lab [facility] - Primary Care - [place] [address] [place] [address] 07/22/2025 9:30 AM CDT Office Visit [facility] - Primary Care - [place] [address] [place] [address] Edgar Ordaz PAC [address] [place] [address] documented as of this encounter Visit Diagnoses Diagnosis Anxiety Anxiety state, unspecified documented in this encounter Additional Health Concerns Assessment Noted Time PHQ-9 Depression Total Score: 13 020 11:00 AM CDT documented as of this encounter Care Teams Platform Worker Relationship Specialty Start Date End Date Edgar Ordaz PAC [address] [place] [address] PCP - General Physician Car Ferry Captain 06/21/23 Timmy Devries MD [address] [facility] [address] [place] [address] Obstetrics & Gynecology 08/31/16 Irwin Zee MD [address] [facility] [address] [place] [address] Consulting Physician Cardiovascular Disease - Cardiology 11/08/21 03/18/24 Husam Gomez DPM Podiatry 12/07/21 Malini Aparicio APRN, GENERAL REPAIR MECHANIC [address] [facility], [address] [place] [address] Nurse Practitioner Advanced Practice Nurse 10/19/23 Malini Aparicio APRN, GENERAL REPAIR MECHANIC #2 [facility], [address] [place] [address] Nurse Practitioner Cardiology 07/09/24 10/21/24 documented as of this encounter
--- OUTSIDE RECORDS SUMMARY | 2025-04-01 10:32 | XMS_ITS | Encounter Summary ---
Author Organization [facility] Address [address] [place] [address] Phone Care Team Providers Care 7Th Grade Teacher Name Role Phone Haydee Rust MD Primary Care Provider + [phone] Timmy Devries MD Unavailable [phone] Irwin Zee MD Unavailable UnaJeny Houser MD Primary Care Provider + [phone] Husam Gomez DPM Unavailable Unavailable Edgar Ordaz Primary Care Provider + [phone] Malini Aparicio SUPERVISOR FINISHING, SENIOR LINUX SYSTEMS ADMINISTRATOR Unavailable + [phone] Malini Aparicio SUPERVISOR FINISHING, SENIOR LINUX SYSTEMS ADMINISTRATOR Unavailable + [phone] Reason for Visit * Reason Comments Medication Refill Encounter Details Date Type Department Care Team (Late st Contact Info) Description 04/18/2021 Refill [facility] - Primary Care - [place] [address] [place] [address] Haydee Rust MD [address] [place] [address] Medication Refill Social History Tobacco [...] COVID-19? No / Unsure 04/18/2021 2:28 PM SENIOR MANAGEMENT CONSULTANT documented as of this encounter Miscellaneous Notes * Telephone Encounter - Agueda Carlos RN - 04/18/2021 2:59 PM SENIOR MANAGEMENT CONSULTANT Medication failed the protocol, provider to review [...] Office Visit Maria Victoria Horton APRN, CNP [facility] [place] [place] [facility] 03/30/21 Office Visit Maria Victoria Horton APRN, CNP [facility] [place] [place] [facility] 11/11/20 Office Visit Haydee Rust MD [facility] [place] [facility] 05/06/20 Telemedicine Haydee Rust MD [facility] Showing recent visits within past 365 days and meeting all other requirements Future Appointments Date Type Provider Dept 04/19/21 Appointment Lab, [place] [facility] [place] [place] [facility] Showing future appointments within next 90 days and meeting all other requirements OR MANAGEMENT CONSULTANT documented in this encounter Plan of Treatment Upcoming Encounters Date Type Department Care Team (Late st Contact Info) Description 06/08/2025 10:15 AM SENIOR MANAGEMENT CONSULTANT Office Visit [facility] - Neurology - [place] [address] [place] [address] Phillip Hall MD [address] [place] [address] 07/06/2025 10:00 AM CDT Office Visit [facility] - Cardiology - [place] #2 [place] [address] Erin Up APRN, SENIOR LINUX SYSTEMS ADMINISTRATOR #2 [place] [address] 07/15/2025 8:20 AM CDT Lab [facility] Primary Care - [place] [address] [place] [address] 07/22/2025 9:30 AM CDT Office Visit [facility] - [place] [address] [place] [address] Edgar Ordaz PAC [address] [place] [address] documented as of this encounter Visit Diagnoses Diagnosis Anxiety Anxiety state, unspecified documented in this encounter Additional Health Concerns Infection Onset Date Last Indicated Resolved Time Respiratory Rule Out - RPA 02/16/2023 02/16/2023 1 04/18/2022 2:08 PM CDT Assessment Noted Time PHQ-9 Depression Total Score: 13 020 11:00 AM CDT documented as of this encounter Care Teams 7Th Grade Teacher Relationship Specialty Start Date End Date Haydee Rust MD PCP - General Family Medicine 01/27/15 05/07/22 Jeny Jarrett MD [address] [place] [address] PCP - General Family Medicine 05/08/22 06/20/23 Edgar Ordaz, PAC [address] [address] PCP - General Physician Quill Reamer 06/21/23 Timmy Devries MD [address] [facility] [address] [place] [address] Obstetrics & Gynecology 08/31/16 Irwin Zee MD [address] [facility] [address] [place] [address] Consulting Physician Cardiovascular Disease - Cardiology 11/08/21 03/18/24 Husam Gomez DPM Podiatry 12/07/21 Malini Aparicio APRN, SENIOR LINUX SYSTEMS ADMINISTRATOR #2 [facility], [address] [place] [address] Nurse Practitioner Advanced Practice Nurse 10/19/23 Malini Aparicio APRN, SENIOR LINUX SYSTEMS ADMINISTRATOR [address] [facility], [address] [place] [address] Nurse Practitioner Cardiology 07/09/24 10/21/24 documented as of this encounter
--- OUTSIDE RECORDS SUMMARY | 2025-04-01 10:34 | XMS_ITS | Encounter Summary ---
Author Organization [facility] Address [address] [place] [address] Phone Care Team Providers Care Hot Braider Name Role Phone Timmy Devries MD Unavailable [phone] Irwin Zee MD Unavailable Husam Marx DPM Unavailable Unavailable Edgar Ordaz Primary Care Provider [phone] Malnii Aparicio PACKERHEAD MACHINE OPERATOR, FINAL TOUCH UP PAINTER Unavailable + [phone] Malini Aparicio APRN, FINAL TOUCH UP PAINTER Unavailable + [phone] Reason for Visit * Reason Comments Medication Refill Encounter Details Date Type Department Care Team (Late st Contact Info) Description 07/25/[address] [facility] - Primary Care - [place] [address] [place] [address] Edgar Ordaz PAC [address] [place] [address] Medication Refill Social History Tobacco Use Types Packs/Day Years Used Date Smoking Tobacco: Never Smokeless Tobacco: Never Alcohol Use Standard Drinks/Week Comments Not Currently 0 (1 standard drink = 0.6 oz pur e alcohol) [facility] Utilities Answer Date Recorded In the past 12 months has [employer], gas, oil, or water company threatened to [...] often do you attend chur ch or yazdanism services? More than 4 times per year [...] - Questions 1-9 13 09/15 [facility] of Occupat ional Health - Occupational [...] place to sleep or slept in a mcc (including now)? No 06/19/2023 Education Answer Date [...] Dept 06/21/23 Office Visit Edgar Ordaz PAC [facility] 02/16/23 Office Visit Edgar Ordaz PAC [facility] 12/21/22 Office Visit Jeny Jarrett MD [facility] Showing recent visits within past 365 days and meeting all other requirements Future Appointments No visits were found meeting these conditions. Showing future appointments within next 90 days and meeting all other requirements documented in this encounter Plan of Treatment Upcoming Encounters Date Type Department Care Team (Late st Contact Info) Description 06/08/2025 10:15 AM FIRE PATROL Office Visit [facility] - Neurology - [place] [address] [place] [address] Phillip Hall MD [address]2 [place] [address] 07/06/2025 10:00 AM CDT Office Visit [facility] - Cardiology - [place] #2 [facility] [place] [address] Erin Up APRN, FINAL TOUCH UP PAINTER #2 [place] [address] 07/15/2025 8:20 AM CDT Lab [facility] Primary Care - [place] [address] [place] [address] 07/22/2025 9:30 AM CDT Office Visit [facility] Primary Care - [place] [address] [place] [address] Edgar Ordaz PAC [address] [place] [address] documented as of this encounter Visit Diagnoses Diagnosis Rheumatoid arthritis involving multiple sites, unspecified whether rheumatoid factor present documented in this encounter Additional Health Concerns Assessment Noted Time PHQ-9 Depression Total Score: 13 020 11:00 AM CDT documented as of this encounter Care Teams Hot Braider Relationship Specialty Start Date End Date Edgar Ordaz, PAC [address] [place] [address] PCP - General Physician Technology Adoption Manager 06/21/23 Timmy Devries MD [address] [facility] [address] [place] [address] Obstetrics & Gynecology 08/31/16 Irwin Zee MD [address] [facility] [address] [place] [address] Consulting Physician Cardiovascular Disease - Cardiology 11/08/21 03/18/24 Husam Gomez DPAsim Podiatry 12/07/21 Malini Aparicio APRN, FINAL TOUCH UP PAINTER #2 [facility], [address] [place] [address] Nurse Practitioner Advanced Practice Nurse 10/19/23 Malini Aparicio APRN, FINAL TOUCH UP PAINTER #2 [facility], [address] [place] [address] Nurse Practitioner Cardiology 07/09/24 10/21/24 documented as of this encounter
--- OUTSIDE RECORDS SUMMARY | 2025-04-01 10:34 | XMS_ITS | Encounter Summary ---
Author Organization [facility] Address [address] [place] [address] Phone Care Team Providers Care Foster Winder Name Role Phone Haydee Rust MD Primary Care Provider + [phone] Timmy Devries MD Unavailable [phone] Irwin Zee MD Unavailable UnaJeny Houser MD Primary Care Provider + [phone] Husam Gomez DPM Unavailable Unavailable Edgar Ordaz Primary Care Provider + [phone] Malini Aparicio BEATER MACHINE OPERATOR, AUTOMATION QA ANALYST Unavailable + [phone] Malini Aparicio BEATER MACHINE OPERATOR, AUTOMATION QA ANALYST Unavailable + [phone] Reason for Visit * Reason Comments Medication Refill Encounter Details Date Type Department Care Team (Late st Contact Info) Description 05/24/2021 Refill [facility] - Primary Care - [place] [address] [place] [address] Haydee Rust MD [address] [place] [address] Medication Refill Social History Tobacco [...] COVID-19? No / Unsure 05/26/2021 7:14 AM FURNITURE INSPECTOR documented as of this encounter Miscellaneous Notes * Telephone Encounter - Samantha Love RN - 05/24/2021 9:23 AM FURNITURE INSPECTOR Medication failed the protocol, provider to review [...] Office Visit Maria Victoria Horton APRN, JESSE [facility] 03/30/21 Office Visit [facility]N, CNP [facility] 11/11/20 Office Visit Haydee Rust MD [facility] Showing recent visits within past 365 days and meeting all other requirements Future Appointments No visits were found meeting these conditions. Showing future appointments within next 90 days and meeting all other requirements ITURE INSPECTOR documented in this encounter Plan of Treatment Upcoming Encounters Date Type Department Care Team (Late st Contact Info) Description 06/08/2025 10:15 AM FURNITURE INSPECTOR Office Visit [facility] - Neurology [facility] #[address] [place] [address] Phillip Hall MD [address] [place] [address] 07/06/2025 10:00 AM CDT Office Visit [facility] Cardiology - [place] #2 [facility] [address] Erin Up APRN, AUTOMATION QA ANALYST #[address] [facility] [place] [address] 07/15/2025 8:20 AM CDT Lab [facility] Primary [facility] - [place] [address] [place] [address] 07/22/2025 9:30 AM CDT Office Visit [facility] - [place] [address] [place] [address] Edgar Ordaz PAC [address] [place] [address] documented as of this encounter Visit Diagnoses Diagnosis Anxiety Anxiety state, unspecified documented in this encounter Additional Health Concerns Infection Onset Date Last Indicated Resolved Time Respiratory Rule Out - RPA 02/16/2023 02/16/2023 1 04/18/2022 2:08 PM CDT Assessment Noted Time PHQ-9 Depression Total Score: 13 020 11:00 AM CDT documented as of this encounter Care Teams Foster Winder Relationship Specialty Start Date End Date Haydee Rust MD PCP - General Family Medicine 01/27/15 05/07/22 Jney Jarrett MD [address] [place] [address] PCP - General Family Medicine 05/08/22 06/20/23 Edgar Ordaz, PAC [address] [place] [address] PCP - General Physician Vocational Evaluator 06/21/23 Timmy Devries MD [address] [facility] [address] [place] [address] Obstetrics & Gynecology 08/31/16 Irwin Zee MD [address] [facility] [address] [place] [address] Consulting Physician Cardiovascular Disease - Cardiology 11/08/21 03/18/24 Husam Gomez DPAsim Podiatry 12/07/21 Malini Aparicio APRN, AUTOMATION QA ANALYST [address] [facility], [address] [place] [address] Nurse Practitioner Advanced Practice Nurse 10/19/23 Malini Aparicio APRN, AUTOMATION QA ANALYST [address] [facility], [address] [place] [address] Nurse Practitioner Cardiology 07/09/24 10/21/24 documented as of this encounter
--- OUTSIDE RECORDS SUMMARY | 2025-04-01 10:36 | XMS_ITS | Encounter Summary ---
Author Organization [facility] Address [address] [place] [address] Phone Care Team Providers Care Maintenance Mechanic Name Role Phone Timmy Devries MD Unavailable [phone] Irwin Zee MD Unavailable Husam Marx DPM Unavailable Unavailable Edgar Ordaz PAC Primary Care Provider [phone] Malini Aparicio ORGAN ASSEMBLER, CAR REPAIRER PULLMAN Unavailable + [phone] Malini Aparicio APRN, CAR REPAIRER PULLMAN Unavailable + [phone] Reason for Visit * Reason Comments Medication Refill Encounter Details Date Type Department Care Team (Late st Contact Info) Description 08/13/2023 Refill [facility] - Primary Care - [place] [address] [place] [address] Jeny Jarrett MD [address] [place] [address] Medication Refill Social History Tobacco Use Types Packs/Day Years Used Date Smoking Tobacco: Never Smokeless Tobacco: Never Alcohol Use Standard Drinks/Week Comments Not Currently 0 (1 standard drink = 0.6 oz pur e alcohol) [facility] Utilities Answer Date Recorded In the past 12 months has [employer], oil, or [employer] threatened to shut off services in your home? No 06/19/2023 Social Connection and Isolation Panel Answer Date Recorded In a typical week, how many times do you talk on the phone with family, friends, or neighbors? Once a week 06/19/2023 How often do you get togethe r with friends or relatives? Once a week 06/19/2023 How often do you attend chur ch or shinto services? More than 4 times per year 06/19/2023 Do you belong to any clubs o r organizations such as buddhism groups, unions, fraternal or athletic groups, or [...] Total Score - Questions 1-9 13 09/15 [facility] of Occupat ional Health - Occupational [...] st Contact Info) Description 06/08/2025 10:15 AM DRIVER MESSENGER Office Visit [facility] - Neurology - [place] [address] [place] [address] Phillip Hall MD #2 [place] [address] 07/06/2025 10:00 AM CDT [facility] - Cardiology - [place] [address] [place] [address] Erin Up APRN, CAR REPAIRER PULLMAN #[address] [place] [address] 07/15/2025 8:20 AM CDT Lab [facility] - Primary Care - [place] [address] [place] [address] 07/22/2025 9:30 AM CDT Office Visit [facility] - Primary Care - [place] [address] [place] [address] Edgar Ordaz PAC [address] [place] [address] documented as of this encounter Visit Diagnoses Not on filedocumented in this encounter Additional Health Concerns Assessment Noted Time PHQ-9 Depression Total Score: 13 020 11:00 AM CDT documented as of this encounter Care Teams Maintenance Mechanic Relationship Specialty Start Date End Date Edgar Ordaz PAC [address] [place] [address] PCP - General Physician Shackler 06/21/23 Timmy Devries MD [address] [facility] [address] [place] [address] Obstetrics & Gynecology 08/31/16 Irwin Zee MD [address] [facility] [address] [place] [address] Consulting Physician Cardiovascular Disease - Cardiology 11/08/21 03/18/24 Husam Gomez DPM Podiatry 12/07/21 Malini Aparicio APRN, CAR REPAIRER PULLMAN #2 [facility], [address] [place] [address] Nurse Practitioner Advanced Practice Nurse 10/19/23 Malini Aparicio APRN, CAR REPAIRER PULLMAN #2 [facility], [address] [place] [address] Nurse Practitioner Cardiology 07/09/24 10/21/24 documented as of this encounter
--- OUTSIDE RECORDS SUMMARY | 2025-04-01 10:37 | XMS_ITS | Encounter Summary ---
Author Organization [facility] Address [address] [place] [address] Phone Care Team Providers Care Department Sales Manager Name Role Phone Timmy Devries MD Unavailable [phone] Irwin Zee MD Unavailable Husam Marx DPM Unavailable Unavailable Edgar Ordaz PAC Primary Care Provider [phone] Malini Aparicio SUPERVISOR RESEARCH KENNEL, HEALTH WORKER Unavailable + [phone] Malini Aparicio APRN, HEALTH WORKER Unavailable + [phone] Reason for Visit * Reason Comments Medication Refill Encounter Details Date Type Department Care Team (Late st Contact Info) Description 08/17/2023 Refill [facility] - Primary Care - [place] [address] [place] [address] Jeny Jarrett MD [address] [place] [address] Medication Refill Social History Tobacco Use Types Packs/Day Years Used Date Smoking Tobacco: Never Smokeless Tobacco: Never Alcohol Use Standard Drinks/Week Comments Not Currently 0 (1 standard drink = 0.6 oz pur e alcohol) [facility] Utilities Answer Date Recorded In the past 12 months has [employer], oil, or [employer] threatened to shut off services in your home? No 06/19/2023 Social Connection and Isolation Panel Answer Date Recorded In a typical week, how many times do you talk on the phone with family, friends, or neighbors? Once a week 06/19/2023 How often do you get togethe r with friends or relatives? Once a week 06/19/2023 How often do you attend chur ch or yazidi services? More than 4 times per year [...] Total Score - Questions 1-9 13 09/15 [facility] Occupat ional Health - Occupational [...] st Contact Info) Description 06/08/2025 10:15 AM FOUNDER AND CHIEF TECHNICAL OFFICER Office Visit [facility] - Neurology - [place] [address] [place] [address] Phillip Hall MD [address] [place] [address] 07/06/2025 10:00 AM CDT Office Visit [facility] - Cardiology - [place] [address] [place] [address] Erin Up APRN, HEALTH WORKER [address] [place] [address] 07/15/2025 8:20 AM CDT Lab [facility] - Primary Care - [place] [address] [place] [address] 07/22/2025 9:30 AM CDT Office Visit [facility] - Primary Care - [place] [address] [place] [address] Edgar Ordaz PAC [address] [place] [address] documented as of this encounter Visit Diagnoses Diagnosis Primary hypertension Unspecified essential hypertension documented in this encounter Additional Health Concerns Assessment Noted Time PHQ-9 Depression Total Score: 13 020 11:00 AM CDT documented as of this encounter Care Teams Department Sales Manager Relationship Specialty Start Date End Date Edgar Ordaz PAC [address] [place] [address] PCP - General Physician Latex Caster 06/21/23 Timmy Devries MD [address] [facility] [address] [place] [address] Obstetrics & Gynecology 08/31/16 Irwin Zee MD [address] [facility] [address] [place] [address] Consulting Physician Cardiovascular Disease - Cardiology 11/08/21 03/18/24 Husam Gomez DPM Podiatry 12/07/21 Malini Aparicio APRN, HEALTH WORKER #2 [facility], [address] [place] [address] Nurse Practitioner Advanced Practice Nurse 10/19/23 Malini Aparicio APRN, HEALTH WORKER #2 [facility], [address] [place] [address] Nurse Practitioner Cardiology 07/09/24 10/21/24 documented as of this encounter
--- OUTSIDE RECORDS SUMMARY | 2025-04-01 10:37 | XMS_ITS | Encounter Summary ---
Author Organization [facility] Address [address] [place] [address] Phone Care Team Providers Care Tool Distributor Name Role Phone Haydee Rust MD Primary Care Provider + [phone] Timmy Devries MD Unavailable +[phone] Irwin Zee MD Unavailable UnaJeny Houser MD Primary Care Provider + [phone] Husam Gomez DPM Unavailable Unavailable Edgar Ordaz Primary Care Provider + [phone] Malini Aparicio POWER LINEWORKER, SUPERVISOR IN CHARGE Unavailable + [phone] Malini Aparicio POWER LINEWORKER, SUPERVISOR IN CHARGE Unavailable + [phone] Reason for Visit * Reason Comments Medication Refill Encounter Details Date Type Department Care Team (Late st Contact Info) Description 02/21/[address] [facility] - Primary Care - [place] [address] [place] [address] Haydee Rust MD [address] [place] [address] Medication Refill Social History Tobacco [...] RN - 02/21/2022 9:14 AM CST Per [place] PDMP last fill date 12/12/21. PROCESSING MECHANIC documented in this encounter Plan of Treatment Upcoming Encounters Date Type Department Care Team (Late st Contact Info) Description 06/08/2025 10:15 AM DATA PROCESSING MECHANIC Office Visit [facility] - Neurology - [place] [address] [place] [address] Phillip Hall MD [address] [place] [address] 07/06/2025 10:00 AM CDT Office Visit [facility] - Cardiology [facility] #[address] [place] [address] Erin Up APRN, JESSE [address] [place] [address] 07/15/2025 8:20 AM CDT Lab [facility] Primary Care - [place] [address] [place] [address] 07/22/2025 9:30 AM CDT Office Visit [facility] Primary Care - [place] [address] [place] [address] Edgar rOdaz PAC [address] [place] [address] documented as of this encounter Visit Diagnoses Diagnosis Anxiety Anxiety state, unspecified documented in this encounter Additional Health Concerns Infection Onset Date Last Indicated Resolved Time Respiratory Rule Out - RPA 02/16/2023 02/16/2023 1 04/18/2022 2:08 PM CDT Assessment Noted Time PHQ-9 Depression Total Score: 13 020 11:00 AM CDT documented as of this encounter Care Teams Tool Distributor Relationship Specialty Start Date End Date Haydee Rust MD PCP - General Family Medicine 01/27/15 05/07/22 Jeny Jarrett MD [address] [place] [address] PCP - General Family Medicine 05/08/22 06/20/23 Edgar Ordaz, PAC [address] [place] [address] PCP - General Physician Commercial Real Estate Manager 06/21/23 Timmy Devries MD [address] [facility] [address] [place] [address] Obstetrics & Gynecology 08/31/16 Irwin Zee MD [address] [facility] [address] [place] [address] Consulting Physician Cardiovascular Disease - Cardiology 11/08/21 03/18/24 Husam Gomez DPM Podiatry 12/07/21 Malini Aparicio, POWER LINEWORKER, SUPERVISOR IN CHARGE #2 [facility], [address] [place] [address] Nurse Practitioner Advanced Practice Nurse 10/19/23 Malini Aparicio APRN, SUPERVISOR IN CHARGE #2 [facility], [address] [place] [address] Nurse Practitioner Cardiology 07/09/24 10/21/24 documented as of this encounter
--- OUTSIDE RECORDS SUMMARY | 2025-04-01 10:37 | XMS_ITS | Encounter Summary ---
Author Organization [facility] Address [address] [place] [address] Phone Care Team Providers Care Data Communications Technician Name Role Phone Timmy Devries MD Unavailable [phone] Irwin Zee MD Unavailable Husam Marx DPM Unavailable Unavailable Edgar Ordaz PAC Primary Care Provider [phone] Malini Aparicio PEWTER FINISHER, SENIOR CONTROLS ANALYST Unavailable + [phone] Malini Aparicio APRN, SENIOR CONTROLS ANALYST Unavailable + [phone] Reason for Visit * Reason Comments Medication Refill Encounter Details Date Type Department Care Team (Late st Contact Info) Description 09/11/2023 Refill [facility] - Primary Care - [place] [address] [place] [address] Jeny Jarrett MD [address] [place] [address] Medication Refill Social History Tobacco Use Types Packs/Day Years Used Date Smoking Tobacco: Never Smokeless Tobacco: Never Alcohol Use Standard Drinks/Week Comments Not Currently 0 (1 standard drink = 0.6 oz pur e alcohol) [facility] Utilities Answer Date Recorded In the past 12 months has [employer], oil, or [employer] threatened to shut off services in your home? No 06/19/2023 Social Connection and Isolation Panel Answer Date Recorded In a typical week, how many times do you talk on the phone with family, friends, or neighbors? Once a week 06/19/2023 How often do you get togethe r with friends or relatives? Once a week 06/19/2023 How often do you attend chur ch or protestant services? More than 4 times per year 06/19/2023 Do you belong to any clubs o r organizations such as restorationism groups, unions, fraternal or athletic groups, or [...] Total Score - Questions 1-9 13 09/15 [facility] of Occupat ional Health - [...] a long term (including now)? No 06/19/2023 Education Answer Date [...] Dept 06/21/23 Office Visit Edgar Ordaz, KYLE [facility] 02/16/23 Office Visit Edgar Ordaz, KYLE [facility] 12/21/22 Office Visit Jeny Jarrett MD [facility] Showing recent visits within past [...] st Contact Info) Description 06/08/2025 10:15 AM AWNING FINISHER Office Visit [facility] - Neurology - [place] [address] [place] [address] Phillip Hall MD [address] [place] [address] 07/06/2025 10:00 AM CDT Office Visit [facility] - Cardiology - [place] [address] [place] [address] Erin Up APRN, SENIOR CONTROLS ANALYST #[address] [place] [address] 07/15/2025 8:20 AM CDT Lab [facility] Primary Care - [place] [address] [place] [address] 07/22/2025 9:30 AM CDT Office Visit [facility] Primary Care - [place] [address] [place] [address] Edgar Ordaz PAC [address] [place] [address] documented as of this encounter Visit Diagnoses Diagnosis Hypothyroidism, unspecified type documented in this encounter Additional Health Concerns Assessment Noted Time PHQ-9 Depression Total Score: 13 020 11:00 AM CDT documented as of this encounter Care Teams Data Communications Technician Relationship Specialty Start Date End Date Edgar Ordaz PAC [address] [place] [address] PCP - General Physician Rn Intake 06/21/23 Timmy Devries MD [address] [facility] [address] [place] [address] Obstetrics & Gynecology 08/31/16 Irwin Zee MD [address] [facility] [address] [place] [address] Consulting Physician Cardiovascular Disease - Cardiology 11/08/21 03/18/24 Husam Gomez DPM Podiatry 12/07/21 Malini Aparicio APRN, SENIOR CONTROLS ANALYST [address], [address] [place] [address] Nurse Practitioner Advanced Practice Nurse 10/19/23 Malini Aparicio APRN, SENIOR CONTROLS ANALYST [address] [facility] [address], [address] [place] [address] Nurse Practitioner Cardiology 07/09/24 10/21/24 documented as of this encounter
--- OUTSIDE RECORDS SUMMARY | 2025-04-01 10:37 | XMS_ITS | Encounter Summary ---
Author Organization [facility] Address [address] [place] [address] Phone Care Team Providers Care Information Systems Security Developer Name Role Phone Haydee Rust MD Primary Care Provider + [phone] Timmy Devries MD Unavailable [phone] Irwin Zee MD Unavailable UnaJeny Houser MD Primary Care Provider + [phone] Husam Gomez DPM Unavailable Unavailable Edgar Ordaz Primary Care Provider + [phone] Malini Aparicio INVENTORY CONTROL ASSOCIATE, SOLUTIONS SALES EXECUTIVE Unavailable + [phone] Malini Aparicio INVENTORY CONTROL ASSOCIATE, SOLUTIONS SALES EXECUTIVE Unavailable + [phone] Reason for Visit * Reason Comments Medication Refill Encounter Details Date Type Department Care Team (Late st Contact Info) Description 08/23/2021 Refill [facility] - Primary Care - [place] [address] [place] [address] Haydee Rust MD [address] [place] [address] Medication Refill Social History Tobacco [...] Dept 08/08/21 Office Visit Haydee Rust MD [facility] 06/08/21 Office Visit Maria Victoria [place] APRN, CNP [facility] 04/11/21 Office Visit Maria Victoria [place] APRN, CNP [facility] 03/30/21 Office Visit Maria Victoria [place] APRN, [facility]NP [facility] 11/11/20 Office Visit Haydee Rust MD [facility] Showing recent visits within past 365 days and meeting all other requirements Future Appointments Date Type Provider Dept 11/01/21 Appointment [place] [facility] 11/08/21 Appointment Haydee Rust MD [facility] Showing future appointments within next 90 days and meeting all other requirements documented in this encounter Plan of Treatment Upcoming Encounters Date Type Department Care Team (Late st Contact Info) Description 06/08/2025 10:15 AM DIRECTOR PRINT Office Visit [facility] - Neurology - [place] [address] [place] [address] hPillip Hall MD #2 [facility] [place] [place] [address] 07/06/2025 10:00 AM CDT Office Visit [facility] - Cardiology - [place] [address]2 [place] [address] Erin Up APRN, SOLUTIONS SALES EXECUTIVE #2 [place] [address] 07/15/2025 8:20 AM CDT Lab [facility] Primary Care - [place] [address] [place] [address] 07/22/2025 9:30 AM CDT Office Visit [facility] Primary Care - [place] [address] [place] [address] Edgar Ordaz PAC [address] [place] [address] documented as of this encounter Visit Diagnoses Diagnosis Anxiety Anxiety state, unspecified documented in this encounter Additional Health Concerns Infection Onset Date Last Indicated Resolved Time Respiratory Rule Out - RPA 02/16/2023 02/16/2023 1 04/18/2022 2:08 PM CDT Assessment Noted Time PHQ-9 Depression Total Score: 13 020 11:00 AM CDT documented as of this encounter Care Teams Information Systems Security Developer Relationship Specialty Start Date End Date Haydee Rust MD PCP - General Family Medicine 01/27/15 05/07/22 Jeny Jarrett MD [address] [place] [address] PCP - General Family Medicine 05/08/22 06/20/23 Edgar Ordaz, PAC [address] [place] [address] PCP - General Physician Patternmaker Plastics 06/21/23 Timmy Devries MD [address] [facility] [address] [place] [address] Obstetrics & Gynecology 08/31/16 Irwin Zee MD [address] [facility] [address] [place] [address] Consulting Physician Cardiovascular Disease - Cardiology 11/08/21 03/18/24 Husam Gomez DPM Podiatry 12/07/21 Malini Aparicio APRN, SOLUTIONS SALES EXECUTIVE #[address] [facility], [address] [place] [address] Nurse Practitioner Advanced Practice Nurse 10/19/23 Malini Aparicio APRN, SOLUTIONS SALES EXECUTIVE #[address] [facility], [address] [place] [address] Nurse Practitioner Cardiology 07/09/24 10/21/24 documented as of this encounter
--- OUTSIDE RECORDS SUMMARY | 2025-04-01 10:37 | XMS_ITS | Encounter Summary ---
Author Organization [facility] Address [address] [place] [address] Phone Care Team Providers Care Shipbuilding Draftsperson Name Role Phone Timmy Devries MD Unavailable [phone] Irwin Zee MD Unavailable Husam Marx DPM Unavailable Unavailable Edgar Ordaz Primary Care Provider [phone] Malini Aparicio MIXING MACHINE ATTENDANT, CHINCHILLA MACHINE OPERATOR Unavailable + [phone] Malini Aparicio APRN, CHINCHILLA MACHINE OPERATOR Unavailable + [phone] Reason for Visit * Reason Comments Medication Refill Encounter Details Date Type Department Care Team (Late st Contact Info) Description 08/27/2023 Refill [facility] - Primary Care - [place] [address] [place] [address] Edgar Ordaz PAC [address] [place] [address] Medication Refill Social History Tobacco Use Types Packs/Day Years Used Date Smoking Tobacco: Never Smokeless Tobacco: Never Alcohol Use Standard Drinks/Week Comments Not Currently 0 (1 standard drink = 0.6 oz pur e alcohol) [facility] Utilities Answer Date Recorded In the past 12 months has [employer], gas, oil, or water company threatened to [...] often do you attend chur ch or jainism services? More than 4 times per year 06/19/2023 Do you belong to any clubs o r organizations such as adventist groups, unions, fraternal or athletic groups, or [...] Total Score - Questions 1-9 13 09/15 [facility] of Occupat ional Health - Occupational [...] Dept 06/21/23 Office Visit Edgar Ordaz PAC [facility] 02/16/23 Office Visit Edgar Ordaz PAC [address] [address] [facility] 12/21/22 Office Visit Jeny Jarrett MD [facility] Showing recent visits within past 365 days and meeting all other requirements Future Appointments No visits were found meeting these conditions. Showing future appointments within next 90 days and meeting all other requirements documented in this encounter Plan of Treatment Upcoming Encounters Date Type Department Care Team (Late st Contact Info) Description 06/08/2025 10:15 AM TOOLROOM HELPER Office Visit [facility] Neurology - [place] [address] [place] [address] Phillip Hall MD #2 [facility] [place] [address] 07/06/2025 10:00 AM CDT Office Visit [facility] - Cardiology - [place] #2 [facility] [place] [address] Erin Up APRN, CHINCHILLA MACHINE OPERATOR #2 [facility] [place] [address] 07/15/2025 8:20 AM CDT Lab [facility] Primary Care - [place] [address] [place] [address] 07/22/2025 9:30 AM CDT Office Visit [facility] Primary [facility] - [place] [address] [place] [address] Edgar Ordaz PAC [address] [place] [address] documented as of this encounter Visit Diagnoses Diagnosis Rheumatoid arthritis involving multiple sites, unspecified whether rheumatoid factor present documented in this encounter Additional Health Concerns Assessment Noted Time PHQ-9 Depression Total Score: 13 020 11:00 AM CDT documented as of this encounter Care Teams Shipbuilding Draftsperson Relationship Specialty Start Date End Date Edgar Ordaz, PAC [address] [place] [address] PCP - General Physician Tank Pumper Panelboard 06/21/23 Timmy Devries MD [address] [facility] [address] [place] [address] Obstetrics & Gynecology 08/31/16 Irwin Zee MD [address] [facility] [address] [place] [address] Consulting Physician Cardiovascular Disease - Cardiology 11/08/21 03/18/24 Husam Gomez DPM Podiatry 12/07/21 Malini Aparicio APRN, CHINCHILLA MACHINE OPERATOR #[address] [facility], [address] [place] [address] Nurse Practitioner Advanced Practice Nurse 10/19/23 Malini Aparicio APRN, CHINCHILLA MACHINE OPERATOR #2 [facility], [address] [place] [address] Nurse Practitioner Cardiology 07/09/24 10/21/24 documented as of this encounter
--- OUTSIDE RECORDS SUMMARY | 2025-04-01 10:37 | XMS_ITS | Encounter Summary ---
Author Organization [facility] Address [address] [place] [address] Phone Care Team Providers Care Program Support Clerk Name Role Phone Haydee Rust MD Primary Care Provider + [phone] Timmy Devries MD Unavailable [phone] Irwin Zee MD Unavailable UnaJeny Houser MD Primary Care Provider + [phone] Husam Gomez DPM Unavailable Unavailable Edgar Ordaz Primary Care Provider + [phone] Malini Aparicio DANCE MASTER, FACS TEACHER Unavailable + [phone] Malini Aparicio DANCE MASTER, FACS TEACHER Unavailable + [phone] Reason for Visit * Reason Comments Medication Refill Encounter Details Date Type Department Care Team (Late st Contact Info) Description 09/28/2021 Refill [facility] - Primary Care - [place] [address] [place] [address] Haydee Rust MD [address] [place] [address] Medication Refill Social History Tobacco [...] Dept 08/08/21 Office Visit Haydee Rust MD [address] 06/08/21 Office Visit Maria Victoria Horton APRN, CNP [address] 04/11/21 Office Visit Maria Victoria Horton APRN, JESSE [facility] 03/30/21 Office Visit Maria Victoria Horton APRN, CNP [address] 11/11/20 Office Visit Haydee Rust MD [facility] [employer] Showing recent visits within past 365 days and meeting all other requirements Future Appointments Date Type Provider Dept 11/01/21 Appointment Lab, [facility] 11/08/21 Appointment Haydee Rust MD [facility] [employer] [facility] Showing future appointments within next 90 days and meeting all other requirements documented in this encounter Plan of Treatment Upcoming Encounters Date Type Department Care Team (Late st Contact Info) Description 06/08/2025 10:15 AM TEACHER NURSERY SCHOOL Office Visit [facility] - Neurology - [place] [address] [place] [address] Phillip Hall MD [address] [facility] [place] [address] 07/06/2025 10:00 AM CDT Office Visit [facility] - Cardiology - [place] #2 [facility] [place] [address] Erin Up APRN, FACS TEACHER #[address] [place] [address] 07/15/2025 8:20 AM CDT Lab [facility] Primary Care - [place] [address] [place] [address] 07/22/2025 9:30 AM CDT Office Visit [facility] Primary [facility] - [place] [address] [place] [address] Edgar Ordaz PAC [address] [place] [address] documented as of this encounter Visit Diagnoses Diagnosis Anxiety Anxiety state, unspecified documented in this encounter Additional Health Concerns Infection Onset Date Last Indicated Resolved Time Respiratory Rule Out - RPA 02/16/2023 02/16/2023 1 04/18/2022 2:08 PM CDT Assessment Noted Time PHQ-9 Depression Total Score: 13 020 11:00 AM CDT documented as of this encounter Care Teams Program Support Clerk Relationship Specialty Start Date End Date Haydee Rust MD PCP - General Family Medicine 01/27/15 05/07/22 Jeny Jarrett MD [address] [place] [address] PCP - General Family Medicine 05/08/22 06/20/23 Edgar Ordaz PAC [address] [place] [address] PCP - General Physician Waterworks Pump Station Operator 06/21/23 Timmy Devries MD [address] [facility] [address] [place] [address] Obstetrics & Gynecology 08/31/16 Irwin Zee MD [address] [facility] [address] [place] [address] Consulting Physician Cardiovascular Disease - Cardiology 11/08/21 03/18/24 Husam Gomez DPM Podiatry 12/07/21 Malini Aparicio APRN, FACS TEACHER #[address] [facility], [address] [place] [address] Nurse Practitioner Advanced Practice Nurse 10/19/23 Malini Aparicio APRN, FACS TEACHER #2 [facility], [address] [place] [address] Nurse Practitioner Cardiology 07/09/24 10/21/24 documented as of this encounter
--- OUTSIDE RECORDS SUMMARY | 2025-04-01 10:37 | XMS_ITS | Encounter Summary ---
Author Organization [facility] Address [address] [place] [address] Phone Care Team Providers Care Mounter Flutes And Piccolos Name Role Phone Timmy Devries MD Unavailable [phone] Irwin Zee MD Unavailable Husam Marx DPM Unavailable Unavailable Edgar Ordaz PAC Primary Care Provider [phone] Malini Aparicio MACHINE SPRAYER, PLANS EXAMINER Unavailable + [phone] Malini Aparicio APRN, PLANS EXAMINER Unavailable + [phone] Reason for Visit * Reason Comments Medication Refill Encounter Details Date Type Department Care Team (Late st Contact Info) Description 08/27/2023 Refill [facility] - Primary Care - [place] [address] [place] [address] Jeny Jarrett MD [address] [place] [address] Medication Refill Social History Tobacco Use Types Packs/Day Years Used Date Smoking Tobacco: Never Smokeless Tobacco: Never Alcohol Use Standard Drinks/Week Comments Not Currently 0 (1 standard drink = 0.6 oz pur e alcohol) [facility] Utilities Answer Date Recorded In the past 12 months has [employer], oil, or [employer] threatened to shut off services in your home? No 06/19/2023 Social Connection and Isolation Panel Answer Date Recorded In a typical week, how many times do you talk on the phone with family, friends, or neighbors? Once a week 06/19/2023 How often do you get togethe r with friends or relatives? Once a week 06/19/2023 How often do you attend chur ch or quaker services? More than 4 times per year 06/19/2023 Do you belong to any clubs o r organizations such as uatsdin groups, unions, fraternal or athletic groups, or [...] place to sleep or slept in a fdc (including now)? No 06/19/2023 Education Answer Date [...] st Contact Info) Description 06/08/2025 10:15 AM RELAY REPAIRER Office Visit [facility] - Neurology - [place] [address] [place] [address] Phillip Hall MD [address]2 [place] [address] 07/06/2025 10:00 AM CDT Office Visit [facility] - Cardiology - [place] [address] [place] [address] Erin Up APRN, PLANS EXAMINER [address] [place] [address] 07/15/2025 8:20 AM CDT Lab [facility] - Primary Care - [place] [address] [place] [address] 07/22/2025 9:30 AM CDT Office Visit [facility] - Primary Care - [place] [address] [place] [address] Edgar Ordaz PAC [address] [place] [address] documented as of this encounter Visit Diagnoses Diagnosis Hyperlipidemia, unspecified hyperlipidemia type documented in this encounter Additional Health Concerns Assessment Noted Time PHQ-9 Depression Total Score: 13 020 11:00 AM CDT documented as of this encounter Care Teams Mounter Flutes And Piccolos Relationship Specialty Start Date End Date Edgar Ordaz PAC [address] [place] [address] PCP - General Physician Gynecology Teacher 06/21/23 Timmy Devries MD [address] [facility] [address] [place] [address] Obstetrics & Gynecology 08/31/16 Irwin Zee MD [address] [facility] [address] [place] [address] Consulting Physician Cardiovascular Disease - Cardiology 11/08/21 03/18/24 Husam Gomez DPM Podiatry 12/07/21 Malini Aparicio APRN, PLANS EXAMINER [address]2 [facility], [address] [place] [address] Nurse Practitioner Advanced Practice Nurse 10/19/23 Mlaini Aparicio APRN, PLANS EXAMINER [address]2 [facility], [address] [place] [address] Nurse Practitioner Cardiology 07/09/24 10/21/24 documented as of this encounter
--- OUTSIDE RECORDS SUMMARY | 2025-04-01 10:37 | XMS_ITS | Encounter Summary ---
Author Organization [facility] Address [address] [place] [address] Phone Care Team Providers Care Experimental Welder Name Role Phone Haydee Rust MD Primary Care Provider + [phone] Timmy Devries MD Unavailable [phone] Irwin Zee MD Unavailable UnaJeny Houser MD Primary Care Provider + [phone] Husam Gomez DPM Unavailable Unavailable Edgar Ordaz Primary Care Provider + [phone] Malini Aparicio ELECTRONICS LEAD, IMMIGRATION ASSOCIATE Unavailable + [phone] Malini Aparicio ELECTRONICS LEAD, IMMIGRATION ASSOCIATE Unavailable + [phone] Reason for Visit * Reason Comments Medication Refill Encounter Details Date Type Department Care Team (Late st Contact Info) Description 12/08/2021 Refill [facility] - Primary Care - [place] [address] [place] [address] Haydee Rust MD [address] [place] [address] Medication Refill Social History Tobacco [...] Dept 11/01/21 Office Visit [facility] [address] 08/08/21 Office Visit Haydee [facility] MD [facility] [address] 06/08/21 Office Visit Maria Victoria Horton APRN, CNP [facility] [address] 04/11/21 Office Visit Maria Victoria Horton APRN, CNP [facility] [address] 03/30/21 Office Visit Maria Victoria Horton APRN, CNP [facility] [address] Showing recent visits within past 365 days and meeting all other requirements Future Appointments No visits were found meeting these conditions. Showing future appointments within next 90 days and meeting all other requirements documented in this encounter Plan of Treatment Upcoming Encounters Date Type Department Care Team (Late st Contact Info) Description 06/08/2025 10:15 AM SILVER MINER BLASTING [facility] [place] [address]2 [place] [address] Phillip Hall MD [address]2 [place] [address] 07/06/2025 10:00 AM CDT [facility] - Cardiology - [place] [address]2 [place] [address] Erin Up APRN, IMMIGRATION ASSOCIATE [address]2 [place] [address] 07/15/2025 8:20 AM CDT Lab [facility] Primary Care - [place] [address] [place] [address] 07/22/2025 9:30 AM CDT Office Visit [facility] Primary Care - [place] [address] [place] [address] Edgar Ordaz PAC [address] [place] [address] documented as of this encounter Visit Diagnoses Diagnosis Anxiety Anxiety state, unspecified documented in this encounter Additional Health Concerns Infection Onset Date Last Indicated Resolved Time Respiratory Rule Out - RPA 02/16/2023 02/16/2023 1 04/18/2022 2:08 PM CDT Assessment Noted Time PHQ-9 Depression Total Score: 13 020 11:00 AM CDT documented as of this encounter Care Teams Experimental Welder Relationship Specialty Start Date End Date Haydee Rust MD PCP - General Family Medicine 01/27/15 05/07/22 Jeny Jarrett MD [address] [place] [address] PCP - General Family Medicine 05/08/22 06/20/23 Edgar Ordaz, PAC [address] [place] [address] PCP - General Physician Loader Demolder 06/21/23 Timmy Devries MD [address] [facility] [address] [place] [address] Obstetrics & Gynecology 08/31/16 Irwin Zee MD [address] [facility] [address] [place] [address] Consulting Physician Cardiovascular Disease - Cardiology 11/08/21 03/18/24 Husam Gomez DPM Podiatry 12/07/21 Malini Aparicio APRN, IMMIGRATION ASSOCIATE #2 [facility], [address] [place] [address] Nurse Practitioner Advanced Practice Nurse 10/19/23 Malini Aparicio APRN, IMMIGRATION ASSOCIATE #[address] [facility], [address] [place] [address] Nurse Practitioner Cardiology 07/09/24 10/21/24 documented as of this encounter
--- OUTSIDE RECORDS SUMMARY | 2025-04-01 10:37 | XMS_ITS | Encounter Summary ---
Author Organization [facility] Address [address] [place] [address] Phone Care Team Providers Care Steel Erecting Pusher Name Role Phone Haydee Rust MD Primary Care Provider + [phone] Timmy Devries MD Unavailable [phone] Irwin Zee MD Unavailable UnaJeny Houser MD Primary Care Provider + [phone] Husam Gomez DPM Unavailable Unavailable Edgar Ordaz Primary Care Provider + [phone] Malini Aparicio CHRISTMAS BELL RINGER, FURNITURE REPAIR TECHNICIAN Unavailable + [phone] Malini Aparicio CHRISTMAS BELL RINGER, FURNITURE REPAIR TECHNICIAN Unavailable + [phone] Reason for Visit * Reason Comments Medication Refill Encounter Details Date Type Department Care Team (Late st Contact Info) Description 10/26/2021 Refill [facility] - Primary Care - [place] [address] [place] [address] Haydee Rust MD [address] [place] [address] Medication Refill Social History [...] Dept 08/08/21 Office Visit Haydee [facility] MD [facility] 06/08/21 Office Visit Maria Victoria Horton APRN, CNP [facility] 04/11/21 Office Visit Maria Victoria Horton APRN, CNP [facility] 03/30/21 Office Visit Maria Victoria Horton APRN, CNP [facility] 11/11/20 Office Visit Haydee Rust MD [facility] Showing recent visits within past 365 days and meeting all other requirements Future Appointments Date Type Provider Dept 11/01/21 Appointment Ab, [place] [facility] 11/08/21 Appointment Haydee Rust MD [facility] Showing future appointments within next 90 days and meeting all other requirements documented in this encounter Plan of Treatment Upcoming Encounters Date Type Department Care Team (Late st Contact Info) Description 06/08/2025 10:15 AM TUNGSTEN TENDER Office Visit [facility] - Neurology - [place] [address]2 [place] [address] Phillip Hall MD [address] [place] [address] 07/06/2025 10:00 AM CDT Office Visit [facility] - Cardiology - [place] [address] [place] [address] Erin Up APRN, FURNITURE REPAIR TECHNICIAN [address] [place] [address] 07/15/2025 8:20 AM CDT Lab [facility] Primary Care - [place] [address] [place] [address] 07/22/2025 9:30 AM CDT Office Visit [facility] - [place] [address] [place] [address] Edgar Ordaz PAC [address] [place] [address] documented as of this encounter Visit Diagnoses Diagnosis Hypothyroidism, unspecified type documented in this encounter Additional Health Concerns Infection Onset Date Last Indicated Resolved Time Respiratory Rule Out - RPA 02/16/2023 02/16/2023 1 04/18/2022 2:08 PM CDT Assessment Noted Time PHQ-9 Depression Total Score: 13 020 11:00 AM CDT documented as of this encounter Care Teams Steel Erecting Pusher Relationship Specialty Start Date End Date Haydee Rust MD PCP - General Family Medicine 01/27/15 05/07/22 Jeny Jarrett MD [address] [place] [address] PCP - General Family Medicine 05/08/22 06/20/23 Edgar Ordaz, PAC [address] [place] [address] PCP - General Physician Professional System Administrator 06/21/23 Timmy Devries MD [address] [facility] [address] [place] [address] Obstetrics & Gynecology 08/31/16 Irwin Zee MD [address] [facility] [address] [place] [address] Consulting Physician Cardiovascular Disease - Cardiology 11/08/21 03/18/24 Husam Gomez DPAsim Podiatry 12/07/21 Malini Aparicio APRN, FURNITURE REPAIR TECHNICIAN #2 [facility], [address] [place] [address] Nurse Practitioner Advanced Practice Nurse 10/19/23 Malini Aparicio APRN, FURNITURE REPAIR TECHNICIAN #[address] [facility], [address] [place] [address] Nurse Practitioner Cardiology 07/09/24 10/21/24 documented as of this encounter
--- OUTSIDE RECORDS SUMMARY | 2025-04-01 10:37 | XMS_ITS | Clinical Summary ---
Author Organization [facility] Address [address] [place] [address] Care Team Providers Care Measurer Name Role Phone Unavailable Primary Care Provider Unavailabl e Source Comments [facility],non-owned Affiliates and Associated Physician Practices is amultiple site organization consisting of ambulatory clinics and hospital sitesin [place], [place]. This disclosure is being madepursuant to the Care Everywhere program and may not contain all information available regarding this patient. Last updated 18.[facility] Allergies No known active allergies Medications * [...] 01/09/2008 ZOSTER VACCINE (1 of 2) 01/09/2008 DEPRESSION SCREENING 04/16/2024 COVID-19 VACCINE (1 - 2024-2 6 season) 2024 INFLUENZA VACCINE (#1) 2024 Respiratory Syncytial Virus [...] Payer ID:[id number] (NAIC) Type:PPO Address: [address] Member Subscriber Plan / Payer (Ef fective 2012-Present) Name:Francy Hernández Relation to Subscriber:Self Name:Francy Hernández Payer ID:[id number] (NAIC) Type:PPO Address: [address]
--- OUTSIDE RECORDS SUMMARY | 2025-04-01 10:37 | XMS_ITS | Encounter Summary ---
Author Organization [facility] Address [address] [place] [address] Phone Care Team Providers Care Client Relationship Consultant Name Role Phone Timmy Devries MD Unavailable [phone] Irwin Zee MD Unavailable Husam Marx DPM Unavailable Unavailable Edgar Ordaz Primary Care Provider [phone] Malini Aparicio BANQUET COORDINATOR, GLOBAL HEAD ADVERTISER SOLUTIONS Unavailable + [phone] Malini Aparicio APRN, GLOBAL HEAD ADVERTISER SOLUTIONS Unavailable + [phone] Reason for Visit * Reason Comments Medication Refill Encounter Details Date Type Department Care Team (Late st Contact Info) Description 09/18/2023 Refill [facility] - Primary Care - [place] [address] [place] [address] Edgar Ordaz, PAC [address] [place] [address] Medication Refill Social History Tobacco Use Types Packs/Day Years Used Date Smoking Tobacco: Never Smokeless Tobacco: Never Alcohol Use Standard Drinks/Week Comments Not Currently 0 (1 standard drink = 0.6 oz pur e alcohol) [facility] Utilities Answer Date Recorded In the past 12 months has [employer], gas, oil, or water company threatened to [...] any clubs o r organizations such as yazdanism groups, unions, fraternal or athletic groups, or [...] Total Score - Questions 1-9 13 09/15 [facility] - [...] place to sleep or slept in a snf (including now)? No 06/19/2023 Education Answer Date [...] Dept 06/21/23 Office [facility]23 Office Visit Edgar Ordaz PAC [facility] 12/21/22 Office Visit Jeny Jarrett MD [facility] Showing recent visits within past 365 days and meeting all other requirements Future Appointments Date Type Provider Dept 12/14/23 Appointment Lab, [facility] Showing future appointments within next 90 days and meeting all other requirements documented in this encounter Plan of Treatment Upcoming Encounters Date Type Department Care Team (Late st Contact Info) Description 06/08/2025 10:15 AM POSITION CLASSIFICATION SPECIALIST Office Visit [facility] - Neurology - [place] [address] [place] [address] Phillip Hall MD [address]2 [place] [address] 07/06/2025 10:00 AM CDT Office Visit [facility] - Cardiology - [place] #2 [place] [address] Erin Up APRN, GLOBAL HEAD ADVERTISER SOLUTIONS #2 [place] [address] 07/15/2025 8:20 AM CDT Lab [facility] Primary Care - [place] [address] [place] [address] 07/22/2025 9:30 AM CDT Office Visit [facility] Primary [facility] - [place] [address] [place] [address] Edgar Ordaz, PAC [address] [place] [address] documented as of this encounter Visit Diagnoses Diagnosis Rheumatoid arthritis involving multiple sites, unspecified whether rheumatoid factor present documented in this encounter Additional Health Concerns Assessment Noted Time PHQ-9 Depression Total Score: 13 10/05/ 020 11:00 AM CDT documented as of this encounter Care Teams Client Relationship Consultant Relationship Specialty Start Date End Date Edgar Ordaz, PAC [address] [place] [address] PCP - General Physician Photographer Apprentice 06/21/23 Timmy Devries MD [address] [facility] [address] [place] [address] Obstetrics & Gynecology 08/31/16 Irwin Zee MD [address] [facility] [address] [place] [address] Consulting Physician Cardiovascular Disease - Cardiology 11/08/21 03/18/24 Husam Gomez DPM Podiatry 12/07/21 Malini Aparicio APRN, GLOBAL HEAD ADVERTISER SOLUTIONS #2 [facility], [address] [place] [address] Nurse Practitioner Advanced Practice Nurse 10/19/23 Malini Aparicio APRN, GLOBAL HEAD ADVERTISER SOLUTIONS #[address] [facility], [address] [place] [address] Nurse Practitioner Cardiology 07/09/24 10/21/24 documented as of this encounter
--- OUTSIDE RECORDS SUMMARY | 2025-04-01 10:37 | XMS_ITS | Encounter Summary ---
Author Organization [facility] Address [address] [place] [address] Phone Care Team Providers Care Parts Counter Clerk Name Role Phone Haydee Rust MD Primary Care Provider + [phone] Timmy Devries MD Unavailable [phone] Irwin Zee MD Unavailable UnaJeny Houser MD Primary Care Provider + [phone] Husam Gomez DPM Unavailable Unavailable Edgar Ordaz Primary Care Provider + [phone] Malini Aparicio SUPERVISOR UNLOADING, TRANSMISSION MAINTENANCE SUPERVISOR Unavailable + [phone] Malini Aparicio SUPERVISOR UNLOADING, TRANSMISSION MAINTENANCE SUPERVISOR Unavailable + [phone] Reason for Visit * Reason Comments Medication Refill Encounter Details Date Type Department Care Team (Late st Contact Info) Description 01/31/[address] [facility] - Primary Care - [place] [address] [place] [address] Haydee Rust MD [address] [place] [address] Medication Refill Social History Tobacco [...] Dept 11/01/21 Office Visit Haydee Rust MD [facility] [place] [facility] 08/08/21 Office Visit Haydee Rust MD [employer] [facility] [employer] [facility] 06/08/21 Office Visit Maria Victoria Horton APRN, CNP [employer] [facility] [employer] [facility] 04/11/21 Office Visit Maria Victoria Horton APRN, CNP [employer] [facility] [employer] [facility] 03/30/21 Office Visit Maria Victoria Horton APRN, CNP [employer] [facility] [employer] Showing recent visits within past 365 days and meeting all other requirements Future Appointments Date Type Provider Dept 05/01/22 Appointment Lab, [place] [employer] [facility] [place] [facility] Showing future appointments within next 90 days and meeting all other requirements Passed - Normal TSH in past 12 months TSH Date Value Ref Range Status 11/01/2021 2.040 0.270 - 4.200 mIU/L Final documented in this encounter Plan of Treatment Upcoming Encounters Date Type Department Care Team (Late st Contact Info) Description 06/08/2025 10:15 AM STUDIO DATA ANALYST Office Visit [facility] - Neurology - [place] [address] [place] [address] Phillip Hall MD #2 [facility] [place] [address] 07/06/2025 10:00 AM CDT Office Visit [facility] Cardiology [facility] #2 [place] [address] Erin Up APRN, TRANSMISSION MAINTENANCE SUPERVISOR #2 [facility] [address] 07/15/2025 8:20 AM CDT Lab [facility] Primary Care - [place] [address] [place] [address] 07/22/2025 9:30 AM CDT Office Visit [facility] Primary Care - [place] [address] [place] [address] Edgar Ordaz PAC [address] [place] [address] documented as of this encounter Visit Diagnoses Diagnosis Hypothyroidism, unspecified type documented in this encounter Additional Health Concerns Infection Onset Date Last Indicated Resolved Time Respiratory Rule Out - RPA 02/16/2023 02/16/2023 1 04/18/2022 2:08 PM CDT Assessment Noted Time PHQ-9 Depression Total Score: 13 020 11:00 AM CDT documented as of this encounter Care Teams Parts Counter Clerk Relationship Specialty Start Date End Date Haydee Rust MD PCP - General Family Medicine 01/27/15 05/07/22 Jeny Jarrett MD [address] [place], [place] [id number] PCP - General Family Medicine 05/08/22 06/20/23 Edgar Ordaz, PAC [address] [place] [address] PCP - General Physician Marriage And Family Teacher 06/21/23 Timmy Devries MD [address] [facility] [address] [place] [address] Obstetrics & Gynecology 08/31/16 Irwin Zee MD [address] [facility] [address] [place] [address] Consulting Physician Cardiovascular Disease - Cardiology 11/08/21 03/18/24 Husam Gomez DPM Podiatry 12/07/21 Malini Aparicio APRN, TRANSMISSION MAINTENANCE SUPERVISOR #2 [facility], [address] [place] [address] Nurse Practitioner Advanced Practice Nurse 10/19/23 Malini Aparicio APRN, TRANSMISSION MAINTENANCE SUPERVISOR #[address], [address] [place] [address] Nurse Practitioner Cardiology 07/09/24 10/21/24 documented as of this encounter
--- OUTSIDE RECORDS SUMMARY | 2025-04-01 10:37 | XMS_ITS | Encounter Summary ---
Author Organization [facility] Address [address] [place] [address] Phone Care Team Providers Care Radar Air Traffic Controller Name Role Phone Haydee Rust MD Primary Care Provider + [phone] Timmy Devries MD Unavailable [phone] Irwin Zee MD Unavailable UnaJeny Houser MD Primary Care Provider + [phone] Husam Gomez DPM Unavailable Unavailable Edgar Ordaz Primary Care Provider + [phone] Malini Aparicio BRICK BURNER HEAD, A P MANAGER Unavailable + [phone] Malini Aparicio BRICK BURNER HEAD, A P MANAGER Unavailable + [phone] Reason for Visit * Reason Comments Medication Refill Encounter Details Date Type Department Care Team (Late st Contact Info) Description 11/06/2021 Refill [facility] - Primary Care - [place] [address] [place] [address] Haydee Rust MD [address] [place] [address] Medication Refill Social History Tobacco [...] Dept 11/01/21 Office Visit Haydee Rust MD [facility] [address] 08/08/21 Office Visit Haydee Rust MD [facility] [address] 06/08/21 Office Visit Maria Victoria Horton APRN, CNP [facility] [address] 04/11/21 Office Visit Maria Victoria Horton APRN, CNP [facility] [address] 03/30/21 Office Visit Maria Victoria Horton APRN, CNP [facility] [address] 11/11/20 Office Visit Haydee Rust MD [facility] [employer] [facility] Showing recent visits within past 365 days and meeting all other requirements Future Appointments No visits were found meeting these conditions. Showing future appointments within next 90 days and meeting all other requirements documented in this encounter Plan of Treatment Upcoming Encounters Date Type Department Care Team (Late st Contact Info) Description 06/08/2025 10:15 AM VACUUM DRIER OPERATOR Office Visit [facility] - Neurology - [place] [address] [place] [address] Phillip Hall MD [address] [place] [address] 07/06/2025 10:00 AM CDT Office Visit [facility] Cardiology - [place] [facility] [id number] Erin Up APRN, A P MANAGER [address] [place] [phone] 07/15/2025 8:20 AM CDT Lab [facility] Primary Care - [place] [address] [place] [address] 07/22/2025 9:30 AM CDT Office Visit [facility] Primary Care - [place] [address] [place] [address] Edgar Ordaz, KYLE [address] [place] [address] documented as of this encounter Visit Diagnoses Diagnosis Anxiety Anxiety state, unspecified documented in this encounter Additional Health Concerns Infection Onset Date Last Indicated Resolved Time Respiratory Rule Out - RPA 02/16/2023 02/16/2023 1 04/18/2022 2:08 PM CDT Assessment Noted Time PHQ-9 Depression Total Score: 13 020 11:00 AM CDT documented as of this encounter Care Teams Radar Air Traffic Controller Relationship Specialty Start Date End Date Haydee Rust MD PCP - General Family Medicine 01/27/15 05/07/22 Jeny Jarrett MD [address] [place] [address] PCP - General Family Medicine 05/08/22 06/20/23 Edgar Ordaz, PAC [address] [place] [address] PCP - General Physician Camp Manager 06/21/23 Timmy Devries MD [address] [facility] [address] [place] [address] Obstetrics & Gynecology 08/31/16 Irwin Zee MD [address] [facility] [address] [place] [address] Consulting Physician Cardiovascular Disease - Cardiology 11/08/21 03/18/24 Husam Gomez DPM Podiatry 12/07/21 Malini Aparicio APRN, A P MANAGER [address] [facility], [address] [place] [address] Nurse Practitioner Advanced Practice Nurse 10/19/23 Malini Aparicio APRN, A P MANAGER [address] [facility], [address] [place] [address] Nurse Practitioner Cardiology 07/09/24 10/21/24 documented as of this encounter
[2025-04-01 19:27] LABS: Hematocrit 40.1 % (37.0-47.0); Hemoglobin 12.9 g/dL (12.0-15.0); Immature Granulocyte Percent A 0.4 % (0-0.5); Lymphocytes Absolute Auto 0.48 K/mm3 (0.9-3.2); Mean Corpuscular HGB Conc 32.2 g/dl (32-36); Mean Corpuscular Hemoglobin 30.2 pg (26-34); Mean Corpuscular Volume 93.9 fl (80-100); Nucleated Red Blood Cells Absolute Auto 0.000 K/mm3 (0.0-0.012); Nucleated Red Blood Cells Perc 0.0 % (0.0-0.2); Platelet Count Result 216 k/mm3 (150-375); Red Blood Count 4.27 M/mm3 (4.2-5.4); White Blood Count 5.4 K/mm3 (4.5-10.0)
[2025-04-01 19:39] LABS: Alanine Aminotransferase 20 U/L (6-35); Albumin Level 4.5 g/dL (3.5-5.1); Alkaline Phosphatase 68 U/L (38-126); Anion Gap 4 mmol/L (4-12); Aspartate Amino Transferase 61 U/L (14-36); Bilirubin,Total 0.7 mg/dL (0.2-1.3); Blood Urea Nitrogen 15 mg/dL (7-17); CRP < 0.5 mg/dL (<1.0); Calcium 9.3 mg/dL (8.4-10.2); Carbon Dioxide 30 mmol/L (22-30); Chloride 102 mmol/L (98-107); Estimated Glomerular Filt Rate 53; Glucose 79 mg/dL (65-110); Potassium 5.2 mmol/L (3.4-5.0); Sodium 136 mmol/L (137-145); Total Protein 7.2 g/dL (6.3-8.2)
[2025-04-01 19:49] LABS: Add Urine Microscopic? YES; Appearance Urine Clear (Clear); Glucose Urine UA Negative (Negative); Leukocyte Esterase Ur 1+ LEU/UL (Negative); Need Manual Microscopic Reviewed; Nitrate Urine Negative (Negative); Non Pathogenic Casts 0-2; Specific Grav Ur 1.011 (1.001-1.035)
== END 2025-04-01 09:24 | disposition home or self-care (01) ==
PROVIDERS: PCP Physician Assistant; Visit Provider Internal Medicine
DX: M06.09 Rheumatoid arthritis without rheumatoid factor, multiple sites (principal)
CPT/HCPCS: 36415; 80053; 80069; 81001; 85025; 85652; 86140